=== PATIENT | female | born 1980 | race Two or more races ===

== ENCOUNTER 2024-03-05 17:13 | Inpatient (IN) | payer BC, OTHER ==
[~2024-03-05] VITALS: Ht 152.4 cm; Wt 66.5 kg
--- NOTE | 2024-03-05 17:25 | ED.PDOC ---
SOB-HPI HPI Comments HPI: Poor Historian. 43-year-old female presents to the emergency department for evaluation of shortness of breath since . She went to urgent care on they prescribed her prednisone azithromycin and inhaler which she has been using all three without significant improvement. Patient returns to the emergency depa rtment for further evaluation. Patient had a fever of 100.2 this morning. Patient stated that on they did a chest x-ray and told he have some right-sided pneumonia. Upon further evaluation patient was noted to have some distention her abdomen. She says she has been noticing this for awhile now. Denies any history of cancer or bleeding from anywhere. Denies any abdominal pain. Patient states having some mild productive cough clear phlegm. Vitals: BP: 179/117 HR: 137 Temp: 97 F RR: 24 SPO2: 97% RA Past Medcial History: Thyroid disease Past Surgical History: No tobacco no alcohol no drugs REVIEW OF SYSTEMS: CONSTITUTIONAL: Denies acute: fever, diaphoresis, chills, HEAD: Denies acute: headache, photophobia Eyes: Denies acute: Double vision, vision loss, eye pain, eye discharge. EARS: Denies acute: tinnitus, hearing loss, ear discharge, ear pain, THROAT: Denies acute: sore throat, swelling, difficulty swallowing , pain with swallowing, change in voice. NECK: Denies acute: neck pain, neck swelling, stiff neck. HEART: Denies acute : chest pain, palpitations, LUNGS: Denies acute: wheezing, hemoptysis ABDOMEN: Denies acute: abdominal pain, Nausea, Vomiting, diarrhea, melena , hematemesis, hematochezia SKIN: Denies acute: rash, redness, lesions, itchiness. EXTREMITIES: Denies acute: calf pain, numbness, tingling, weakness, denies pain in extremity. Denies acute: Low back pain. Neuro: Denies acute: focal neurological deficit, motor or sensory focal neurological deficit, tremors, seizure like activity, confusion, dizziness, change in mental status, loss of bowel or bladder function, cauda equina like symptoms. : Denies acute: dysuria, hematuria, flank pain, increase in urinary frequency. PSYCH: Denies acute: hallucination, suicidal ideation, homicidal ideation. FEMALE: Denies acute: abnormal vaginal bleeding, foul odor, unusual discharge. PHYSICAL EXAM: General: no acute distress, awake and alert. Head: normocephalic, atraumatic. Neck: supple, trachea is midline, no swelling. Throat: Normal phonation. Eyes:, no erythema, no purulent discharge, no proptosis, no icterus. Heart: regular rate, regular rhythm, no significant murmur appreciated. Lungs: Moderate apparent respiratory distress, Able to speak in full sentences. No wheezing, no rhonchi, no crackles. No stridors Clear to auscultation bilaterally. Abdomen: non tender to palpation, noted distention, soft, no guarding, no rebound, + bowel sounds. Neuro: Awake, Alert, oriented to name, self, situation, follows commands GCS=15. Speech is normal. Skin: no petechia, no purpura, no cyanosis, non-pale, not jaundice. Lower extremities: --2/4 - Pitting edema no deformity, no focal swelling, no calf TTP. Makes eye contact. moves all four extremities. Face: no apparent facial droop. Ambulating in the ED independently. 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 Was a procedure done?: No Differential Dx Differential Diagnosis: Bronchitis, COPD, Pneumonia, Pneumothorax, Pulmonary Embolism, Respiratory Distress, URI X-Ray, Labs, Meds, VS Vital Signs Date Time Temp Pulse Resp B/P (MAP) Pulse Ox O2 Delivery O2 Flow Rate FiO2 03/05/24 19:32 115 16 161/95 (117) 97 03/05/24 18:55 130 16 97 Nasal Cannula* 2 28 03/05/24 18:48 156/115 03/05/24 17:36 164/113 (130) 03/05/24 17:35 97.0 137 24 179/117 (137) 97 97.0 03/05/24 17:34 153 03/05/24 17:28 97.0 137 24 179/117 (137) 97 Lab Test 03/05/24 18:36 Range/Units White Blood Count 5.3 4.4-10.8 10^3/uL Red Blood Count 6.21 H 4.0-5.20 10^6/uL Hemoglobin 16.3 H 12.2-16.2 g/dL Hematocrit 50.4 H 36.0-46.0 % Mean Corpuscular Volume 81.2 80.0-100.0 fL Mean Corpuscular Hemoglobin 26.3 L 28.0-32.0 pg Mean Corpuscular Hemoglobin Concent 32.4 32.0-36.0 g/dL Red Cell Distribution Width 18.5 H 11.8-14.3 % Platelet Count 150 140-450 10^3/uL Mean Platelet Volume 9.2 6.9-10.8 fL Neutrophils (%) (Auto) 82.8 H 37.0-80.0 % Lymphocytes (%) (Auto) 12.9 10.0-50.0 % Monocytes (%) (Auto) 4.0 0.0-12.0 % Eosinophils (%) (Auto) 0.0 0.0-7.0 % Basophils (%) (Auto) 0.3 0.0-2.0 % Neutrophils # (Auto) 4.4 1.6-8.6 10 ^3/uL Lymphocytes # (Auto) 0.7 0.4-5.4 10 ^3/uL Monocytes # (Auto) 0.2 0-1.3 10 ^3/uL Eosinophils # (Auto) 0 0-0.8 10 ^3/uL Basophils # (Auto) 0 0-0.2 10 ^3/uL Nucleated Red Blood Cells 0.2 % Sodium Level 139 136-145 mmol/L Potassium Level 3.1 L 3.5-5.1 mmol/L Chloride Level 107 98-107 mmol/L Carbon Dioxide Level 19 L 20-31 mmol/L Anion Gap 13 5-15 Blood Urea Nitrogen 11 9-23 mg/dL Creatinine 0.70 0.550-1.02 mg/dL Glomerular Filtration Rate Calc 110 >90 mL/min BUN/Creatinine Ratio 15.7 10.0-20.0 Serum Glucose 204 H 74-106 mg/dL Lactic Acid Level 2.9 *H 0.4-2.0 mmol/L Calcium Level 9.3 8.7-10.4 mg/dL Magnesium Level Pending Total Bilirubin 2.3 H 0.2-1.0 mg/dL Aspartate Amino Transferase (AST) 35 13-40 U/L Alanine Aminotransferase (ALT) 20 7-40 U/L Alkaline Phosphatase 110 46-116 U/L Troponin I High Sensitivity 219 *H </=34 ng/L B-Type Natriuretic Peptide 610.28 0-100 pg/mL Total Protein 8.2 5.7-8.2 g/dL Albumin 3.7 3.2-4.8 g/dL Beta HCG, Quantitative 2.7 1.5-4.2 mIU/mL Current Medications Medications (Trade) Dose Ordered Sig/Kalli Route Start Time Stop Time Status Last Admin Ceftriaxone Sodium 50 ml @ 100 mls/hr ONCE ONCE IV 03/05/24 17:30 03/05/24 17:59 DC 03/05/24 18:48 Furosemide (Lasix Injection) 40 mg ONCE ONCE IV 03/05/24 17:30 03/05/24 17:55 DC 03/05/24 18:48 [place] [id number] Ph: [phone] DIAGNOSTIC IMAGING Diagnostic Imaging Report : [id number] Signed PATIENT: LAURE GRAYSON ACCT: [id number] UNIT: [id number] : 1980 LOC: ER ROOM / BED: / AGE / SEX: 43 / F ADM STATUS: REG ER SERVICE 1721 ORDERING PHYSICIAN: MADIHA MAYO DO PROCEDURE(s): CXRP - CHEST PORTABLE REASON: sob ORDER NUMBER(s): [id number], ACCESSION NUMBER(s): [id number] CHEST RADIOGRAPH Indication: sob Technique: Single frontal view of the chest was obtained COMPARISON: None FINDINGS: Lines and Tubes: None Lungs: Right lower lobe airspace disease. Increased interstitial prominence. Pleura: No effusion. No pneumothorax. Cardiomediastinal contours: Cardiomegaly Bones: Unremarkable IMPRESSION: Pulmonary vascular congestion and right lower lobe airspace disease. ATED BY: QUAN WATSON MD DICTATED DATE/TIME: 03/05/241831 SIGNED BY: QUAN WATSON MD SIGNED DATE/TIME: 03/05/241831 CC: [place] [id number] Ph: [phone] DIAGNOSTIC IMAGING Diagnostic Imaging Report : [id number] Signed PATIENT: LAURE GRAYSON ACCT: [id number] UNIT: [id number] : 1980 LOC: ER ROOM / BED: / AGE / SEX: 43 / F ADM STATUS: REG ER SERVICE 20 ORDERING PHYSICIAN: MADIHA MAYO DO PROCEDURE(s): ABPL - CT AB PEL WO CON-NO ORAL OR IV REASON: sob ORDER NUMBER(s): [id number], ACCESSION NUMBER(s): [id number] Exam: CT CT AB PEL WO CON-NO ORAL OR IV History: sob Comparison Study: None available at time of dictation. Technique: Multidetector spiral CT of the abdomen was performed from lung bases to pubic symphysis. Imaging was performed without IV contrast. Axial, coronal and sagittal multiplanar reformats were obtained from the axial data set by the technologist. Radiation Dose : 1. Abdomen/Pelvis: CTDIvol 19 mGy, DLP 1047 mGy*cm. Findings: Evaluation of solid organs is limited due to lack of intravenous contrast use. Lung Bases: Moderate right-sided pleural effusion with adjacent compressive atelectasis. Liver: The liver is normal in size. No focal lesions. Gallbladder and Biliary Tree: Unremarkable Spleen: Unremarkable Pancreas: The pancreas is grossly normal in appearance. Adrenal Glands: Unremarkable Kidneys: Kidneys are grossly normal without calculi or hydronephrosis. Bladder: Grossly unremarkable for degree of distention. Bowel: The stomach is grossly normal in appearance. Small bowel and colon are normal in caliber and distribution. Normal appendix is visualized in the right lower quadrant without findings of appendicitis. Ascites: Txyl-[id number] diffuse ascites. Lymphadenopathy: No mesenteric, retroperitoneal or periportal lymphadenopathy. Abdominal Wall and Mesentery: Mild diffuse anasarca.. Vasculature: The visualized abdominal aorta is normal in size and caliber. E valuation of abdominal and pelvic vessels is limited due to lack of intravenous contrast. Pelvic Organs: Intact IUD. Moderate free fluid in the pelvis. Musculoskeletal: No aggressive focal bony lesions, acute fractures or dislocation. Moderate degenerative changes of the bilateral hip joints. Mild fusion of the bilateral SI joints. IMPRESSION: Limited noncontrast evaluation. Moderate right-sided pleural effusion with adjacent compressive atelectasis. Mild to moderate diffuse ascites , free fluid in the pelvis, and anasarca. Other ancillary findings as described above. END IMPRESSION: ATED BY: JAY JAY GAMEZ DO DICTATED DATE/TIME: 03/05/241901 SIGNED BY: JAY JAY GAMEZ DO SIGNED DATE/TIME: 03/05/241901 CC: Time of 1ST Reevaluation: 19:15 Reevaluation 1ST: Unchanged Patient Education/Counseling: Diagnosis, Treatment Family Education/Counseling: No Family Present Departure 1 Departure Time of Disposition: 18:38 Impression: Primary Impression: Dyspnea Additional Impressions: Pleural effusion Atrial fibrillation with RVR Pneumonia Ascites Pulmonary vascular congestion Elevated troponin Disposition: ADMITTED INPATIENT Admit to: Tele Condition: Guarded Discharged With: Self Critical Care Note Critical Care Time?: No I personally scribed for MADIHA MAYO DO ([email or web address]) on 03/05/24 at 19:18. Electronically submitted by Luly Grimm ([facility]). MADIHA MAYO DO Mar 05, 2024 17:25
--- NOTE | 2024-03-05 17:36 | ECG ---
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
--- NOTE | 2024-03-05 18:36 | DVH ---
CHEST RADIOGRAPH Indication: sob Technique: Single frontal view of the chest was obtained COMPARISON: None FINDINGS: Lines and Tubes: None Lungs: Right lower lobe airspace disease. Increased interstitial prominence. Pleura: No effusion. No pneumothorax. Cardiomediastinal contours: Cardiomegaly Bones: Unremarkable IMPRESSION: Pulmonary vascular congestion and right lower lobe airspace disease.
[2024-03-05] MEDS: cefTRIAXone 1GM/50ML D5W 50 ML IV ONE (18:48)
[2024-03-05] MEDS: FUROSEMIDE 40 MG/4 ML VIAL IV ONE (18:48)
[2024-03-05 18:55] VITALS: PULSE 130; RESP 16; O2SAT 97
[2024-03-05 18:57] LABS: Basophils # (auto) 0 10 ^3/uL (0-0.2); Basophils % (auto) 0.3 % (0.0-2.0); Eosinophils # (auto) 0 10 ^3/uL (0-0.8); Hematocrit 50.4 % (36.0-46.0); Hemoglobin 16.3 g/dL (12.2-16.2); Lymphocytes # (auto) 0.7 10 ^3/uL (0.4-5.4); Lymphocytes % (auto) 12.9 % (10.0-50.0); Mean Corpuscular Hemoglobin 26.3 pg (28.0-32.0); Mean Corpuscular Hgb Conc. 32.4 g/dL (32.0-36.0); Mean Corpuscular Volume 81.2 fL (80.0-100.0); Monocytes # (auto) 0.2 10 ^3/uL (0-1.3); Neutrophils # (auto) 4.4 10 ^3/uL (1.6-8.6); Neutrophils % (auto) 82.8 % (37.0-80.0); Nucleated Red Blood Cells % 0.2 %; Platelet Count (auto) 150 10^3/uL (140-450); Red Blood Cells 6.21 10^6/uL (4.0-5.20); Red Cell Distribution Width 18.5 % (11.8-14.3); White Blood Cell 5.3 10^3/uL (4.4-10.8)
--- NOTE | 2024-03-05 19:04 | DVH ---
Exam: CT CT AB PEL WO CON-NO ORAL OR IV History: sob Comparison Study: None available at time of dictation. Technique: Multidetector spiral CT of the abdomen was performed from lung bases to pubic symphysis. Imaging was performed without IV contrast. Axial, coronal and sagittal multiplanar reformats were ob tained from the axial data set by the technologist. Radiation Dose : 1. Abdomen/Pelvis: CTDIvol 19 mGy, DLP 1047 mGy*cm. Findings: Evaluation of solid organs is limited due to lack of intravenous contrast use. Lung Bases: Moderate right-sided pleural effusion with adjacent compressive atelectasis. Liver: The liver is normal in size. No focal lesions. Gallbladder and Biliary Tree: Unremarkable Spleen: Unremarkable Pancreas: The pancreas is grossly normal in appearance. Adrenal Glands: Unremarkable Kidneys: Kidneys are grossly normal without calculi or hydronephrosis. Bladder: Grossly unremarkable for degree of distention. Bowel: The stomach is grossly normal in appearance. Small bowel and colon are normal in caliber and d istribution. Normal appendix is visualized in the right lower quadrant without findings of appendici tis. Ascites: Iiok-fj-pzatoazz diffuse ascites. Lymphadenopathy: No mesenteric, retroperitoneal or periportal lymphadenopathy. Abdominal Wall and Mesentery: Mild diffuse anasarca.. Vasculature: The visualized abdominal aorta is normal in size and caliber. Evaluation of abdominal a nd pelvic vessels is limited due to lack of intravenous contrast. Pelvic Organs: Intact IUD. Moderate free fluid in the pelvis. Musculoskeletal: No aggressive focal bony lesions, acute fractures or dislocation. Moderate degenerat darinel changes of the bilateral hip joints. Mild fusion of the bilateral SI joints. IMPRESSION: Limited noncontrast evaluation. Moderate right-sided pleural effusion with adjacent compressive atele ctasis. Mild to moderate diffuse ascites , free fluid in the pelvis, and anasarca. Other ancillary findings as described above. END IMPRESSION:
[2024-03-05 19:22] LABS: Alanine Aminotransferase 20 U/L (7-40); Alkaline Phosphatase 110 U/L (46-116); Anion Gap 13 (5-15); Aspartate Aminotransferase 35 U/L (13-40); BUN/Creatinine Ratio 15.7 (10.0-20.0); Blood Urea Nitrogen 11 mg/dL (9-23); Calcium 9.3 mg/dL (8.7-10.4); Chloride 107 mmol/L (98-107); Magnesium 1.6 mg/dL (1.6-2.6); Sodium 139 mmol/L (136-145)
[2024-03-05 19:23] LABS: Albumin 3.7 g/dL (3.2-4.8); Total Protein 8.2 g/dL (5.7-8.2)
[2024-03-05 19:25] LABS: Bilirubin, Total 2.3 mg/dL (0.2-1.0); Carbon Dioxide 19 mmol/L (20-31); Glucose 204 mg/dL (74-106); Lactic Acid w/Reflex 2.9 mmol/L (0.4-2.0); Potassium 3.1 mmol/L (3.5-5.1)
[2024-03-05 19:47] LABS: Urine Bacteria None Seen /hpf (None Seen)
[2024-03-05 19:54] LABS: Urine Blood TRACE /uL (Negative); Urine Clarity Clear (Clear); Urine Color Yellow (Yellow); Urine Hyaline Cast FEW /lpf (0 - 2); Urine Mucus FEW (None Seen); Urine Protein, UAD 3+ (Negative); Urine Specific Gravity 1.012 (1.001-1.035); Urine Squamous Epithelial Cell FEW /hpf (<5); Urine Urobilinogen 12 mg/dL (Negative); Urine WBC 6 /hpf (0 - 5); Urine pH 6.5 (5.0-9.0)
[2024-03-05 20:00] VITALS: PULSE 60; RESP 16; O2SAT 95
[2024-03-05] MEDS: PIPERACILLIN-TAZOB 3.375GM 100 ML IV ONE (20:27)
[2024-03-05] MEDS: ASPirin-EC 325mg tab PO ONE (20:27)
[2024-03-05] MEDS: LABETALOL HCL 20 MG/4 ML VL IV ONE (20:28)
[2024-03-05] MEDS ORDERED: NITROGLYCERIN 0.4 MG SL TAB SL PRN (21:45)
[2024-03-05] MEDS ORDERED: MORPHINE SULFATE INJ 2 MG/ml SYRG IV PRN (21:45)
[2024-03-05] MEDS ORDERED: ALBUTEROL SULF 2.5 MG/0.5ML(0.5%) NEB SOLN NEB PRN (21:45)
[2024-03-05] MEDS: AZITHROMYCIN 500MG/ 250ML 250 ML IV SCH (22:17)
[2024-03-05 22:19] LABS: Amphetamine Screen, Urine Neg (NEGATIVE); Barbiturate Scree,Urine Neg (NEGATIVE); Benzodiazephine Screen, Urine Neg (NEGATIVE); Cannabinoid Screen, Urine Neg (NEGATIVE); Cocaine Screen, Urine Neg (NEGATIVE); Opiate Scree,Urine Neg (NEGATIVE); Phencyclidine Screen, Urine Neg (NEGATIVE)
[2024-03-05] MEDS ORDERED: diphenhdrAMINE HCL 50 MG/1 ML VL IV PRN (23:00)
[2024-03-05 23:05] VITALS: BP 161/95; PULSE 115; RESP 16; O2SAT 95
[2024-03-05 23:53] LABS: COVID19 ANTIGEN SOFIA FIA NEGATIVE (NEGATIVE); Rapid Influenza A Negative (Negative); Rapid Influenza B Negative (Negative)
[2024-03-06] VITALS (10 sets, daily range): BP systolic 104–143; BP diastolic 58–91; PULSE 74–101; RESP 16–19; TEMP 97.6–98; O2SAT 95–99
[2024-03-06 07:26] LABS: Basophils # (auto) 0 10 ^3/uL (0-0.2); Basophils % (auto) 0.5 % (0.0-2.0); Eosinophils # (auto) 0 10 ^3/uL (0-0.8); Hematocrit 46.5 % (36.0-46.0); Hemoglobin 15.4 g/dL (12.2-16.2); Lymphocytes # (auto) 2.2 10 ^3/uL (0.4-5.4); Lymphocytes % (auto) 33.5 % (10.0-50.0); Mean Corpuscular Hemoglobin 26.5 pg (28.0-32.0); Mean Corpuscular Volume 80.3 fL (80.0-100.0); Monocytes # (auto) 0.8 10 ^3/uL (0-1.3); Monocytes % (auto) 13.1 % (0.0-12.0); Neutrophils # (auto) 3.4 10 ^3/uL (1.6-8.6); Neutrophils % (auto) 52.9 % (37.0-80.0); Nucleated Red Blood Cells % 1.5 %; Platelet Count (auto) 114 10^3/uL (140-450); Red Blood Cells 5.79 10^6/uL (4.0-5.20); Red Cell Distribution Width 17.8 % (11.8-14.3); White Blood Cell 6.5 10^3/uL (4.4-10.8)
[2024-03-06 07:27] LABS: Alkaline Phosphatase 72 U/L (46-116); Anion Gap 13 (5-15); Calcium 9.2 mg/dL (8.7-10.4); Carbon Dioxide 23 mmol/L (20-31); Chloride 105 mmol/L (98-107); Glucose 76 mg/dL (74-106); Sodium 141 mmol/L (136-145)
[2024-03-06 07:28] LABS: Total Protein 7.6 g/dL (5.7-8.2)
[2024-03-06 07:29] LABS: BUN/Creatinine Ratio 13.4 (10.0-20.0)
[2024-03-06 07:42] LABS: Alanine Aminotransferase 23 U/L (7-40); Albumin 3.6 g/dL (3.2-4.8); Aspartate Aminotransferase 71 U/L (13-40); Bilirubin, Total 2.5 mg/dL (0.2-1.0); Blood Urea Nitrogen 9 mg/dL (9-23); Potassium 4.6 mmol/L (3.5-5.1)
--- NOTE | 2024-03-06 09:40 | DVHINCON2 ---
Date of service: Mar 06, 2024 History of Present Illness HPI Patient is a 43-year-old female who presented to the hospital for few days of shortness of breath. She actually went to urgent care and was given prednisone/Z-Cody/inhaler. She did not respond and decided come to the hospital. She was diagnosed with pneumonia few days before presentation to hospital. While emergency room, she was found to have atrial fibrillation and Cardiology was called for evaluation and management. Her troponin was mildly/flat elevated which was another reason for cardiology evaluation. It is of note that the patient does have history of thyroid problem (hyperthyroidism) and was previously on methimazole. She mentions that she last saw a doctor for thyroid problem over 3 years ago and stopped methimazole herself at that time just because she did not have time to follow-up with physicians. Denies any previous cardiac history. But also mentions history of palpitation going back for years. She mentions worsening shortness of breath for the past 2 weeks. She had been having leg swellings/orthopnea/PND going back for around 6 weeks. She mentioned fever 1 day before presentation to the hospital. She had not been taking any medications as outpatient (up to few days before presentation) and has been noncompliant. Past Medical History Others Past medical history includes thyroid problem (hyperthyroidism), history of C- section and noncompliance. She stopped smoking 6 months ago. She denies history of drug abuse. She used social alcohol up to 6 months ago. Denies relevant family history. Father had diabetes mellitus. Mother has hypertension. Patient Family History: Diabetes mellitus G8 FATHER Hypertension G8 MOTHER Smoker: Quit Drugs: None Lives with: With family Review of Systems Constitutional: Fever, Malaise Ears, Nose, & Throat: No symptom reported Eyes: No symptom reported Pulmonary/Respiratory: Dyspnea, Cough Cardiovascular: Chest Pain, Palpitations All Other Systems Fourteen point review of system was performed. Relevant findings as per above and as per HPI. Otherwise negative. H&P Exam Vital Signs Vital Signs Date Time Temp Pulse Resp B/P (MAP) Pulse Ox O2 Delivery O2 Flow Rate FiO2 03/06/24 08:58 97.9 94 16 126/81 (96) 99 97.9 03/06/24 02:20 Room Air* 0 21 General Appeara: Well developed Head Exam: Normal inspection Eye Exam: bilateral eye PERRL Mouth: Normal Inspection Pulmonary/Respiratory: Rhonci Cardiovascular/Chest: Edema, Tachycardia, Irregularly irregular Peripheral Pulses: 2+ carotid (R), 2+ carotid (L), 2+ femoral (R), 2+ femoral (L), 2+ dorsalis pedis (R), 2+ dorsalis pedis (L), 2+ Radial (R), 2+ Radial (L) Abdominal Exam: Normal bowel sounds, Soft Neuro/Mental St: Alert, Oriented Appearance: Appropriate appearance Eye contact/ Speech: Cooperative Labs/Xrays Labs Test 03/06/24 05:21 03/05/24 22:56 03/05/24 22:13 03/05/24 18:36 Range/Units White Blood Count 6.5 4.4-10.8 10^3/uL Red Blood Count 5.79 H 4.0-5.20 10^6/uL Hemoglobin 15.4 12.2-16.2 g/dL Hematocrit 46.5 H 36.0-46.0 % Mean Corpuscular Volume 80.3 80.0-100.0 fL Mean Corpuscular Hemoglobin 26.5 L 28.0-32.0 pg Mean Corpuscular Hemoglobin Concent 33.0 32.0-36.0 g/dL Red Cell Distribution Width 17.8 H 11.8-14.3 % Platelet Count 114 L 140-450 10^3/uL Mean Platelet Volume 11.0 H 6.9-10.8 fL Neutrophils (%) (Auto) 52.9 37.0-80.0 % Lymphocytes (%) (Auto) 33.5 10.0-50.0 % Monocytes (%) (Auto) 13.1 H 0.0-12.0 % Eosinophils (%) (Auto) 0.0 0.0-7.0 % Basophils (%) (Auto) 0.5 0.0-2.0 % Neutrophils # (Auto) 3.4 1.6-8.6 10 ^3/uL Lymphocytes # (Auto) 2.2 0.4-5.4 10 ^3/uL Monocytes # (Auto) 0.8 0-1.3 10 ^3/uL Eosinophils # (Auto) 0 0-0.8 10 ^3/uL Basophils # (Auto) 0 0-0.2 10 ^3/uL Nucleated Red Blood Cells 1.5 % Sodium Level 141 136-145 mmol/L Potassium Level 4.6 3.5-5.1 mmol/L Chloride Level 105 98-107 mmol/L Carbon Dioxide Level 23 20-31 mmol/L Anion Gap 13 5-15 Blood Urea Nitrogen 9 9-23 mg/dL Creatinine 0.67 0.550-1.02 mg/dL Glomerular Filtration Rate Calc 111 >90 mL/min BUN/Creatinine Ratio 13.4 10.0-20.0 Serum Glucose 76 74-106 mg/dL Lactic Acid Level 1.8 0.4-2.0 mmol/L Calcium Level 9.2 8.7-10.4 mg/dL Total Bilirubin 2.5 H 0.2-1.0 mg/dL Aspartate Amino Transferase (AST) 71 H 13-40 U/L Alanine Aminotransferase (ALT) 23 7-40 U/L Alkaline Phosphatase 72 46-116 U/L Total Protein 7.6 5.7-8.2 g/dL Albumin 3.6 3.2-4.8 g/dL Influenza Type A Antigen Negative Negative Influenza Type B Antigen Negative Negative SARS-CoV-2 Antigen (Rapid) Negative NEGATIVE Troponin I High Sensitivity 214 *H </=34 ng/L Magnesium Level 1.6 1.6-2.6 mg/dL B-Type Natriuretic Peptide 610.28 0-100 pg/mL Beta HCG, Quantitative 2.7 1.5-4.2 mIU/mL Test 03/05/24 17:30 Range/Units Urine Color Yellow Yellow Urine Clarity Clear Clear Urine pH 6.5 5.0-9.0 Urine Specific [place] 1.012 1.001-1.035 Urine Protein 3+ H Negative Urine Ketones Negative Negative Urine Blood Trace H Negative /uL Urine Nitrite Negative Negative Urine Bilirubin 1+ H Negative Urine Urobilinogen 12 H Negative mg/dL Urine Leukocyte Esterase Negative Negative /uL Urine RBC 10 0 - 4 /hpf Urine WBC 6 0 - 5 /hpf Urine Squamous Epithelial Cells Few <5 /hpf Urine Bacteria None seen None Seen /hpf Urine Hyaline Casts Few 0 - 2 /lpf Urine Mucus Few None Seen Urine Glucose 1+ H Normal mg/dL Urine Opiates Screen Neg NEGATIVE Urine Fentanyl Screen Neg NEGATIVE Urine Barbiturates Screen Neg NEGATIVE Urine Phencyclidine Screen Neg NEGATIVE Urine Amphetamines Screen Neg NEGATIVE Urine Benzodiazepines Screen Neg NEGATIVE Urine Cocaine Screen Neg NEGATIVE Urine Cannabinoids Screen Neg NEGATIVE Assessment/Plan Plan Patient is a 43-year-old female who presented to the hospital for few days of shortness of breath. She actually went to urgent care and was given prednisone/Z-Cody/inhaler. She did not respond and decided come to the hospital. She was diagnosed with pneumonia few days before presentation to hospital. While emergency room, she was found to have atrial fibrillation and Cardiology was called for evaluation and management. Her troponin was mildly/flat elevated which was another reason for cardiology evaluation. It is of note that the patient does have history of thyroid problem (hyperthyroidism) and was previously on methimazole. She mentions that she last saw a doctor for thyroid problem over 3 years ago and stopped methimazole herself at that time just because she did not have time to follow-up with physicians. Denies any previous cardiac history. But also mentions history of palpitation going back for years. She mentions worsening shortness of breath for the past 2 weeks. She had been having leg swellings/orthopnea/PND going back for around 6 weeks. She mentioned fever 1 day before presentation to the hospital. She had not been taking any medications as outpatient (up to few days before presentation) and has been noncompliant. Not in acute distress. Sitting in bed. No JVD. Mucosa is pink and wet. There is no goiter. There is no carotid bruit. Not using accessory muscles of breathing. Scattered rhonchi in the lungs is heard. Cardiac: Irregular, tachycardic, systolic murmur 3/6 in the apex is heard. Abdomen is soft. Bowel sound is positive. There is no gross mass/hepatomegaly. Extremities reveal 3+ edema in bilateral lower extremities. Dorsalis pedis is 2+ bilateral Past medical history includes thyroid problem (hyperthyroidism), history of C- section and noncompliance. She stopped smoking 6 months ago. She denies history of drug abuse. She used social alcohol up to 6 months ago. Denies relevant family history. Father had diabetes mellitus. Mother has hypertension. WBC: 5.3 - 6.5 Creatinine: 0.70 - 0.67 Potassium: 3.1 - 4.6 Lactic acid: 2.9 - 2.2 - 1.8 Magnesium: 1.6 - 1.6 AST/ALT: 35/20 - 71/23 Bilirubin (total): 2.3 - 2.5 BNP: 610.28 Troponin (high sensitive): 219 - 227 - 214 Urinalysis revealed 3+ proteinuria Chest x-ray reported: IMPRESSION: Pulmonary vascular congestion and right lower lobe airspace disease. Abdominal and pelvis CT scan (without contrast) reported: Findings: Evaluation of solid organs is limited due to lack of intravenous contrast use. Lung Bases: Moderate right-sided pleural effusion with adjacent compressive atelectasis. Liver: The liver is normal in size. No focal lesions. Gallbladder and Biliary Tree: Unremarkable Spleen: Unremarkable Pancreas: The pancreas is grossly normal in appearance. Adrenal Glands: Unremarkable Kidneys: Kidneys are grossly normal without calculi or hydronephrosis. Bladder: Grossly unremarkable for degree of distention. Bowel: The stomach is grossly normal in appearance. Small bowel and colon are normal in caliber and distribution. Normal appendix is visualized in the right lower quadrant without findings of appendicitis. Ascites: [id number] diffuse ascites. Lymphadenopathy: No mesenteric, retroperitoneal or periportal lymphadenopathy. Abdominal Wall and Mesentery: Mild diffuse anasarca.. Vasculature: The visualized abdominal aorta is normal in size and caliber. Evaluation of abdominal and pelvic vessels is limited due to lack of intravenous contrast. Pelvic Organs: Intact IUD. Moderate free fluid in the pelvis. Musculoskeletal: No aggressive focal bony lesions, acute fractures or dislocation. Moderate degenerative changes of the bilateral hip joints. Mild fusion of the bilateral SI joints. IMPRESSION: Limited noncontrast evaluation. Moderate right-sided pleural effusion with adjacent compressive atelectasis. Mild to moderate diffuse ascites , free fluid in the pelvis, and anasarca. Other ancillary findings as described above. Telemetry reveals atrial fibrillation with RVR She patient is a 43-year-old female who presented with 1 day of fever. Was recently diagnosed with pneumonia and had been on antibiotics. Presentation questions sepsis/pneumonia. Her presentation also includes palpitation for years which increased in few weeks. Is found to have atrial fibrillation with RVR. Her history also includes few weeks of orthopnea/PND/leg swellings (for weeks) which questions acute heart failure. Does have increased BNP in favor of acute heart failure. Troponin has been mildly elevated but running flat which is in favor of possible demand ischemia. Never had ischemic workup before. Pre sentation is not in favor of acute coronary syndrome at this point. She is found to have multiorgan involvement (ascites, proteinuria, pneumonia). Does have previous history of hyperthyroidism which could have contributed to the clinical picture also (if present at this point). Fever Sepsis Pneumonia Atrial fibrillation with RVR Abnormal troponin Increased BNP Acute heart failure Ascites Proteinuria Noncompliance to medication and followups Cardiac suggestion for management: Manage in telemetry IV diuresis is suggested Follow-up electrolytes and kidney function tests and correct abnormalities. Keep potassium above 4 and magnesium above 2 Magnesium supplementation Echocardiogram Full anticoagulation for now Cardizem: 45 mg p.o. 6 hours at this point for further control of tachyarrhythmia suggested Sepsis workup and antibiotic therapy as per primary team Request for CT of the chest without contrast. Request for thyroid function tests (TSH/T3/T4/free T3/free T4) Consider ESR/CRP Pulmonary evaluation for pneumonia Nephrology evaluation for proteinuria If proven active hyperthyroidism, endocrinology evaluation is suggested Wound evaluation and management of ascites as per primary team (you may consider GI evaluation) Further evaluation and management depends on the above and clinical course Thank you for consultation A total of 75 minutes was spent reviewing the patient record, examining the patient, making a diagnostic and therapeutic plan, discussing this plan with medical personnel, following up on diagnostic studies and following the patient for clinical stability excluding any and all procedures. At least 50% of this time was spent in direct, [id number] contact. Thank you for allowing me to participate in this patient's care. Further recommendations will depend on patient's clinical course. Please do not hesitate to contact me if you have any questions or concerns. This medical document was created using electronic medical record system with [employer] computerized dictation system. Although this document has been carefully reviewed, there may still be some phonetic and typographical errors. These areas are purely typographical due to the imperfection of the software programs, and do not reflect any compromise in the patient's medical care. Plan discussed with: Patient, Other (nurse) ANAMARIA GROVES MD Mar 06, 2024 09:40
--- NOTE | 2024-03-06 09:43 | DVHHP2 ---
Admitting Diagnosis: Admission date 03/05/2024 Shortness of breathe and fever History of Present Illness Patient is a poor historian. Patient is a 43-year-old female who presents to the emergency room for evaluation shortness of breath. Patient states that she went to the urgent care on and was prescribed prednisone and azithr omycin and inhaler. Patient states that there has been no significant improvement with this treatment plan. Patient return to the emergency room this morning and had a fever of 100.2. Patient states that they did a chest x-ray on and mentioned that she may have some right-sided pneumonia. Patient upon further evaluation was found to have some distention in her abdomen. Patient denies any history of cancer or bleeding, denies any abdominal pain, states she is having some mild productive cough with clear phlegm. While in the emergency department the patient was evaluated by the provider, As per provider: Labs, vital signs, and imagining monitored. Patient will be admitted for further evaluation and treatment. I discussed admission with the patient/family and is in agreement to treatment plan Patient Family History: Diabetes mellitus G8 FATHER Hypertension G8 MOTHER Allergies: Coded Allergies: Ibuprofen (Verified Allergy, Severe, 03/05/24) Azithromycin (Verified Allergy, Unknown, 03/05/24) Current Medications Current Medications Medications (Trade) Dose Ordered Sig/Kalli Route PRN Reason Start Time Stop Time Status Last Admin Acetaminophen/ Hydrocodone Bitart ([place] 5/325MG Tab) 1 tab Q4HP PRN PO MODERATE PAIN (4-6 PAIN SCALE) 03/05/24 21:45 Ondansetron HCl (Zofran) 4 mg Q4HP PRN IV NAUSEA / VOMITING 03/05/24 21:45 Docusate Sodium (Colace Capsule) 100 mg BIDPRN PRN PO FOR CONSTIPATION 03/05/24 21:45 Acetaminophen (Tylenol Tablet) 650 mg Q6HP PRN PO PAIN SCALE 1-3 OR TEMP>100.4 03/05/24 21:45 Morphine Sulfate 2 mg Q4HPRN PRN IV SEVERE PAIN (7-10 PAIN SCALE) 03/05/24 21:45 Pantoprazole Sodium (Protonix) 40 mg DAILY IV 03/06/24 10:00 03/06/24 11:28 Nitroglycerin (Ntrostat Sublingual) 0.4 mg Q5MINP PRN SL FOR CHEST PAIN 03/05/24 21:45 Morphine Sulfate 2 mg Q30M PRN IV FOR CHEST PAIN 03/05/24 21:45 Azithromycin 250 ml @ 125 mls/hr DAILY@2200 IV 03/05/24 22:00 03/05/24 23:06 DC 03/05/24 22:17 Albuterol (Ventolin Medneb) 2.5 mg Q4HP PRN NEB SHORTNESS OF BREATH 03/05/24 21:45 Diphenhydramine HCl (Benadryl Injection) 25 mg Q6HR PRN IV FOR ITCHING 03/05/24 23:00 Diltiazem HCl (Cardizem Immediate Release Tab) 45 mg Q6HR PO 03/06/24 12:00 03/06/24 17:14 Magnesium Sulfate/ Dextrose 100 ml @ 100 mls/hr Q1HR IV 03/06/24 10:00 03/06/24 13:59 DC 03/06/24 17:10 Furosemide (Lasix Injection) 40 mg BIDD IV 03/06/24 18:00 03/06/24 17:12 Enoxaparin Sodium (Lovenox) 80 mg Q12HR SC 03/06/24 10:00 03/06/24 11:27 Doxycycline Monohydrate (Vibramycin Tablet) 100 mg Q12HR PO 03/06/24 10:00 03/06/24 11:50 Review of Systems Constitutional: denies chills, denies fever, denies malaise Eyes: denies eye pain, denies vision change ENT: denies ear pain, denies headache, denies nasal congestion, denies painful swallowing, denies voice change Cardiovascular: denies chest pain, denies edema, denies orthopnea, denies palpitations, denies paroxysmal nocturnal dyspnea Respiratory: denies cough, denies shortness of breath Gastrointestinal: denies constipation, denies diarrhea, denies nausea, denies vomiting Genitourinary: denies dysuria, denies frequent urination, denies urethral discharge Musculoskeletal: denies back pain, denies joint pain, denies muscle pain Skin: denies bruising, denies itching, denies rash Neurological: denies focal weakness, denies headache, denies sensory changes Psychiatric: denies anxiety, denies depression Endocrine: denies polydipsia, denies polyuria Hematologic/Lymphatic: denies easy bleeding, denies easy bruising, denies enlarged lymph nodes Allergic/Immunologic: denies allergy, denies hives Vital Signs Vital Signs Date Time Temp Pulse Resp B/P (MAP) Pulse Ox O2 Delivery O2 Flow Rate FiO2 03/06/24 18:08 98 Room Air* 0 21 03/06/24 17:14 88 133/75 03/06/24 17:00 97.6 16 97.6 Physical Exam General Appearance: alert, no distress HEENT: EOMI, PERRLA, normal external inspect of ears, no icterus, no nasal drainage Neck: no carotid bruit, no jugular venous distention (JVD), no lymphadenopathy Chest: normal thorax Respiratory: clear to auscultation, normal air movement Cardiovascular: regular rate and rhythm, no diastolic murmur, no jugular venous distention (JVD), no rub, no systolic murmur Abdominal: soft, no hepatomegaly, no mass, no splenomegaly, no tenderness Genitourinary: grossly normal external Musculoskeletal: no joint tenderness, no swelling Extremities: normal pulses, no calf tenderness, no clubbing, no cyanosis, no edema Skin: no bruising, no jaundice, no rash Neurological: alert, No focal deficit Results Labs Test 03/06/24 11:11 03/06/24 05:21 03/05/24 22:56 03/05/24 22:13 Range/Units HIV (1&2) Antibody Negative Negative White Blood Count 6.5 4.4-10.8 10^3/uL Red Blood Count 5.79 H 4.0-5.20 10^6/uL Hemoglobin 15.4 12.2-16.2 g/dL Hematocrit 46.5 H 36.0-46.0 % Mean Corpuscular Volume 80.3 80.0-100.0 fL Mean Corpuscular Hemoglobin 26.5 L 28.0-32.0 pg Mean Corpuscular Hemoglobin Concent 33.0 32.0-36.0 g/dL Red Cell Distribution Width 17.8 H 11.8-14.3 % Platelet Count 114 L 140-450 10^3/uL Mean Platelet Volume 11.0 H 6.9-10.8 fL Neutrophils (%) (Auto) 52.9 37.0-80.0 % Lymphocytes (%) (Auto) 33.5 10.0-50.0 % Monocytes (%) (Auto) 13.1 H 0.0-12.0 % Eosinophils (%) (Auto) 0.0 0.0-7.0 % Basophils (%) (Auto) 0.5 0.0-2.0 % Neutrophils # (Auto) 3.4 1.6-8.6 10 ^3/uL Lymphocytes # (Auto) 2.2 0.4-5.4 10 ^3/uL Monocytes # (Auto) 0.8 0-1.3 10 ^3/uL Eosinophils # (Auto) 0 0-0.8 10 ^3/uL Basophils # (Auto) 0 0-0.2 10 ^3/uL Nucleated Red Blood Cells 1.5 % Erythrocyte Sedimentation Rate 5 0-20 mm/hr Sodium Level 141 136-145 mmol/L Potassium Level 4.6 3.5-5.1 mmol/L Chloride Level 105 98-107 mmol/L Carbon Dioxide Level 23 20-31 mmol/L Anion Gap 13 5-15 Blood Urea Nitrogen 9 9-23 mg/dL Creatinine 0.67 0.550-1.02 mg/dL Glomerular Filtration Rate Calc 111 >90 mL/min BUN/Creatinine Ratio 13.4 10.0-20.0 Serum Glucose 76 74-106 mg/dL Lactic Acid Level 1.8 0.4-2.0 mmol/L Calcium Level 9.2 8.7-10.4 mg/dL Total Bilirubin 2.5 H 0.2-1.0 mg/dL Aspartate Amino Transferase (AST) 71 H 13-40 U/L Alanine Aminotransferase (ALT) 23 7-40 U/L Alkaline Phosphatase 72 46-116 U/L C-Reactive Protein High Sensitivity 0.15 <1.0 mg/dL Total Protein 7.6 5.7-8.2 g/dL Albumin 3.6 3.2-4.8 g/dL Thyroid Stimulating Hormone (TSH) 0.01 L 0.55-4.78 uIU/mL Free Thyroxine (T4) Calculated 2.58 H 0.89-1.76 ng/dL Free Triiodothyronine (T3) pg/mL 5.13 H 2.3-4.2 pg/mL Total Triiodothyronine (TT3) 1.36 0.60-1.81 ng/mL Influenza Type A Antigen Negative Negative Influenza Type B Antigen Negative Negative SARS-CoV-2 Antigen (Rapid) Negative NEGATIVE Troponin I High Sensitivity 214 *H </=34 ng/L Test 03/05/24 18:36 03/05/24 17:30 Range/Units Magnesium Level 1.6 1.6-2.6 mg/dL B-Type Natriuretic Peptide 610.28 0-100 pg/mL Beta HCG, Quantitative 2.7 1.5-4.2 mIU/mL Urine Color Yellow Yellow Urine Clarity Clear Clear Urine pH 6.5 5.0-9.0 Urine Specific [place] 1.012 1.001-1.035 Urine Protein 3+ H Negative Urine Ketones Negative Negative Urine Blood Trace H Negative /uL Urine Nitrite Negative Negative Urine Bilirubin 1+ H Negative Urine Urobilinogen 12 H Negative mg/dL Urine Leukocyte Esterase Negative Negative /uL Urine RBC 10 0 - 4 /hpf Urine WBC 6 0 - 5 /hpf Urine Squamous Epithelial Cells Few <5 /hpf Urine Bacteria None seen None Seen /hpf Urine Hyaline Casts Few 0 - 2 /lpf Urine Mucus Few None Seen Urine Glucose 1+ H Normal mg/dL Urine Opiates Screen Neg NEGATIVE Urine Fentanyl Screen Neg NEGATIVE Urine Barbiturates Screen Neg NEGATIVE Urine Phencyclidine Screen Neg NEGATIVE Urine Amphetamines Screen Neg NEGATIVE Urine Benzodiazepines Screen Neg NEGATIVE Urine Cocaine Screen Neg NEGATIVE Urine Cannabinoids Screen Neg NEGATIVE Microbiology Date/Time Source Procedure Growth Status 03/05/24 18:36 Blood Blood Culture - Preliminary NO GROWTH AFTER 24 HOURS OF INCUBATION. Resulted Plan 1. Sepsis Monitor, IV antibiotics 2. Right-sided pneumonia, most likely gram-negative and some gram-positive Monitor, IV antibiotics, IR consult, plan thoracentesis 3. Right pleural effusion Monitor 4. Ascites Monitor, GI consult, plan paracentesis 5. Elevated bilirubin Monitor 6. Atrial fibrillation with RVR Monitor, cardiology consults, antiarrythmics, echocardiogram 7. Elevated troponin, most likely demand ischemia Monitor, trend troponin 8. Hypothyroidism Monitor Plan discussed with: Patient, Other ISIDORO DELANEY NP Mar 06, 2024 09:43
--- NOTE | 2024-03-06 09:44 | DVHPN2 ---
Progress Note - Dictate Date Seen: Mar 06, 2024 Medical Necessity Reason Pt with a Central, PICC or Fol: No vital signs Vital Sign Date Time Temp Pulse Resp B/P (MAP) Pulse Ox O2 Delivery O2 Flow Rate FiO2 03/06/24 09:13 97 Room Air 0.0 03/06/24 09:13 21 03/06/24 08:58 97.9 94 16 126/81 (96) 97.9 Total Intake and Output 03/05/24 03/05/24 03/06/24 15:00 23:00 07:00 Intake Total 163 ml 200 ml Balance 163 ml 200 ml medications Current Medications Medications Dose Ordered Sig/Kalli Route Start Time Stop Time Status Last Admin Dose Admin Acetaminophen/ Hydrocodone Bitart 1 tab Q4HP PRN PO 03/05/24 21:45 Ondansetron HCl 4 mg Q4HP PRN IV 03/05/24 21:45 Docusate Sodium 100 mg BIDPRN PRN PO 03/05/24 21:45 Acetaminophen 650 mg Q6HP PRN PO 03/05/24 21:45 Morphine Sulfate 2 mg Q4HPRN PRN IV 03/05/24 21:45 Pantoprazole Sodium 40 mg DAILY IV 03/06/24 10:00 Nitroglycerin 0.4 mg Q5MINP PRN SL 03/05/24 21:45 Morphine Sulfate 2 mg Q30M PRN IV 03/05/24 21:45 Albuterol 2.5 mg Q4HP PRN NEB 03/05/24 21:45 Diphenhydramine HCl 25 mg Q6HR PRN IV 03/05/24 23:00 objective General Appearance: alert, no distress HEENT: EOMI, PERRLA, normal external inspect of ears, no icterus, no nasal drainage Neck: no carotid bruit, no jugular venous distention (JVD), no lymphadenopathy Chest: normal thorax Respiratory: clear to auscultation, normal air movement Cardiovascular: regular rate and rhythm, no diastolic murmur, no jugular venous distention (JVD), no rub, no systolic murmur Abdominal: soft, no hepatomegaly, no mass, no splenomegaly, no tenderness Genitourinary: grossly normal external Musculoskeletal: no joint tenderness, no swelling Extremities: normal pulses, no calf tenderness, no clubbing, no cyanosis, no edema Skin: no bruising, no jaundice, no rash Neurological: alert, No focal deficit laboratory and microbiology Laboratory Tests 03/06/24 05:21 Test 03/06/24 05:21 Range/Units Serum Glucose 76 74-106 mg/dL Problem List 1. Sepsis Monitor, IV antibiotics 2. Right-sided pneumonia, most likely gram-negative and some gram-positive Monitor, IV antibiotics, IR consult, plan thoracentesis 3. Right pleural effusion Monitor 4. Ascites Monitor, GI consult, plan paracentesis 5. Elevated bilirubin Monitor 6. Atrial fibrillation with RVR Monitor, cardiology consults, antiarrythmics, echocardiogram 7. Elevated troponin, most likely demand ischemia Monitor, trend troponin 8. Hypothyroidism Monitor Assessment/Plan Subjective: Patient is awake and alert. Objective: Spoke with patient and patient's at bedside. Patient states she has had pneumonia for several weeks. Patient was admitted for right side pneumonia most likely gram-negative and gram-positive. Patient has a right pleural effusion and ascites. Patient denies any drug use as she only states she has occasional social EtOH. Patient has increasing bilirubin levels. Plan: Obtain echocardiogram. GI consult. Patient has slightly elevated liver enzymes and ascites. Patient is scheduled for possible thoracentesis and paracentesis today. Continue antibiotics and Med-Neb treatments. Plan discussed with: Patient, Other ISIDORO DELANEY NP Mar 06, 2024 09:44
--- NOTE | 2024-03-06 11:05 | DVH ---
Procedure: CT CHEST WITHOUT CONTRAST Reason for study/Clinical History: Pneumonia. Comparison Study: None. Exam Date: 03/06/2024 10:27 AM TECHNIQUE: Multidetector CT of the chest was performed from the lung apices to the upper abdomen with out the use of intravenous contract. Axial, coronal and sagittal multiplanar reformats were performed . Radiation Dose Information: CT Dose: CTDI volume is 17.64 mGy. Dose-length product is 628.63 mGy*cm The dose indicators for CT are the volume Computed Tomography (CT) Dose Index (CTDIvol) and the Dose Length Product (DLP), and are measured in units of mGy and mGy-cm, respectively. These indicators are not patient dose, but values generated from the CT scanner acquisition factors. The report includes radiation exposure data for exposures received during this examination. Radiation optimization: All CT scans at this facility use at least one of these dose optimization speedy hniques: automated exposure control mA and/or kV adjustment per patient size (includes targeted exam s where dose is matched to clinical indication) or iterative reconstruction. FINDINGS Lungs/Pleura: There is large right pleural effusion with collapse of the right lower lobe. The visua lized aerated right upper and right middle lobe appear within normal limits. The left lung and pleura l space are clear. Heart/Vascular Structures: Normal heart size. No pericardial effusion. Lymph Nodes: There are multiple subcentimeter bilateral axillary lymph nodes. There is no pathologic mediastinal lymphadenopathy. Musculoskeletal: No acute osseous abnormality. Soft tissues: Unremarkable. Upper abdomen: There is small amount of perihepatic ascites. There is a 1.6 cm cyst in the medial ri ght hepatic lobe. Remaining visualized solid intra-abdominal structures grossly appear within normal limits. IMPRESSION: 1. Large right pleural effusion with collapse of the right lower lobe. The left lung and pleural spa ce are clear. 2. There are multiple subcentimeter bilateral axillary lymph nodes which may be reactive. 3. Small amount of perihepatic ascites. HS:Y
[2024-03-06] MEDS: ENOXAPARIN SOD 100 MG/1 ML SYRINGE SC SCH (11:27)
[2024-03-06] MEDS: PANTOPRAZOLE 40 MG/10 ML VIAL INJ IV SCH (11:28)
[2024-03-06] MEDS: MAGNESIUM SULFATE 1GM/100ML 100 ML IV SCH (11:28)
[2024-03-06 11:34] LABS: T3 Total 1.36 ng/mL (0.60-1.81)
[2024-03-06 11:36] LABS: Free T3 5.13 pg/mL (2.3-4.2)
[2024-03-06 11:37] LABS: Free T4 (Free Thyroxine) 2.58 ng/dL (0.89-1.76)
[2024-03-06 11:50] LABS: Erythrocyte Sedimentation Rate 5 mm/hr (0-20)
[2024-03-06] MEDS: DOXYCYCLINE 100 MG TAB/CAP PO SCH (11:50)
[2024-03-06] MEDS: dilTIAZem HCL 60 MG TAB PO SCH (11:53)
--- NOTE | 2024-03-06 15:51 | DVH ---
Bilateral Chest Sonogram Date: 03/06/2024 03:22 PM Clinical history: FLUID CHECK Technique: Limited sonographic evaluation of the bilateral chest was performed to evaluate for pleur al effusion. Finding/Impression: Bilateral pleural effusions, moderate on the right and trace on the left. HS:Y
--- NOTE | 2024-03-06 15:51 | DVH ---
ULTRASOUND ABDOMEN limited, 4 QUADRANTS INDICATION: CHECK FOR ASCITES Evaluate for ascites. TECHNIQUE: The four quadrants of the abdomen were scanned in benson-scale to assess for the presence of ascites. N o solid organ assessment was performed. FINDINGS/IMPRESSIONS: Trace ascites in Shay's pouch. HS:Y
[2024-03-06] MEDS: FUROSEMIDE 40 MG/4 ML VIAL IV SCH (17:12)
--- NOTE | 2024-03-06 21:12 | DVHINCON2 ---
Date of service: Mar 06, 2024 Referring Physician Mary Wade NP Reason for Consultation Pleural effusions, pneumonia, atelectasis. History of Present Illness A 43-year-old woman with PMHx of hyperthyroidism and noncompliance who presented to the hospital on 03/05/24 with c/o shortness of breath. She did go to urgent care, was dx'd with pneumonia and given prednisone/Z-Cody/inhaler but did not re spond and decided come to the hospital. Pt mentions worsening shortness of breath for the past 2 weeks. She had been having leg swelling/orthopnea/PND for approximately 6 weeks. Pt had fever 1 day before presentation to the hospital. She had not been taking any medications (up to few days before presentation) and has been noncompliant. Of note, pt was previously on methimazole for hyperthyroidism but stopped on her own, last saw a doctor for thyroid problem over 3 years ago. Patient mentions history of palpitations several years ago. Pt was noted to have atrial fibrillation during ER workup. Her troponin was mildly flat/elevated. Patient was admitted for further care and pulmonary consultation is requested for evaluation and management d/t pneumonia, pleural effusion and atelectasis. Review of Systems: 14-point review of systems negative unless otherwise noted above. Past Medical History: Hyperthyroidism and noncompliance. Past Surgical History: Medications: Reviewed. Allergies: Ibuprofen Azithromycin Family History: Father had diabetes mellitus. Mother has hypertension. Social History: Ex-smoker. Quit smoking 6 months ago. Patient used social alcohol up to 6 months ago. No illicit drug use. Family History: Diabetes mellitus G8 FATHER Hypertension G8 MOTHER Allergies: Coded Allergies: Ibuprofen (Verified Allergy, Severe, 03/05/24) Azithromycin (Verified Allergy, Unknown, 03/05/24) Current Medications Current Medications Medications (Trade) Dose Ordered Sig/Kalli Route PRN Reason Start Time Stop Time Status Last Admin Acetaminophen/ Hydrocodone Bitart ([place] 5/325MG Tab) 1 tab Q4HP PRN PO MODERATE PAIN (4-6 PAIN SCALE) 03/05/24 21:45 Ondansetron HCl (Zofran) 4 mg Q4HP PRN IV NAUSEA / VOMITING 03/05/24 21:45 Docusate Sodium (Colace Capsule) 100 mg BIDPRN PRN PO FOR CONSTIPATION 03/05/24 21:45 Acetaminophen (Tylenol Tablet) 650 mg Q6HP PRN PO PAIN SCALE 1-3 OR TEMP>100.4 03/05/24 21:45 Morphine Sulfate 2 mg Q4HPRN PRN IV SEVERE PAIN (7-10 PAIN SCALE) 03/05/24 21:45 Pantoprazole Sodium (Protonix) 40 mg DAILY IV 03/06/24 10:00 03/06/24 11:28 Nitroglycerin (Ntrostat Sublingual) 0.4 mg Q5MINP PRN SL FOR CHEST PAIN 03/05/24 21:45 Morphine Sulfate 2 mg Q30M PRN IV FOR CHEST PAIN 03/05/24 21:45 Azithromycin 250 ml @ 125 mls/hr DAILY@2200 IV 03/05/24 22:00 03/05/24 23:06 DC 03/05/24 22:17 Albuterol (Ventolin Medneb) 2.5 mg Q4HP PRN NEB SHORTNESS OF BREATH 03/05/24 21:45 Diphenhydramine HCl (Benadryl Injection) 25 mg Q6HR PRN IV FOR ITCHING 03/05/24 23:00 Diltiazem HCl (Cardizem Immediate Release Tab) 45 mg Q6HR PO 03/06/24 12:00 03/06/24 17:14 Magnesium Sulfate/ Dextrose 100 ml @ 100 mls/hr Q1HR IV 03/06/24 10:00 03/06/24 13:59 DC 03/06/24 17:10 Furosemide (Lasix Injection) 40 mg BIDD IV 03/06/24 18:00 03/06/24 17:12 Enoxaparin Sodium (Lovenox) 80 mg Q12HR SC 03/06/24 10:00 03/06/24 11:27 Doxycycline Monohydrate (Vibramycin Tablet) 100 mg Q12HR PO 03/06/24 10:00 03/06/24 11:50 Vital Signs Vital Signs Date Time Temp Pulse Resp B/P (MAP) Pulse Ox O2 Delivery O2 Flow Rate FiO2 03/06/24 18:08 98 Room Air* 0 21 03/06/24 17:14 88 133/75 03/06/24 17:00 97.6 16 97.6 Physical Exam Gen.: Patient lying in bed in no apparent distress. Breathing on room air. Head: Normocephalic, atraumatic. Eyes: EOMI/PERRLA. Ears: Normal hearing. Normal anatomy. Neck/trachea: Trachea midline, supple. Nose: Normal external anatomy. Mouth: Moist mucous membranes. Chest: Decreased air entry bilaterally. No wheezing or rhonchi. Cardiovascular: Positive S1, positive S2. Regular rate and rhythm. Abdomen: Positive bowel sounds in all 4 quadrants. Soft, non-tender, non- distended. : Deferred. Rectal: Deferred. Skin: Warm, dry. Intact. Extremities: 2+ radial pulses bilaterally. No lower extremity edema. Neuro: Awake, alert, oriented x3. No gross motor or sensory deficits. Cranial nerves II through XII intact. Gait not assessed. Labs/Diagnostic Data Labs Test 03/06/24 11:11 03/06/24 05:21 03/05/24 22:56 03/05/24 22:13 Range/Units HIV (1&2) Antibody Negative Negative White Blood Count 6.5 4.4-10.8 10^3/uL Red Blood Count 5.79 H 4.0-5.20 10^6/uL Hemoglobin 15.4 12.2-16.2 g/dL Hematocrit 46.5 H 36.0-46.0 % Mean Corpuscular Volume 80.3 80.0-100.0 fL Mean Corpuscular Hemoglobin 26.5 L 28.0-32.0 pg Mean Corpuscular Hemoglobin Concent 33.0 32.0-36.0 g/dL Red Cell Distribution Width 17.8 H 11.8-14.3 % Platelet Count 114 L 140-450 10^3/uL Mean Platelet Volume 11.0 H 6.9-10.8 fL Neutrophils (%) (Auto) 52.9 37.0-80.0 % Lymphocytes (%) (Auto) 33.5 10.0-50.0 % Monocytes (%) (Auto) 13.1 H 0.0-12.0 % Eosinophils (%) (Auto) 0.0 0.0-7.0 % Basophils (%) (Auto) 0.5 0.0-2.0 % Neutrophils # (Auto) 3.4 1.6-8.6 10 ^3/uL Lymphocytes # (Auto) 2.2 0.4-5.4 10 ^3/uL Monocytes # (Auto) 0.8 0-1.3 10 ^3/uL Eosinophils # (Auto) 0 0-0.8 10 ^3/uL Basophils # (Auto) 0 0-0.2 10 ^3/uL Nucleated Red Blood Cells 1.5 % Erythrocyte Sedimentation Rate 5 0-20 mm/hr Sodium Level 141 136-145 mmol/L Potassium Level 4.6 3.5-5.1 mmol/L Chloride Level 105 98-107 mmol/L Carbon Dioxide Level 23 20-31 mmol/L Anion Gap 13 5-15 Blood Urea Nitrogen 9 9-23 mg/dL Creatinine 0.67 0.550-1.02 mg/dL Glomerular Filtration Rate Calc 111 >90 mL/min BUN/Creatinine Ratio 13.4 10.0-20.0 Serum Glucose 76 74-106 mg/dL Lactic Acid Level 1.8 0.4-2.0 mmol/L Calcium Level 9.2 8.7-10.4 mg/dL Total Bilirubin 2.5 H 0.2-1.0 mg/dL Aspartate Amino Transferase (AST) 71 H 13-40 U/L Alanine Aminotransferase (ALT) 23 7-40 U/L Alkaline Phosphatase 72 46-116 U/L C-Reactive Protein High Sensitivity 0.15 <1.0 mg/dL Total Protein 7.6 5.7-8.2 g/dL Albumin 3.6 3.2-4.8 g/dL Thyroid Stimulating Hormone (TSH) 0.01 L 0.55-4.78 uIU/mL Free Thyroxine (T4) Calculated 2.58 H 0.89-1.76 ng/dL Free Triiodothyronine (T3) pg/mL 5.13 H 2.3-4.2 pg/mL Total Triiodothyronine (TT3) 1.36 0.60-1.81 ng/mL Influenza Type A Antigen Negative Negative Influenza Type B Antigen Negative Negative SARS-CoV-2 Antigen (Rapid) Negative NEGATIVE Troponin I High Sensitivity 214 *H </=34 ng/L Test 03/05/24 18:36 03/05/24 17:30 Range/Units Magnesium Level 1.6 1.6-2.6 mg/dL B-Type Natriuretic Peptide 610.28 0-100 pg/mL Beta HCG, Quantitative 2.7 1.5-4.2 mIU/mL Urine Color Yellow Yellow Urine Clarity Clear Clear Urine pH 6.5 5.0-9.0 Urine Specific [place] 1.012 1.001-1.035 Urine Protein 3+ H Negative Urine Ketones Negative Negative Urine Blood Trace H Negative /uL Urine Nitrite Negative Negative Urine Bilirubin 1+ H Negative Urine Urobilinogen 12 H Negative mg/dL Urine Leukocyte Esterase Negative Negative /uL Urine RBC 10 0 - 4 /hpf Urine WBC 6 0 - 5 /hpf Urine Squamous Epithelial Cells Few <5 /hpf Urine Bacteria None seen None Seen /hpf Urine Hyaline Casts Few 0 - 2 /lpf Urine Mucus Few None Seen Urine Glucose 1+ H Normal mg/dL Urine Opiates Screen Neg NEGATIVE Urine Fentanyl Screen Neg NEGATIVE Urine Barbiturates Screen Neg NEGATIVE Urine Phencyclidine Screen Neg NEGATIVE Urine Amphetamines Screen Neg NEGATIVE Urine Benzodiazepines Screen Neg NEGATIVE Urine Cocaine Screen Neg NEGATIVE Urine Cannabinoids Screen Neg NEGATIVE Microbiology Date/Time Source Procedure Growth Status 03/05/24 18:36 Blood Blood Culture - Preliminary NO GROWTH AFTER 24 HOURS OF INCUBATION. Resulted Assessment Impression: Bilateral pleural effusions Atelectasis Pneumonia, likely gram negative Ascites Atrial fibrillation w/ RVR Hx of nicotine dependence Obesity BMI 32.8 Plan: Supplemental oxygen PRN Titrate to keep O2 sats above 92%. Obtain consent for right thoracentesis to evacuate pleural effusion. Followup CT chest; bilateral pleural effusions and atelectasis, right greater than left. Continue antibiotics Continue bronchodilators Incentive spirometry Diurese to euvolemia Monitor renal function. Monitor electrolytes. Supplement as necessary. Monitor ins and outs. Therapeutic Lovenox DVT prophylaxis. Prognosis: Poor given patient's multiple co-morbidities. Rest of plan per hospitalist and other consultants. Thank you, Mary Wade NP, for allowing me to participate in this patient's care. Further recommendations will depend on the patient's clinical course. Please do not hesitate to contact me if you have any questions or concerns. This medical document was created using an electronic medical record system with [email or web address] dictation system. Although these documentations are being carefully reviewed, there may still be some phonetic and typographical changes. The errors are purely typographical, due to imperfection on the software program, and do not reflect any compromise in the patient's medical care. Plan discussed with: Patient, Other (ADELE Matute/ZACH Wade) DELIA HYLTON MD Mar 06, 2024 21:12
[2024-03-07] VITALS (10 sets, daily range): BP systolic 100–133; BP diastolic 54–89; PULSE 52–82; RESP 17–19; TEMP 97.3–97.9; O2SAT 93–100
--- NOTE | 2024-03-07 06:08 | DVHSR ---
APPROVED REPORT EXAM: Two-dimensional and M-mode echocardiogram with Doppler and color Doppler. Blood Pressure: 140/78 mmHg INDICATION eval RISK FACTORS Height: 5'0, Weight: 169 DIMENSIONS LVDd4.7 (3.8-5.7cm)LA (2D)4.7 (1.9-4.0cm)Aortic Root2.6 (2.0-3.7cm) LVDs4.2 (2.5-4.0cm)LA (MM) (1.9-4.0cm)Aortic Cusp Exc1.3 (1.5-2.0cm) EF (%) 20.0 (55-70%)Rt. Atrium3.3 (1.9-4.0cm)Asc. Aorta3.0 cm IVSd1.1 (0.7-1.1cm)RV (D) (1.8-2.4cm) PWd0.9 (0.7-1.1cm) Mitral Valve MitralMitral Stenosis E wave1.07m/sMV Mean GR.1mmHg A wavem/sMV Peak GR.105mmHg E/A ratio0.02D MVAcm2 DECEL [id number] 1/2 Timems Aortic Valve Aortic ValveAortic Stenosis V10.72m/Fnag Mean GR.3mmHg V21.08m/Fang Peak GR.5mmHg LVOT Diameter1.6 (1.8-2.4cm)Doppler AVA1.34cm2 Pulmonic Valve V20.76m/s Tricuspid Valve TR Velocity2.69m/s [id number] Conclusion Dilated 4 chambers was observed. Left ventricle: Left ventricle was dilated. LVEF was 30-35%. Diffuse hypokinesis of left ventricle was seen. LVEDP was considered elevated. Right ventricle was dilated with reduced systolic function. Left atrium was moderately dilated. Rig ht atrium was mildly dilated. Aortic valve: Aortic valve was not well visualized. There was no aortic insufficiency/stenosis. The re was mild mitral regurgitation. There was moderate to severe tricuspid regurgitation. There was t rivial pulmonary valve insufficiency. IVC with dilated. Right ventricular systolic pressure was assessed at 43 mm Hg.
--- NOTE | 2024-03-07 06:31 | DVHPN2 ---
Progress Note - Dictate Date Seen: Mar 07, 2024 Medical Necessity Reason Pt with a Central, PICC or Fol: No vital signs Vital Sign Date Time Temp Pulse Resp B/P (MAP) Pulse Ox O2 Delivery O2 Flow Rate FiO2 03/07/24 05:53 82 133/76 03/07/24 05:00 97.8 18 96 97.8 03/06/24 20:30 Room Air* 0 21 Total Intake and Output 03/06/24 03/06/24 03/07/24 15:00 23:00 07:00 Intake Total 800 ml 2160 ml 700 ml Balance 800 ml 2160 ml 700 ml medications Current Medications Medications Dose Ordered Sig/Kalli Route Start Time Stop Time Status Last Admin Dose Admin Acetaminophen/ Hydrocodone Bitart 1 tab Q4HP PRN PO 03/05/24 21:45 Ondansetron HCl 4 mg Q4HP PRN IV 03/05/24 21:45 Docusate Sodium 100 mg BIDPRN PRN PO 03/05/24 21:45 Acetaminophen 650 mg Q6HP PRN PO 03/05/24 21:45 Morphine Sulfate 2 mg Q4HPRN PRN IV 03/05/24 21:45 Pantoprazole Sodium 40 mg DAILY IV 03/06/24 10:00 03/06/24 11:28 40 MG Nitroglycerin 0.4 mg Q5MINP PRN SL 03/05/24 21:45 Morphine Sulfate 2 mg Q30M PRN IV 03/05/24 21:45 Albuterol 2.5 mg Q4HP PRN NEB 03/05/24 21:45 Diphenhydramine HCl 25 mg Q6HR PRN IV 03/05/24 23:00 Diltiazem HCl 45 mg Q6HR PO 03/06/24 12:00 03/07/24 05:53 45 MG Furosemide 40 mg BIDD IV 03/06/24 18:00 03/06/24 17:12 40 MG Enoxaparin Sodium 80 mg Q12HR SC 03/06/24 10:00 03/06/24 11:27 80 MG Doxycycline Monohydrate 100 mg Q12HR PO 03/06/24 10:00 03/06/24 23:29 100 MG laboratory and microbiology Test 03/07/24 05:32 Range/Units Serum Glucose Pending Assessment/Plan Patient is a 43-year-old female who presented to the hospital for few days of shortness of breath. She actually went to urgent care and was given prednisone/Z-Cody/inhaler. She did not respond and decided come to the hospital. She was diagnosed with pneumonia few days before presentation to hospital. While emergency room, she was found to have atrial fibrillation and Cardiology was called for evaluation and management. Her troponin was mildly/flat elevated which was another reason for cardiology evaluation. It is of note that the patient does have history of thyroid problem (hyperthyroidism) and was previously on methimazole. She mentions that she last saw a doctor for thyroid problem over 3 years ago and stopped methimazole herself at that time just because she did not have time to follow-up with physicians. Denies any previous cardiac history. But also mentions history of palpitation going back for years. She mentions worsening shortness of breath for the past 2 weeks. She had been having leg swellings/orthopnea/PND going back for around 6 weeks. She mentioned fever 1 day before presentation to the hospital. She had not been taking any medications as outpatient (up to few days before presentation) and has been noncompliant. Not in acute distress. Sitting in bed. No JVD. Mucosa is pink and wet. There is no goiter. There is no carotid bruit. Not using accessory muscles of breathing. Scattered rhonchi in the lungs is heard. Cardiac: Irregular, tachycardic, systolic murmur 3/6 in the apex is heard. Abdomen is soft. Bowel sound is positive. There is no gross mass/hepatomegaly. Extremities reveal 3+ edema in bilateral lower extremities. Dorsalis pedis is 2+ bilateral Past medical history includes thyroid problem (hyperthyroidism), history of C- section and noncompliance. She stopped smoking 6 months ago. She denies history of drug abuse. She used social alcohol up to 6 months ago. Denies relevant family history. Father had diabetes mellitus. Mother has hypertension. WBC: 5.3 - 6.5 - 5.3 Creatinine: 0.70 - 0.67 - 0.57 Potassium: 3.1 - 4.6 - 2.8 Lactic acid: 2.9 - 2.2 - 1.8 Magnesium: 1.6 - 1.6 - 1.9 AST/ALT: 35/20 - 71/23 - 27/16 Bilirubin (total): 2.3 - 2.5 - 2.5 BNP: 610.28 Troponin (high sensitive): 219 - 227 - 214 TSH: 0.01 Free T4: 2.58 Free T3: 5.3 ESR: 5 Urinalysis revealed 3+ proteinuria Chest x-ray reported: IMPRESSION: Pulmonary vascular congestion and right lower lobe airspace disease. Abdominal and pelvis CT scan (without contrast) reported: Findings: Evaluation of solid organs is limited due to lack of intravenous contrast use. Lung Bases: Moderate right-sided pleural effusion with adjacent compressive atelectasis. Liver: The liver is normal in size. No focal lesions. Gallbladder and Biliary Tree: Unremarkable Spleen: Unremarkable Pancreas: The pancreas is grossly normal in appearance. Adrenal Glands: Unremarkable Kidneys: Kidneys are grossly normal without calculi or hydronephrosis. Bladder: Grossly unremarkable for degree of distention. Bowel: The stomach is grossly normal in appearance. Small bowel and colon are normal in caliber and distribution. Normal appendix is visualized in the right lower quadrant without findings of appendicitis. Ascites: [id number] diffuse ascites. Lymphadenopathy: No mesenteric, retroperitoneal or periportal lymphadenopathy. Abdominal Wall and Mesentery: Mild diffuse anasarca.. Vasculature: The visualized abdominal aorta is normal in size and caliber. Evaluation of abdominal and pelvic vessels is limited due to lack of intravenous contrast. Pelvic Organs: Intact IUD. Moderate free fluid in the pelvis. Musculoskeletal: No aggressive focal bony lesions, acute fractures or dislocation. Moderate degenerative changes of the bilateral hip joints. Mild fusion of the bilateral SI joints. IMPRESSION: Limited noncontrast evaluation. Moderate right-sided pleural effusion with adjacent compressive atelectasis. Mild to moderate diffuse ascites , free fluid in the pelvis, and anasarca. Other ancillary findings as described above. Chest CT revealed: IMPRESSION: 1. Large right pleural effusion with collapse of the right lower lobe. The left lung and pleural space are clear. 2. There ar e multiple subcentimeter bilateral axillary lymph nodes which may be reactive. 3. Small amount of perihepatic ascites. Chest ultrasound revealed: Finding/Impression: Bilateral pleural effusions, moderate on the right and trace on the left. Limited Abdominal ultrasound to check for Ascites: FINDINGS/IMPRESSIONS: Trace ascites in Shay's pouch. Telemetry reveals atrial fibrillation with RVR Echocardiogram reported: Dilated 4 chambers was observed. Left ventricle: Left ventricle was dilated. LVEF was 30-35%. Diffuse hypokinesis of left ventricle was seen. LVEDP was considered elevated. Right ventricle was dilated with reduced systolic function. Left atrium was moderately dilated. Right atrium was mildly dilated. Aortic valve: Aortic valve was not well visualized. There was no aortic insufficiency/stenosis. There was mild mitral regurgitation. There was moderate to severe tricuspid regurgitation. There was trivial pulmonary valve insufficiency. IVC with dilated. Right ventricular systolic pressure was assessed at 43 mm Hg. She patient is a 43-year-old female who presented with 1 day of fever. Was recently diagnosed with pneumonia and had been on antibiotics. Presentation questions sepsis/pneumonia. Her presentation also includes palpitation for years which increased in few weeks. Is found to have atrial fibrillation with RVR. Her history also includes few weeks of orthopnea/PND/leg swellings (for weeks) which questions acute heart failure. Does have increased BNP in favor of acute heart failure. Troponin has been mildly elevated but running flat which is in favor of possible demand ischemia. Never had ischemic workup before. Presentation is not in favor of acute coronary syndrome at this point. She is found to have multiorgan involvement (ascites, proteinuria, pneumonia). Does have previous history of hyperthyroidism which could have contributed to the clinical picture also (if present at this point). Fever Sepsis Pneumonia Atrial fibrillation with RVR Abnormal troponin Increased BNP Acute heart failure, systolic Ascites Proteinuria Noncompliance to medication and followups Hyperthyroidism Pleural effusion Cardiac suggestion for management: Manage in telemetry IV diuresis is suggested Follow-up electrolytes and kidney function tests and correct abnormalities. Keep potassium above 4 and magnesium above 2 Magnesium supplementation Full anticoagulation for now Cardizem: 45 mg p.o. 6 hours at this point for further control of tachyarrhythmia suggested Consider Methimazole Add Propranolol Sepsis workup and antibiotic therapy as per primary team Pulmonary follow up Nephrology evaluation for proteinuria Endocrinology evaluation for Hyperthyroidism If proven active hyperthyroidism, endocrinology evaluation is suggested Further evaluation and management depends on the above and clinical course A total of 55 minutes was spent reviewing the patient record, examining the patient, making a diagnostic and therapeutic plan, discussing this plan with medical personnel, following up on diagnostic studies and following the patient for clinical stability excluding any and all procedures. At least 50% of this time was spent in direct, [id number] contact. Thank you for allowing me to participate in this patient's care. Further recommendations will depend on patient's clinical course. Please do not hesitate to contact me if you have any questions or concerns. This medical document was created using electronic medical record system with [employer] computerized dictation system. Although this document has been carefully reviewed, there may still be some phonetic and typographical errors. These areas are purely typographical due to the imperfection of the software programs, and do not reflect any compromise in the patient's medical care. Plan discussed with: Patient, Other (nurse) ANAMARIA GROVES MD Mar 07, 2024 06:31
[2024-03-07 06:33] LABS: Basophils # (auto) 0 10 ^3/uL (0-0.2); Basophils % (auto) 0.4 % (0.0-2.0); Eosinophils # (auto) 0 10 ^3/uL (0-0.8); Eosinophils % (auto) 0.6 % (0.0-7.0); Hematocrit 44.9 % (36.0-46.0); Lymphocytes # (auto) 1.5 10 ^3/uL (0.4-5.4); Lymphocytes % (auto) 28.5 % (10.0-50.0); Mean Corpuscular Hemoglobin 26.7 pg (28.0-32.0); Mean Corpuscular Hgb Conc. 33.3 g/dL (32.0-36.0); Mean Corpuscular Volume 80.3 fL (80.0-100.0); Monocytes # (auto) 0.7 10 ^3/uL (0-1.3); Monocytes % (auto) 13.4 % (0.0-12.0); Neutrophils % (auto) 57.1 % (37.0-80.0); Nucleated Red Blood Cells % 0.8 %; Platelet Count (auto) 127 10^3/uL (140-450); Red Blood Cells 5.59 10^6/uL (4.0-5.20); Red Cell Distribution Width 17.8 % (11.8-14.3); White Blood Cell 5.3 10^3/uL (4.4-10.8)
[2024-03-07 06:53] LABS: Alanine Aminotransferase 16 U/L (7-40); Albumin 3.4 g/dL (3.2-4.8); Alkaline Phosphatase 90 U/L (46-116); Anion Gap 10 (5-15); Aspartate Aminotransferase 27 U/L (13-40); BUN/Creatinine Ratio 19.3 (10.0-20.0); Blood Urea Nitrogen 11 mg/dL (9-23); Calcium 9.2 mg/dL (8.7-10.4); Carbon Dioxide 26 mmol/L (20-31); Chloride 103 mmol/L (98-107); Glucose 89 mg/dL (74-106); Magnesium 1.9 mg/dL (1.6-2.6); Sodium 139 mmol/L (136-145); Total Protein 7.4 g/dL (5.7-8.2)
[2024-03-07 06:59] LABS: Bilirubin, Total 2.5 mg/dL (0.2-1.0); Potassium 2.8 mmol/L (3.5-5.1)
[2024-03-07 08:06] LABS: RPR Non Reactive (Non Reactive)
[2024-03-07 09:06] LABS: Thyroxine (T4) 15.3 ug/dL (4.5-12.0)
[2024-03-07 09:38] LABS: INR 1.35 (0.9-1.15)
--- NOTE | 2024-03-07 10:46 | DVHNC2 ---
Procedure - Right thoracentesis 900 mL yellow fluid Ultrasound-guided RIGHT thoracentesis procedure note: Physician: Dr Hortencia Uribe Time out time: 1031 am Patient medications and allergies reviewed. The risks and benefits of the procedure and the sedation options and risk were discussed with the patient's healthcare proxy. All questions were answered and informed consent was obtained. Patient identification and proposed procedure were verified prior to the procedure by the physician, and a nurse in the patient's room. The heart rate, respiratory rate, oxygen saturations, blood pressure, adequacy of pulmonary ventilation, and response to care were monitored throughout the procedure. The physical status of the patient was reassessed after the procedure. Date: Consent: Consent was obtained from patient's healthcare proxy prior to procedure. Indication, risks, and benefits were explained at length. Procedure summary: A time out was performed and a chest x-ray was reviewed prior to procedure. The appropriate site was confirmed and marked. My hands were washed immediately prior to the procedure, I wore a surgical cap, mask with protective eyewear, sterile gown and sterile gloves throughout the procedure. The patient was prepped and draped in a sterile manner using chlorhexidine scrub after the appropriate level was percussed and confirmed by ultrasound. 1% lidocaine was used to anesthetize the skin, subcutaneous tissue, superior aspect of the rib periosteum and parietal pleura. A finder needle was then introduced over the superior aspect of the rib to locate the pleural fluid; yellow fluid was aspirated. 5 [place] [employer]h One-Step Thoracentesis needle was then introduced through the skin incision into the pleural space using negative aspiration pressure. The thoracentesis catheter was then threaded without difficulty. 900 mL's of yellow colored fluid were removed without difficulty. The catheter was then removed. No immediate complications were noted during the procedure. A postprocedure chest x-ray demonstrated no pneumothorax. The pleural fluid will be sent for cultures and cytology. Estimated blood loss is less than 5 mL's. CPT: 03694 DELIA HYLTON MD Mar 07, 2024 10:46
[2024-03-07] MEDS: ONDANSETRON HCL 4 MG/2 ML VIAL IV PRN (10:49)
--- NOTE | 2024-03-07 11:04 | DVH ---
CHEST RADIOGRAPH Indication: s/p right thoracentesis, r/o pneumothorax Technique: Single frontal view of the chest was obtained Comparison: XY CHEST PORTABLE on DOS: 03/05/24 FINDINGS: Lines and Tubes: None Lungs: No focal consolidation. Pleura: Decreaesd right pleural effusion s/p thoracentecis. No pneumothorax. Cardiomediastinal contours: Unremarkable Bones: No acute osseous abnormality. IMPRESSION: Decreaesd right pleural effusion s/p thoracentecis.
--- NOTE | 2024-03-07 12:54 | DVHPN2 ---
Progress Note - Dictate Date Seen: Mar 07, 2024 Medical Necessity Reason Pt with a Central, PICC or Fol: No vital signs Vital Sign Date Time Temp Pulse Resp B/P (MAP) Pulse Ox O2 Delivery O2 Flow Rate FiO2 03/07/24 12:47 97.6 62 18 107/69 (82) 95 97.6 03/07/24 08:34 Room Air* 0 21 Total Intake and Output 03/06/24 03/06/24 03/07/24 15:00 23:00 07:00 Intake Total 800 ml 2160 ml 700 ml Balance 800 ml 2160 ml 700 ml medications Current Medications Medications Dose Ordered Sig/Kalli Route Start Time Stop Time Status Last Admin Dose Admin Acetaminophen/ Hydrocodone Bitart 1 tab Q4HP PRN PO 03/05/24 21:45 Ondansetron HCl 4 mg Q4HP PRN IV 03/05/24 21:45 03/07/24 10:49 4 MG Docusate Sodium 100 mg BIDPRN PRN PO 03/05/24 21:45 Acetaminophen 650 mg Q6HP PRN PO 03/05/24 21:45 Morphine Sulfate 2 mg Q4HPRN PRN IV 03/05/24 21:45 Pantoprazole Sodium 40 mg DAILY IV 03/06/24 10:00 03/07/24 11:41 40 MG Nitroglycerin 0.4 mg Q5MINP PRN SL 03/05/24 21:45 Morphine Sulfate 2 mg Q30M PRN IV 03/05/24 21:45 Albuterol 2.5 mg Q4HP PRN NEB 03/05/24 21:45 Diphenhydramine HCl 25 mg Q6HR PRN IV 03/05/24 23:00 Diltiazem HCl 45 mg Q6HR PO 03/06/24 12:00 03/07/24 05:53 45 MG Furosemide 40 mg BIDD IV 03/06/24 18:00 03/06/24 17:12 40 MG Enoxaparin Sodium 80 mg Q12HR SC 03/06/24 10:00 03/06/24 11:27 80 MG Doxycycline Monohydrate 100 mg Q12HR PO 03/06/24 10:00 03/07/24 11:41 100 MG Propranolol HCl 10 mg Q6HR PO 03/07/24 12:00 Methimazole 10 mg Q8HR PO 03/07/24 14:00 Guaifenesin 200 mg Q4HP PRN PO 03/07/24 12:30 objective General Appearance: alert, no distress HEENT: EOMI, PERRLA, normal external inspect of ears, no icterus, no nasal drainage Neck: no carotid bruit, no jugular venous distention (JVD), no lymphadenopathy Chest: normal thorax Respiratory: clear to auscultation, normal air movement Cardiovascular: regular rate and rhythm, no diastolic murmur, no jugular venous distention (JVD), no rub, no systolic murmur Abdominal: soft, no hepatomegaly, no mass, no splenomegaly, no tenderness Genitourinary: grossly normal external Musculoskeletal: no joint tenderness, no swelling Extremities: normal pulses, no calf tenderness, no clubbing, no cyanosis, no edema Skin: no bruising, no jaundice, no rash Neurological: alert, No focal deficit laboratory and microbiology Laboratory Tests 03/07/24 05:32 Test 03/07/24 05:32 Range/Units Serum Glucose 89 74-106 mg/dL Problem List 1. Sepsis Monitor, IV antibiotics 2. Right-sided pneumonia, most likely gram-negative and some gram-positive Monitor, IV antibiotics, IR consult, plan thoracentesis 3. Right pleural effusion Monitor 4. Ascites Monitor, GI consult, plan paracentesis 5. Elevated bilirubin Monitor 6. Atrial fibrillation with RVR Monitor, cardiology consults, antiarrythmics, echocardiogram 7. Elevated troponin, most likely demand ischemia Monitor, trend troponin 8. Hypothyroidism Monitor 9. Atrial fibrillation with RVR Cardiology consult, monitoring Assessment/Plan Subjective: Patient is awake and alert. Objective: Updated patient and her on plan of care. Patient underwent right thoracentesis today with 900 ml of fluid removed. There was insufficient fluid for paracentesis. Diagnosed with atrial fibrillation with RVR and hyperthyroidism, with poor prior follow-up and no medications for several years. Current TSH is 0.01 and T4 is 2.5. Estimated EF is 30-35%. Plan: Continue Metamizole as ordered by cardiology. Replace electrolytes. Order GI consult for elevated bilirubin and liver enzymes. Pending nephrology consult for proteinuria. Cardiology managing AFib, currently rate-controlled. Plan discussed with: Patient, Other ISIDORO DELANEY NP Mar 07, 2024 12:54
[2024-03-07] MEDS: PROPRANOLOL HCL 20 MG TAB PO SCH (12:58)
[2024-03-07] MEDS: guaiFENesin 200 MG/10 ML UD PO PRN (12:58)
[2024-03-07 13:06] LABS: Anti-Centromere B Antibody <0.2 AI (0.0-0.9); Anti-Jo-1 Antibody <0.2 AI (0.0-0.9); Anti-dsDNA Antibody 1 IU/mL (0-9); Antichromatin Antibody 4.2 AI (0.0-0.9); Antiscleroderma-70 Antibody <0.2 AI (0.0-0.9); RNP Antibody 6.2 AI (0.0-0.9); Sjogren's Anti-SS-A Antibody <0.2 AI (0.0-0.9); Sjogren's Anti-SS-B Antibody <0.2 AI (0.0-0.9); Smith Antibody <0.2 AI (0.0-0.9)
[2024-03-07 13:29] LABS: Body Fluid White Blood Cells 672 CUMM (0-200)
[2024-03-07 13:32] LABS: Body Fluid Red Blood Cells 825 CUMM (0-2000)
[2024-03-07] MEDS: methIMAzole 5 MG TAB PO SCH (13:36)
[2024-03-07] MEDS ORDERED: methIMAzole 5 MG TAB PO SCH (14:00)
[2024-03-07 14:09] LABS: Body Fluid Polymorphonuclear 5 % (0-25)
[2024-03-07] MEDS: HYDROcodone-ACET 5/325MG TAB PO PRN (14:38)
--- NOTE | 2024-03-07 15:31 | DVHINCON2 ---
Date of service: Mar 07, [address] Buck Reason for Consultation Proteinuria History of Present Illness Patient is 43 y/o female with PMH of thyrotoxicosis is admitted for SOB, diagnosed with CHF exacerbation, EF 30%. Nephrology is consulted for evaluation of 3+ protein found on urine dipstick. Past Medical History Thyrotoxicosis Past Surgical History Patient denies Allergies: Coded Allergies: Ibuprofen (Verified Allergy, Severe, 03/05/24) Azithromycin (Verified Allergy, Unknown, 03/05/24) Current Medications Current Medications Medications (Trade) Dose Ordered Sig/Kalli Route PRN Reason Start Time Stop Time Status Last Admin Potassium Chloride 100 ml @ 50 mls/hr Q2H IV 03/07/24 15:45 03/07/24 23:44 DC 03/07/24 17:45 Magnesium Sulfate/ Dextrose 100 ml @ 100 mls/hr Q1HR IV 03/07/24 16:00 03/07/24 17:59 DC 03/07/24 21:50 Propranolol HCl (Inderal Tablet) 20 mg Q6HR PO 03/08/24 12:00 03/08/24 13:26 Family History: Diabetes mellitus G8 FATHER Hypertension G8 MOTHER Review of Systems All 12 item review of systems reviewed with the patient nonsignificant except what is mentioned in the history of present illness H&P Exam Vital Signs/I&O Vital Sign Date Time Temp Pulse Resp B/P (MAP) Pulse Ox O2 Delivery O2 Flow Rate FiO2 03/08/24 13:26 86 139/74 03/08/24 12:30 97.9 17 96 97.9 03/08/24 08:00 Room Air* 0 21 Intake and Output 03/07/24 03/08/24 19:00 07:00 Intake Total 1040 ml 1400 ml Balance 1040 ml 1400 ml Intake Oral 1040 ml 1400 ml # Voids 6 2 # Bowel Movements 1 Physical Exam Patient is awake alert Lungs clear to auscultation bilaterally Cardiac exam is tachycardic GI soft nontender normal Extremity 1+ edema neuro nonfocal Labs/Diagnostic Data Labs/Diagnostic Data Laboratory Tests Test 03/08/24 05:35 03/08/24 05:25 03/07/24 16:11 03/07/24 11:30 Range/Units Hepatitis C Antibody Negative Negative White Blood Count 6.3 4.4-10.8 10^3/uL Red Blood Count 5.32 H 4.0-5.20 10^6/uL Hemoglobin 14.4 12.2-16.2 g/dL Hematocrit 42.6 36.0-46.0 % Mean Corpuscular Volume 80.2 80.0-100.0 fL Mean Corpuscular Hemoglobin 27.2 L 28.0-32.0 pg Mean Corpuscular Hemoglobin Concent 33.9 32.0-36.0 g/dL Red Cell Distribution Width 17.9 H 11.8-14.3 % Platelet Count 104 L 140-450 10^3/uL Mean Platelet Volume 10.0 6.9-10.8 fL Neutrophils (%) (Auto) 65.4 37.0-80.0 % Lymphocytes (%) (Auto) 19.1 10.0-50.0 % Monocytes (%) (Auto) 15.1 H 0.0-12.0 % Eosinophils (%) (Auto) 0.1 0.0-7.0 % Basophils (%) (Auto) 0.3 0.0-2.0 % Neutrophils # (Auto) 4.1 1.6-8.6 10 ^3/uL Lymphocytes # (Auto) 1.2 0.4-5.4 10 ^3/uL Monocytes # (Auto) 0.9 0-1.3 10 ^3/uL Eosinophils # (Auto) 0 0-0.8 10 ^3/uL Basophils # (Auto) 0 0-0.2 10 ^3/uL Nucleated Red Blood Cells 1.1 % Sodium Level 133 #L 136-145 mmol/L Potassium Level 3.5 3.5-5.1 mmol/L Chloride Level 100 98-107 mmol/L Carbon Dioxide Level 24 20-31 mmol/L Anion Gap 9 5-15 Blood Urea Nitrogen 13 9-23 mg/dL Creatinine 0.68 0.550-1.02 mg/dL Glomerular Filtration Rate Calc 111 >90 mL/min BUN/Creatinine Ratio 19.1 10.0-20.0 Serum Glucose 82 74-106 mg/dL Calcium Level 9.0 8.7-10.4 mg/dL Magnesium Level 2.2 1.6-2.6 mg/dL Ferritin 232.5 10-291 ng/mL Total Bilirubin 3.0 H 0.2-1.0 mg/dL Aspartate Amino Transferase (AST) 305 H 13-40 U/L Alanine Aminotransferase (ALT) 136 H 7-40 U/L Alkaline Phosphatase 79 46-116 U/L Total Protein 6.9 5.7-8.2 g/dL Albumin 3.2 3.2-4.8 g/dL Hepatitis B Surface Antigen Negative Negative Vitamin D 25-Hydroxy 11.3 L 30.0-100 ng/mL Complement C3 53 L 82-167 mg/dL Complement C4 9 L 12-38 mg/dL Rapid Plasma Reagin Non reactive Non Reactive HIV (1&2) Antibody Negative Negative Body Fluid Source Pleural fluid Body Fluid pH 8.0 Body Fluid WBC (Manual) 672 H 0-200 CUMM Body Fluid RBC (Manual) 825 0-2000 CUMM Body Fluid Mononuclear Cells 95 % Body Fluid Polymorphonuclear Cells 5 0-25 % Body Fluid Glucose 114 . mg/dL Body Fluid Total Protein 2.9 . g/dL Body Fluid Lactate Dehydrogenase 101 . IU/L Test 03/07/24 05:32 03/06/24 11:11 03/06/24 05:21 03/05/24 22:56 Range/Units White Blood Count 5.3 6.5 4.4-10.8 10^3/uL Red Blood Count 5.59 H 5.79 H 4.0-5.20 10^6/uL Hemoglobin 15.0 15.4 12.2-16.2 g/dL Hematocrit 44.9 46.5 H 36.0-46.0 % Mean Corpuscular Volume 80.3 80.3 80.0-100.0 fL Mean Corpuscular Hemoglobin 26.7 L 26.5 L 28.0-32.0 pg Mean Corpuscular Hemoglobin Concent 33.3 33.0 32.0-36.0 g/dL Red Cell Distribution Width 17.8 H 17.8 H 11.8-14.3 % Platelet Count 127 L 114 L 140-450 10^3/uL Mean Platelet Volume 9.2 11.0 H 6.9-10.8 fL Neutrophils (%) (Auto) 57.1 52.9 37.0-80.0 % Lymphocytes (%) (Auto) 28.5 33.5 10.0-50.0 % Monocytes (%) (Auto) 13.4 H 13.1 H 0.0-12.0 % Eosinophils (%) (Auto) 0.6 0.0 0.0-7.0 % Basophils (%) (Auto) 0.4 0.5 0.0-2.0 % Neutrophils # (Auto) 3.0 3.4 1.6-8.6 10 ^3/uL Lymphocytes # (Auto) 1.5 2.2 0.4-5.4 10 ^3/uL Monocytes # (Auto) 0.7 0.8 0-1.3 10 ^3/uL Eosinophils # (Auto) 0 0 0-0.8 10 ^3/uL Basophils # (Auto) 0 0 0-0.2 10 ^3/uL Nucleated Red Blood Cells 0.8 1.5 % Prothrombin Time 14.0 H 9.3-11.8 sec Prothrombin Time INR 1.35 H 0.9-1.15 Sodium Level 139 141 136-145 mmol/L Potassium Level 2.8 L 4.6 3.5-5.1 mmol/L Chloride Level 103 105 98-107 mmol/L Carbon Dioxide Level 26 23 20-31 mmol/L Anion Gap 10 13 5-15 Blood Urea Nitrogen 11 9 9-23 mg/dL Creatinine 0.57 0.67 0.550-1.02 mg/dL Glomerular Filtration Rate Calc 116 111 >90 mL/min BUN/Creatinine Ratio 19.3 13.4 10.0-20.0 Serum Glucose 89 76 74-106 mg/dL Hemoglobin A1c 5.8 H <5.7 % A1C Uric Acid 6.7 3.1-7.8 mg/dL Calcium Level 9.2 9.2 8.7-10.4 mg/dL Phosphorus Level 4.1 2.4-5.1 mg/dL Magnesium Level 1.9 1.6-2.6 mg/dL Total Bilirubin 2.5 H 2.5 H 0.2-1.0 mg/dL Aspartate Amino Transferase (AST) 27 71 H 13-40 U/L Alanine Aminotransferase (ALT) 16 23 7-40 U/L Alkaline Phosphatase 90 72 46-116 U/L Total Protein 7.4 7.6 5.7-8.2 g/dL Albumin 3.4 3.6 3.2-4.8 g/dL Parathyroid Hormone (Intact) 212.8 H 18.4-80.1 pg/mL Thyroxine (T4) 15.3 H 4.5-12.0 ug/dL Anti-Nuclear Antibody Comment Comment . JAYMIE-1 Antibody <0.2 0.0-0.9 AI SS-A/Ro Antibody <0.2 0.0-0.9 AI SS-B/La Antibody <0.2 0.0-0.9 AI Sm Antibody <0.2 0.0-0.9 AI APPAREL EMBROID[employer] DIGITIZER Antibody 6.2 H 0.0-0.9 AI Scl-70 (Scleroderma) Antibody <0.2 0.0-0.9 AI Anti-Double Strand DNA Antibody 1 0-9 IU/mL Chromatin Antibody 4.2 H 0.0-0.9 AI Centromere B Antibody <0.2 0.0-0.9 AI Rapid Plasma Reagin Non reactive Non Reactive Hepatitis B Surface Antigen Negative Negative Hepatitis B Surface Antibody Negative Negative Hepatitis C Antibody Negative Negative HIV (1&2) Antibody Negative Negative Erythrocyte Sedimentation Rate 5 0-20 mm/hr Lactic Acid Level 1.8 0.4-2.0 mmol/L C-Reactive Protein High Sensitivity 0.15 <1.0 mg/dL Thyroid Stimulating Hormone (TSH) 0.01 L 0.55-4.78 uIU/mL Free Thyroxine (T4) Calculated 2.58 H 0.89-1.76 ng/dL Free Triiodothyronine (T3) pg/mL 5.13 H 2.3-4.2 pg/mL Total Triiodothyronine (TT3) 1.36 0.60-1.81 ng/mL Influenza Type A Antigen Negative Negative Influenza Type B Antigen Negative Negative SARS-CoV-2 Antigen (Rapid) Negative NEGATIVE Test 03/05/24 22:13 03/05/24 19:48 03/05/24 18:36 03/05/24 17:30 Range/Units Lactic Acid Level 2.2 *H 2.9 *H 0.4-2.0 mmol/L Troponin I High Sensitivity 214 *H 227 *H 219 *H </=34 ng/L White Blood Count 5.3 4.4-10.8 10^3/uL Red Blood Count 6.21 H 4.0-5.20 10^6/uL Hemoglobin 16.3 H 12.2-16.2 g/dL Hematocrit 50.4 H 36.0-46.0 % Mean Corpuscular Volume 81.2 80.0-100.0 fL Mean Corpuscular Hemoglobin 26.3 L 28.0-32.0 pg Mean Corpuscular Hemoglobin Concent 32.4 32.0-36.0 g/dL Red Cell Distribution Width 18.5 H 11.8-14.3 % Platelet Count 150 140-450 10^3/uL Mean Platelet Volume 9.2 6.9-10.8 fL Neutrophils (%) (Auto) 82.8 H 37.0-80.0 % Lymphocytes (%) (Auto) 12.9 10.0-50.0 % Monocytes (%) (Auto) 4.0 0.0-12.0 % Eosinophils (%) (Auto) 0.0 0.0-7.0 % Basophils (%) (Auto) 0.3 0.0-2.0 % Neutrophils # (Auto) 4.4 1.6-8.6 10 ^3/uL Lymphocytes # (Auto) 0.7 0.4-5.4 10 ^3/uL Monocytes # (Auto) 0.2 0-1.3 10 ^3/uL Eosinophils # (Auto) 0 0-0.8 10 ^3/uL Basophils # (Auto) 0 0-0.2 10 ^3/uL Nucleated Red Blood Cells 0.2 % Sodium Level 139 136-145 mmol/L Potassium Level 3.1 L 3.5-5.1 mmol/L Chloride Level 107 98-107 mmol/L Carbon Dioxide Level 19 L 20-31 mmol/L Anion Gap 13 5-15 Blood Urea Nitrogen 11 9-23 mg/dL Creatinine 0.70 0.550-1.02 mg/dL Glomerular Filtration Rate Calc 110 >90 mL/min BUN/Creatinine Ratio 15.7 10.0-20.0 Serum Glucose 204 H 74-106 mg/dL Calcium Level 9.3 8.7-10.4 mg/dL Magnesium Level 1.6 1.6-2.6 mg/dL Total Bilirubin 2.3 H 0.2-1.0 mg/dL Aspartate Amino Transferase (AST) 35 13-40 U/L Alanine Aminotransferase (ALT) 20 7-40 U/L Alkaline Phosphatase 110 46-116 U/L B-Type Natriuretic Peptide 610.28 0-100 pg/mL Total Protein 8.2 5.7-8.2 g/dL Albumin 3.7 3.2-4.8 g/dL Beta HCG, Quantitative 2.7 1.5-4.2 mIU/mL Urine Color Yellow Yellow Urine Clarity Clear Clear Urine pH 6.5 5.0-9.0 Urine Specific [place] 1.012 1.001-1.035 Urine Protein 3+ H Negative Urine Ketones Negative Negative Urine Blood Trace H Negative /uL Urine Nitrite Negative Negative Urine Bilirubin 1+ H Negative Urine Urobilinogen 12 H Negative mg/dL Urine Leukocyte Esterase Negative Negative /uL Urine RBC 10 0 - 4 /hpf Urine WBC 6 0 - 5 /hpf Urine Squamous Epithelial Cells Few <5 /hpf Urine Bacteria None seen None Seen /hpf Urine Hyaline Casts Few 0 - 2 /lpf Urine Mucus Few None Seen Urine Glucose 1+ H Normal mg/dL Urine Opiates Screen Neg NEGATIVE Urine Fentanyl Screen Neg NEGATIVE Urine Barbiturates Screen Neg NEGATIVE Urine Phencyclidine Screen Neg NEGATIVE Urine Amphetamines Screen Neg NEGATIVE Urine Benzodiazepines Screen Neg NEGATIVE Urine Cocaine Screen Neg NEGATIVE Urine Cannabinoids Screen Neg NEGATIVE Assessment Proteinuria, unknown quantity and etiology CHF exacerbation NSTEMI Hypokalemia Hypomagnesemia thyrotoxicosis Hyperglycemia r/o DM REC: Normal kidney function Quantify urine protein Check kidney US A1c Serology for hep b s Ag, HCV, HIV, RPR, PERRY KCl replacement Magnesium sulfate IVPB Will continue to follow Patient seen and examined by myself. I discussed my plan of care with the patient and the primary nurse at the bedside Like to thank Dr. Buck for the consult, will follow Plan discussed with: Patient DEEPTHI VACA MD Mar 07, 2024 15:31
[2024-03-07] MEDS: POTASSIUM CHL 20MEQ/100ML 100 ML IV SCH (17:45)
[2024-03-07] MEDS: POTASSIUM EFFERVESENT TAB 25 MEQ PO ONE (18:05)
[2024-03-07] MEDS: MAGNESIUM SULFATE 1GM/100ML 100 ML IV SCH (18:06)
--- NOTE | 2024-03-07 19:53 | DVHINCON2 ---
Date of service: Mar 07, 2024 Referring Physician Mary Wade Reason for Consultation Elevated Bilirubin and ascites History of Present Illness Patient is 43 y/o female with PMH of thyrotoxicosis is admitted for SOB, diagnosed with CHF exacerbation, EF 30%. Patient is S/P thoracentesis I was asked to evaluate her for elevated bilirubin of 2.5. She also has trace ascites in the Morison's pouch. No GI bleeding is reported. Patient also has proteinuria and there is pulmonary and nephrology consult on board Past Medical History Hyperthyroidism Ex-smoker Past Surgical History C-sections x2 Family History: Diabetes mellitus G8 FATHER Hypertension G8 MOTHER Allergies: Coded Allergies: Ibuprofen (Verified Allergy, Severe, 03/05/24) Azithromycin (Verified Allergy, Unknown, 03/05/24) Current Medications Current Medications Medications (Trade) Dose Ordered Sig/Kalli Route PRN Reason Start Time Stop Time Status Last Admin Propranolol HCl (Inderal Tablet) 10 mg Q6HR PO 03/07/24 12:00 03/07/24 12:58 Methimazole (Tapazole) 5 mg Q8HR PO 03/07/24 14:00 03/07/24 07:09 DC Methimazole (Tapazole) 10 mg Q8HR PO 03/07/24 14:00 03/07/24 13:36 Guaifenesin (Robitussin Plain Liquid) 200 mg Q4HP PRN PO FOR COUGH 03/07/24 12:30 03/07/24 12:58 Potassium Chloride 100 ml @ 50 mls/hr Q2H IV 03/07/24 15:45 03/07/24 23:44 Magnesium Sulfate/ Dextrose 100 ml @ 100 mls/hr Q1HR IV 03/07/24 16:00 03/07/24 17:59 DC 03/07/24 18:06 Vital Signs Vital Signs Date Time Temp Pulse Resp B/P (MAP) Pulse Ox O2 Delivery O2 Flow Rate FiO2 03/07/24 18:00 56 98/64 03/07/24 16:55 97.3 17 100 97.3 03/07/24 08:34 Room Air* 0 21 Physical Exam General Appearance: alert, no distress HEENT: EOMI, PERRLA, normal external inspect of ears, no icterus, no nasal drainage Neck: no carotid bruit, no jugular venous distention (JVD), no lymphadenopathy Chest: normal thorax Respiratory: clear to auscultation, normal air movement Cardiovascular: regular rate and rhythm, no diastolic murmur, no jugular venous distention (JVD), no rub, no systolic murmur Abdominal: soft, no hepatomegaly, no mass, no splenomegaly, no tenderness Genitourinary: grossly normal external Musculoskeletal: no joint tenderness, no swelling Extremities: normal pulses, no calf tenderness, no clubbing, no cyanosis, no edema Skin: no bruising, no jaundice, no rash Neurological: alert, No focal deficit Labs/Diagnostic Data Labs Test 03/07/24 16:11 03/07/24 11:30 03/07/24 05:32 03/06/24 11:11 Range/Units Vitamin D 25-Hydroxy 11.3 L 30.0-100 ng/mL HIV (1&2) Antibody Negative Negative Body Fluid Source Pleural fluid Body Fluid pH 8.0 Body Fluid WBC (Manual) 672 H 0-200 CUMM Body Fluid RBC (Manual) 825 0-2000 CUMM Body Fluid Mononuclear Cells 95 % Body Fluid Polymorphonuclear Cells 5 0-25 % White Blood Count 5.3 4.4-10.8 10^3/uL Red Blood Count 5.59 H 4.0-5.20 10^6/uL Hemoglobin 15.0 12.2-16.2 g/dL Hematocrit 44.9 36.0-46.0 % Mean Corpuscular Volume 80.3 80.0-100.0 fL Mean Corpuscular Hemoglobin 26.7 L 28.0-32.0 pg Mean Corpuscular Hemoglobin Concent 33.3 32.0-36.0 g/dL Red Cell Distribution Width 17.8 H 11.8-14.3 % Platelet Count 127 L 140-450 10^3/uL Mean Platelet Volume 9.2 6.9-10.8 fL Neutrophils (%) (Auto) 57.1 37.0-80.0 % Lymphocytes (%) (Auto) 28.5 10.0-50.0 % Monocytes (%) (Auto) 13.4 H 0.0-12.0 % Eosinophils (%) (Auto) 0.6 0.0-7.0 % Basophils (%) (Auto) 0.4 0.0-2.0 % Neutrophils # (Auto) 3.0 1.6-8.6 10 ^3/uL Lymphocytes # (Auto) 1.5 0.4-5.4 10 ^3/uL Monocytes # (Auto) 0.7 0-1.3 10 ^3/uL Eosinophils # (Auto) 0 0-0.8 10 ^3/uL Basophils # (Auto) 0 0-0.2 10 ^3/uL Nucleated Red Blood Cells 0.8 % Prothrombin Time 14.0 H 9.3-11.8 sec Prothrombin Time INR 1.35 H 0.9-1.15 Sodium Level 139 136-145 mmol/L Potassium Level 2.8 L 3.5-5.1 mmol/L Chloride Level 103 98-107 mmol/L Carbon Dioxide Level 26 20-31 mmol/L Anion Gap 10 5-15 Blood Urea Nitrogen 11 9-23 mg/dL Creatinine 0.57 0.550-1.02 mg/dL Glomerular Filtration Rate Calc 116 >90 mL/min BUN/Creatinine Ratio 19.3 10.0-20.0 Serum Glucose 89 74-106 mg/dL Hemoglobin A1c 5.8 H <5.7 % A1C Uric Acid 6.7 3.1-7.8 mg/dL Calcium Level 9.2 8.7-10.4 mg/dL Phosphorus Level 4.1 2.4-5.1 mg/dL Magnesium Level 1.9 1.6-2.6 mg/dL Total Bilirubin 2.5 H 0.2-1.0 mg/dL Aspartate Amino Transferase (AST) 27 13-40 U/L Alanine Aminotransferase (ALT) 16 7-40 U/L Alkaline Phosphatase 90 46-116 U/L Total Protein 7.4 5.7-8.2 g/dL Albumin 3.4 3.2-4.8 g/dL Parathyroid Hormone (Intact) 212.8 H 18.4-80.1 pg/mL Thyroxine (T4) 15.3 H 4.5-12.0 ug/dL Anti-Nuclear Antibody Comment Comment . JAYMIE-1 Antibody <0.2 0.0-0.9 AI SS-A/Ro Antibody <0.2 0.0-0.9 AI SS-B/La Antibody <0.2 0.0-0.9 AI Sm Antibody <0.2 0.0-0.9 AI ADDICTION SOCIAL WORKER Antibody 6.2 H 0.0-0.9 AI Scl-70 (Scleroderma) Antibody <0.2 0.0-0.9 AI Anti-Double Strand DNA Antibody 1 0-9 IU/mL Chromatin Antibody 4.2 H 0.0-0.9 AI Centromere B Antibody <0.2 0.0-0.9 AI Test 03/06/24 05:21 03/05/24 22:56 03/05/24 22:13 03/05/24 18:36 Range/Units Erythrocyte Sedimentation Rate 5 0-20 mm/hr Lactic Acid Level 1.8 0.4-2.0 mmol/L C-Reactive Protein High Sensitivity 0.15 <1.0 mg/dL Thyroid Stimulating Hormone (TSH) 0.01 L 0.55-4.78 uIU/mL Free Thyroxine (T4) Calculated 2.58 H 0.89-1.76 ng/dL Free Triiodothyronine (T3) pg/mL 5.13 H 2.3-4.2 pg/mL Total Triiodothyronine (TT3) 1.36 0.60-1.81 ng/mL Influenza Type A Antigen Negative Negative Influenza Type B Antigen Negative Negative SARS-CoV-2 Antigen (Rapid) Negative NEGATIVE Troponin I High Sensitivity 214 *H </=34 ng/L B-Type Natriuretic Peptide 610.28 0-100 pg/mL Beta HCG, Quantitative 2.7 1.5-4.2 mIU/mL Test 03/05/24 17:30 Range/Units Urine Color Yellow Yellow Urine Clarity Clear Clear Urine pH 6.5 5.0-9.0 Urine Specific [place] 1.012 1.001-1.035 Urine Protein 3+ H Negative Urine Ketones Negative Negative Urine Blood Trace H Negative /uL Urine Nitrite Negative Negative Urine Bilirubin 1+ H Negative Urine Urobilinogen 12 H Negative mg/dL Urine Leukocyte Esterase Negative Negative /uL Urine RBC 10 0 - 4 /hpf Urine WBC 6 0 - 5 /hpf Urine Squamous Epithelial Cells Few <5 /hpf Urine Bacteria None seen None Seen /hpf Urine Hyaline Casts Few 0 - 2 /lpf Urine Mucus Few None Seen Urine Glucose 1+ H Normal mg/dL Urine Opiates Screen Neg NEGATIVE Urine Fentanyl Screen Neg NEGATIVE Urine Barbiturates Screen Neg NEGATIVE Urine Phencyclidine Screen Neg NEGATIVE Urine Amphetamines Screen Neg NEGATIVE Urine Benzodiazepines Screen Neg NEGATIVE Urine Cocaine Screen Neg NEGATIVE Urine Cannabinoids Screen Neg NEGATIVE Microbiology Date/Time Source Procedure Growth Status 03/07/24 11:30 Pleural Fluid Gram Stain - Final Resulted 03/07/24 11:30 Pleural Fluid Body Fluid Culture Pending Resulted 03/06/24 11:11 Blood Blood Culture - Preliminary NO GROWTH AFTER 24 HOURS OF INCUBATION. Resulted USG Trace ascites in Morison's pouch CT scan abdomen pelvis IMPRESSION: Limited noncontrast evaluation. Moderate right-sided pleural effusion with adjacent compressive atelectasis. Mild to moderate diffuse ascites , free fluid in the pelvis, and anasarca. Problems(with codes): (1) Elevated bilirubin (2) Pulmonary vascular congestion (3) Atrial fibrillation with RVR (4) Pneumonia (5) Pleural effusion (6) Dyspnea (7) Ascites (8) Elevated troponin Plan/Recommendation Assessment and plan There was no clear-cut evidence of cirrhosis of the liver and the liver appears normal on the CT scan I believe her ascites and mild elevation in bilirubin is likely related to congestive heart failure and passive congestion of the liver We will check a hepatitis panel, PERRY and serum ferritin Continue IV diuresis as the ascites has improving Continue to monitor labs I will follow up patient with you Plan discussed with: Other (None) MARINA GARCIA MD Mar 07, 2024 19:53
--- NOTE | 2024-03-07 22:37 | DVHPN2 ---
Progress Note - Dictate Date Seen: Mar 07, 2024 Medical Necessity Reason Pt with a Central, PICC or Fol: No Subjective Patient seen and examined at bedside. Remains on supplemental oxygen Overnight events reviewed. vital signs Vital Sign Date Time Temp Pulse Resp B/P (MAP) Pulse Ox O2 Delivery O2 Flow Rate FiO2 03/07/24 21:17 98 Room Air* 0 21 03/07/24 21:00 97.7 73 19 100/67 (78) 97.7 Total Intake and Output 03/06/24 03/06/24 03/07/24 15:00 23:00 07:00 Intake Total 800 ml 2160 ml 700 ml Balance 800 ml 2160 ml 700 ml medications Current Medications Medications Dose Ordered Sig/Kalli Route Start Time Stop Time Status Last Admin Dose Admin Acetaminophen/ Hydrocodone Bitart 1 tab Q4HP PRN PO 03/05/24 21:45 03/07/24 14:38 1 TAB Ondansetron HCl 4 mg Q4HP PRN IV 03/05/24 21:45 03/07/24 21:52 4 MG Docusate Sodium 100 mg BIDPRN PRN PO 03/05/24 21:45 Acetaminophen 650 mg Q6HP PRN PO 03/05/24 21:45 Morphine Sulfate 2 mg Q4HPRN PRN IV 03/05/24 21:45 Pantoprazole Sodium 40 mg DAILY IV 03/06/24 10:00 03/07/24 11:41 40 MG Nitroglycerin 0.4 mg Q5MINP PRN SL 03/05/24 21:45 Morphine Sulfate 2 mg Q30M PRN IV 03/05/24 21:45 Albuterol 2.5 mg Q4HP PRN NEB 03/05/24 21:45 Diphenhydramine HCl 25 mg Q6HR PRN IV 03/05/24 23:00 Diltiazem HCl 45 mg Q6HR PO 03/06/24 12:00 03/07/24 12:59 45 MG Furosemide 40 mg BIDD IV 03/06/24 18:00 03/06/24 17:12 40 MG Enoxaparin Sodium 80 mg Q12HR SC 03/06/24 10:00 03/07/24 21:53 80 MG Doxycycline Monohydrate 100 mg Q12HR PO 03/06/24 10:00 12/18/24 21:51 100 MG Propranolol HCl 10 mg Q6HR PO 03/07/24 12:00 03/07/24 12:58 10 MG Methimazole 10 mg Q8HR PO 03/07/24 14:00 03/07/24 21:51 10 MG Guaifenesin 200 mg Q4HP PRN PO 03/07/24 12:30 03/07/24 12:58 200 MG Potassium Chloride 100 ml @ 50 mls/hr Q2H IV 03/07/24 15:45 03/07/24 23:44 objective Gen.: Patient lying in bed in no apparent distress. On supplemental oxygen. Head: Normocephalic, atraumatic. Eyes: EOMI/PERRLA. Ears: Normal hearing. Normal anatomy. Neck/trachea: Trachea midline, supple. Nose: Normal external anatomy. Mouth: Moist mucous membranes. Chest: Decreased air entry bilaterally. No wheezing or rhonchi. Cardiovascular: Positive S1, positive S2. Regular rate and rhythm. Abdomen: Positive bowel sounds in all 4 quadrants. Soft, non-tender, non- distended. : Deferred. Rectal: Deferred. Skin: Warm, dry. Intact. Extremities: 2+ radial pulses bilaterally. No lower extremity edema. Neuro: Awake, alert, oriented x3. No gross motor or sensory deficits. Cranial nerves II through XII intact. Gait not assessed. laboratory and microbiology Laboratory Tests 03/07/24 05:32 Test 03/07/24 05:32 Range/Units Serum Glucose 89 74-106 mg/dL Assessment/Plan Impression: Bilateral pleural effusions Atelectasis Pneumonia, likely gram negative Ascites Atrial fibrillation w/ RVR Hx of nicotine dependence Obesity Events: On supplemental oxygen, 2 LPM NC Taper O2 as tolerated Continue antibiotics Incentive spirometry Diurese w/ Lasix as tolerated Monitor renal function. Monitor electrolytes. Supplement as necessary. OK to resume therapeutic Lovenox this PM. Patient is s/p right thoracentesis - drained 900 ml yellow fluid from right pleural space. See separate procedure note for details. CXR post procedure showed no pneumothorax; interval reduction in right pleural effusion. Labs and imaging reviewed. Rest of plan as noted below. Plan: Supplemental oxygen Titrate to keep O2 sats above 92%. Continue antibiotics Incentive spirometry Diurese to euvolemia Monitor renal function. Monitor electrolytes. Supplement as necessary. Monitor ins and outs. Therapeutic Lovenox DVT prophylaxis. Prognosis: Poor given patient's multiple co-morbidities. Rest of plan per hospitalist and other consultants. Thank you, Mary Wade NP, for allowing me to participate in this patient's care. Further recommendations will depend on the patient's clinical course. Please do not hesitate to contact me if you have any questions or concerns. This medical document was created using an electronic medical record system with [employer] dictation system. Although these documentations are being carefully reviewed, there may still be some phonetic and typographical changes. The errors are purely typographical, due to imperfection on the software program, and do not reflect any compromise in the patient's medical care. Plan discussed with: Patient, Other (RN) DELIA HYLTON MD Mar 07, 2024 22:37
[2024-03-08] VITALS (8 sets, daily range): BP systolic 101–115; BP diastolic 59–70; PULSE 78–86; RESP 17–22; TEMP 97.7–98.2; O2SAT 94–100
[2024-03-08 06:55] LABS: Alkaline Phosphatase 79 U/L (46-116); Anion Gap 9 (5-15); BUN/Creatinine Ratio 19.1 (10.0-20.0); Blood Urea Nitrogen 13 mg/dL (9-23); Carbon Dioxide 24 mmol/L (20-31); Chloride 100 mmol/L (98-107); Magnesium 2.2 mg/dL (1.6-2.6); Potassium 3.5 mmol/L (3.5-5.1)
[2024-03-08 06:56] LABS: Alanine Aminotransferase 136 U/L (7-40); Albumin 3.2 g/dL (3.2-4.8); Aspartate Aminotransferase 305 U/L (13-40); Sodium 133 mmol/L (136-145); Total Protein 6.9 g/dL (5.7-8.2)
[2024-03-08 06:57] LABS: Glucose 82 mg/dL (74-106)
[2024-03-08 07:06] LABS: RPR Non Reactive (Non Reactive)
[2024-03-08 07:12] LABS: Basophils # (auto) 0 10 ^3/uL (0-0.2); Basophils % (auto) 0.3 % (0.0-2.0); Eosinophils # (auto) 0 10 ^3/uL (0-0.8); Eosinophils % (auto) 0.1 % (0.0-7.0); Hematocrit 42.6 % (36.0-46.0); Hemoglobin 14.4 g/dL (12.2-16.2); Lymphocytes # (auto) 1.2 10 ^3/uL (0.4-5.4); Lymphocytes % (auto) 19.1 % (10.0-50.0); Mean Corpuscular Hemoglobin 27.2 pg (28.0-32.0); Mean Corpuscular Hgb Conc. 33.9 g/dL (32.0-36.0); Mean Corpuscular Volume 80.2 fL (80.0-100.0); Monocytes # (auto) 0.9 10 ^3/uL (0-1.3); Monocytes % (auto) 15.1 % (0.0-12.0); Neutrophils # (auto) 4.1 10 ^3/uL (1.6-8.6); Neutrophils % (auto) 65.4 % (37.0-80.0); Nucleated Red Blood Cells % 1.1 %; Platelet Count (auto) 104 10^3/uL (140-450); Red Blood Cells 5.32 10^6/uL (4.0-5.20); Red Cell Distribution Width 17.9 % (11.8-14.3); White Blood Cell 6.3 10^3/uL (4.4-10.8)
--- NOTE | 2024-03-08 07:52 | DVHPN2 ---
Progress Note - Dictate Date Seen: Mar 08, 2024 Medical Necessity Reason Pt with a Central, PICC or Fol: No vital signs Vital Sign Date Time Temp Pulse Resp B/P (MAP) Pulse Ox O2 Delivery O2 Flow Rate FiO2 03/08/24 05:48 78 108/66 03/08/24 05:00 97.7 18 95 97.7 03/07/24 21:17 Room Air* 0 21 Total Intake and Output 03/07/24 03/07/24 03/08/24 15:00 23:00 07:00 Intake Total 1540 ml 900 ml Balance 1540 ml 900 ml medications Current Medications Medications Dose Ordered Sig/Kalli Route Start Time Stop Time Status Last Admin Dose Admin Acetaminophen/ Hydrocodone Bitart 1 tab Q4HP PRN PO 03/05/24 21:45 03/07/24 14:38 1 TAB Ondansetron HCl 4 mg Q4HP PRN IV 03/05/24 21:45 03/07/24 21:52 4 MG Docusate Sodium 100 mg BIDPRN PRN PO 03/05/24 21:45 Acetaminophen 650 mg Q6HP PRN PO 03/05/24 21:45 Morphine Sulfate 2 mg Q4HPRN PRN IV 03/05/24 21:45 Pantoprazole Sodium 40 mg DAILY IV 03/06/24 10:00 03/07/24 11:41 40 MG Nitroglycerin 0.4 mg Q5MINP PRN SL 03/05/24 21:45 Morphine Sulfate 2 mg Q30M PRN IV 03/05/24 21:45 Albuterol 2.5 mg Q4HP PRN NEB 03/05/24 21:45 Cancel Diphenhydramine HCl 25 mg Q6HR PRN IV 03/05/24 23:00 Diltiazem HCl 45 mg Q6HR PO 03/06/24 12:00 03/07/24 12:59 45 MG Furosemide 40 mg BIDD IV 03/06/24 18:00 03/08/24 05:46 40 MG Enoxaparin Sodium 80 mg Q12HR SC 03/06/24 10:00 03/07/24 21:53 80 MG Doxycycline Monohydrate 100 mg Q12HR PO 03/06/24 10:00 03/07/24 21:51 100 MG Propranolol HCl 10 mg Q6HR PO 03/07/24 12:00 12/18/24 12:58 10 MG Methimazole 10 mg Q8HR PO 03/07/24 14:00 03/08/24 05:56 10 MG Guaifenesin 200 mg Q4HP PRN PO 03/07/24 12:30 03/07/24 12:58 200 MG laboratory and microbiology Laboratory Tests 03/08/24 05:25 Test 03/08/24 05:25 Range/Units Serum Glucose 82 74-106 mg/dL Assessment/Plan Patient is a 43-year-old female who presented to the hospital for few days of shortness of breath. She actually went to urgent care and was given prednisone/Z-Cody/inhaler. She did not respond and decided come to the hospital. She was diagnosed with pneumonia few days before presentation to hospital. While emergency room, she was found to have atrial fibrillation and Cardiology was called for evaluation and management. Her troponin was mildly/flat elevated which was another reason for cardiology evaluation. It is of note that the patient does have history of thyroid problem (hyperthyroidism) and was previously on methimazole. She mentions that she last saw a doctor for thyroid problem over 3 years ago and stopped methimazole herself at that time just because she did not have time to follow-up with physicians. Denies any previous cardiac history. But also mentions history of palpitation going back for years. She mentions worsening shortness of breath for the past 2 weeks. She had been having leg swellings/orthopnea/PND going back for around 6 weeks. She mentioned fever 1 day before presentation to the hospital. She had not been taking any medications as outpatient (up to few days before presentation) and has been noncompliant. Not in acute distress. Sitting in bed. No JVD. Mucosa is pink and wet. There is no goiter. There is no carotid bruit. Not using accessory muscles of breathing. Scattered rhonchi in the lungs is heard. Cardiac: Irregular, tachycardic, systolic murmur 3/6 in the apex is heard. Abdomen is soft. Bowel sound is positive. There is no gross mass/hepatomegaly. Extremities reveal 3+ edema in bilateral lower extremities. Dorsalis pedis is 2+ bilateral Past medical history includes thyroid problem (hyperthyroidism), history of C- section and noncompliance. She stopped smoking 6 months ago. She denies history of drug abuse. She used social alcohol up to 6 months ago. Denies relevant family history. Father had diabetes mellitus. Mother has hypertension. WBC: 5.3 - 6.5 - 5.3 - 6.3 Creatinine: 0.70 - 0.67 - 0.57 - 0.68 Potassium: 3.1 - 4.6 - 2.8 - 3.5 Lactic acid: 2.9 - 2.2 - 1.8 Magnesium: 1.6 - 1.6 - 1.9 - 2.2 AST/ALT: 35/20 - 71/23 - 27/16 - 305/136 Bilirubin (total): 2.3 - 2.5 - 2.5 - 3.0 BNP: 610.28 Troponin (high sensitive): 219 - 227 - 214 TSH: 0.01 Free T4: 2.58 Free T3: 5.3 ESR: 5 CRP; 0.15 Urinalysis revealed 3+ proteinuria Chest x-ray reported: IMPRESSION: Pulmonary vascular congestion and right lower lobe airspace disease. Repeat chest xry reported: IMPRESSION: Decreaesd right pleural effusion s/p thoracentecis Abdominal and pelvis CT scan (without contrast) reported: Findings: Evaluation of solid organs is limited due to lack of intravenous contrast use. Lung Bases: Moderate right-sided pleural effusion with adjacent compressive atelectasis. Liver: The liver is normal in size. No focal lesions. Gallbladder and Biliary Tree: Unremarkable Spleen: Unremarkable Pancreas: The pancreas is grossly normal in appearance. Adrenal Glands: Unremarkable Kidneys: Kidneys are grossly normal without calculi or hydronephrosis. Bladder: Grossly unremarkable for degree of distention. Bowel: The stomach is grossly normal in appearance. Small bowel and colon are normal in caliber and distribution. Normal appendix is visualized in the right lower quadrant without findings of appendicitis. Ascites: [id number] diffuse ascites. Lymphadenopathy: No mesenteric, retroperitoneal or periportal lymphadenopathy. Abdominal Wall and Mesentery: Mild diffuse anasarca.. Vasculature: The visualized abdominal aorta is normal in size and caliber. Evaluation of abdominal and pelvic vessels is limited due to lack of intravenous contrast. Pelvic Organs: Intact IUD. Moderate free fluid in the pelvis. Musculoskeletal: No aggressive focal bony lesions, acute fractures or dislocation. Moderate degenerative changes of the bilateral hip joints. Mild fusion of the bilateral SI joints. IMPRESSION: Limited noncontrast evaluation. Moderate right-sided pleural effusion with adjacent compressive atelectasis. Mild to moderate diffuse ascites , free fluid in the pelvis, and anasarca. Other ancillary findings as described above. Chest CT revealed: IMPRESSION: 1. Large right pleural effusion with collapse of the right lower lobe. The left lung and pleural space are clear. 2. There are multiple subcentimeter bilateral axillary lymph nodes which may be reactive. 3. Small amount of perihepatic ascites. Chest ultrasound revealed: Finding/Impression: Bilateral pleural effusions, moderate on the right and trace on the left. Limited Abdominal ultrasound to check for Ascites: FINDINGS/IMPRESSIONS: Trace ascites in Shay's pouch. Telemetry reveals atrial fibrillation with RVR Echocardiogram reported: Dilated 4 chambers was observed. Left ventricle: Left ventricle was dilated. LVEF was 30-35%. Diffuse hypokinesis of left ventricle was seen. LVEDP was considered elevated. Right ventricle was dilated with reduced systolic function. Left atrium was moderately dilated. Right atrium was mildly dilated. Aortic valve: Aortic valve was not well visualized. There was no aortic insufficiency/stenosis. There was mild mitral regurgitation. There was moderate to severe tricuspid regurgitation. There was trivial pulmonary valve insufficiency. IVC with dilated. Right ventricular systolic pressure was assessed at 43 mm Hg. She patient is a 43-year-old female who presented with 1 day of fever. Was recently diagnosed with pneumonia and had been on antibiotics. Presentation questions sepsis/pneumonia. Her presentation also includes palpitation for years which increased in few weeks. Is found to have atrial fibrillation with RVR. Her history also includes few weeks of orthopnea/PND/leg swellings (for weeks) which questions acute heart failure. Does have increased BNP in favor of acute heart failure. Troponin has been mildly elevated but running flat which is in favor of possible demand ischemia. Never had ischemic workup before. Presentation is not in favor of acute coronary syndrome at this point. She is found to have multiorgan involvement (ascites, proteinuria, pneumonia). Does have previous history of hyperthyroidism which could have contributed to the clinical picture also (if present at this point). Echo revealed systolic heart failure. Is found to have active significant hyperthyroidism which could be the primary etiology for a-fib and also acute heart failure also. Being followed by Pulmonary (s/p thoracentesis). Is seen and evaluated by Nephrology for proteinuria. Was found to have abnormal LFT/ascites and is evaluated by GI. Fever Sepsis Pneumonia Atrial fibrillation with RVR Abnormal troponin Increased BNP Acute heart failure, systolic Ascites Proteinuria Noncompliance to medication and followups Hyperthyroidism Pleural effusion s/p right thoracentesis by Pulmonary Abnormal LFT Cardiac suggestion for management: Manage in telemetry IV diuresis is suggested Follow-up electrolytes and kidney function tests and correct abnormalities. Keep potassium above 4 and magnesium above 2 Magnesium supplementation Full anticoagulation for now Stop Cardizem On Methimazole On Propranolol, increase Propranolol to 20 mg [id number] Sepsis workup and antibiotic therapy as per primary team Pulmonary follow up Nephrology follow up Endocrinology evaluation for Hyperthyroidism Further evaluation and management depends on the above and clinical course A total of 55 minutes was spent reviewing the patient record, examining the patient, making a diagnostic and therapeutic plan, discussing this plan with medical personnel, following up on diagnostic studies and following the patient for clinical stability excluding any and all procedures. At least 50% of this time was spent in direct, [id number] contact. Thank you for allowing me to participate in this patient's care. Further recommendations will depend on patient's clinical course. Please do not hesitate to contact me if you have any questions or concerns. This medical document was created using electronic medical record system with [employer] computerized dictation system. Although this document has been carefully reviewed, there may still be some phonetic and typographical errors. These areas are purely typographical due to the imperfection of the software programs, and do not reflect any compromise in the patient's medical care. Plan discussed with: Patient, Other (nurse) ANAMARIA GROVES MD Mar 08, 2024 07:52
[2024-03-08 08:06] LABS: Complement C3 53 mg/dL (82-167)
[2024-03-08 08:41] LABS: Hepatitis B Surface Antibody Negative (Negative)
[2024-03-08 09:09] LABS: Hepatitis B Surface Antigen Negative (Negative)
--- NOTE | 2024-03-08 09:23 | DVHPN2 ---
Progress Note - Dictate Date Seen: Mar 08, 2024 Medical Necessity Reason Pt with a Central, PICC or Fol: No Subjective Patient seen at bedside feels better today Last night she was uncomfortable after her thoracentesis She is sitting up and eating her breakfast Patient denies any history of alcohol abuse or previous liver disease or hepatitis vital signs Vital Sign Date Time Temp Pulse Resp B/P (MAP) Pulse Ox O2 Delivery O2 Flow Rate FiO2 03/08/24 09:04 97.8 85 21 115/70 (85) 95 97.8 03/07/24 21:17 Room Air* 0 21 Total Intake and Output 03/07/24 03/07/24 03/08/24 15:00 23:00 07:00 Intake Total 1540 ml 900 ml Balance 1540 ml 900 ml medications Current Medications Medications Dose Ordered Sig/Kalli Route Start Time Stop Time Status Last Admin Dose Admin Acetaminophen/ Hydrocodone Bitart 1 tab Q4HP PRN PO 03/05/24 21:45 03/07/24 14:38 1 TAB Ondansetron HCl 4 mg Q4HP PRN IV 03/05/24 21:45 03/07/24 21:52 4 MG Docusate Sodium 100 mg BIDPRN PRN PO 03/05/24 21:45 Acetaminophen 650 mg Q6HP PRN PO 03/05/24 21:45 Morphine Sulfate 2 mg Q4HPRN PRN IV 03/05/24 21:45 Pantoprazole Sodium 40 mg DAILY IV 03/06/24 10:00 03/07/24 11:41 40 MG Nitroglycerin 0.4 mg Q5MINP PRN SL 03/05/24 21:45 Morphine Sulfate 2 mg Q30M PRN IV 03/05/24 21:45 Albuterol 2.5 mg Q4HP PRN NEB 03/05/24 21:45 Cancel Diphenhydramine HCl 25 mg Q6HR PRN IV 03/05/24 23:00 Furosemide 40 mg BIDD IV 03/06/24 18:00 03/08/24 05:46 40 MG Enoxaparin Sodium 80 mg Q12HR SC 03/06/24 10:00 03/07/24 21:53 80 MG Doxycycline Monohydrate 100 mg Q12HR PO 03/06/24 10:00 03/07/24 21:51 100 MG Methimazole 10 mg Q8HR PO 03/07/24 14:00 03/08/24 05:56 10 MG Guaifenesin 200 mg Q4HP PRN PO 03/07/24 12:30 03/07/24 12:58 200 MG Propranolol HCl 20 mg Q6HR PO 03/08/24 12:00 objective General Appearance: alert, no distress HEENT: EOMI, PERRLA, normal external inspect of ears, no icterus, no nasal drainage Neck: no carotid bruit, no jugular venous distention (JVD), no lymphadenopathy Chest: normal thorax Respiratory: clear to auscultation, normal air movement Cardiovascular: regular rate and rhythm, no diastolic murmur, no jugular venous distention (JVD), no rub, no systolic murmur Abdominal: soft, no hepatomegaly, no mass, no splenomegaly, no tenderness Genitourinary: grossly normal external Musculoskeletal: no joint tenderness, no swelling Extremities: normal pulses, no calf tenderness, no clubbing, no cyanosis, no edema Skin: no bruising, no jaundice, no rash Neurological: alert, No focal deficit laboratory and microbiology Laboratory Tests 03/08/24 05:25 Test 03/08/24 05:25 Range/Units Serum Glucose 82 74-106 mg/dL Problems(with codes): (1) Elevated bilirubin (2) Pulmonary vascular congestion (3) Atrial fibrillation with RVR (4) Pneumonia (5) Pleural effusion (6) Dyspnea (7) Ascites (8) Elevated troponin Prognosis Assessment and plan There was no clear-cut evidence of cirrhosis of the liver and the liver appears normal on the CT scan I believe her ascites and mild elevation in bilirubin is likely related to congestive heart failure and passive congestion of the liver Hepatitis profile is negative, serum ferritin is normal, PERRY is pending Continue IV diuresis as the ascites is improving Continue to monitor labs I will follow up patient with you Plan discussed with: Patient MARINA GARCIA MD Mar 08, 2024 09:23
--- NOTE | 2024-03-08 12:51 | DVHPN2 ---
Progress Note - Dictate Date Seen: Mar 08, 2024 Medical Necessity Reason Pt with a Central, PICC or Fol: No vital signs Vital Sign Date Time Temp Pulse Resp B/P (MAP) Pulse Ox O2 Delivery O2 Flow Rate FiO2 03/08/24 09:04 97.8 85 21 115/70 (85) 95 97.8 03/07/24 21:17 Room Air* 0 21 Total Intake and Output 03/07/24 03/07/24 03/08/24 15:00 23:00 07:00 Intake Total 1540 ml 900 ml Balance 1540 ml 900 ml medications Current Medications Medications Dose Ordered Sig/Kalli Route Start Time Stop Time Status Last Admin Dose Admin Acetaminophen/ Hydrocodone Bitart 1 tab Q4HP PRN PO 03/05/24 21:45 03/07/24 14:38 1 TAB Ondansetron HCl 4 mg Q4HP PRN IV 03/05/24 21:45 03/07/24 21:52 4 MG Docusate Sodium 100 mg BIDPRN PRN PO 03/05/24 21:45 Acetaminophen 650 mg Q6HP PRN PO 03/05/24 21:45 Morphine Sulfate 2 mg Q4HPRN PRN IV 03/05/24 21:45 Pantoprazole Sodium 40 mg DAILY IV 03/06/24 10:00 03/08/24 09:54 40 MG Nitroglycerin 0.4 mg Q5MINP PRN SL 03/05/24 21:45 Morphine Sulfate 2 mg Q30M PRN IV 03/05/24 21:45 Albuterol 2.5 mg Q4HP PRN NEB 03/05/24 21:45 Cancel Diphenhydramine HCl 25 mg Q6HR PRN IV 03/05/24 23:00 Furosemide 40 mg BIDD IV 03/06/24 18:00 03/08/24 05:46 40 MG Enoxaparin Sodium 80 mg Q12HR SC 03/06/24 10:00 03/08/24 09:54 80 MG Doxycycline Monohydrate 100 mg Q12HR PO 03/06/24 10:00 03/08/24 09:54 100 MG Methimazole 10 mg Q8HR PO 03/07/24 14:00 03/08/24 05:56 10 MG Guaifenesin 200 mg Q4HP PRN PO 03/07/24 12:30 03/07/24 12:58 200 MG Propranolol HCl 20 mg Q6HR PO 03/08/24 12:00 objective General Appearance: alert, no distress HEENT: EOMI, PERRLA, normal external inspect of ears, no icterus, no nasal drainage Neck: no carotid bruit, no jugular venous distention (JVD), no lymphadenopathy Chest: normal thorax Respiratory: clear to auscultation, normal air movement Cardiovascular: regular rate and rhythm, no diastolic murmur, no jugular venous distention (JVD), no rub, no systolic murmur Abdominal: soft, no hepatomegaly, no mass, no splenomegaly, no tenderness Genitourinary: grossly normal external Musculoskeletal: no joint tenderness, no swelling Extremities: normal pulses, no calf tenderness, no clubbing, no cyanosis, no edema Skin: no bruising, no jaundice, no rash Neurological: alert, No focal deficit laboratory and microbiology Laboratory Tests 03/08/24 05:25 Test 03/08/24 05:25 Range/Units Serum Glucose 82 74-106 mg/dL Problem List 1. Sepsis Monitor, IV antibiotics 2. Right-sided pneumonia, most likely gram-negative and some gram-positive Monitor, IV antibiotics, IR consult, plan thoracentesis 3. Right pleural effusion Monitor 4. Ascites Monitor, GI consult, plan paracentesis 5. Elevated bilirubin Monitor 6. Atrial fibrillation with RVR Monitor, cardiology consults, antiarrythmics, echocardiogram 7. Elevated troponin, most likely demand ischemia Monitor, trend troponin 8. Hypothyroidism Monitor 9. Atrial fibrillation with RVR Cardiology consult, monitoring Assessment/Plan Subjective Patient is awake and alert Objective I spoke with patient and patient's family at bedside. Patient was admitted on 03/05/2024 for shortness of breath. Patient was found have a pleural effusion as well as ascites. 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 900 mL of fluid was removed. Ultrasound imaging was done to evaluate further for paracentesis. Not enough fluid was noted for procedure. Patient was seen by cardiology. Echocardiogram estimated 30 to 35% of likely fluid overload is due to CHF exacerbation. Patient also has elevated bilirubin level. GI has been consulted. Patient was found to have a hyperthyroid. She states she has not been taking medications for several years. Patient was started on methimazole. Patient states she feels somewhat better today. Plan Continue current treatment. Continue diuretics. Continue treatment for hyperthyroidism. Monitor EKG. Plan discussed with: Patient, Other ISIDORO DELANEY NP Mar 08, 2024 12:51
[2024-03-08 13:06] LABS: Protein, Body Fluid 2.9 g/dL (.)
[2024-03-08] MEDS: PROPRANOLOL HCL 20 MG TAB PO SCH (13:26)
--- NOTE | 2024-03-08 14:49 | DVHPN2 ---
Progress Note Date Seen: Mar 08, 2024 Medical Necessity Reason Pt with a Central, PICC or Fol: No Subjective Patient reports: No new complaints Other Systems: Patient seen and examined by myself in follow-up today Objective vital signs Vital Sign Date Time Temp Pulse Resp B/P (MAP) Pulse Ox O2 Delivery O2 Flow Rate FiO2 03/08/24 13:26 86 139/74 03/08/24 12:30 97.9 17 96 97.9 03/08/24 08:00 Room Air* 0 21 Total Intake and Output 03/07/24 03/07/24 03/08/24 15:00 23:00 07:00 Intake Total 1540 ml 900 ml Balance 1540 ml 900 ml medications Current Medications Medications Dose Ordered Sig/Kalli Route Start Time Stop Time Status Last Admin Dose Admin Acetaminophen/ Hydrocodone Bitart 1 tab Q4HP PRN PO 03/05/24 21:45 03/07/24 14:38 Ondansetron HCl 4 mg Q4HP PRN IV 03/05/24 21:45 03/07/24 21:52 Docusate Sodium 100 mg BIDPRN PRN PO 03/05/24 21:45 Acetaminophen 650 mg Q6HP PRN PO 03/05/24 21:45 Morphine Sulfate 2 mg Q4HPRN PRN IV 03/05/24 21:45 Pantoprazole Sodium 40 mg DAILY IV 03/06/24 10:00 03/08/24 09:54 Nitroglycerin 0.4 mg Q5MINP PRN SL 03/05/24 21:45 Morphine Sulfate 2 mg Q30M PRN IV 03/05/24 21:45 Albuterol 2.5 mg Q4HP PRN NEB 03/05/24 21:45 Cancel Diphenhydramine HCl 25 mg Q6HR PRN IV 03/05/24 23:00 Furosemide 40 mg BIDD IV 03/06/24 18:00 03/08/24 05:46 Enoxaparin Sodium 80 mg Q12HR SC 03/06/24 10:00 03/08/24 09:54 Doxycycline Monohydrate 100 mg Q12HR PO 03/06/24 10:00 03/08/24 09:54 Methimazole 10 mg Q8HR PO 03/07/24 14:00 03/08/24 13:38 Guaifenesin 200 mg Q4HP PRN PO 03/07/24 12:30 03/07/24 12:58 Propranolol HCl 20 mg Q6HR PO 03/08/24 12:00 03/08/24 13:26 Examination: LUNGS:Normal, CVS:Normal, MSK:Abnormal laboratory and microbiology Laboratory Tests 03/08/24 05:25 Test 03/08/24 05:25 Range/Units Serum Glucose 82 74-106 mg/dL Microbiology Date/Time Source Procedure Growth Status 03/07/24 11:30 Pleural Fluid Gram Stain - Final Resulted 03/07/24 11:30 Pleural Fluid Body Fluid Culture - Preliminary Resulted 03/06/24 11:11 Blood Blood Culture - Preliminary NO GROWTH AFTER 48 HOURS OF INCUBATION. Resulted Problem List/Assessment/Plan Problem List/Assessment/Plan Proteinuria, unknown quantity and etiology Low C3 and C4, rule out lupus nephritis CHF exacerbation NSTEMI Hypokalemia Hypomagnesemia thyrotoxicosis Hyperglycemia r/o DM Vitamin-D deficiency REC: Normal kidney function Quantify urine protein Kidney reported within normal limit on the CT scan of the abdomen Radiology consult for kidney biopsy Ergocalciferol 81297 p.o. q.week A1c, 5.8 Serology for hep b s Ag, HCV, HIV, RPR, PERRY KCl replacement Magnesium sulfate IVPB Will continue to follow I discussed my plan of care with the patient, her at the bedside Plan discussed with: Patient, Spouse My Orders My Orders Orders - DEEPTHI VACA MD Procedure Category Date Status Time Urine Sodium LAB 03/07/24 Logged 15:19 Urinalysis LAB 03/07/24 Logged 15:19 Urine LAB 03/07/24 Logged Protein/Creatinine 15:19 * Radiologist Consult CONS 03/08/24 Transmitted 14:34 DEEPTHI VACA MD Mar 08, 2024 14:49
[2024-03-08] MEDS: ERGOCALCIFEROL 50,000 UNIT(1.25MG) CAP PO SCH (16:19)
[2024-03-08 17:17] LABS: Urine Amorphous Crystal FEW /hpf (None Seen); Urine Bacteria FEW /hpf (None Seen); Urine Blood 1+ /uL (Negative); Urine Clarity Turbid (Clear); Urine Color Dark-Yellow (Yellow); Urine Hyaline Cast FEW /lpf (0 - 2); Urine Mucus FEW (None Seen); Urine Protein, UAD 1+ (Negative); Urine Specific Gravity 1.023 (1.001-1.035); Urine Squamous Epithelial Cell MOD /hpf (<5); Urine Urobilinogen Normal (Negative); Urine WBC 4 /hpf (0 - 5); Urine pH 5.5 (5.0-9.0)
[2024-03-08 17:24] LABS: Protein, Urine 87.9 mg/dL (1-14)
[2024-03-08 17:27] LABS: Creatinine, Urine 219.01 mg/dL (30.0-125.0)
[2024-03-08 17:30] LABS: Sodium Urine < 10 mmol/L (40-220)
--- NOTE | 2024-03-08 23:05 | DVHPN2 ---
Progress Note - Dictate Date Seen: Mar 08, 2024 Medical Necessity Reason Pt with a Central, PICC or Fol: No Subjective Patient seen and examined at bedside. Breathing comfortably on room air. Overnight events reviewed. vital signs Vital Sign Date Time Temp Pulse Resp B/P (MAP) Pulse Ox O2 Delivery O2 Flow Rate FiO2 03/08/24 21:00 97.8 82 22 105/61 (76) 100 97.8 03/08/24 08:00 Room Air* 0 21 Total Intake and Output 03/07/24 03/07/24 03/08/24 15:00 23:00 07:00 Intake Total 1540 ml 900 ml Balance 1540 ml 900 ml medications Current Medications Medications Dose Ordered Sig/Kalli Route Start Time Stop Time Status Last Admin Dose Admin Acetaminophen/ Hydrocodone Bitart 1 tab Q4HP PRN PO 03/05/24 21:45 03/08/24 16:19 1 TAB Ondansetron HCl 4 mg Q4HP PRN IV 03/05/24 21:45 03/07/24 21:52 4 MG Docusate Sodium 100 mg BIDPRN PRN PO 03/05/24 21:45 Acetaminophen 650 mg Q6HP PRN PO 03/05/24 21:45 Morphine Sulfate 2 mg Q4HPRN PRN IV 03/05/24 21:45 Pantoprazole Sodium 40 mg DAILY IV 03/06/24 10:00 03/08/24 09:54 40 MG Nitroglycerin 0.4 mg Q5MINP PRN SL 03/05/24 21:45 Morphine Sulfate 2 mg Q30M PRN IV 03/05/24 21:45 Albuterol 2.5 mg Q4HP PRN NEB 03/05/24 21:45 Cancel Diphenhydramine HCl 25 mg Q6HR PRN IV 03/05/24 23:00 Furosemide 40 mg BIDD IV 03/06/24 18:00 03/08/24 17:32 40 MG Enoxaparin Sodium 80 mg Q12HR SC 03/06/24 10:00 03/08/24 22:09 80 MG Doxycycline Monohydrate 100 mg Q12HR PO 03/06/24 10:00 03/08/24 22:08 100 MG Methimazole 10 mg Q8HR PO 03/07/24 14:00 03/08/24 22:08 10 MG Guaifenesin 200 mg Q4HP PRN PO 03/07/24 12:30 03/07/24 12:58 200 MG Propranolol HCl 20 mg Q6HR PO 03/08/24 12:00 03/08/24 17:31 20 MG Ergocalciferol 50,000 unit Q7D PO 03/08/24 15:00 03/08/24 16:19 50,000 UNIT objective Gen.: Patient lying in bed in no apparent distress. On room air. Head: Normocephalic, atraumatic. Eyes: EOMI/PERRLA. Ears: Normal hearing. Normal anatomy. Neck/trachea: Trachea midline, supple. Nose: Normal external anatomy. Mouth: Moist mucous membranes. Chest: Decreased air entry bilaterally. No wheezing or rhonchi. Cardiovascular: Positive S1, positive S2. Regular rate and rhythm. Abdomen: Positive bowel sounds in all 4 quadrants. Soft, non-tender, non- distended. : Deferred. Rectal: Deferred. Skin: Warm, dry. Intact. Extremities: 2+ radial pulses bilaterally. No lower extremity edema. Neuro: Awake, alert, oriented x3. No gross motor or sensory deficits. Cranial nerves II through XII intact. Gait not assessed. laboratory and microbiology Laboratory Tests 03/08/24 05:25 Test 03/08/24 05:25 Range/Units Serum Glucose 82 74-106 mg/dL Assessment/Plan Impression: Bilateral pleural effusions Atelectasis Pneumonia, likely gram negative Ascites Atrial fibrillation w/ RVR Hx of nicotine dependence Obesity Events: Breathing on room air No respiratory distress. Incentive spirometry Continue antibiotics Nausea is resolved. Pain control Avoid oversedation Diurese w/ Lasix as tolerated Monitor renal function. Monitor electrolytes. Supplement as necessary. K, mag supplementation Elevated LFTs - follow up GI recommendations IR plans for kidney biopsy Nephrology recs appreciated. 03/07/24 - S/p right thoracentesis - drained 900 ml yellow fluid from right pleural space. See separate procedure note for details. CXR post procedure showed no pneumothorax; interval reduction in right pleural effusion. Labs and imaging reviewed. Rest of plan as noted below. Plan: Supplemental oxygen PRN Titrate to keep O2 sats above 92%. Continue antibiotics Incentive spirometry Diurese to euvolemia Monitor renal function. Monitor electrolytes. Supplement as necessary. Monitor ins and outs. Therapeutic Lovenox DVT prophylaxis. Prognosis: Poor given patient's multiple co-morbidities. Rest of plan per hospitalist and other consultants. Thank you, Mary Wade NP, for allowing me to participate in this patient's care. Further recommendations will depend on the patient's clinical course. Please do not hesitate to contact me if you have any questions or concerns. This medical document was created using an electronic medical record system with [employer] dictation system. Although these documentations are being carefully reviewed, there may still be some phonetic and typographical changes. The errors are purely typographical, due to imperfection on the software program, and do not reflect any compromise in the patient's medical care. Plan discussed with: Patient, Other (ADELE Penalzoa) DELIA HYLTON MD Mar 08, 2024 23:05
[2024-03-09] VITALS (13 sets, daily range): BP systolic 102–126; BP diastolic 63–83; PULSE 59–87; RESP 16–20; TEMP 97.4–98.7; O2SAT 93–99
--- NOTE | 2024-03-09 06:27 | DVHPN2 ---
Progress Note - Dictate Date Seen: Mar 09, 2024 Medical Necessity Reason Pt with a Central, PICC or Fol: No vital signs Vital Sign Date Time Temp Pulse Resp B/P (MAP) Pulse Ox O2 Delivery O2 Flow Rate FiO2 03/09/24 06:06 105/66 03/09/24 06:05 74 03/09/24 05:00 97.4 20 94 97.4 03/08/24 20:00 Room Air* 0 21 Total Intake and Output 03/08/24 03/08/24 03/09/24 15:00 23:00 07:00 Intake Total 740 ml 1280 ml 1075 ml Balance 740 ml 1280 ml 1075 ml medications Current Medications Medications Dose Ordered Sig/Kalli Route Start Time Stop Time Status Last Admin Dose Admin Acetaminophen/ Hydrocodone Bitart 1 tab Q4HP PRN PO 03/05/24 21:45 03/08/24 16:19 1 TAB Ondansetron HCl 4 mg Q4HP PRN IV 03/05/24 21:45 03/07/24 21:52 4 MG Docusate Sodium 100 mg BIDPRN PRN PO 03/05/24 21:45 Acetaminophen 650 mg Q6HP PRN PO 03/05/24 21:45 Morphine Sulfate 2 mg Q4HPRN PRN IV 03/05/24 21:45 Pantoprazole Sodium 40 mg DAILY IV 03/06/24 10:00 03/08/24 09:54 40 MG Nitroglycerin 0.4 mg Q5MINP PRN SL 03/05/24 21:45 Morphine Sulfate 2 mg Q30M PRN IV 03/05/24 21:45 Albuterol 2.5 mg Q4HP PRN NEB 03/05/24 21:45 Cancel Diphenhydramine HCl 25 mg Q6HR PRN IV 03/05/24 23:00 Furosemide 40 mg BIDD IV 03/06/24 18:00 03/09/24 06:06 40 MG Enoxaparin Sodium 80 mg Q12HR SC 03/06/24 10:00 03/08/24 22:09 80 MG Doxycycline Monohydrate 100 mg Q12HR PO 03/06/24 10:00 03/08/24 22:08 100 MG Methimazole 10 mg Q8HR PO 03/07/24 14:00 03/09/24 06:05 10 MG Guaifenesin 200 mg Q4HP PRN PO 03/07/24 12:30 03/07/24 12:58 200 MG Propranolol HCl 20 mg Q6HR PO 03/08/24 12:00 03/09/24 06:05 20 MG Ergocalciferol 50,000 unit Q7D PO 03/08/24 15:00 03/08/24 16:19 50,000 UNIT laboratory and microbiology Laboratory Tests 03/08/24 05:25 Test 03/08/24 05:25 Range/Units Serum Glucose 82 74-106 mg/dL Assessment/Plan Patient is a 43-year-old female who presented to the hospital for few days of shortness of breath. She actually went to urgent care and was given prednisone/Z-Cody/inhaler. She did not respond and decided come to the hospital. She was diagnosed with pneumonia few days before presentation to hospital. While emergency room, she was found to have atrial fibrillation and Cardiology was called for evaluation and management. Her troponin was mildly/flat elevated which was another reason for cardiology evaluation. It is of note that the patient does have history of thyroid problem (hyperthyroidism) and was previously on methimazole. She mentions that she last saw a doctor for thyroid problem over 3 years ago and stopped methimazole herself at that time just because she did not have time to follow-up with physicians. Denies any previous cardiac history. But also mentions history of palpitation going back for years. She mentions worsening shortness of breath for the past 2 weeks. She had been having leg swellings/orthopnea/PND going back for around 6 weeks. She mentioned fever 1 day before presentation to the hospital. She had not been taking any medications as outpatient (up to few days before presentation) and has been noncompliant. Not in acute distress. Sitting in bed. No JVD. Mucosa is pink and wet. There is no goiter. There is no carotid bruit. Not using accessory muscles of breathing. Scattered rhonchi in the lungs is heard. Cardiac: Irregular, tachycardic, systolic murmur 3/6 in the apex is heard. Abdomen is soft. Bowel sound is positive. There is no gross mass/hepatomegaly. Extremities reveal 3+ edema in bilateral lower extremities. Dorsalis pedis is 2+ bilateral Past medical history includes thyroid problem (hyperthyroidism), history of C- section and noncompliance. She stopped smoking 6 months ago. She denies history of drug abuse. She used social alcohol up to 6 months ago. Denies relevant family history. Father had diabetes mellitus. Mother has hypertension. WBC: 5.3 - 6.5 - 5.3 - 6.3 Creatinine: 0.70 - 0.67 - 0.57 - 0.68 Potassium: 3.1 - 4.6 - 2.8 - 3.5 Lactic acid: 2.9 - 2.2 - 1.8 Magnesium: 1.6 - 1.6 - 1.9 - 2.2 AST/ALT: 35/20 - 71/23 - 27/16 - 305/136 Bilirubin (total): 2.3 - 2.5 - 2.5 - 3.0 BNP: 610.28 Troponin (high sensitive): 219 - 227 - 214 TSH: 0.01 Free T4: 2.58 Free T3: 5.3 ESR: 5 CRP; 0.15 Urinalysis revealed 3+ proteinuria Chest x-ray reported: IMPRESSION: Pulmonary vascular congestion and right lower lobe airspace disease. Repeat chest xry reported: IMPRESSION: Decreaesd right pleural effusion s/p thoracentecis Abdominal and pelvis CT scan (without contrast) reported: Findings: Evaluation of solid organs is limited due to lack of intravenous contrast use. Lung Bases: Moderate right-sided pleural effusion with adjacent compressive atelectasis. Liver: The liver is normal in size. No focal lesions. Gallbladder and Biliary Tree: Unremarkable Spleen: Unremarkable Pancreas: The pancreas is grossly normal in appearance. Adrenal Glands: Unremarkable Kidneys: Kidneys are grossly normal without calculi or hydronephrosis. Bladder: Grossly unremarkable for degree of distention. Bowel: The stomach is grossly normal in appearance. Small bowel and colon are normal in caliber and distribution. Normal appendix is visualized in the right lower quadrant without findings of appendicitis. Ascites: [id number]-[id number] diffuse ascites. Lymphadenopathy: No mesenteric, retroperitoneal or periportal lymphadenopathy. Abdominal Wall and Mesentery: Mild diffuse anasarca.. Vasculature: The visualized abdominal aorta is normal in size and caliber. Evaluation of abdominal and pelvic vessels is limited due to lack of intravenous contrast. Pelvic Organs: Intact IUD. Moderate free fluid in the pelvis. Musculoskeletal: No aggressive focal bony lesions, acute fractures or dislocation. Moderate degenerative changes of the bilateral hip joints. Mild fusion of the bilateral SI joints. IMPRESSION: Limited noncontrast evaluation. Moderate right-sided pleural effusion with adjacent compressive atelectasis. Mild to moderate diffuse ascites , free fluid in the pelvis, and anasarca. Other ancillary findings as described above. Chest CT revealed: IMPRESSION: 1. Large right pleural effusion with collapse of the right lower lobe. The left lung and pleural space are clear. 2. There are multiple subcentimeter bilateral axillary lymph nodes which may be reactive. 3. Small amount of perihepatic ascites. Chest ultrasound revealed: Finding/Impression: Bilateral pleural effusions, moderate on the right and trace on the left. Limited Abdominal ultrasound to check for Ascites: FINDINGS/IMPRESSIONS: Trace ascites in Shay's pouch. Telemetry reveals atrial fibrillation with RVR Echocardiogram reported: Dilated 4 chambers was observed. Left ventricle: Left ventricle was dilated. LVEF was 30-35%. Diffuse hypokinesis of left ventricle was seen. LVEDP was considered elevated. Right ventricle was dilated with reduced systolic function. Left atrium was moderately dilated. Right atrium was mildly dilated. Aortic valve: Aortic valve was not well visualized. There was no aortic insufficiency/stenosis. There was mild mitral regurgitation. There was moderate to severe tricuspid regurgitation. There was trivial pulmonary valve insufficiency. IVC with dilated. Right ventricular systolic pressure was assessed at 43 mm Hg. She patient is a 43-year-old female who presented with 1 day of fever. Was recently diagnosed with pneumonia and had been on antibiotics. Presentation questions sepsis/pneumonia. Her presentation also includes palpitation for years which increased in few weeks. Is found to have atrial fibrillation with RVR. Her history also includes few weeks of orthopnea/PND/leg swellings (for weeks) which questions acute heart failure. Does have increased BNP in favor of acute heart failure. Troponin has been mildly elevated but running flat which is in favor of possible demand ischemia. Never had ischemic workup before. Presentation is not in favor of acute coronary syndrome at this point. She is found to have multiorgan involvement (ascites, proteinuria, pneumonia). Does have previous history of hyperthyroidism which could have contributed to the clinical picture also (if present at this point). Echo revealed systolic heart failure. Is found to have active significant hyperthyroidism which could be the primary etiology for a-fib and also acute heart failure also. Being followed by Pulmonary (s/p thoracentesis). Is seen and evaluated by Nephrology for proteinuria. Was found to have abnormal LFT/ascites and is evaluated by GI. Fever Sepsis Pneumonia Atrial fibrillation with RVR Abnormal troponin Increased BNP Acute heart failure, systolic Ascites Proteinuria Noncompliance to medication and followups Hyperthyroidism Pleural effusion s/p right thoracentesis by Pulmonary Abnormal LFT Cardiac suggestion for management: Manage in telemetry IV diuresis is suggested Follow-up electrolytes and kidney function tests and correct abnormalities. Keep potassium above 4 and magnesium above 2 Magnesium supplementation Full anticoagulation for now On Methimazole On Propranolol, increase Propranolol to 20 mg [id number] [facility], later today Sepsis workup and antibiotic therapy as per primary team Pulmonary follow up Nephrology follow up Endocrinology evaluation for Hyperthyroidism Further evaluation and management depends on the above and clinical course A total of 55 minutes was spent reviewing the patient record, examining the patient, making a diagnostic and therapeutic plan, discussing this plan with medical personnel, following up on diagnostic studies and following the patient for clinical stability excluding any and all procedures. At least 50% of this time was spent in direct, [id number] contact. Thank you for allowing me to participate in this patient's care. Further recommendations will depend on patient's clinical course. Please do not hesitate to contact me if you have any questions or concerns. This medical document was created using electronic medical record system with [employer] computerized dictation system. Although this document has been carefully reviewed, there may still be some phonetic and typographical errors. These areas are purely typographical due to the imperfection of the software programs, and do not reflect any compromise in the patient's medical care. Plan discussed with: Patient, Other (nurse) ANAMARIA GROVES MD Mar 09, 2024 06:27
[2024-03-09 06:50] LABS: Basophils # (auto) 0 10 ^3/uL (0-0.2); Basophils % (auto) 0.5 % (0.0-2.0); Eosinophils # (auto) 0.1 10 ^3/uL (0-0.8); Eosinophils % (auto) 1.3 % (0.0-7.0); Hemoglobin 14.7 g/dL (12.2-16.2); Lymphocytes # (auto) 0.9 10 ^3/uL (0.4-5.4); Lymphocytes % (auto) 15.2 % (10.0-50.0); Mean Corpuscular Hemoglobin 26.6 pg (28.0-32.0); Mean Corpuscular Hgb Conc. 32.7 g/dL (32.0-36.0); Mean Corpuscular Volume 81.4 fL (80.0-100.0); Monocytes # (auto) 0.8 10 ^3/uL (0-1.3); Monocytes % (auto) 15.1 % (0.0-12.0); Neutrophils # (auto) 3.8 10 ^3/uL (1.6-8.6); Neutrophils % (auto) 67.9 % (37.0-80.0); Nucleated Red Blood Cells % 0.3 %; Platelet Count (auto) 106 10^3/uL (140-450); Red Blood Cells 5.54 10^6/uL (4.0-5.20); Red Cell Distribution Width 17.8 % (11.8-14.3); White Blood Cell 5.6 10^3/uL (4.4-10.8)
[2024-03-09 07:07] LABS: Albumin 3.3 g/dL (3.2-4.8); Alkaline Phosphatase 81 U/L (46-116); Anion Gap 7 (5-15); BUN/Creatinine Ratio 23.3 (10.0-20.0); Blood Urea Nitrogen 17 mg/dL (9-23); Calcium 9.3 mg/dL (8.7-10.4); Carbon Dioxide 28 mmol/L (20-31); Chloride 99 mmol/L (98-107); Magnesium 1.8 mg/dL (1.6-2.6); Total Protein 7.2 g/dL (5.7-8.2)
[2024-03-09 07:18] LABS: Alanine Aminotransferase 238 U/L (7-40); Aspartate Aminotransferase 420 U/L (13-40); Bilirubin, Total 2.6 mg/dL (0.2-1.0); Glucose 65 mg/dL (74-106); Potassium 3.3 mmol/L (3.5-5.1); Sodium 134 mmol/L (136-145)
[2024-03-09] MEDS: POTASSIUM EFFERVESENT TAB 25 MEQ PO ONE ×2 (13:11→14:30)
[2024-03-09] MEDS: IODIXANOL 320MG/ML 100ML BTL IV ONE ×2 (13:42→14:01)
[2024-03-09] MEDS: ONDANSETRON HCL 4 MG/2 ML VIAL ONE (13:57)
[2024-03-09] MEDS: fentaNYL CITRATE 100 MCG/2 ML VL ONE (14:04)
[2024-03-09] MEDS: LIDOCAINE 2%HCL (LOCAL ANESTH.) INJ 20ML MDV ONE (14:04)
[2024-03-09] MEDS: HEPARIN SODIUM (PORCINE) 5000 UNITS/ML 1ML VIAL ONE (14:04)
[2024-03-09] MEDS: ANGIOMAX 250 MG VIAL IV ONE (14:04)
[2024-03-09] MEDS: MIDAZOLAM HCL 2MG/2ML 2ml VIAL (1mg/ml) ONE (14:04)
[2024-03-09] MEDS: SODIUM CHL 0.9% 0 ML ONE (14:05)
[2024-03-09] MEDS: VERAPAMIL 2.5MG/ML INJ 2ML VIAL IV ONE (14:08)
--- NOTE | 2024-03-09 14:28 | DVHPN2 ---
Progress Note Date Seen: Mar 09, 2024 Medical Necessity Reason Pt with a Central, PICC or Fol: No Subjective Patient reports: No new complaints Other Systems: Patient seen and examined by myself today in follow-up Objective vital signs Vital Sign Date Time Temp Pulse Resp B/P (MAP) Pulse Ox O2 Delivery O2 Flow Rate FiO2 03/09/24 12:33 97.8 59 16 126/75 (92) 94 97.8 03/09/24 08:00 Room Air* 0 21 Total Intake and Output 03/08/24 03/08/24 03/09/24 15:00 23:00 07:00 Intake Total 740 ml 1280 ml 1075 ml Balance 740 ml 1280 ml 1075 ml medications Current Medications Medications Dose Ordered Sig/Kalli Route Start Time Stop Time Status Last Admin Dose Admin Acetaminophen/ Hydrocodone Bitart 1 tab Q4HP PRN PO 03/05/24 21:45 03/08/24 16:19 1 TAB Ondansetron HCl 4 mg Q4HP PRN IV 03/05/24 21:45 03/07/24 21:52 4 MG Docusate Sodium 100 mg BIDPRN PRN PO 03/05/24 21:45 Acetaminophen 650 mg Q6HP PRN PO 03/05/24 21:45 Morphine Sulfate 2 mg Q4HPRN PRN IV 03/05/24 21:45 Pantoprazole Sodium 40 mg DAILY IV 03/06/24 10:00 03/09/24 09:50 40 MG Nitroglycerin 0.4 mg Q5MINP PRN SL 03/05/24 21:45 Morphine Sulfate 2 mg Q30M PRN IV 03/05/24 21:45 Albuterol 2.5 mg Q4HP PRN NEB 03/05/24 21:45 Cancel Diphenhydramine HCl 25 mg Q6HR PRN IV 03/05/24 23:00 Furosemide 40 mg BIDD IV 03/06/24 18:00 03/09/24 06:06 40 MG Enoxaparin Sodium 80 mg Q12HR SC 03/06/24 10:00 03/08/24 22:09 80 MG Doxycycline Monohydrate 100 mg Q12HR PO 03/06/24 10:00 03/09/24 09:50 100 MG Methimazole 10 mg Q8HR PO 03/07/24 14:00 03/09/24 06:05 10 MG Guaifenesin 200 mg Q4HP PRN PO 03/07/24 12:30 03/07/24 12:58 200 MG Propranolol HCl 20 mg Q6HR PO 03/08/24 12:00 03/09/24 06:05 20 MG Ergocalciferol 50,000 unit Q7D PO 03/08/24 15:00 03/08/24 16:19 50,000 UNIT Examination: LUNGS:Normal, CVS:Normal, MSK:Normal laboratory and microbiology Laboratory Tests 03/09/24 05:06 Test 03/09/24 05:06 Range/Units Serum Glucose 65 L 74-106 mg/dL Microbiology Date/Time Source Procedure Growth Status 03/07/24 11:30 Pleural Fluid Gram Stain - Final Resulted 03/07/24 11:30 Pleural Fluid Body Fluid Culture - Preliminary Resulted 03/06/24 11:11 Blood Blood Culture - Preliminary NO GROWTH AFTER 72 HOURS OF INCUBATION. Resulted Problem List/Assessment/Plan Problem List/Assessment/Plan Lupus nephritis Low C3 and C4, positive PERRY CHF exacerbation NSTEMI Hypokalemia Hypomagnesemia thyrotoxicosis Hyperglycemia r/o DM Vitamin-D deficiency REC: Normal kidney functio Radiology consult for kidney biopsy Ergocalciferol 13007 p.o. q.week A1c, 5.8 KCl replacement Magnesium sulfate IVPB Will continue to follow I discussed my plan of care with the patient, her at the bedside Plan discussed with: Patient My Orders My Orders Orders - DEEPTHI VACA MD Procedure Category Date Status Time * Radiologist Consult CONS 03/08/24 Transmitted 14:34 Ergocalciferol PHA 03/08/24 In Process (Vitamin D 50,000 15:00 Potassium Effervesent PHA 03/09/24 Logged Tab (Klor-Con/Ef) 14:30 DEEPTHI VACA MD Mar 09, 2024 14:28
--- NOTE | 2024-03-09 14:35 | DVHOP2 ---
Operative Report Procedures performed: Left heart catheterization and bilateral coronary angiogram Moderate sedation Diagnosis: No angiographic evidence for epicardial coronary artery disease (normal coronaries) LVEF of 40% Nonischemic cardiomyopathy Suggestion for management: Optimized medical therapy Guideline directed medical therapy for systolic heart failure Lifestyle and risk factor modifications Findings: LVEF: 40% LVEDP: 11 mm Hg There was no transaortic valve pressure gradient Left main: Left main was coming off the left sinus of Valsalva. It was free of disease. LAD: LAD was coming off the left main. D1 and D2 were medium-sized vessels. D3 was a small-sized vessel. LAD throughout its course and branches did not reveal any angiographic evidence of disease. LCx: LCx was coming off the left main. OM1 was small-sized vessel. OM2 was medium-sized vessel. LCx throughout its course and branches did not reveal any angiographic evidence of disease. RCA: RCA was coming off the right sinus of Valsalva. It was the dominant vessel and provided RPDA/RPLS. RCA throughout its course and branches did not reveal any angiographic evidence of disease. Presentation: Patient is a 43-year-old female who presented to the hospital with shortness of breath and chest discomfort. Her diagnosis included hyperthyroidism (uncontrolled). Echocardiogram revealed newly diagnosed systolic heart failure. Troponin was somehow elevated. With diagnosis of new onset heart failure and abnormal troponin (questioning non-STEMI) the patient was sent for cardiac catheterization. Procedure: After obtaining informed consent, the patient was brought to the tailings dam laborer. She was prepped and draped in sterile fashion. Right radial artery was used for access. 1 mg of Versed and 25 mcg of fentanyl were used for moderate sedation. Using modified Seldinger technique, the right radial artery was accessed and a 6 Kisw[place]ili slender sheath was inserted into it. 2.5 mg of verapamil and 100 mcg of nitroglycerin were given as a cocktail into right radial sheath. 4500 units of heparin was given peripherally. A 6 Kiswahili tiger 4 diagnostic catheter was used to perform left heart catheterization (obtaining pressures and performing left ventriculography) and bilateral coronary angiography. There was no indication for any transcatheter revascularization. There was no dissection/hematoma/perforation. Patient tolerated the procedure with no complication. Right radial artery access site was managed by deploying a TR band. Fluoroscopy time: 1.8 minutes contrast: 15 mL of ANAMARIA Ba MD Mar 09, 2024 14:35
--- NOTE | 2024-03-09 16:26 | DVHPN2 ---
Progress Note - Dictate Date Seen: Mar 09, 2024 Medical Necessity Reason Pt with a Central, PICC or Fol: No Subjective Patient seen at bedside f She just returned from cardiac catheterization Her coronaries were normal Ejection fraction is 40% Bilirubin is trending down However she has has persistent transaminitis Liver imaging is normal, hepatitis panel, PERRY, ferritin are all normal, PT INR is normal vital signs Vital Sign Date Time Temp Pulse Resp B/P (MAP) Pulse Ox O2 Delivery O2 Flow Rate FiO2 03/09/24 15:00 79 20 117/83 (94) 99 03/09/24 14:27 98.7 98.7 03/09/24 08:00 Room Air* 0 21 Total Intake and Output 03/08/24 03/08/24 03/09/24 15:00 23:00 07:00 Intake Total 740 ml 1280 ml 1075 ml Balance 740 ml 1280 ml 1075 ml medications Current Medications Medications Dose Ordered Sig/Kalli Route Start Time Stop Time Status Last Admin Dose Admin Acetaminophen/ Hydrocodone Bitart 1 tab Q4HP PRN PO 03/05/24 21:45 03/08/24 16:19 1 TAB Ondansetron HCl 4 mg Q4HP PRN IV 03/05/24 21:45 03/07/24 21:52 4 MG Docusate Sodium 100 mg BIDPRN PRN PO 03/05/24 21:45 Acetaminophen 650 mg Q6HP PRN PO 03/05/24 21:45 Morphine Sulfate 2 mg Q4HPRN PRN IV 03/05/24 21:45 Pantoprazole Sodium 40 mg DAILY IV 03/06/24 10:00 03/09/24 09:50 40 MG Nitroglycerin 0.4 mg Q5MINP PRN SL 03/05/24 21:45 Morphine Sulfate 2 mg Q30M PRN IV 03/05/24 21:45 Albuterol 2.5 mg Q4HP PRN NEB 03/05/24 21:45 Cancel Diphenhydramine HCl 25 mg Q6HR PRN IV 03/05/24 23:00 Furosemide 40 mg BIDD IV 03/06/24 18:00 03/09/24 06:06 40 MG Enoxaparin Sodium 80 mg Q12HR SC 03/06/24 10:00 03/08/24 22:09 80 MG Doxycycline Monohydrate 100 mg Q12HR PO 03/06/24 10:00 03/09/24 09:50 100 MG Methimazole 10 mg Q8HR PO 03/07/24 14:00 03/09/24 06:05 10 MG Guaifenesin 200 mg Q4HP PRN PO 03/07/24 12:30 03/07/24 12:58 200 MG Propranolol HCl 20 mg Q6HR PO 03/08/24 12:00 03/09/24 06:05 20 MG Ergocalciferol 50,000 unit Q7D PO 03/08/24 15:00 03/08/24 16:19 50,000 UNIT Sacubitril/ Valsartan 1 tab BID PO 03/09/24 22:00 UNV Spironolactone 12.5 mg DAILY PO 03/10/24 10:00 UNV objective General Appearance: alert, no distress HEENT: EOMI, PERRLA, normal external inspect of ears, no icterus, no nasal drainage Neck: no carotid bruit, no jugular venous distention (JVD), no lymphadenopathy Chest: normal thorax Respiratory: clear to auscultation, normal air movement Cardiovascular: regular rate and rhythm, no diastolic murmur, no jugular venous distention (JVD), no rub, no systolic murmur Abdominal: soft, no hepatomegaly, no mass, no splenomegaly, no tenderness Genitourinary: grossly normal external Musculoskeletal: no joint tenderness, no swelling Extremities: normal pulses, no calf tenderness, no clubbing, no cyanosis, no edema Skin: no bruising, no jaundice, no rash Neurological: alert, No focal deficit laboratory and microbiology Laboratory Tests 03/09/24 05:06 Test 03/09/24 05:06 Range/Units Serum Glucose 65 L 74-106 mg/dL Problems(with codes): (1) Elevated bilirubin (2) Pulmonary vascular congestion (3) Atrial fibrillation with RVR (4) Pneumonia (5) Pleural effusion (6) Dyspnea (7) Ascites (8) Elevated troponin Prognosis Assessment and plan There was no clear-cut evidence of cirrhosis of the liver and the liver appears normal on the CT scan I believe her ascites and mild elevation in bilirubin is likely related to congestive heart failure and passive congestion of the liver Hepatitis profile is negative, serum ferritin is normal, PERRY is negative Continue IV diuresis as the ascites is improving Continue to monitor labs I will follow up patient with you Plan discussed with: Patient MARINA GARCIA MD Mar 09, 2024 16:26
--- NOTE | 2024-03-09 18:57 | DVHPN2 ---
Progress Note Date Seen: Mar 09, 2024 Medical Necessity Reason Pt with a Central, PICC or Fol: No Subjective Review of Systems: CVS:Normal, RESPIRATORY:Normal, GI:Normal, :Normal Objective vital signs Vital Sign Date Time Temp Pulse Resp B/P (MAP) Pulse Ox O2 Delivery O2 Flow Rate FiO2 03/09/24 17:00 97.8 85 16 113/63 (80) 94 97.8 03/09/24 08:00 Room Air* 0 21 Total Intake and Output 03/08/24 03/08/24 03/09/24 15:00 23:00 07:00 Intake Total 740 ml 1280 ml 1075 ml Balance 740 ml 1280 ml 1075 ml medications Current Medications Medications Dose Ordered Sig/Kalli Route Start Time Stop Time Status Last Admin Dose Admin Acetaminophen/ Hydrocodone Bitart 1 tab Q4HP PRN PO 03/05/24 21:45 03/08/24 16:19 1 TAB Ondansetron HCl 4 mg Q4HP PRN IV 03/05/24 21:45 03/07/24 21:52 4 MG Docusate Sodium 100 mg BIDPRN PRN PO 03/05/24 21:45 Acetaminophen 650 mg Q6HP PRN PO 03/05/24 21:45 Morphine Sulfate 2 mg Q4HPRN PRN IV 03/05/24 21:45 Pantoprazole Sodium 40 mg DAILY IV 03/06/24 10:00 03/09/24 09:50 40 MG Nitroglycerin 0.4 mg Q5MINP PRN SL 03/05/24 21:45 Morphine Sulfate 2 mg Q30M PRN IV 03/05/24 21:45 Albuterol 2.5 mg Q4HP PRN NEB 03/05/24 21:45 Cancel Diphenhydramine HCl 25 mg Q6HR PRN IV 03/05/24 23:00 Furosemide 40 mg BIDD IV 03/06/24 18:00 03/09/24 06:06 40 MG Enoxaparin Sodium 80 mg Q12HR SC 03/06/24 10:00 03/08/24 22:09 80 MG Doxycycline Monohydrate 100 mg Q12HR PO 03/06/24 10:00 03/09/24 09:50 100 MG Methimazole 10 mg Q8HR PO 03/07/24 14:00 03/09/24 06:05 10 MG Guaifenesin 200 mg Q4HP PRN PO 03/07/24 12:30 03/07/24 12:58 200 MG Propranolol HCl 20 mg Q6HR PO 03/08/24 12:00 03/09/24 06:05 20 MG Ergocalciferol 50,000 unit Q7D PO 03/08/24 15:00 03/08/24 16:19 50,000 UNIT Sacubitril/ Valsartan 1 tab BID PO 03/09/24 22:00 Spironolactone 12.5 mg DAILY PO 03/10/24 10:00 Examination: GENERAL:Normal, LUNGS:Normal, CVS:Normal, ABDOMEN:Normal, SKIN:Normal, NEURO:Normal laboratory and microbiology Laboratory Tests 03/09/24 05:06 Test 03/09/24 05:06 Range/Units Serum Glucose 65 L 74-106 mg/dL Microbiology Date/Time Source Procedure Growth Status 03/08/24 17:05 Voided Urine Urine Culture - Preliminary Resulted 03/07/24 11:30 Pleural Fluid Gram Stain - Final Resulted 03/07/24 11:30 Pleural Fluid Body Fluid Culture - Preliminary Resulted 03/06/24 11:11 Blood Blood Culture - Preliminary NO GROWTH AFTER 72 HOURS OF INCUBATION. Resulted Labs and/or images reviewed: Labs reviewed by me, Image(s) reviewed by me Problem List/Assessment/Plan Problem List/Assessment/Plan 1. Sepsis Monitor, IV antibiotics 2. Right-sided pneumonia, most likely gram-negative and some gram-positive Monitor, IV antibiotics, IR consult, plan thoracentesis 3. Right pleural effusion Monitor 4. Ascites Monitor, GI consult, plan paracentesis 5. Elevated bilirubin likely hepatic congestion from systolic CHF Monitor 6. Atrial fibrillation with RVR Monitor, cardiology consults, antiarrythmics, echocardiogram 7. Elevated troponin, most likely demand ischemia Monitor, trend troponin 8. Hypothyroidism Monitor 9. Atrial fibrillation with RVR Cardiology consult, monitoring Assessment/Plan 10. Acute on chronic systolic CHF Cardiology consult, IV diuretics Subjective Patient is awake and alert Objective I spoke with patient and patient's family at bedside. Patient was admitted on 03/05/2024 for shortness of breath. Patient was found have a pleural effusion as well as ascites. Patient is status post thoracentesis done by her administrative operations coordinator. 900 mL of fluid was removed. Ultrasound imaging was done to evaluate further for paracentesis. Not enough fluid was noted for procedure. Patient was seen by cardiology. Echocardiogram estimated 30 to 35% of likely fluid overload is due to CHF exacerbation. Patient also has elevated bilirubin level likely secondary to congestion as a result of systolic CHF. GI has been consulted. Patient was found to have a hyperthyroid. She states she has not been taking medications for several years. Patient was started on methimazole. Patient states she feels somewhat better today. Patient is S/P left heart catheterization which was negative. Plan Continue current treatment. Continue diuretics. Continue treatment for hyperthyroidism. Monitor EKG. Nephrology ordered renal biopsy through IR Plan discussed with: Patient My Orders My Orders Orders - MOHAMUD MONREAL Procedure Category Date Status Time Chest Portable XY 03/09/24 Logged 18:46 Date of Service: Mar 09, 2024 Billing Provider: KALIN MAGAÑA MD Common Visit Codes: [id number] INP/OBS CARE (MOD) MOHAMUD MONREAL Mar 09, 2024 18:57
--- NOTE | 2024-03-09 19:36 | DVH ---
EXAM: XY CHEST PORTABLE TECHNIQUE: Single frontal chest radiograph CLINICAL HISTORY: sob COMPARISON: XY CHEST XRAY 1 VIEW on DOS: 03/07/24, XY CHEST PORTABLE on DOS: 03/05/24 Findings/Impression: Frontal chest radiograph demonstrates no acute osseous or superficial soft tissue abnormalities. The trachea is midline. The cardiac silhouette and mediastinum are within normal limits. Approximately 25-30% right pneumothorax, increased in size from prior. Medial right lower lung field atelectasis. No pleural effusions. Critical Result: Pneumothorax Findings discussed with Nuzhat ANGULO at 03/09/2024 07:33 PM, and acknowledged receipt and understanding of the findings.
--- NOTE | 2024-03-09 20:47 | DVH ---
Procedure: CT CHEST WITHOUT CONTRAST Reason for study/Clinical History: r/o right pneumothorax Comparison Study: None available at time of dictation. Exam Date: 03/09/2024 08:17 PM TECHNIQUE: Multidetector CT of the chest was performed from the lung apices to the upper abdomen with out the use of intravenous contract. Axial, coronal and sagittal multiplanar reformats were performed . Radiation Dose Information: CT Dose: CTDI volume is 10.2 mGy. Dose-length product is 395 mGy*cm The dose indicators for CT are the volume Computed Tomography (CT) Dose Index (CTDIvol) and the Dose Length Product (DLP), and are measured in units of mGy and mGy-cm, respectively. These indicators are not patient dose, but values generated from the CT scanner acquisition factors. The report includes radiation exposure data for exposures received during this examination. FINDINGS: Lower neck: Normal thyroid. Lungs: Right lower lobe atelectasis. No pneumonia. Heart/Vascular Structures: Normal heart size. No pericardial effusion. Lymph Nodes: No adenopathy Pleura: Moderate right-sided pneumothorax. [id number] right pleural effusion. Musculoskeletal: No acute osseous abnormality. Soft tissues: Normal. Upper abdomen: Limited portions of the upper abdomen are unremarkable. IMPRESSION: 1. Moderate right pneumothorax. 2. Small to moderate right pleural effusion. 3. Right lower lobe atelectasis. Radiation optimization: All CT scans at this facility use at least one of these dose optimization speedy hniques: automated exposure control mA and/or kV adjustment per patient size (includes targeted exam s where dose is matched to clinical indication) or iterative reconstruction.
[2024-03-09] MEDS: SACUBITRIL-VALSARTAN 24mg/26mg TAB PO SCH (21:49)
[2024-03-09] MEDS: MORPHINE SULFATE INJ 2 MG/ml SYRG IV PRN (22:28)
--- NOTE | 2024-03-09 22:56 | DVHNC2 ---
Procedure - RIGHT Cook Walt Pigtail Chest tube placement procedure note: Physician: Dr Hortencia Blandon Date: 03/09/24 Time:1030 pm Diagnosis: Pneumothorax, Hypoxia Indication: Hypoxia, evacuation of air from pleural space Consent: Consent was obtained from patient's healthcare proxy prior to procedure. Indication, risks, and benefits were explained at length. Time out time: 1029 PM Patient medications and allergies reviewed. The risks and benefits of the procedure and the sedation options and risk were discussed with the patient. All questions were answered and informed consent was obtained. Patient identification and proposed procedure were verified prior to the procedure by the physician, and a nurse in the patient's room. The heart rate, respiratory rate, oxygen saturations, blood pressure, adequacy of pulmonary ventilation, and response to care were monitored throughout the procedure. The physical status of the patient was reassessed after the procedure. Procedure summary: A time-out was performed and a chest x-ray was reviewed prior to procedure. The appropriate site was confirmed and marked. My hands were washed immediately prior to the procedure, I wore a surgical cap, mask with protective eyewear, sterile gown and sterile gloves throughout the procedure. The patient was prepped and draped in a sterile manner using chlorhexidine scrub after the appropriate level was percussed and confirmed by ultrasound. 1% lidocaine was used to anesthetize the skin, subcutaneous tissue, superior aspect of the rib periosteum and parietal pleura. An 18-gauge needle with syringe attached was inserted into the pleural space with aspiration of air to verify placement. A guidewire was advanced into the pleural space and needle was withdrawn. 0.5 cm incision was made through the skin and subcutaneous tissues were dilated with a dilator. The 14 [place] Cook Walt pigtail chest drain was inserted into the pleural space. The drain was then immediately connected to a Pleur-evac. Adequate placement confirmed by air leak. The chest tube was sutured in place and dressing was applied. The patient tolerated the procedure well. CXR post procedure demonstrates RIGHT chest tube in place and re-expansion of the lung. Estimated blood loss: Less than 5 mL. Complications: None. [facility] [id number] DELIA BLANDON MD Mar 09, 2024 22:56
--- NOTE | 2024-03-09 23:15 | DVHPN2 ---
Progress Note - Dictate Date Seen: Mar 09, 2024 Medical Necessity Reason Pt with a Central, PICC or Fol: No Subjective Patient seen and examined at bedside. Breathing comfortably on room air. Overnight events reviewed. vital signs Vital Sign Date Time Temp Pulse Resp B/P (MAP) Pulse Ox O2 Delivery O2 Flow Rate FiO2 03/09/24 22:28 78 18 106/58 03/09/24 21:00 98.3 94 98.3 03/09/24 08:00 Room Air* 0 21 Total Intake and Output 03/08/24 03/08/24 03/09/24 15:00 23:00 07:00 Intake Total 740 ml 1280 ml 1075 ml Balance 740 ml 1280 ml 1075 ml medications Current Medications Medications Dose Ordered Sig/Kalli Route Start Time Stop Time Status Last Admin Dose Admin Acetaminophen/ Hydrocodone Bitart 1 tab Q4HP PRN PO 03/05/24 21:45 03/08/24 16:19 1 TAB Ondansetron HCl 4 mg Q4HP PRN IV 03/05/24 21:45 03/07/24 21:52 4 MG Docusate Sodium 100 mg BIDPRN PRN PO 03/05/24 21:45 Acetaminophen 650 mg Q6HP PRN PO 03/05/24 21:45 Morphine Sulfate 2 mg Q4HPRN PRN IV 03/05/24 21:45 03/09/24 22:28 2 MG Pantoprazole Sodium 40 mg DAILY IV 03/06/24 10:00 03/09/24 09:50 40 MG Nitroglycerin 0.4 mg Q5MINP PRN SL 03/05/24 21:45 Morphine Sulfate 2 mg Q30M PRN IV 03/05/24 21:45 Albuterol 2.5 mg Q4HP PRN NEB 03/05/24 21:45 Cancel Diphenhydramine HCl 25 mg Q6HR PRN IV 03/05/24 23:00 Furosemide 40 mg BIDD IV 03/06/24 18:00 03/09/24 06:06 40 MG Enoxaparin Sodium 80 mg Q12HR SC 03/06/24 10:00 03/08/24 22:09 80 MG Doxycycline Monohydrate 100 mg Q12HR PO 03/06/24 10:00 03/09/24 21:49 100 MG Methimazole 10 mg Q8HR PO 03/07/24 14:00 03/09/24 21:49 10 MG Guaifenesin 200 mg Q4HP PRN PO 03/07/24 12:30 03/07/24 12:58 200 MG Propranolol HCl 20 mg Q6HR PO 03/08/24 12:00 03/09/24 06:05 20 MG Ergocalciferol 50,000 unit Q7D PO 03/08/24 15:00 03/08/24 16:19 50,000 UNIT Sacubitril/ Valsartan 1 tab BID PO 03/09/24 22:00 03/09/24 21:49 1 TAB Spironolactone 12.5 mg DAILY PO 03/10/24 10:00 objective Gen.: Patient lying in bed in no apparent distress. On room air. Head: Normocephalic, atraumatic. Eyes: EOMI/PERRLA. Ears: Normal hearing. Normal anatomy. Neck/trachea: Trachea midline, supple. Nose: Normal external anatomy. Mouth: Moist mucous membranes. Chest: Decreased air entry bilaterally. No wheezing or rhonchi. Cardiovascular: Positive S1, positive S2. Regular rate and rhythm. Abdomen: Positive bowel sounds in all 4 quadrants. Soft, non-tender, non- distended. : Deferred. Rectal: Deferred. Skin: Warm, dry. Intact. Extremities: 2+ radial pulses bilaterally. No lower extremity edema. Neuro: Awake, alert, oriented x3. No gross motor or sensory deficits. Cranial nerves II through XII intact. Gait not assessed. laboratory and microbiology Laboratory Tests 03/09/24 05:06 Test 03/09/24 05:06 Range/Units Serum Glucose 65 L 74-106 mg/dL Assessment/Plan Impression: Bilateral pleural effusions Atelectasis Pneumonia, likely gram negative Ascites Atrial fibrillation w/ RVR Hx of nicotine dependence Obesity BMI 32.8 Events: Breathing on room air No respiratory distress. CXR was notable for right pneumothorax. I was called emergently STAT CT chest ordered Right pneumothorax - Patient was consented for right chest tube. See separate procedure note for full details CXR post procedure noted re-expansion of lung with chest tube in place Chest tube to minus 20 cmH20 Obtain CXR in the AM for interval changes Monitor output. Monitor for air leak. S/p LHC, EF of 40%, findings of nonobstructive CAD Cardiology recs appreciated. Incentive spirometry Pain control Avoid oversedation Plan: Supplemental oxygen PRN Titrate to keep O2 sats above 92%. Continue antibiotics Incentive spirometry Right chest tube in place to minus 20 cmH20 Monitor output. Monitor for air leak. Monitor renal function. Monitor electrolytes. Supplement as necessary. Monitor ins and outs. DVT prophylaxis. Prognosis: Poor given patient's multiple co-morbidities. Condition: Critical Rest of plan per hospitalist and other consultants. A total of 35 minutes of critical care time was spent reviewing the patient record, examining the patient, making a diagnostic and therapeutic plan, discussing this plan with the medical personnel, following up on diagnostic studies and following the patient for clinical stability excluding any and all procedures. At least 50% of this time was spent in direct, [id number] contact. Thank you, Mary Wade NP, for allowing me to participate in this patient's care. Further recommendations will depend on the patient's clinical course. Please do not hesitate to contact me if you have any questions or concerns. This medical document was created using an electronic medical record system with [employer] computerized dictation system. Although these documentations are being carefully reviewed, there may still be some phonetic and typographical changes. The errors are purely typographical, due to imperfection on the software program, and do not reflect any compromise in the patient's medical care. Plan discussed with: Patient, Other (ADELE Penaloza) DELIA HYLTON MD Mar 09, 2024 23:15
--- NOTE | 2024-03-09 23:29 | DVH ---
CHEST RADIOGRAPH Indication: s/p right chest tube placement due to ptx Technique: Single frontal view of the chest was obtained COMPARISON: XY CHEST PORTABLE on DOS: 03/09/24, XY CHEST XRAY 1 VIEW on DOS: 03/07/24, XY CHEST DILIP BLE on DOS: 03/05/24 FINDINGS: Lines and Tubes: Interval placement of right-sided chest tube Lungs: Right basilar atelectasis Pleura: Interval placement of right-sided chest tube. Improving pneumothorax. Probable trace right ef fusion. Cardiomediastinal contours: Unremarkable Bones: Unremarkable IMPRESSION: 1. Interval placement of right-sided chest tube with improving pneumothorax.
[2024-03-10] VITALS (8 sets, daily range): BP systolic 101–129; BP diastolic 66–83; PULSE 66–80; RESP 16–18; TEMP 97.7–98.3; O2SAT 93–98
[2024-03-10 07:01] LABS: Hematocrit 43.6 % (36.0-46.0); Hemoglobin 14.6 g/dL (12.2-16.2); Mean Corpuscular Hemoglobin 27.1 pg (28.0-32.0); Mean Corpuscular Hgb Conc. 33.4 g/dL (32.0-36.0); Mean Corpuscular Volume 81.2 fL (80.0-100.0); Platelet Count (auto) 95 10^3/uL (140-450); Red Blood Cells 5.36 10^6/uL (4.0-5.20); White Blood Cell 5.8 10^3/uL (4.4-10.8)
[2024-03-10 07:09] LABS: Chloride 104 mmol/L (98-107); Potassium 3.8 mmol/L (3.5-5.1); Sodium 138 mmol/L (136-145)
[2024-03-10 07:10] LABS: Anion Gap 9 (5-15); Calcium 8.9 mg/dL (8.7-10.4); Carbon Dioxide 25 mmol/L (20-31)
[2024-03-10 07:15] LABS: BUN/Creatinine Ratio 23.2 (10.0-20.0); Blood Urea Nitrogen 13 mg/dL (9-23)
[2024-03-10 07:22] LABS: Glucose 70 mg/dL (74-106)
[2024-03-10 07:27] LABS: Basophils % (manual) 0 (0.0-2.0); Blast Cells 0; Eosinophils % (manual) 0 (0-7); Metamyelocytes % 0; Myelocytes % 0; Promyelocytes % 0; Reactive Lymphocytes 0
[2024-03-10 08:43] LABS: Band Neutrophils % (manual) 5; Lymphocytes % (manual) 17 (10.0-50.0); Monocytes % (manual) 11 (0-12)
[2024-03-10 08:44] LABS: Platelet Estimate Decreased
[2024-03-10 09:46] LABS: Total Protein 6.9 g/dL (5.7-8.2)
[2024-03-10 09:47] LABS: Albumin 3.1 g/dL (3.2-4.8); Bilirubin, Direct 1.6 mg/dL (<0.3); Bilirubin, Total 2.2 mg/dL (0.2-1.0)
--- NOTE | 2024-03-10 09:53 | DVHPN2 ---
Progress Note Date Seen: Mar 10, 2024 Medical Necessity Reason Pt with a Central, PICC or Fol: No Subjective Patient reports: No new complaints Other Systems: Patient seen and examined by myself today in follow-up Objective vital signs Vital Sign Date Time Temp Pulse Resp B/P (MAP) Pulse Ox O2 Delivery O2 Flow Rate FiO2 03/10/24 08:57 97.7 77 16 120/83 (95) 94 97.7 03/10/24 07:45 Room Air* 0 21 Total Intake and Output 03/09/24 03/09/24 03/10/24 15:00 23:00 07:00 Intake Total 270 ml 400 ml Balance 270 ml 400 ml medications Current Medications Medications Dose Ordered Sig/Kalli Route Start Time Stop Time Status Last Admin Dose Admin Acetaminophen/ Hydrocodone Bitart 1 tab Q4HP PRN PO 03/05/24 21:45 03/10/24 00:53 1 TAB Ondansetron HCl 4 mg Q4HP PRN IV 03/05/24 21:45 03/07/24 21:52 4 MG Docusate Sodium 100 mg BIDPRN PRN PO 03/05/24 21:45 Acetaminophen 650 mg Q6HP PRN PO 03/05/24 21:45 Morphine Sulfate 2 mg Q4HPRN PRN IV 03/05/24 21:45 03/09/24 22:28 2 MG Pantoprazole Sodium 40 mg DAILY IV 03/06/24 10:00 03/09/24 09:50 40 MG Nitroglycerin 0.4 mg Q5MINP PRN SL 03/05/24 21:45 Morphine Sulfate 2 mg Q30M PRN IV 03/05/24 21:45 Albuterol 2.5 mg Q4HP PRN NEB 03/05/24 21:45 Cancel Diphenhydramine HCl 25 mg Q6HR PRN IV 03/05/24 23:00 Furosemide 40 mg BIDD IV 03/06/24 18:00 03/10/24 06:00 40 MG Enoxaparin Sodium 80 mg Q12HR SC 03/06/24 10:00 03/08/24 22:09 80 MG Doxycycline Monohydrate 100 mg Q12HR PO 03/06/24 10:00 03/09/24 21:49 100 MG Methimazole 10 mg Q8HR PO 03/07/24 14:00 03/10/24 06:39 10 MG Guaifenesin 200 mg Q4HP PRN PO 03/07/24 12:30 03/07/24 12:58 200 MG Propranolol HCl 20 mg Q6HR PO 03/08/24 12:00 03/10/24 06:39 20 MG Ergocalciferol 50,000 unit Q7D PO 03/08/24 15:00 03/08/24 16:19 50,000 UNIT Sacubitril/ Valsartan 1 tab BID PO 03/09/24 22:00 03/09/24 21:49 1 TAB Spironolactone 12.5 mg DAILY PO 03/10/24 10:00 Examination: LUNGS:Normal, CVS:Normal, MSK:Normal laboratory and microbiology Laboratory Tests 03/10/24 05:47 Test 03/10/24 05:47 Range/Units Serum Glucose 70 L 74-106 mg/dL Microbiology Date/Time Source Procedure Growth Status 03/08/24 17:05 Voided Urine Urine Culture - Preliminary Resulted 03/07/24 11:30 Pleural Fluid Gram Stain - Final Resulted 03/07/24 11:30 Pleural Fluid Body Fluid Culture - Preliminary Resulted 03/06/24 11:11 Blood Blood Culture - Preliminary NO GROWTH AFTER 72 HOURS OF INCUBATION. Resulted Problem List/Assessment/Plan Problem List/Assessment/Plan Lupus nephritis Low C3 and C4, positive PERRY CHF exacerbation NSTEMI Hypokalemia Hypomagnesemia thyrotoxicosis Hyperglycemia r/o DM Vitamin-D deficiency Right chest tube REC: Normal kidney functio Radiology consult for kidney biopsy Ergocalciferol 98191 p.o. q.week A1c, 5.8 KCl replacement Magnesium sulfate IVPB Will continue to follow I discussed my plan of care with the patient, her at the bedside Plan discussed with: Patient My Orders My Orders Orders - DEEPTHI VACA MD Procedure Category Date Status Time Communication Order ORDERS 03/09/24 Transmitted 14:35 DEEPTHI VACA MD Mar 10, 2024 09:53
[2024-03-10] MEDS: SPIRONOLACTONE 25 MG TAB PO SCH (10:24)
--- NOTE | 2024-03-10 11:34 | DVHPN2 ---
Progress Note - Dictate Date Seen: Mar 10, 2024 Medical Necessity Reason Pt with a Central, PICC or Fol: No vital signs Vital Sign Date Time Temp Pulse Resp B/P (MAP) Pulse Ox O2 Delivery O2 Flow Rate FiO2 03/10/24 08:57 97.7 77 16 120/83 (95) 94 97.7 03/10/24 07:45 Room Air* 0 21 Total Intake and Output 03/09/24 03/09/24 03/10/24 15:00 23:00 07:00 Intake Total 270 ml 400 ml Balance 270 ml 400 ml medications Current Medications Medications Dose Ordered Sig/Kalli Route Start Time Stop Time Status Last Admin Dose Admin Acetaminophen/ Hydrocodone Bitart 1 tab Q4HP PRN PO 03/05/24 21:45 03/10/24 00:53 1 TAB Ondansetron HCl 4 mg Q4HP PRN IV 03/05/24 21:45 03/07/24 21:52 4 MG Docusate Sodium 100 mg BIDPRN PRN PO 03/05/24 21:45 Acetaminophen 650 mg Q6HP PRN PO 03/05/24 21:45 Morphine Sulfate 2 mg Q4HPRN PRN IV 03/05/24 21:45 03/09/24 22:28 2 MG Pantoprazole Sodium 40 mg DAILY IV 03/06/24 10:00 03/10/24 10:24 40 MG Nitroglycerin 0.4 mg Q5MINP PRN SL 03/05/24 21:45 Morphine Sulfate 2 mg Q30M PRN IV 03/05/24 21:45 Albuterol 2.5 mg Q4HP PRN NEB 03/05/24 21:45 Cancel Diphenhydramine HCl 25 mg Q6HR PRN IV 03/05/24 23:00 Furosemide 40 mg BIDD IV 03/06/24 18:00 03/10/24 06:00 40 MG Enoxaparin Sodium 80 mg Q12HR SC 03/06/24 10:00 03/08/24 22:09 80 MG Doxycycline Monohydrate 100 mg Q12HR PO 03/06/24 10:00 03/10/24 10:23 100 MG Methimazole 10 mg Q8HR PO 03/07/24 14:00 03/10/24 06:39 10 MG Guaifenesin 200 mg Q4HP PRN PO 03/07/24 12:30 03/07/24 12:58 200 MG Propranolol HCl 20 mg Q6HR PO 03/08/24 12:00 03/10/24 06:39 20 MG Ergocalciferol 50,000 unit Q7D PO 03/08/24 15:00 03/08/24 16:19 50,000 UNIT Sacubitril/ Valsartan 1 tab BID PO 03/09/24 22:00 03/10/24 10:23 1 TAB Spironolactone 12.5 mg DAILY PO 03/10/24 10:00 03/10/24 10:24 12.5 MG laboratory and microbiology Laboratory Tests 03/10/24 05:47 Test 03/10/24 05:47 Range/Units Serum Glucose 70 L 74-106 mg/dL Assessment/Plan Patient is a 43-year-old female who presented to the hospital for few days of shortness of breath. She actually went to urgent care and was given prednisone/Z-Cody/inhaler. She did not respond and decided come to the hospital. She was diagnosed with pneumonia few days before presentation to hospital. While emergency room, she was found to have atrial fibrillation and Cardiology was called for evaluation and management. Her troponin was mildly/flat elevated which was another reason for cardiology evaluation. It is of note that the patient does have history of thyroid problem (hyperthyroidism) and was previously on methimazole. She mentions that she last saw a doctor for thyroid problem over 3 years ago and stopped methimazole herself at that time just because she did not have time to follow-up with physicians. Denies any previous cardiac history. But also mentions history of palpitation going back for years. She mentions worsening shortness of breath for the past 2 weeks. She had been having leg swellings/orthopnea/PND going back for around 6 weeks. She mentioned fever 1 day before presentation to the hospital. She had not been taking any medications as outpatient (up to few days before presentation) and has been noncompliant. Not in acute distress. Sitting in bed. No JVD. Mucosa is pink and wet. There is no goiter. There is no carotid bruit. Not using accessory muscles of breathing. Scattered rhonchi in the lungs is heard. Cardiac: Irregular, tachycardic, systolic murmur 3/6 in the apex is heard. Abdomen is soft. Bowel sound is positive. There is no gross mass/hepatomegaly. Extremities reveal 3+ edema in bilateral lower extremities. Dorsalis pedis is 2+ bilateral Past medical history includes thyroid problem (hyperthyroidism), history of C- section and noncompliance. She stopped smoking 6 months ago. She denies history of drug abuse. She used social alcohol up to 6 months ago. Denies relevant family history. Father had diabetes mellitus. Mother has hypertension. WBC: 5.3 - 6.5 - 5.3 - 6.3 - 5.6 - 5.8 Creatinine: 0.70 - 0.67 - 0.57 - 0.68 - 0.73 - 0.56 Potassium: 3.1 - 4.6 - 2.8 - 3.5 - 3.3 - 3.8 Lactic acid: 2.9 - 2.2 - 1.8 Magnesium: 1.6 - 1.6 - 1.9 - 2.2 AST/ALT: 35/20 - 71/23 - 27/16 - 305/136 - 420/238 - 371/254 Bilirubin (total): 2.3 - 2.5 - 2.5 - 3.0 - 2.6 - 2.2 BNP: 610.28 Troponin (high sensitive): 219 - 227 - 214 TSH: 0.01 Free T4: 2.58 Free T3: 5.3 ESR: 5 CRP; 0.15 Urinalysis revealed 3+ proteinuria Chest x-ray reported: IMPRESSION: Pulmonary vascular congestion and right lower lobe airspace disease. Repeat chest xry reported: IMPRESSION: Decreaesd right pleural effusion s/p thoracentecis Repeat chest xry reported: Findings/Impression: Frontal chest radiograph demonstrates no acute osseous or superficial soft tissue abnormalities. The trachea is midline. The cardiac silhouette and mediastinum are within normal limits. Approximately 25-30% right pneumothorax, increased in size from prior. Medial right lower lung field atelectasis. No pleural effusions. Critical Result: Pneumothorax Repeat chest xry reported: IMPRESSION: 1. Interval placement of right-sided chest tube with improving pneumothorax. Abdominal and pelvis CT scan (without contrast) reported: Findings: Evaluation of solid organs is limited due to lack of intravenous contrast use. Lung Bases: Moderate right-sided pleural effusion with adjacent compressive atelectasis. Liver: The liver is normal in size. No focal lesions. Gallbladder and Biliary Tree: Unremarkable Spleen: Unremarkable Pancreas: The pancreas is grossly normal in appearance. Adrenal Glands: Unremarkable Kidneys: Kidneys are grossly normal without calculi or hydronephrosis. Bladder: Grossly unremarkable for degree of distention. Bowel: The stomach is grossly normal in appearance. Small bowel and colon are normal in caliber and distribution. Normal appendix is visualized in the right lower quadrant without findings of appendicitis. Ascites: [id number] diffuse ascites. Lymphadenopathy: No mesenteric, retroperitoneal or periportal lymphadenopathy. Abdominal Wall and Mesentery: Mild diffuse anasarca.. Vasculature: The visualized abdominal aorta is normal in size and caliber. Evaluation of abdominal and pelvic vessels is limited due to lack of intravenous contrast. Pelvic Organs: Intact IUD. Moderate free fluid in the pelvis. Musculoskeletal: No aggressive focal bony lesions, acute fractures or dislocation. Moderate degenerative changes of the bilateral hip joints. Mild fusion of the bilateral SI joints. IMPRESSION: Limited noncontrast evaluation. Moderate right-sided pleural effusion with adjacent compressive atelectasis. Mild to moderate diffuse ascites , free fluid in the pelvis, and anasarca. Other ancillary findings as described above. Chest CT revealed: IMPRESSION: 1. Large right pleural effusion with collapse of the right lower lobe. The left lung and pleural space are clear. 2. There are multiple subcentimeter bilateral axillary lymph nodes which may be reactive. 3. Small amount of perihepatic ascites. Repeat CT of chest revealed: IMPRESSION: 1. Moderate right pneumothorax. 2. Small to moderate right pleural effusion. 3. Right lower lobe atelectasis. Chest ultrasound revealed: Finding/Impression: Bilateral pleural effusions, moderate on the right and trace on the left. Limited Abdominal ultrasound to check for Ascites: FINDINGS/IMPRESSIONS: Trace ascites in Shay's pouch. Telemetry reveals atrial fibrillation with RVR Echocardiogram reported: Dilated 4 chambers was observed. Left ventricle: Left ventricle was dilated. LVEF was 30-35%. Diffuse hypokinesis of left ventricle was seen. LVEDP was considered elevated. Right ventricle was dilated with reduced systolic function. Left atrium was moderately dilated. Right atrium was mildly dilated. Aortic valve: Aortic valve was not well visualized. There was no aortic insufficiency/stenosis. There was mild mitral regurgitation. There was moderate to severe tricuspid regurgitation. There was trivial pulmonary valve insufficiency. IVC with dilated. Right ventricular systolic pressure was assessed at 43 mm Hg. Cardiac Cath revealed: No angiographic evidence for epicardial coronary artery disease (normal coronaries). LVEF of 40%. Nonischemic cardiomyopathy She patient is a 43-year-old female who presented with 1 day of fever. Was recently diagnosed with pneumonia and had been on antibiotics. Presentation questions sepsis/pneumonia. Her presentation also includes palpitation for years which increased in few weeks. Is found to have atrial fibrillation with RVR. Her history also includes few weeks of orthopnea/PND/leg swellings (for weeks) which questions acute heart failure. Does have increased BNP in favor of acute heart failure. Troponin has been mildly elevated but running flat which is in favor of possible demand ischemia. Never had ischemic workup before. Presentation is not in favor of acute coronary syndrome at this point. She is found to have multiorgan involvement (ascites, proteinuria, pneumonia). Does have previous history of hyperthyroidism which could have contributed to the clinical picture also (if present at this point). Echo revealed systolic heart failure. Is found to have active significant hyperthyroidism which could be the primary etiology for a-fib and also acute heart failure also. Being followed by Pulmonary (s/p thoracentesis). Is seen and evaluated by Nephrology for proteinuria. Was found to have abnormal LFT/ascites and is evaluated by GI. Cardiac cath performed and ruled out coronary disease. Dx is non-ischemic cardiomyopathy, possibly related to hyperthyroidism. Was found to have pneumothorax (possibly secondary to previous thoracentesis). s/p chest tube insertion by Pulmonary . Fever Sepsis Pneumonia Atrial fibrillation with RVR Abnormal troponin Increased BNP Acute heart failure, systolic Ascites Proteinuria Noncompliance to medication and followups Hyperthyroidism Pleural effusion s/p right thoracentesis by Pulmonary Abnormal LFT Pneumothorax s/p chest tube by pulmonary Non-ischemic Cardiomyopathy Cardiac suggestion for management: Manage in telemetry IV diuresis is suggested Follow-up electrolytes and kidney function tests and correct abnormalities. Keep potassium above 4 and magnesium above 2 Magnesium supplementation Full anticoagulation for now On Methimazole On Propranolol GDMT for systolic heart failure, non-ischemic CMP Sepsis workup and antibiotic therapy as per primary team Pulmonary follow up Nephrology follow up Endocrinology evaluation for Hyperthyroidism Further evaluation and management depends on the above and clinical course A total of 55 minutes was spent reviewing the patient record, examining the patient, making a diagnostic and therapeutic plan, discussing this plan with medical personnel, following up on diagnostic studies and following the patient for clinical stability excluding any and all procedures. At least 50% of this time was spent in direct, [id number] contact. Thank you for allowing me to participate in this patient's care. Further recommendations will depend on patient's clinical course. Please do not hesitate to contact me if you have any questions or concerns. This medical document was created using electronic medical record system with [employer] computerized dictation system. Although this document has been carefully reviewed, there may still be some phonetic and typographical errors. These areas are purely typographical due to the imperfection of the software programs, and do not reflect any compromise in the patient's medical care. Plan discussed with: Patient, Other (nurse) ANAMARIA GROVES MD Mar 10, 2024 11:34
--- NOTE | 2024-03-10 16:32 | DVHPN2 ---
Progress Note - Dictate Date Seen: Mar 10, 2024 Medical Necessity Reason Pt with a Central, PICC or Fol: No Subjective Patient seen and examined at bedside. Breathing comfortably on room air. Overnight events reviewed. vital signs Vital Sign Date Time Temp Pulse Resp B/P (MAP) Pulse Ox O2 Delivery O2 Flow Rate FiO2 03/10/24 13:37 71 118/79 03/10/24 12:46 98.1 17 93 98.1 03/10/24 07:45 Room Air* 0 21 Total Intake and Output 03/09/24 03/09/24 03/10/24 15:00 23:00 07:00 Intake Total 270 ml 400 ml Balance 270 ml 400 ml medications Current Medications Medications Dose Ordered Sig/Kalli Route Start Time Stop Time Status Last Admin Dose Admin Acetaminophen/ Hydrocodone Bitart 1 tab Q4HP PRN PO 03/05/24 21:45 03/10/24 11:52 1 TAB Ondansetron HCl 4 mg Q4HP PRN IV 03/05/24 21:45 03/07/24 21:52 4 MG Docusate Sodium 100 mg BIDPRN PRN PO 03/05/24 21:45 Acetaminophen 650 mg Q6HP PRN PO 03/05/24 21:45 Morphine Sulfate 2 mg Q4HPRN PRN IV 03/05/24 21:45 03/09/24 22:28 2 MG Pantoprazole Sodium 40 mg DAILY IV 03/06/24 10:00 03/10/24 10:24 40 MG Nitroglycerin 0.4 mg Q5MINP PRN SL 03/05/24 21:45 Morphine Sulfate 2 mg Q30M PRN IV 03/05/24 21:45 Albuterol 2.5 mg Q4HP PRN NEB 03/05/24 21:45 Cancel Diphenhydramine HCl 25 mg Q6HR PRN IV 03/05/24 23:00 Enoxaparin Sodium 80 mg Q12HR SC 03/06/24 10:00 03/08/24 22:09 80 MG Doxycycline Monohydrate 100 mg Q12HR PO 03/06/24 10:00 03/10/24 10:23 100 MG Methimazole 10 mg Q8HR PO 03/07/24 14:00 03/10/24 13:36 10 MG Guaifenesin 200 mg Q4HP PRN PO 03/07/24 12:30 03/07/24 12:58 200 MG Propranolol HCl 20 mg Q6HR PO 03/08/24 12:00 03/10/24 13:37 20 MG Ergocalciferol 50,000 unit Q7D PO 03/08/24 15:00 03/08/24 16:19 50,000 UNIT Sacubitril/ Valsartan 1 tab BID PO 03/09/24 22:00 03/10/24 10:23 1 TAB Spironolactone 12.5 mg DAILY PO 03/10/24 10:00 03/10/24 10:24 12.5 MG Furosemide 40 mg DAILY IV 03/11/24 10:00 objective Gen.: Patient lying in bed in no apparent distress. On room air. Head: Normocephalic, atraumatic. Eyes: EOMI/PERRLA. Ears: Normal hearing. Normal anatomy. Neck/trachea: Trachea midline, supple. Nose: Normal external anatomy. Mouth: Moist mucous membranes. Chest: Decreased air entry bilaterally. No wheezing or rhonchi. Cardiovascular: Positive S1, positive S2. Regular rate and rhythm. Abdomen: Positive bowel sounds in all 4 quadrants. Soft, non-tender, non- distended. : Deferred. Rectal: Deferred. Skin: Warm, dry. Intact. Extremities: 2+ radial pulses bilaterally. No lower extremity edema. Neuro: Awake, alert, oriented x3. No gross motor or sensory deficits. Cranial nerves II through XII intact. Gait not assessed. laboratory and microbiology Laboratory Tests 03/10/24 05:47 Test 03/10/24 05:47 Range/Units Serum Glucose 70 L 74-106 mg/dL Assessment/Plan Impression: Bilateral pleural effusions Atelectasis Pneumonia, likely gram negative Ascites Atrial fibrillation w/ RVR Hx of nicotine dependence Obesity BMI 32.8 Events: Breathing on room air No respiratory distress. Supplemental O2 PRN Chest tube to minus 20 cmH20 Minimal air leak Obtain CXR in the AM for interval changes Monitor output - total of 400 ml output. Continue antibiotics Incentive spirometry Pain control Avoid oversedation S/p right chest tube placement on 03/09 for pneumothorax. CXR post procedure noted re-expansion of lung with chest tube in place S/p LHC, EF of 40%, findings of nonobstructive CAD Cardiology recs appreciated. Labs and imaging reviewed. Rest of plan as noted below. Plan: Supplemental oxygen PRN Titrate to keep O2 sats above 92%. Continue antibiotics Incentive spirometry Right chest tube in place to minus 20 cmH20 Monitor output. Monitor renal function. Monitor electrolytes. Supplement as necessary. Monitor ins and outs. DVT prophylaxis. Prognosis: Poor given patient's multiple co-morbidities. Rest of plan per hospitalist and other consultants. Thank you, Mary Wade NP, for allowing me to participate in this patient's care. Further recommendations will depend on the patient's clinical course. Please do not hesitate to contact me if you have any questions or concerns. This medical document was created using an electronic medical record system with [employer] dictation system. Although these documentations are being carefully reviewed, there may still be some phonetic and typographical changes. The errors are purely typographical, due to imperfection on the software program, and do not reflect any compromise in the patient's medical care. Plan discussed with: Patient, Other (ADELE Wylie) DELIA HYLTON MD Mar 10, 2024 16:32
--- NOTE | 2024-03-10 16:55 | DVHPN2 ---
Progress Note Date Seen: Mar 10, 2024 Medical Necessity Reason Pt with a Central, PICC or Fol: No Subjective Review of Systems: CVS:Normal, RESPIRATORY:Normal, :Normal, NEURO:Normal Objective vital signs Vital Sign Date Time Temp Pulse Resp B/P (MAP) Pulse Ox O2 Delivery O2 Flow Rate FiO2 03/10/24 13:37 71 118/79 03/10/24 12:46 98.1 17 93 98.1 03/10/24 07:45 Room Air* 0 21 Total Intake and Output 03/09/24 03/09/24 03/10/24 15:00 23:00 07:00 Intake Total 270 ml 400 ml Balance 270 ml 400 ml medications Current Medications Medications Dose Ordered Sig/Kalli Route Start Time Stop Time Status Last Admin Dose Admin Acetaminophen/ Hydrocodone Bitart 1 tab Q4HP PRN PO 03/05/24 21:45 03/10/24 11:52 1 TAB Ondansetron HCl 4 mg Q4HP PRN IV 03/05/24 21:45 03/07/24 21:52 4 MG Docusate Sodium 100 mg BIDPRN PRN PO 03/05/24 21:45 Acetaminophen 650 mg Q6HP PRN PO 03/05/24 21:45 Morphine Sulfate 2 mg Q4HPRN PRN IV 03/05/24 21:45 03/09/24 22:28 2 MG Pantoprazole Sodium 40 mg DAILY IV 03/06/24 10:00 03/10/24 10:24 40 MG Nitroglycerin 0.4 mg Q5MINP PRN SL 03/05/24 21:45 Morphine Sulfate 2 mg Q30M PRN IV 03/05/24 21:45 Albuterol 2.5 mg Q4HP PRN NEB 03/05/24 21:45 Cancel Diphenhydramine HCl 25 mg Q6HR PRN IV 03/05/24 23:00 Enoxaparin Sodium 80 mg Q12HR SC 03/06/24 10:00 03/08/24 22:09 80 MG Doxycycline Monohydrate 100 mg Q12HR PO 03/06/24 10:00 03/10/24 10:23 100 MG Methimazole 10 mg Q8HR PO 03/07/24 14:00 03/10/24 13:36 10 MG Guaifenesin 200 mg Q4HP PRN PO 03/07/24 12:30 03/07/24 12:58 200 MG Propranolol HCl 20 mg Q6HR PO 03/08/24 12:00 03/10/24 13:37 20 MG Ergocalciferol 50,000 unit Q7D PO 03/08/24 15:00 03/08/24 16:19 50,000 UNIT Sacubitril/ Valsartan 1 tab BID PO 03/09/24 22:00 03/10/24 10:23 1 TAB Spironolactone 12.5 mg DAILY PO 03/10/24 10:00 03/10/24 10:24 12.5 MG Furosemide 40 mg DAILY IV 03/11/24 10:00 Examination: GENERAL:Normal, LUNGS:Normal ( the r), LUNGS:Abnormal (Diminished on the right side), CVS:Normal, SKIN:Normal, NEURO:Normal laboratory and microbiology Laboratory Tests 03/10/24 05:47 Test 03/10/24 05:47 Range/Units Serum Glucose 70 L 74-106 mg/dL Microbiology Date/Time Source Procedure Growth Status 03/08/24 17:05 Voided Urine Urine Culture - Preliminary Resulted 03/07/24 11:30 Pleural Fluid Gram Stain - Final Resulted 03/07/24 11:30 Pleural Fluid Body Fluid Culture - Preliminary Resulted 03/06/24 11:11 Blood Blood Culture - Preliminary NO GROWTH AFTER 72 HOURS OF INCUBATION. Resulted Labs and/or images reviewed: Labs reviewed by me, Image(s) reviewed by me Problem List/Assessment/Plan Problem List/Assessment/Plan 1. Sepsis Monitor, IV antibiotics 2. Right-sided pneumonia, most likely gram-negative and some gram-positive Monitor, IV antibiotics, IR consult, plan thoracentesis 3. Right pleural effusion Monitor 4. Ascites Monitor, GI consult, plan paracentesis 5. Elevated bilirubin likely hepatic congestion from systolic CHF Monitor 6. Atrial fibrillation with RVR Monitor, cardiology consults, antiarrythmics, echocardiogram 7. Elevated troponin, most likely demand ischemia Monitor, trend troponin 8. Hypothyroidism Monitor 9. Atrial fibrillation with RVR Cardiology consult, monitoring 10. Pneumothorax right Chest tube per marketing trainee Assessment/Plan 10. Acute on chronic systolic CHF Cardiology consult, IV diuretics Subjective Patient is awake and alert Objective I spoke with patient and patient's family at bedside. Patient was admitted on 03/05/2024 for shortness of breath. Patient was found have a pleural effusion as well as ascites. Patient is status post thoracentesis done by her marketing trainee. 900 mL of fluid was removed. Ultrasound imaging was done to evaluate further for paracentesis. Not enough fluid was noted for procedure. Patient was seen by cardiology. Echocardiogram estimated 30 to 35% of likely fluid overload is due to CHF exacerbation. Patient also has elevated bilirubin level likely secondary to congestion as a result of systolic CHF. GI has been consulted. Patient was found to have a hyperthyroid. She states she has not been taking medications for several years. Patient was started on methimazole. Patient states she feels somewhat better today. Patient is S/P left heart catheterization which was negative. Patient developed right pneumothorax, patient had chest tube placed by Dr. Blandon. Patient is still pending biopsy of kidney Plan Continue current treatment. Continue diuretics. Continue treatment for hyperthyroidism. Monitor EKG. Nephrology ordered renal biopsy through IR, continue with chest tube, monitor I&Os Plan discussed with: Patient My Orders My Orders Orders - MOHAMUD MONREAL Procedure Category Date Status Time Chest Portable XY 03/09/24 Resulted 18:46 Insert Sam Catheter YVON 03/10/24 In Process 11:04 Date of Service: Mar 10, 2024 Billing Provider: KALIN MAGAÑA MD Common Visit Codes: [id number] INP/OBS CARE (MOD) MOHAMUD MONREAL Mar 10, 2024 16:55
--- NOTE | 2024-03-10 19:41 | DVHPN2 ---
Progress Note - Dictate Date Seen: Mar 10, 2024 Medical Necessity Reason Pt with a Central, PICC or Fol: No Subjective Patient is resting comfortably No new complaints Feels better cardiac catheterization showed normal coronaries Ejection fraction is 40% Bilirubin is trending down and liver enzymes are also trending down Liver imaging is normal, hepatitis panel, PERRY, ferritin are all normal, PT INR is normal vital signs Vital Sign Date Time Temp Pulse Resp B/P (MAP) Pulse Ox O2 Delivery O2 Flow Rate FiO2 03/10/24 18:54 79 106/61 03/10/24 17:25 98.3 16 96 98.3 03/10/24 07:45 Room Air* 0 21 Total Intake and Output 03/09/24 03/09/24 03/10/24 15:00 23:00 07:00 Intake Total 270 ml 400 ml Balance 270 ml 400 ml medications Current Medications Medications Dose Ordered Sig/Kalli Route Start Time Stop Time Status Last Admin Dose Admin Acetaminophen/ Hydrocodone Bitart 1 tab Q4HP PRN PO 03/05/24 21:45 03/10/24 18:48 1 TAB Ondansetron HCl 4 mg Q4HP PRN IV 03/05/24 21:45 03/07/24 21:52 4 MG Docusate Sodium 100 mg BIDPRN PRN PO 03/05/24 21:45 Acetaminophen 650 mg Q6HP PRN PO 03/05/24 21:45 Morphine Sulfate 2 mg Q4HPRN PRN IV 03/05/24 21:45 03/09/24 22:28 2 MG Pantoprazole Sodium 40 mg DAILY IV 03/06/24 10:00 03/10/24 10:24 40 MG Nitroglycerin 0.4 mg Q5MINP PRN SL 03/05/24 21:45 Morphine Sulfate 2 mg Q30M PRN IV 03/05/24 21:45 Albuterol 2.5 mg Q4HP PRN NEB 03/05/24 21:45 Cancel Diphenhydramine HCl 25 mg Q6HR PRN IV 03/05/24 23:00 Enoxaparin Sodium 80 mg Q12HR SC 03/06/24 10:00 03/08/24 22:09 80 MG Doxycycline Monohydrate 100 mg Q12HR PO 03/06/24 10:00 03/10/24 10:23 100 MG Methimazole 10 mg Q8HR PO 03/07/24 14:00 03/10/24 13:36 10 MG Guaifenesin 200 mg Q4HP PRN PO 03/07/24 12:30 03/07/24 12:58 200 MG Propranolol HCl 20 mg Q6HR PO 03/08/24 12:00 03/10/24 18:54 20 MG Ergocalciferol 50,000 unit Q7D PO 03/08/24 15:00 03/08/24 16:19 50,000 UNIT Sacubitril/ Valsartan 1 tab BID PO 03/09/24 22:00 03/10/24 10:23 1 TAB Spironolactone 12.5 mg DAILY PO 03/10/24 10:00 03/10/24 10:24 12.5 MG Furosemide 40 mg DAILY IV 03/11/24 10:00 objective General Appearance: alert, no distress HEENT: EOMI, PERRLA, normal external inspect of ears, no icterus, no nasal drainage Neck: no carotid bruit, no jugular venous distention (JVD), no lymphadenopathy Chest: normal thorax Respiratory: clear to auscultation, normal air movement Cardiovascular: regular rate and rhythm, no diastolic murmur, no jugular venous distention (JVD), no rub, no systolic murmur Abdominal: soft, no hepatomegaly, no mass, no splenomegaly, no tenderness Genitourinary: grossly normal external Musculoskeletal: no joint tenderness, no swelling Extremities: normal pulses, no calf tenderness, no clubbing, no cyanosis, no edema Skin: no bruising, no jaundice, no rash Neurological: alert, No focal deficit laboratory and microbiology Laboratory Tests 03/10/24 05:47 Test 03/10/24 05:47 Range/Units Serum Glucose 70 L 74-106 mg/dL Problems(with codes): (1) Elevated bilirubin (2) Pulmonary vascular congestion (3) Atrial fibrillation with RVR (4) Pneumonia (5) Pleural effusion (6) Dyspnea (7) Ascites (8) Elevated troponin Prognosis Assessment and plan There was no clear-cut evidence of cirrhosis of the liver and the liver appears normal on the CT scan I believe her ascites and mild elevation in bilirubin is likely related to congestive heart failure and passive congestion of the liver Hepatitis profile is negative, serum ferritin is normal, PERRY is negative Continue IV diuresis as the ascites is improving Continue to monitor labs I will follow up patient with you Plan discussed with: Patient MARINA GARCIA MD Mar 10, 2024 19:41
[2024-03-11] VITALS (8 sets, daily range): BP systolic 11–131; BP diastolic 70–80; PULSE 59–81; RESP 16–18; TEMP 97.6–98.2; O2SAT 94–99
[2024-03-11] MEDS: PROPRANOLOL HCL 20 MG TAB PO SCH (02:15)
--- NOTE | 2024-03-11 05:32 | DVH ---
CHEST RADIOGRAPH Indication: S/P CHEST TUBE Technique: Single frontal view of the chest was obtained Comparison: XY CHEST XRAY 1 VIEW on DOS: 03/09/24, XY CHEST PORTABLE on DOS: 03/09/24, XY CHEST XRAY 1 VIEW on DOS: 03/07/24 IMPRESSION: The heart is enlarged. There is moderate pulmonary vascular congestion. Possible small left effusion . No sizable pneumothorax. Right pleural catheter redemonstrated.
--- NOTE | 2024-03-11 07:58 | DVHPN2 ---
Progress Note - Dictate Date Seen: Mar 11, 2024 Medical Necessity Reason Pt with a Central, PICC or Fol: No vital signs Vital Sign Date Time Temp Pulse Resp B/P (MAP) Pulse Ox O2 Delivery O2 Flow Rate FiO2 03/11/24 05:00 98.2 63 16 (53) 99 98.2 03/10/24 20:00 Room Air* 0 21 Total Intake and Output 03/10/24 03/10/24 03/11/24 15:00 23:00 07:00 Intake Total 700 ml 300 ml Output Total 350 ml Balance 700 ml -50 ml medications Current Medications Medications Dose Ordered Sig/Kalli Route Start Time Stop Time Status Last Admin Dose Admin Acetaminophen/ Hydrocodone Bitart 1 tab Q4HP PRN PO 03/05/24 21:45 03/10/24 18:48 1 TAB Ondansetron HCl 4 mg Q4HP PRN IV 03/05/24 21:45 03/07/24 21:52 4 MG Docusate Sodium 100 mg BIDPRN PRN PO 03/05/24 21:45 Acetaminophen 650 mg Q6HP PRN PO 03/05/24 21:45 Morphine Sulfate 2 mg Q4HPRN PRN IV 03/05/24 21:45 03/09/24 22:28 2 MG Pantoprazole Sodium 40 mg DAILY IV 03/06/24 10:00 03/10/24 10:24 40 MG Nitroglycerin 0.4 mg Q5MINP PRN SL 03/05/24 21:45 Morphine Sulfate 2 mg Q30M PRN IV 03/05/24 21:45 Albuterol 2.5 mg Q4HP PRN NEB 03/05/24 21:45 Cancel Diphenhydramine HCl 25 mg Q6HR PRN IV 03/05/24 23:00 Enoxaparin Sodium 80 mg Q12HR SC 03/06/24 10:00 03/08/24 22:09 80 MG Doxycycline Monohydrate 100 mg Q12HR PO 03/06/24 10:00 03/10/24 22:49 100 MG Methimazole 10 mg Q8HR PO 03/07/24 14:00 03/11/24 05:18 10 MG Guaifenesin 200 mg Q4HP PRN PO 03/07/24 12:30 12/18/24 12:58 200 MG Ergocalciferol 50,000 unit Q7D PO 03/08/24 15:00 03/08/24 16:19 50,000 UNIT Sacubitril/ Valsartan 1 tab BID PO 03/09/24 22:00 03/10/24 22:48 1 TAB Spironolactone 12.5 mg DAILY PO 03/10/24 10:00 03/10/24 10:24 12.5 MG Furosemide 40 mg DAILY IV 03/11/24 10:00 Propranolol HCl 20 mg Q6H PO 03/11/24 08:00 03/11/24 02:15 20 MG laboratory and microbiology Laboratory Tests 03/10/24 05:47 Test 03/10/24 05:47 Range/Units Serum Glucose 70 L 74-106 mg/dL Assessment/Plan Patient is a 43-year-old female who presented to the hospital for few days of shortness of breath. She actually went to urgent care and was given prednisone/Z-Cody/inhaler. She did not respond and decided come to the hospital. She was diagnosed with pneumonia few days before presentation to hospital. While emergency room, she was found to have atrial fibrillation and Cardiology was called for evaluation and management. Her troponin was mildly/flat elevated which was another reason for cardiology evaluation. It is of note that the patient does have history of thyroid problem (hyperthyroidism) and was previously on methimazole. She mentions that she last saw a doctor for thyroid problem over 3 years ago and stopped methimazole herself at that time just because she did not have time to follow-up with physicians. Denies any previous cardiac history. But also mentions history of palpitation going back for years. She mentions worsening shortness of breath for the past 2 weeks. She had been having leg swellings/orthopnea/PND going back for around 6 weeks. She mentioned fever 1 day before presentation to the hospital. She had not been taking any medications as outpatient (up to few days before presentation) and has been noncompliant. Not in acute distress. Sitting in bed. No JVD. Mucosa is pink and wet. There is no goiter. There is no carotid bruit. Not using accessory muscles of breathing. Scattered rhonchi in the lungs is heard. Cardiac: Irregular, tachycardic, systolic murmur 3/6 in the apex is heard. Abdomen is soft. Bowel sound is positive. There is no gross mass/hepatomegaly. Extremities reveal 3+ edema in bilateral lower extremities. Dorsalis pedis is 2+ bilateral Past medical history includes thyroid problem (hyperthyroidism), history of C- section and noncompliance. She stopped smoking 6 months ago. She denies history of drug abuse. She used social alcohol up to 6 months ago. Denies relevant family history. Father had diabetes mellitus. Mother has hypertension. WBC: 5.3 - 6.5 - 5.3 - 6.3 - 5.6 - 5.8 Creatinine: 0.70 - 0.67 - 0.57 - 0.68 - 0.73 - 0.56 Potassium: 3.1 - 4.6 - 2.8 - 3.5 - 3.3 - 3.8 Lactic acid: 2.9 - 2.2 - 1.8 Magnesium: 1.6 - 1.6 - 1.9 - 2.2 AST/ALT: 35/20 - 71/23 - 27/16 - 305/136 - 420/238 - 371/254 Bilirubin (total): 2.3 - 2.5 - 2.5 - 3.0 - 2.6 - 2.2 BNP: 610.28 Troponin (high sensitive): 219 - 227 - 214 TSH: 0.01 Free T4: 2.58 Free T3: 5.3 ESR: 5 CRP; 0.15 Urinalysis revealed 3+ proteinuria Chest x-ray reported: IMPRESSION: Pulmonary vascular congestion and right lower lobe airspace disease. Repeat chest xry reported: IMPRESSION: Decreaesd right pleural effusion s/p thoracentecis Repeat chest xry reported: Findings/Impression: Frontal chest radiograph demonstrates no acute osseous or superficial soft tissue abnormalities. The trachea is midline. The cardiac silhouette and mediastinum are within normal limits. Approximately 25-30% right pneumothorax, increased in size from prior. Medial right lower lung field atelectasis. No pleural effusions. Critical Result: Pneumothorax Repeat chest xry reported: IMPRESSION: 1. Interval placement of right-sided chest tube with improving pneumothorax. Repeat chest xry revealed: IMPRESSION: The heart is enlarged. There is moderate pulmonary vascular congestion. Possible small left effusion. No sizable pneumothorax. Right pleural catheter redemonstrated. Abdominal and pelvis CT scan (without contrast) reported: Findings: Evaluation of solid organs is limited due to lack of intravenous contrast use. Lung Bases: Moderate right-sided pleural effusion with adjacent compressive atelectasis. Liver: The liver is normal in size. No focal lesions. Gallbladder and Biliary Tree: Unremarkable Spleen: Unremarkable Pancreas: The pancreas is grossly normal in appearance. Adrenal Glands: Unremarkable Kidneys: Kidneys are grossly normal without calculi or hydronephrosis. Bladder: Grossly unremarkable for degree of distention. Bowel: The stomach is grossly normal in appearance. Small bowel and colon are normal in caliber and distribution. Normal appendix is visualized in the right lower quadrant without findings of appendicitis. Ascites: [id number] diffuse ascites. Lymphadenopathy: No mesenteric, retroperitoneal or periportal lymphadenopathy. Abdominal Wall and Mesentery: Mild diffuse anasarca.. Vasculature: The visualized abdominal aorta is normal in size and caliber. Evaluation of abdominal and pelvic vessels is limited due to lack of intravenous contrast. Pelvic Organs: Intact IUD. Moderate free fluid in the pelvis. Musculoskeletal: No aggressive focal bony lesions, acute fractures or dislocation. Moderate degenerative changes of the bilateral hip joints. Mild fusion of the bilateral SI joints. IMPRESSION: Limited noncontrast evaluation. Moderate right-sided pleural effusion with adjacent compressive atelectasis. Mild to moderate diffuse ascites , free fluid in the pelvis, and anasarca. Other ancillary findings as described above. Chest CT revealed: IMPRESSION: 1. Large right pleural effusion with collapse of the right lower lobe. The left lung and pleural space are clear. 2. There are multiple subcentimeter bilateral axillary lymph nodes which may be reactive. 3. Small amount of perihepatic ascites. Repeat CT of chest revealed: IMPRESSION: 1. Moderate right pneumothorax. 2. Small to moderate right pleural effusion. 3. Right lower lobe atelectasis. Chest ultrasound revealed: Finding/Impression: Bilateral pleural effusions, moderate on the right and trace on the left. Limited Abdominal ultrasound to check for Ascites: FINDINGS/IMPRESSIONS: Trace ascites in Shay's pouch. Telemetry reveals atrial fibrillation with RVR Echocardiogram reported: Dilated 4 chambers was observed. Left ventricle: Left ventricle was dilated. LVEF was 30-35%. Diffuse hypokinesis of left ventricle was seen. LVEDP was considered elevated. Right ventricle was dilated with reduced systolic function. Left atrium was moderately dilated. Right atrium was mildly dilated. Aortic valve: Aortic valve was not well visualized. There was no aortic insufficiency/stenosis. There was mild mitral regurgitation. There was moderate to severe tricuspid regurgitation. There was trivial pulmonary valve insufficiency. IVC with dilated. Right ventricular systolic pressure was assessed at 43 mm Hg. Cardiac Cath revealed: No angiographic evidence for epicardial coronary artery disease (normal coronaries). LVEF of 40%. Nonischemic cardiomyopathy She patient is a 43-year-old female who presented with 1 day of fever. Was recently diagnosed with pneumonia and had been on antibiotics. Presentation questions sepsis/pneumonia. Her presentation also includes palpitation for years which increased in few weeks. Is found to have atrial fibrillation with RVR. Her history also includes few weeks of orthopnea/PND/leg swellings (for weeks) which questions acute heart failure. Does have increased BNP in favor of acute heart failure. Troponin has been mildly elevated but running flat which is in favor of possible demand ischemia. Never had ischemic workup before. Presentation is not in favor of acute coronary syndrome at this point. She is found to have multiorgan involvement (ascites, proteinuria, pneumonia). Does have previous history of hyperthyroidism which could have contributed to the clinical picture also (if present at this point). Echo revealed systolic heart failure. Is found to have active significant hyperthyroidism which could be the primary etiology for a-fib and also acute heart failure also. Being followed by Pulmonary (s/p thoracentesis). Is seen and evaluated by Nephrology for proteinuria. Was found to have abnormal LFT/ascites and is evaluated by GI. Cardiac cath performed and ruled out coronary disease. Dx is non-ischemic cardiomyopathy, possibly related to hyperthyroidism. Was found to have pneumothorax (possibly secondary to previous thoracentesis). s/p chest tube insertion by Pulmonary . Fever Sepsis Pneumonia Atrial fibrillation with RVR Abnormal troponin Increased BNP Acute heart failure, systolic Ascites Proteinuria Noncompliance to medication and followups Hyperthyroidism Pleural effusion s/p right thoracentesis by Pulmonary Abnormal LFT Pneumothorax s/p chest tube by pulmonary Non-ischemic Cardiomyopathy Cardiac suggestion for management: Manage in telemetry IV diuresis is suggested Follow-up electrolytes and kidney function tests and correct abnormalities. Keep potassium above 4 and magnesium above 2 Magnesium supplementation Full anticoagulation for now on Lovenox On Methimazole On Propranolol GDMT for systolic heart failure, non-ischemic CMP Sepsis workup and antibiotic therapy as per primary team Pulmonary follow up Nephrology follow up Endocrinology evaluation for Hyperthyroidism Further evaluation and management depends on the above and clinical course A total of 55 minutes was spent reviewing the patient record, examining the patient, making a diagnostic and therapeutic plan, discussing this plan with medical personnel, following up on diagnostic studies and following the patient for clinical stability excluding any and all procedures. At least 50% of this time was spent in direct, [id number] contact. Thank you for allowing me to participate in this patient's care. Further recommendations will depend on patient's clinical course. Please do not hesitate to contact me if you have any questions or concerns. This medical document was created using electronic medical record system with [employer] computerized dictation system. Although this document has been carefully reviewed, there may still be some phonetic and typographical errors. These areas are purely typographical due to the imperfection of the software programs, and do not reflect any compromise in the patient's medical care. Plan discussed with: Patient, Other (nurse) ANAMARIA GROVES MD Mar 11, 2024 07:58
[2024-03-11] MEDS: FUROSEMIDE 40 MG/4 ML VIAL IV SCH (09:50)
--- NOTE | 2024-03-11 12:09 | DVHPN2 ---
Progress Note Date Seen: Mar 11, 2024 Medical Necessity Reason Pt with a Central, PICC or Fol: No Subjective Patient reports: No new complaints Other Systems: Patient seen and examined by myself today in follow-up Objective vital signs Vital Sign Date Time Temp Pulse Resp B/P (MAP) Pulse Ox O2 Delivery O2 Flow Rate FiO2 03/11/24 08:41 98.2 81 18 124/80 (95) 94 98.2 03/11/24 08:00 Room Air* 0 21 Total Intake and Output 03/10/24 03/10/24 03/11/24 15:00 23:00 07:00 Intake Total 700 ml 300 ml Output Total 350 ml Balance 700 ml -50 ml medications Current Medications Medications Dose Ordered Sig/Kalli Route Start Time Stop Time Status Last Admin Dose Admin Acetaminophen/ Hydrocodone Bitart 1 tab Q4HP PRN PO 03/05/24 21:45 03/10/24 18:48 1 TAB Ondansetron HCl 4 mg Q4HP PRN IV 03/05/24 21:45 03/07/24 21:52 4 MG Docusate Sodium 100 mg BIDPRN PRN PO 03/05/24 21:45 Acetaminophen 650 mg Q6HP PRN PO 03/05/24 21:45 Morphine Sulfate 2 mg Q4HPRN PRN IV 03/05/24 21:45 03/09/24 22:28 2 MG Pantoprazole Sodium 40 mg DAILY IV 03/06/24 10:00 03/11/24 09:43 40 MG Nitroglycerin 0.4 mg Q5MINP PRN SL 03/05/24 21:45 Morphine Sulfate 2 mg Q30M PRN IV 03/05/24 21:45 Albuterol 2.5 mg Q4HP PRN NEB 03/05/24 21:45 Cancel Diphenhydramine HCl 25 mg Q6HR PRN IV 03/05/24 23:00 Enoxaparin Sodium 80 mg Q12HR SC 03/06/24 10:00 03/08/24 22:09 80 MG Doxycycline Monohydrate 100 mg Q12HR PO 03/06/24 10:00 03/11/24 10:12 100 MG Methimazole 10 mg Q8HR PO 03/07/24 14:00 03/11/24 05:18 10 MG Guaifenesin 200 mg Q4HP PRN PO 03/07/24 12:30 03/07/24 12:58 200 MG Ergocalciferol 50,000 unit Q7D PO 03/08/24 15:00 03/08/24 16:19 50,000 UNIT Sacubitril/ Valsartan 1 tab BID PO 03/09/24 22:00 03/11/24 09:51 1 TAB Spironolactone 12.5 mg DAILY PO 03/10/24 10:00 03/11/24 09:51 12.5 MG Furosemide 40 mg DAILY IV 03/11/24 10:00 Propranolol HCl 20 mg Q6H PO 03/11/24 08:00 03/11/24 02:15 20 MG Examination: LUNGS:Normal, CVS:Normal, MSK:Normal laboratory and microbiology Laboratory Tests 03/10/24 05:47 Test 03/10/24 05:47 Range/Units Serum Glucose 70 L 74-106 mg/dL Microbiology Date/Time Source Procedure Growth Status 03/08/24 17:05 Voided Urine Urine Culture - Preliminary Resulted 03/07/24 11:30 Pleural Fluid Gram Stain - Final Resulted 03/07/24 11:30 Pleural Fluid Body Fluid Culture - Preliminary Resulted 03/06/24 11:11 Blood Blood Culture - Final NO GROWTH AFTER 5 DAYS OF INCUBATION. Complete Problem List/Assessment/Plan Problem List/Assessment/Plan Lupus nephritis Low C3 and C4, positive PERRY CHF exacerbation NSTEMI Hypokalemia Hypomagnesemia thyrotoxicosis Hyperglycemia r/o DM Vitamin-D deficiency Right chest tube REC: Normal kidney function Radiology consult for kidney biopsy Ergocalciferol [id number] p.o. q.week A1c, 5.8 KCl replacement Magnesium sulfate IVPB Will continue to follow I discussed my plan of care with the patient, her at the bedside Plan discussed with: Patient, Spouse DEEPTHI VACA MD Mar 11, 2024 12:09
[2024-03-11] MEDS: DOCUSATE SOD 100 MG CAP PO PRN (14:12)
--- NOTE | 2024-03-11 15:12 | DVHPN2 ---
Progress Note Date Seen: Mar 11, 2024 Medical Necessity Reason Pt with a Central, PICC or Fol: No Subjective Patient reports: No new complaints Objective vital signs Vital Sign Date Time Temp Pulse Resp B/P (MAP) Pulse Ox O2 Delivery O2 Flow Rate FiO2 03/11/24 14:12 72 137/76 03/11/24 12:32 97.6 18 95 97.6 03/11/24 08:00 Room Air* 0 21 Total Intake and Output 03/10/24 03/10/24 03/11/24 15:00 23:00 07:00 Intake Total 700 ml 300 ml Output Total 350 ml Balance 700 ml -50 ml medications Current Medications Medications Dose Ordered Sig/Kalli Route Start Time Stop Time Status Last Admin Dose Admin Acetaminophen/ Hydrocodone Bitart 1 tab Q4HP PRN PO 03/05/24 21:45 03/11/24 14:14 1 TAB Ondansetron HCl 4 mg Q4HP PRN IV 03/05/24 21:45 03/07/24 21:52 4 MG Docusate Sodium 100 mg BIDPRN PRN PO 03/05/24 21:45 03/11/24 14:12 100 MG Acetaminophen 650 mg Q6HP PRN PO 03/05/24 21:45 Morphine Sulfate 2 mg Q4HPRN PRN IV 03/05/24 21:45 03/09/24 22:28 2 MG Pantoprazole Sodium 40 mg DAILY IV 03/06/24 10:00 03/11/24 09:43 40 MG Nitroglycerin 0.4 mg Q5MINP PRN SL 03/05/24 21:45 Morphine Sulfate 2 mg Q30M PRN IV 03/05/24 21:45 Albuterol 2.5 mg Q4HP PRN NEB 03/05/24 21:45 Cancel Diphenhydramine HCl 25 mg Q6HR PRN IV 03/05/24 23:00 Enoxaparin Sodium 80 mg Q12HR SC 03/06/24 10:00 03/08/24 22:09 80 MG Doxycycline Monohydrate 100 mg Q12HR PO 03/06/24 10:00 03/11/24 10:12 100 MG Methimazole 10 mg Q8HR PO 03/07/24 14:00 03/11/24 14:12 10 MG Guaifenesin 200 mg Q4HP PRN PO 03/07/24 12:30 03/07/24 12:58 200 MG Ergocalciferol 50,000 unit Q7D PO 03/08/24 15:00 03/08/24 16:19 50,000 UNIT Sacubitril/ Valsartan 1 tab BID PO 03/09/24 22:00 03/11/24 09:51 1 TAB Spironolactone 12.5 mg DAILY PO 03/10/24 10:00 03/11/24 09:51 12.5 MG Furosemide 40 mg DAILY IV 03/11/24 10:00 03/11/24 14:12 40 MG Propranolol HCl 20 mg Q6H PO 03/11/24 08:00 03/11/24 14:12 20 MG Examination: GENERAL:Normal, LUNGS:Normal, LUNGS:Abnormal (Diminished on the right), CVS:Normal, ABDOMEN:Normal, SKIN:Normal, NEURO:Normal laboratory and microbiology Laboratory Tests 03/10/24 05:47 Test 03/10/24 05:47 Range/Units Serum Glucose 70 L 74-106 mg/dL Microbiology Date/Time Source Procedure Growth Status 03/08/24 17:05 Voided Urine Urine Culture - Final Complete 03/07/24 11:30 Pleural Fluid Gram Stain - Final Resulted 03/07/24 11:30 Pleural Fluid Body Fluid Culture - Preliminary Resulted 03/06/24 11:11 Blood Blood Culture - Final NO GROWTH AFTER 5 DAYS OF INCUBATION. Complete Labs and/or images reviewed: Labs reviewed by me, Image(s) reviewed by me Problem List/Assessment/Plan Problem List/Assessment/Plan 1. Sepsis Monitor, IV antibiotics 2. Right-sided pneumonia, most likely gram-negative and some gram-positive Monitor, IV antibiotics, IR consult, plan thoracentesis 3. Right pleural effusion Monitor 4. Ascites Monitor, GI consult, plan paracentesis 5. Elevated bilirubin likely hepatic congestion from systolic CHF Monitor 6. Atrial fibrillation with RVR Monitor, cardiology consults, antiarrythmics, echocardiogram 7. Elevated troponin, most likely demand ischemia Monitor, trend troponin 8. Hypothyroidism Monitor 9. Atrial fibrillation with RVR Cardiology consult, monitoring 10. Pneumothorax right Chest tube per direct chill casting operator Assessment/Plan 10. Acute on chronic systolic CHF Cardiology consult, IV diuretics Subjective Patient is awake and alert Objective I spoke with patient and patient's family at bedside. Patient was admitted on 03/05/2024 for shortness of breath. Patient was found have a pleural effusion as well as ascites. Patient is status post thoracentesis done by her direct chill casting operator. 900 mL of fluid was removed. Ultrasound imaging was done to evaluate further for paracentesis. Not enough fluid was noted for procedure. Patient was seen by cardiology. Echocardiogram estimated 30 to 35% of likely fluid overload is due to CHF exacerbation. Patient also has elevated bilirubin level likely secondary to congestion as a result of systolic CHF. GI has been consulted. Patient was found to have a hyperthyroid. She states she has not been taking medications for several years. Patient was started on methimazole. Patient states she feels somewhat better today. Patient is S/P left heart catheterization on 03/09 which was negative. Patient developed right pneumothorax on 03/10, patient had chest tube placed by Dr. Blandon. Pulmonology we will clamp chest tube today. Patient is still pending biopsy of kidney Plan Continue current treatment. Continue diuretics. Continue treatment for hyperthyroidism. Monitor EKG. Nephrology ordered renal biopsy through IR, continue with chest tube, monitor I&Os Plan discussed with: Patient My Orders My Orders Orders - MOHAMUD MONREAL Procedure Category Date Status Time Basic Metabolic Panel LAB 03/11/24 Logged 15:07 Complete Blood Count LAB 03/11/24 Logged 15:07 Complete Blood Count LAB 03/12/24 Verified 05:00 Comprehensive LAB 03/12/24 Verified Metabolic Panel 05:00 Magnesium LAB 03/12/24 Verified 05:00 Date of Service: Mar 11, 2024 Billing Provider: KALIN MAGAÑA MD Common Visit Codes: [id number] INP/OBS CARE (MOD) MOHAMUD MONREAL Mar 11, 2024 15:12
[2024-03-11 15:35] LABS: Hematocrit 47.5 % (36.0-46.0); Hemoglobin 15.6 g/dL (12.2-16.2); Mean Corpuscular Hemoglobin 26.6 pg (28.0-32.0); Mean Corpuscular Hgb Conc. 32.8 g/dL (32.0-36.0); Platelet Count (auto) 112 10^3/uL (140-450); Red Blood Cells 5.86 10^6/uL (4.0-5.20); White Blood Cell 4.9 10^3/uL (4.4-10.8)
[2024-03-11 15:39] LABS: Basophils % (manual) 0 (0.0-2.0); Blast Cells 0; Eosinophils % (manual) 0 (0-7); Metamyelocytes % 0; Myelocytes % 0; Promyelocytes % 0; Reactive Lymphocytes 0
[2024-03-11 15:50] LABS: Chloride 100 mmol/L (98-107); Sodium 139 mmol/L (136-145)
[2024-03-11 15:51] LABS: Anion Gap 8 (5-15); Calcium 9.1 mg/dL (8.7-10.4); Potassium 3.3 mmol/L (3.5-5.1)
[2024-03-11 15:55] LABS: Carbon Dioxide 31 mmol/L (20-31)
[2024-03-11 15:56] LABS: BUN/Creatinine Ratio 14.1 (10.0-20.0); Blood Urea Nitrogen 9 mg/dL (9-23)
[2024-03-11 15:58] LABS: Glucose 149 mg/dL (74-106)
[2024-03-11 16:18] LABS: Band Neutrophils % (manual) 5; Lymphocytes % (manual) 35 (10.0-50.0); Monocytes % (manual) 9 (0-12); Platelet Estimate Decreased
--- NOTE | 2024-03-11 22:33 | DVHPN2 ---
Progress Note - Dictate Date Seen: Mar 11, 2024 Medical Necessity Reason Pt with a Central, PICC or Fol: No Subjective Patient is resting comfortably No new complaints Feels better cardiac catheterization showed normal coronaries Ejection fraction is 40% Bilirubin is trending down and liver enzymes are also trending down Liver imaging is normal, hepatitis panel, PERRY, ferritin are all normal, PT INR is normal vital signs Vital Sign Date Time Temp Pulse Resp B/P (MAP) Pulse Ox O2 Delivery O2 Flow Rate FiO2 03/11/24 21:00 98.1 60 17 107/77 (87) 95 98.1 03/11/24 08:00 Room Air* 0 21 Total Intake and Output 03/10/24 03/10/24 03/11/24 15:00 23:00 07:00 Intake Total 700 ml 300 ml Output Total 350 ml Balance 700 ml -50 ml medications Current Medications Medications Dose Ordered Sig/Kalli Route Start Time Stop Time Status Last Admin Dose Admin Acetaminophen/ Hydrocodone Bitart 1 tab Q4HP PRN PO 03/05/24 21:45 03/11/24 14:14 1 TAB Ondansetron HCl 4 mg Q4HP PRN IV 03/05/24 21:45 03/07/24 21:52 4 MG Docusate Sodium 100 mg BIDPRN PRN PO 03/05/24 21:45 03/11/24 14:12 100 MG Acetaminophen 650 mg Q6HP PRN PO 03/05/24 21:45 Morphine Sulfate 2 mg Q4HPRN PRN IV 03/05/24 21:45 03/09/24 22:28 2 MG Pantoprazole Sodium 40 mg DAILY IV 03/06/24 10:00 03/11/24 09:43 40 MG Nitroglycerin 0.4 mg Q5MINP PRN SL 03/05/24 21:45 Morphine Sulfate 2 mg Q30M PRN IV 03/05/24 21:45 Albuterol 2.5 mg Q4HP PRN NEB 03/05/24 21:45 Cancel Diphenhydramine HCl 25 mg Q6HR PRN IV 03/05/24 23:00 Enoxaparin Sodium 80 mg Q12HR SC 03/06/24 10:00 03/11/24 22:12 80 MG Doxycycline Monohydrate 100 mg Q12HR PO 03/06/24 10:00 03/11/24 22:12 100 MG Methimazole 10 mg Q8HR PO 03/07/24 14:00 03/11/24 22:11 10 MG Guaifenesin 200 mg Q4HP PRN PO 03/07/24 12:30 03/07/24 12:58 200 MG Ergocalciferol 50,000 unit Q7D PO 03/08/24 15:00 03/08/24 16:19 50,000 UNIT Sacubitril/ Valsartan 1 tab BID PO 03/09/24 22:00 03/11/24 22:11 1 TAB Spironolactone 12.5 mg DAILY PO 03/10/24 10:00 03/11/24 09:51 12.5 MG Furosemide 40 mg DAILY IV 03/11/24 10:00 03/11/24 14:12 40 MG Propranolol HCl 20 mg Q6H PO 03/11/24 08:00 03/11/24 14:12 20 MG objective General Appearance: alert, no distress HEENT: EOMI, PERRLA, normal external inspect of ears, no icterus, no nasal drainage Neck: no carotid bruit, no jugular venous distention (JVD), no lymphadenopathy Chest: normal thorax Respiratory: clear to auscultation, normal air movement Cardiovascular: regular rate and rhythm, no diastolic murmur, no jugular venous distention (JVD), no rub, no systolic murmur Abdominal: soft, no hepatomegaly, no mass, no splenomegaly, no tenderness Genitourinary: grossly normal external Musculoskeletal: no joint tenderness, no swelling Extremities: normal pulses, no calf tenderness, no clubbing, no cyanosis, no edema Skin: no bruising, no jaundice, no rash Neurological: alert, No focal deficit laboratory and microbiology Laboratory Tests 03/11/24 15:23 Test 03/11/24 15:23 Range/Units Serum Glucose 149 H 74-106 mg/dL Prognosis Plan No further GI workup at this time Ultrasound showed trace ascites not amenable to paracentesis Continue current treatment. Continue diuretics. Continue treatment for hyperthyroidism. Monitor EKG. Nephrology ordered renal biopsy through IR, continue with chest tube, monitor I&Os I will follow up patient with you as needed Plan discussed with: Patient MARINA GARCIA MD Mar 11, 2024 22:33
--- NOTE | 2024-03-11 23:38 | DVHPN2 ---
Progress Note - Dictate Date Seen: Mar 11, 2024 Medical Necessity Reason Pt with a Central, PICC or Fol: No Subjective Patient seen and examined at bedside. On supplemental oxygen Overnight events reviewed. vital signs Vital Sign Date Time Temp Pulse Resp B/P (MAP) Pulse Ox O2 Delivery O2 Flow Rate FiO2 03/11/24 21:00 98.1 60 17 107/77 (87) 95 98.1 03/11/24 08:00 Room Air* 0 21 Total Intake and Output 03/10/24 03/10/24 03/11/24 15:00 23:00 07:00 Intake Total 700 ml 300 ml Output Total 350 ml Balance 700 ml -50 ml medications Current Medications Medications Dose Ordered Sig/Kalli Route Start Time Stop Time Status Last Admin Dose Admin Acetaminophen/ Hydrocodone Bitart 1 tab Q4HP PRN PO 03/05/24 21:45 03/11/24 14:14 1 TAB Ondansetron HCl 4 mg Q4HP PRN IV 03/05/24 21:45 03/07/24 21:52 4 MG Docusate Sodium 100 mg BIDPRN PRN PO 03/05/24 21:45 03/11/24 14:12 100 MG Acetaminophen 650 mg Q6HP PRN PO 03/05/24 21:45 Morphine Sulfate 2 mg Q4HPRN PRN IV 03/05/24 21:45 03/09/24 22:28 2 MG Pantoprazole Sodium 40 mg DAILY IV 03/06/24 10:00 03/11/24 09:43 40 MG Nitroglycerin 0.4 mg Q5MINP PRN SL 03/05/24 21:45 Morphine Sulfate 2 mg Q30M PRN IV 03/05/24 21:45 Albuterol 2.5 mg Q4HP PRN NEB 03/05/24 21:45 Cancel Diphenhydramine HCl 25 mg Q6HR PRN IV 03/05/24 23:00 Enoxaparin Sodium 80 mg Q12HR SC 03/06/24 10:00 03/11/24 22:12 80 MG Doxycycline Monohydrate 100 mg Q12HR PO 03/06/24 10:00 03/11/24 22:12 100 MG Methimazole 10 mg Q8HR PO 03/07/24 14:00 03/11/24 22:11 10 MG Guaifenesin 200 mg Q4HP PRN PO 03/07/24 12:30 03/07/24 12:58 200 MG Ergocalciferol 50,000 unit Q7D PO 03/08/24 15:00 03/08/24 16:19 50,000 UNIT Sacubitril/ Valsartan 1 tab BID PO 03/09/24 22:00 03/11/24 22:11 1 TAB Spironolactone 12.5 mg DAILY PO 03/10/24 10:00 03/11/24 09:51 12.5 MG Furosemide 40 mg DAILY IV 03/11/24 10:00 03/11/24 14:12 40 MG Propranolol HCl 20 mg Q6H PO 03/11/24 08:00 03/11/24 14:12 20 MG objective Gen.: Patient lying in bed in no apparent distress. On supplemental oxygen Head: Normocephalic, atraumatic. Eyes: EOMI/PERRLA. Ears: Normal hearing. Normal anatomy. Neck/trachea: Trachea midline, supple. Nose: Normal external anatomy. Mouth: Moist mucous membranes. Chest: Decreased air entry bilaterally. No wheezing or rhonchi. Cardiovascular: Positive S1, positive S2. Regular rate and rhythm. Abdomen: Positive bowel sounds in all 4 quadrants. Soft, non-tender, non- distended. : Deferred. Rectal: Deferred. Skin: Warm, dry. Intact. Extremities: 2+ radial pulses bilaterally. No lower extremity edema. Neuro: Awake, alert, oriented x3. No gross motor or sensory deficits. Cranial nerves II through XII intact. Gait not assessed. laboratory and microbiology Laboratory Tests 03/11/24 15:23 Test 03/11/24 15:23 Range/Units Serum Glucose 149 H 74-106 mg/dL Assessment/Plan Impression: Bilateral pleural effusions Atelectasis Pneumonia, likely gram negative Ascites Atrial fibrillation w/ RVR Hx of nicotine dependence Obesity BMI 32.8 Events: Currently on supplemental O2 at 2 LPM NC Taper O2 as tolerated CXR demonstrates moderate pulmonary vascular congestion. Possible small left effusion. No pneumothorax. Right pleural catheter in place. Chest tube to minus 20 cmH20 No air leak Obtain CXR in the AM for interval changes Continue to monitor output Continue antibiotics Incentive spirometry Pain control Avoid oversedation S/p right chest tube placement on 03/09 for pneumothorax. CXR post procedure noted re-expansion of lung with chest tube in place S/p LHC, EF of 40%, findings of nonobstructive CAD Labs and imaging reviewed. Rest of plan as noted below. Plan: Supplemental oxygen Titrate to keep O2 sats above 92%. Continue antibiotics Incentive spirometry Right chest tube in place to minus 20 cmH20 Monitor output. Monitor renal function. Monitor electrolytes. Supplement as necessary. Monitor ins and outs. DVT prophylaxis. Prognosis: Poor given patient's multiple co-morbidities. Rest of plan per hospitalist and other consultants. Thank you, Mary Wade NP, for allowing me to participate in this patient's care. Further recommendations will depend on the patient's clinical course. Please do not hesitate to contact me if you have any questions or concerns. This medical document was created using an electronic medical record system with [employer] dictation system. Although these documentations are being carefully reviewed, there may still be some phonetic and typographical changes. The errors are purely typographical, due to imperfection on the software program, and do not reflect any compromise in the patient's medical care. Plan discussed with: Patient, Other (ADELE Lockett) DELIA HYLTON MD Mar 11, 2024 23:38
[2024-03-12] VITALS (7 sets, daily range): BP systolic 99–119; BP diastolic 56–73; PULSE 62–84; RESP 16–18; TEMP 97.3–98.1; O2SAT 93–100
[2024-03-12 06:54] LABS: Basophils # (auto) 0 10 ^3/uL (0-0.2); Basophils % (auto) 0.7 % (0.0-2.0); Eosinophils # (auto) 0.1 10 ^3/uL (0-0.8); Eosinophils % (auto) 1.7 % (0.0-7.0); Hematocrit 45.6 % (36.0-46.0); Hemoglobin 15.3 g/dL (12.2-16.2); Lymphocytes # (auto) 1.1 10 ^3/uL (0.4-5.4); Lymphocytes % (auto) 24.4 % (10.0-50.0); Mean Corpuscular Hemoglobin 27.3 pg (28.0-32.0); Mean Corpuscular Hgb Conc. 33.5 g/dL (32.0-36.0); Mean Corpuscular Volume 81.4 fL (80.0-100.0); Monocytes # (auto) 0.8 10 ^3/uL (0-1.3); Monocytes % (auto) 16.7 % (0.0-12.0); Neutrophils # (auto) 2.6 10 ^3/uL (1.6-8.6); Neutrophils % (auto) 56.5 % (37.0-80.0); Nucleated Red Blood Cells % 0.5 %; Red Cell Distribution Width 18.1 % (11.8-14.3); White Blood Cell 4.7 10^3/uL (4.4-10.8)
[2024-03-12 06:56] LABS: Alkaline Phosphatase 70 U/L (46-116); Anion Gap 9 (5-15); BUN/Creatinine Ratio 20.5 (10.0-20.0); Blood Urea Nitrogen 9 mg/dL (9-23); Carbon Dioxide 30 mmol/L (20-31); Chloride 102 mmol/L (98-107); Sodium 141 mmol/L (136-145)
[2024-03-12 06:58] LABS: Total Protein 6.6 g/dL (5.7-8.2)
[2024-03-12 06:59] LABS: Alanine Aminotransferase 143 U/L (7-40); Aspartate Aminotransferase 116 U/L (13-40); Bilirubin, Total 2.1 mg/dL (0.2-1.0); Calcium 8.5 mg/dL (8.7-10.4); Glucose 72 mg/dL (74-106); Magnesium 1.6 mg/dL (1.6-2.6); Potassium 3.1 mmol/L (3.5-5.1)
[2024-03-12 07:27] LABS: Platelet Count (auto) 96 10^3/uL (140-450)
[2024-03-12] MEDS: LIDOCAINE 2%HCL (LOCAL ANESTH.) INJ 10ml MDV ONE (08:13)
--- NOTE | 2024-03-12 08:15 | DVHPN2 ---
Progress Note - Dictate Date Seen: Mar 12, 2024 Medical Necessity Reason Pt with a Central, PICC or Fol: No vital signs Vital Sign Date Time Temp Pulse Resp B/P (MAP) Pulse Ox O2 Delivery O2 Flow Rate FiO2 03/12/24 08:06 81 109/76 03/12/24 05:00 97.5 17 100 97.5 03/11/24 20:00 Room Air* 0 21 Total Intake and Output 03/11/24 03/11/24 03/12/24 15:00 23:00 07:00 Intake Total 1000 ml 800 ml Output Total 1100 ml 1100 ml Balance -100 ml -300 ml medications Current Medications Medications Dose Ordered Sig/Kalli Route Start Time Stop Time Status Last Admin Dose Admin Acetaminophen/ Hydrocodone Bitart 1 tab Q4HP PRN PO 03/05/24 21:45 03/11/24 14:14 1 TAB Ondansetron HCl 4 mg Q4HP PRN IV 03/05/24 21:45 03/07/24 21:52 4 MG Docusate Sodium 100 mg BIDPRN PRN PO 03/05/24 21:45 03/11/24 14:12 100 MG Acetaminophen 650 mg Q6HP PRN PO 03/05/24 21:45 Morphine Sulfate 2 mg Q4HPRN PRN IV 03/05/24 21:45 03/09/24 22:28 2 MG Pantoprazole Sodium 40 mg DAILY IV 03/06/24 10:00 03/11/24 09:43 40 MG Nitroglycerin 0.4 mg Q5MINP PRN SL 03/05/24 21:45 Morphine Sulfate 2 mg Q30M PRN IV 03/05/24 21:45 Albuterol 2.5 mg Q4HP PRN NEB 03/05/24 21:45 Cancel Diphenhydramine HCl 25 mg Q6HR PRN IV 03/05/24 23:00 Enoxaparin Sodium 80 mg Q12HR SC 03/06/24 10:00 03/11/24 22:12 80 MG Doxycycline Monohydrate 100 mg Q12HR PO 03/06/24 10:00 03/11/24 22:12 100 MG Methimazole 10 mg Q8HR PO 03/07/24 14:00 03/12/24 05:38 10 MG Guaifenesin 200 mg Q4HP PRN PO 03/07/24 12:30 03/07/24 12:58 200 MG Ergocalciferol 50,000 unit Q7D PO 03/08/24 15:00 03/08/24 16:19 50,000 UNIT Sacubitril/ Valsartan 1 tab BID PO 03/09/24 22:00 03/11/24 22:11 1 TAB Spironolactone 12.5 mg DAILY PO 03/10/24 10:00 03/11/24 09:51 12.5 MG Furosemide 40 mg DAILY IV 03/11/24 10:00 03/11/24 14:12 40 MG Propranolol HCl 20 mg Q6H PO 03/11/24 08:00 03/12/24 08:06 20 MG laboratory and microbiology Laboratory Tests 03/12/24 05:50 Test 03/12/24 05:50 Range/Units Serum Glucose 72 L 74-106 mg/dL Assessment/Plan Patient is a 43-year-old female who presented to the hospital for few days of shortness of breath. She actually went to urgent care and was given prednisone/Z-Cody/inhaler. She did not respond and decided come to the hospital. She was diagnosed with pneumonia few days before presentation to hospital. While emergency room, she was found to have atrial fibrillation and Cardiology was called for evaluation and management. Her troponin was mildly/flat elevated which was another reason for cardiology evaluation. It is of note that the patient does have history of thyroid problem (hyperthyroidism) and was previously on methimazole. She mentions that she last saw a doctor for thyroid problem over 3 years ago and stopped methimazole herself at that time just because she did not have time to follow-up with physicians. Denies any previous cardiac history. But also mentions history of palpitation going back for years. She mentions worsening shortness of breath for the past 2 weeks. She had been having leg swellings/orthopnea/PND going back for around 6 weeks. She mentioned fever 1 day before presentation to the hospital. She had not been taking any medications as outpatient (up to few days before presentation) and has been noncompliant. Not in acute distress. Sitting in bed. No JVD. Mucosa is pink and wet. There is no goiter. There is no carotid bruit. Not using accessory muscles of breathing. Scattered rhonchi in the lungs is heard. Cardiac: Irregular, tachycardic, systolic murmur 3/6 in the apex is heard. Abdomen is soft. Bowel sound is positive. There is no gross mass/hepatomegaly. Extremities reveal 3+ edema in bilateral lower extremities. Dorsalis pedis is 2+ bilateral Past medical history includes thyroid problem (hyperthyroidism), history of C- section and noncompliance. She stopped smoking 6 months ago. She denies history of drug abuse. She used social alcohol up to 6 months ago. Denies relevant family history. Father had diabetes mellitus. Mother has hypertension. Creatinine: 0.70 - 0.67 - 0.57 - 0.68 - 0.73 - 0.56 - 0.64 - 0.44 Potassium: 3.1 - 4.6 - 2.8 - 3.5 - 3.3 - 3.8 - 3.3 - 3.1 Lactic acid: 2.9 - 2.2 - 1.8 Magnesium: 1.6 - 1.6 - 1.9 - 2.2 AST/ALT: 35/20 - 71/23 - 27/16 - 305/136 - 420/238 - 371/254 - 116/143 Bilirubin (total): 2.3 - 2.5 - 2.5 - 3.0 - 2.6 - 2.2 BNP: 610.28 Troponin (high sensitive): 219 - 227 - 214 TSH: 0.01 Free T4: 2.58 Free T3: 5.3 ESR: 5 CRP; 0.15 Urinalysis revealed 3+ proteinuria Chest x-ray reported: IMPRESSION: Pulmonary vascular congestion and right lower lobe airspace disease. Repeat chest xry reported: IMPRESSION: Decreaesd right pleural effusion s/p thoracentecis Repeat chest xry reported: Findings/Impression: Frontal chest radiograph demonstrates no acute osseous or superficial soft tissue abnormalities. The trachea is midline. The cardiac silhouette and mediastinum are within normal limits. Approximately 25-30% right pneumothorax, increased in size from prior. Medial right lower lung field atelectasis. No pleural effusions. Critical Result: Pneumothorax Repeat chest xry reported: IMPRESSION: 1. Interval placement of right-sided chest tube with improving pneumothorax. Repeat chest xry revealed: IMPRESSION: The heart is enlarged. There is moderate pulmonary vascular congestion. Possible small left effusion. No sizable pneumothorax. Right pleural catheter redemonstrated. Abdominal and pelvis CT scan (without contrast) reported: Findings: Evaluation of solid organs is limited due to lack of intravenous contrast use. Lung Bases: Moderate right-sided pleural effusion with adjacent compressive atelectasis. Liver: The liver is normal in size. No focal lesions. Gallbladder and Biliary Tree: Unremarkable Spleen: Unremarkable Pancreas: The pancreas is grossly normal in appearance. Adrenal Glands: Unremarkable Kidneys: Kidneys are grossly normal without calculi or hydronephrosis. Bladder: Grossly unremarkable for degree of distention. Bowel: The stomach is grossly normal in appearance. Small bowel and colon are normal in caliber and distribution. Normal appendix is visualized in the right lower quadrant without findings of appendicitis. Ascites: [id number] diffuse ascites. Lymphadenopathy: No mesenteric, retroperitoneal or periportal lymphadenopathy. Abdominal Wall and Mesentery: Mild diffuse anasarca.. Vasculature: The visualized abdominal aorta is normal in size and caliber. Evaluation of abdominal and pelvic vessels is limited due to lack of intravenous contrast. Pelvic Organs: Intact IUD. Moderate free fluid in the pelvis. Musculoskeletal: No aggressive focal bony lesions, acute fractures or dislocation. Moderate degenerative changes of the bilateral hip joints. Mild fusion of the bilateral SI joints. IMPRESSION: Limited noncontrast evaluation. Moderate right-sided pleural effusion with adjacent compressive atelectasis. Mild to moderate diffuse ascites , free fluid in the pelvis, and anasarca. Other ancillary findings as described above. Chest CT revealed: IMPRESSION: 1. Large right pleural effusion with collapse of the right lower lobe. The left lung and pleural space are clear. 2. There are multiple subcentimeter bilateral axillary lymph nodes which may be reactive. 3. Small amount of perihepatic ascites. Repeat CT of chest revealed: IMPRESSION: 1. Moderate right pneumothorax. 2. Small to moderate right pleural effusion. 3. Right lower lobe atelectasis. Chest ultrasound revealed: Finding/Impression: Bilateral pleural effusions, moderate on the right and trace on the left. Limited Abdominal ultrasound to check for Ascites: FINDINGS/IMPRESSIONS: Trace ascites in Shay's pouch. Telemetry reveals atrial fibrillation with RVR Echocardiogram reported: Dilated 4 chambers was observed. Left ventricle: Left ventricle was dilated. LVEF was 30-35%. Diffuse hypokinesis of left ventricle was seen. LVEDP was considered elevated. Right ventricle was dilated with reduced systolic function. Left atrium was moderately dilated. Right atrium was mildly dilated. Aortic valve: Aortic valve was not well visualized. There was no aortic insufficiency/stenosis. There was mild mitral regurgitation. There was moderate to severe tricuspid regurgitation. There was trivial pulmonary valve insufficiency. IVC with dilated. Right ventricular systolic pressure was assessed at 43 mm Hg. Cardiac Cath revealed: No angiographic evidence for epicardial coronary artery disease (normal coronaries). LVEF of 40%. Nonischemic cardiomyopathy She patient is a 43-year-old female who presented with 1 day of fever. Was recently diagnosed with pneumonia and had been on antibiotics. Presentation questions sepsis/pneumonia. Her presentation also includes palpitation for years which increased in few weeks. Is found to have atrial fibrillation with RVR. Her history also includes few weeks of orthopnea/PND/leg swellings (for weeks) which questions acute heart failure. Does have increased BNP in favor of acute heart failure. Troponin has been mildly elevated but running flat which is in favor of possible demand ischemia. Never had ischemic workup before. Presentation is not in favor of acute coronary syndrome at this point. She is found to have multiorgan involvement (ascites, proteinuria, pneumonia). Does have previous history of hyperthyroidism which could have contributed to the clinical picture also (if present at this point). Echo revealed systolic heart failure. Is found to have active significant hyperthyroidism which could be the primary etiology for a-fib and also acute heart failure also. Being followed by Pulmonary (s/p thoracentesis). Is seen and evaluated by Nephrology for proteinuria. Was found to have abnormal LFT/ascites and is evaluated by GI. Cardiac cath performed and ruled out coronary disease. Dx is non-ischemic cardiomyopathy, possibly related to hyperthyroidism. Was found to have pneumothorax (possibly secondary to previous thoracentesis). s/p chest tube insertion by Pulmonary . Fever Sepsis Pneumonia Atrial fibrillation with RVR Abnormal troponin Increased BNP Acute heart failure, systolic Ascites Proteinuria Noncompliance to medication and followups Hyperthyroidism Pleural effusion s/p right thoracentesis by Pulmonary Abnormal LFT Pneumothorax s/p chest tube by pulmonary Non-ischemic Cardiomyopathy Cardiac suggestion for management: Manage in telemetry IV diuresis is suggested Follow-up electrolytes and kidney function tests and correct abnormalities. Keep potassium above 4 and magnesium above 2 Magnesium supplementation Full anticoagulation for now on Lovenox On Methimazole On Propranolol (change the dose to 40 mg BID) GDMT for systolic heart failure, non-ischemic CMP Sepsis workup and antibiotic therapy as per primary team Pulmonary follow up Nephrology follow up Endocrinology evaluation for Hyperthyroidism Further evaluation and management depends on the above and clinical course A total of 55 minutes was spent reviewing the patient record, examining the patient, making a diagnostic and therapeutic plan, discussing this plan with medical personnel, following up on diagnostic studies and following the patient for clinical stability excluding any and all procedures. At least 50% of this time was spent in direct, [id number] contact. Thank you for allowing me to participate in this patient's care. Further recommendations will depend on patient's clinical course. Please do not hesitate to contact me if you have any questions or concerns. This medical document was created using electronic medical record system with [employer] computerized dictation system. Although this document has been carefully reviewed, there may still be some phonetic and typographical errors. These areas are purely typographical due to the imperfection of the software programs, and do not reflect any compromise in the patient's medical care. Plan discussed with: Patient, Other (nurse) ANAMARIA GROVES MD Mar 12, 2024 08:15
[2024-03-12] MEDS: MIDAZOLAM HCL 2MG/2ML 2ml VIAL (1mg/ml) IV ONE (08:30)
[2024-03-12] MEDS: fentaNYL CITRATE 100 MCG/2 ML VL IV ONE (08:30)
[2024-03-12] MEDS: POTASSIUM EFFERVESENT TAB 25 MEQ PO ONE (09:56)
[2024-03-12] MEDS: PROPRANOLOL HCL 20 MG TAB PO SCH (09:58)
--- NOTE | 2024-03-12 11:06 | DVHPN2 ---
Progress Note Date Seen: Mar 12, 2024 Medical Necessity Reason Pt with a Central, PICC or Fol: No Subjective Review of Systems: CVS:Abnormal Objective vital signs Vital Sign Date Time Temp Pulse Resp B/P (MAP) Pulse Ox O2 Delivery O2 Flow Rate FiO2 03/12/24 09:59 118/73 03/12/24 09:58 70 03/12/24 09:22 97.4 18 97 97.4 03/11/24 20:00 Room Air* 0 21 Total Intake and Output 03/11/24 03/11/24 03/12/24 15:00 23:00 07:00 Intake Total 1000 ml 800 ml Output Total 1100 ml 1100 ml Balance -100 ml -300 ml medications Current Medications Medications Dose Ordered Sig/Kalli Route Start Time Stop Time Status Last Admin Dose Admin Acetaminophen/ Hydrocodone Bitart 1 tab Q4HP PRN PO 03/05/24 21:45 03/11/24 14:14 1 TAB Ondansetron HCl 4 mg Q4HP PRN IV 03/05/24 21:45 03/07/24 21:52 4 MG Docusate Sodium 100 mg BIDPRN PRN PO 03/05/24 21:45 03/11/24 14:12 100 MG Acetaminophen 650 mg Q6HP PRN PO 03/05/24 21:45 Morphine Sulfate 2 mg Q4HPRN PRN IV 03/05/24 21:45 03/09/24 22:28 2 MG Pantoprazole Sodium 40 mg DAILY IV 03/06/24 10:00 03/12/24 10:19 40 MG Nitroglycerin 0.4 mg Q5MINP PRN SL 03/05/24 21:45 Morphine Sulfate 2 mg Q30M PRN IV 03/05/24 21:45 Albuterol 2.5 mg Q4HP PRN NEB 03/05/24 21:45 Cancel Diphenhydramine HCl 25 mg Q6HR PRN IV 03/05/24 23:00 Enoxaparin Sodium 80 mg Q12HR SC 03/06/24 10:00 03/11/24 22:12 80 MG Doxycycline Monohydrate 100 mg Q12HR PO 03/06/24 10:00 03/12/24 10:19 100 MG Methimazole 10 mg Q8HR PO 03/07/24 14:00 03/12/24 05:38 10 MG Guaifenesin 200 mg Q4HP PRN PO 03/07/24 12:30 03/07/24 12:58 200 MG Ergocalciferol 50,000 unit Q7D PO 03/08/24 15:00 03/08/24 16:19 50,000 UNIT Sacubitril/ Valsartan 1 tab BID PO 03/09/24 22:00 03/12/24 09:59 1 TAB Spironolactone 12.5 mg DAILY PO 03/10/24 10:00 03/12/24 09:59 12.5 MG Furosemide 40 mg DAILY IV 03/11/24 10:00 03/12/24 09:59 40 MG Propranolol HCl 40 mg BID PO 03/12/24 09:45 03/12/24 09:58 40 MG Examination: LUNGS:Abnormal, CVS:Abnormal, ABDOMEN:Abnormal laboratory and microbiology Laboratory Tests 03/12/24 05:50 Test 03/12/24 05:50 Range/Units Serum Glucose 72 L 74-106 mg/dL Microbiology Date/Time Source Procedure Growth Status 03/08/24 17:05 Voided Urine Urine Culture - Final Complete 03/07/24 11:30 Pleural Fluid Gram Stain - Final Complete 03/07/24 11:30 Pleural Fluid Body Fluid Culture - Final Complete 03/06/24 11:11 Blood Blood Culture - Final NO GROWTH AFTER 5 DAYS OF INCUBATION. Complete Problem List/Assessment/Plan Problem List/Assessment/Plan Lupus Positive rule out nephritis. likelihood high due to proteinuria Low C3 and C4, positive PERRY CHF exacerbation NSTEMI Hypokalemia Hypomagnesemia thyrotoxicosis Vitamin-D deficiency Right chest tube Normal kidney function Radiology consult for kidney biopsy today Ergocalciferol 90945 p.o. q.week A1c, 5.8 diuretics cardiology and pulm daily Mg replacement lasix daily currently on Entresto for heart disease. ARB component may provide renal benefits Plan discussed with: Patient MADISON TIRADO MD Mar 12, 2024 11:06
--- NOTE | 2024-03-12 12:43 | DVHPN2 ---
Progress Note - Dictate Date Seen: Mar 12, 2024 Medical Necessity Reason Pt with a Central, PICC or Fol: No vital signs Vital Sign Date Time Temp Pulse Resp B/P (MAP) Pulse Ox O2 Delivery O2 Flow Rate FiO2 03/12/24 09:59 118/73 03/12/24 09:58 70 03/12/24 09:22 97.4 18 97 97.4 03/12/24 08:00 Room Air* 0 21 Total Intake and Output 03/11/24 03/11/24 03/12/24 15:00 23:00 07:00 Intake Total 1000 ml 800 ml Output Total 1100 ml 1100 ml Balance -100 ml -300 ml medications Current Medications Medications Dose Ordered Sig/Kalli Route Start Time Stop Time Status Last Admin Dose Admin Acetaminophen/ Hydrocodone Bitart 1 tab Q4HP PRN PO 03/05/24 21:45 03/11/24 14:14 1 TAB Ondansetron HCl 4 mg Q4HP PRN IV 03/05/24 21:45 03/07/24 21:52 4 MG Docusate Sodium 100 mg BIDPRN PRN PO 03/05/24 21:45 03/11/24 14:12 100 MG Acetaminophen 650 mg Q6HP PRN PO 03/05/24 21:45 Morphine Sulfate 2 mg Q4HPRN PRN IV 03/05/24 21:45 03/09/24 22:28 2 MG Pantoprazole Sodium 40 mg DAILY IV 03/06/24 10:00 03/12/24 10:19 40 MG Nitroglycerin 0.4 mg Q5MINP PRN SL 03/05/24 21:45 Morphine Sulfate 2 mg Q30M PRN IV 03/05/24 21:45 Albuterol 2.5 mg Q4HP PRN NEB 03/05/24 21:45 Cancel Diphenhydramine HCl 25 mg Q6HR PRN IV 03/05/24 23:00 Enoxaparin Sodium 80 mg Q12HR SC 03/06/24 10:00 03/11/24 22:12 80 MG Doxycycline Monohydrate 100 mg Q12HR PO 03/06/24 10:00 03/12/24 10:19 100 MG Methimazole 10 mg Q8HR PO 03/07/24 14:00 03/12/24 05:38 10 MG Guaifenesin 200 mg Q4HP PRN PO 03/07/24 12:30 03/07/24 12:58 200 MG Ergocalciferol 50,000 unit Q7D PO 03/08/24 15:00 03/08/24 16:19 50,000 UNIT Sacubitril/ Valsartan 1 tab BID PO 03/09/24 22:00 03/12/24 09:59 1 TAB Spironolactone 12.5 mg DAILY PO 03/10/24 10:00 03/12/24 09:59 12.5 MG Furosemide 40 mg DAILY IV 03/11/24 10:00 03/12/24 09:59 40 MG Propranolol HCl 40 mg BID PO 03/12/24 09:45 03/12/24 09:58 40 MG objective General Appearance: alert, no distress HEENT: EOMI, PERRLA, normal external inspect of ears, no icterus, no nasal drainage Neck: no carotid bruit, no jugular venous distention (JVD), no lymphadenopathy Chest: normal thorax Respiratory: clear to auscultation, normal air movement Cardiovascular: regular rate and rhythm, no diastolic murmur, no jugular venous distention (JVD), no rub, no systolic murmur Abdominal: soft, no hepatomegaly, no mass, no splenomegaly, no tenderness Genitourinary: grossly normal external Musculoskeletal: no joint tenderness, no swelling Extremities: normal pulses, no calf tenderness, no clubbing, no cyanosis, no edema Skin: no bruising, no jaundice, no rash Neurological: alert, No focal deficit laboratory and microbiology Laboratory Tests 03/12/24 05:50 Test 03/12/24 05:50 Range/Units Serum Glucose 72 L 74-106 mg/dL Problem List 1. Sepsis Monitor, IV antibiotics 2. Right-sided pneumonia, most likely gram-negative and some gram-positive Monitor, IV antibiotics, IR consult, plan thoracentesis 3. Right pleural effusion Monitor 4. Ascites Monitor, GI consult, plan paracentesis 5. Elevated bilirubin Monitor 6. Atrial fibrillation with RVR Monitor, cardiology consults, antiarrythmics, echocardiogram 7. Elevated troponin, most likely demand ischemia Monitor, trend troponin 8. Hypothyroidism Monitor 9. Atrial fibrillation with RVR Cardiology consult, monitoring Assessment/Plan Subjective: Patient is awake and alert Objective: Patient was admitted for shortness of breath. Patient was found to have CHF and ascites. Patient is status post thoracentesis. Patient had 900 mL of fluid from her right pleural space removed. Radiologist did evaluate for paracentesis, however there was not enough fluid for paracentesis. Patient is status post left heart cath on 03/09/2024 which was negative for CAD. Patient has proteinuria, nephrology was consulted. Patient was unable to do a kidney biopsy today due to chest tube. Chest tube was placed due to pneumothorax found on 03/10/2024. Chest tube will not be removed today. Plan: Continue current treatment. Remove Sam catheter. Plan to remove chest tube once cleared by pulmonary. Plan for kidney biopsy after chest tube has been removed. Plan discussed with: Patient, Other ISIDORO DELANEY NP Mar 12, 2024 12:43
[2024-03-12] MEDS: MAGNESIUM SULFATE 1GM/100ML 100 ML IV ONE (13:21)
--- NOTE | 2024-03-12 14:39 | DVH ---
XY CHEST TWO VIEWS ROUTINE CLINICAL HISTORY: chest tube drain COMPARISON: Multiple prior radiographs, latest on 03/11/2024 TECHNIQUE: Frontal and lateral view of the chest was obtained FINDINGS: Lines and Tubes: Redemonstration of right-sided chest tube terminating over the right lower lung zone . Bronchovascular crowding due to low lung volumes. Obscuration of the left hemidiaphragm which may be from overlying cardiac silhouette. Pleura: Small right-sided residual pneumothorax which was not definitely seen on the prior comparison imaging of 03/11/2024 and may be due to technique / positioning. Cardiomediastinal contours: Mild cardiomegaly Bones: No acute osseous abnormality. Minimal subcutaneous emphysema over the right lateral mid chest wall area with the chest tube IMPRESSION: Redemonstration of right sided chest tube terminating over the right lower lung zone with small resid ual pneumothorax . Obscuration of the left hemidiaphragm which may be from overlying cardiac silhouette with underlying trace effusion/ atelectasis not excluded.
--- NOTE | 2024-03-12 15:20 | CONS ---
Pharmacy Clinical Information: CQM HF. Patient is experiencing A-Fib with RVR, for which propranolol was st arted. As the patient is showing signs of improvement with propranolol at this time, might not consider starting an EBBB while taking propranolol. Patient's serum glucose levels are also intermittently low, this should be taken into consideration if starting an SGLT2 as the patient is 79 and might be at high risk for hypoglycemia. NORMA CURTIS PHARMACIST Mar 12, 2024 15:20
--- NOTE | 2024-03-12 16:52 | MEDREC ---
[facility] Intervention Section I [facility] Intervention: Review courses of therapy (PLEASE CONSIDER D/C ANTIBIOTIC IN ABSENCE OF BACTERIAL INFECTION) YESENIA RUVALCABA PHARMACIST Mar 12, 2024 16:52
--- NOTE | 2024-03-12 23:02 | DVHPN2 ---
Progress Note - Dictate Date Seen: Mar 12, 2024 Medical Necessity Reason Pt with a Central, PICC or Fol: No Subjective Patient seen and examined at bedside. On supplemental oxygen Overnight events reviewed. vital signs Vital Sign Date Time Temp Pulse Resp B/P (MAP) Pulse Ox O2 Delivery O2 Flow Rate FiO2 03/12/24 22:40 84 106/61 03/12/24 16:38 97.3 16 98 97.3 03/12/24 08:00 Room Air* 0 21 Total Intake and Output 03/11/24 03/11/24 03/12/24 15:00 23:00 07:00 Intake Total 1000 ml 800 ml Output Total 1100 ml 1100 ml Balance -100 ml -300 ml medications Current Medications Medications Dose Ordered Sig/Kalli Route Start Time Stop Time Status Last Admin Dose Admin Acetaminophen/ Hydrocodone Bitart 1 tab Q4HP PRN PO 03/05/24 21:45 03/12/24 13:18 1 TAB Ondansetron HCl 4 mg Q4HP PRN IV 03/05/24 21:45 03/07/24 21:52 4 MG Docusate Sodium 100 mg BIDPRN PRN PO 03/05/24 21:45 03/11/24 14:12 100 MG Acetaminophen 650 mg Q6HP PRN PO 03/05/24 21:45 Morphine Sulfate 2 mg Q4HPRN PRN IV 03/05/24 21:45 03/09/24 22:28 2 MG Pantoprazole Sodium 40 mg DAILY IV 03/06/24 10:00 03/12/24 10:19 40 MG Nitroglycerin 0.4 mg Q5MINP PRN SL 03/05/24 21:45 Morphine Sulfate 2 mg Q30M PRN IV 03/05/24 21:45 Albuterol 2.5 mg Q4HP PRN NEB 03/05/24 21:45 Cancel Diphenhydramine HCl 25 mg Q6HR PRN IV 03/05/24 23:00 Enoxaparin Sodium 80 mg Q12HR SC 03/06/24 10:00 03/11/24 22:12 80 MG Doxycycline Monohydrate 100 mg Q12HR PO 03/06/24 10:00 03/12/24 22:40 100 MG Methimazole 10 mg Q8HR PO 03/07/24 14:00 03/12/24 22:40 10 MG Guaifenesin 200 mg Q4HP PRN PO 03/07/24 12:30 03/07/24 12:58 200 MG Ergocalciferol 50,000 unit Q7D PO 03/08/24 15:00 03/08/24 16:19 50,000 UNIT Sacubitril/ Valsartan 1 tab BID PO 03/09/24 22:00 03/12/24 09:59 1 TAB Spironolactone 12.5 mg DAILY PO 03/10/24 10:00 03/12/24 09:59 12.5 MG Furosemide 40 mg DAILY IV 03/11/24 10:00 03/12/24 09:59 40 MG Propranolol HCl 40 mg BID PO 03/12/24 09:45 03/12/24 22:40 40 MG objective Gen.: Patient lying in bed in no apparent distress. On supplemental oxygen Head: Normocephalic, atraumatic. Eyes: EOMI/PERRLA. Ears: Normal hearing. Normal anatomy. Neck/trachea: Trachea midline, supple. Nose: Normal external anatomy. Mouth: Moist mucous membranes. Chest: Decreased air entry bilaterally. No wheezing or rhonchi. Cardiovascular: Positive S1, positive S2. Regular rate and rhythm. Abdomen: Positive bowel sounds in all 4 quadrants. Soft, non-tender, non- distended. : Deferred. Rectal: Deferred. Skin: Warm, dry. Intact. Extremities: 2+ radial pulses bilaterally. No lower extremity edema. Neuro: Awake, alert, oriented x3. No gross motor or sensory deficits. Cranial nerves II through XII intact. Gait not assessed. laboratory and microbiology Laboratory Tests 03/12/24 05:50 Test 03/12/24 05:50 Range/Units Serum Glucose 72 L 74-106 mg/dL Assessment/Plan Impression: Bilateral pleural effusions Atelectasis Pneumonia, likely gram negative Ascites Atrial fibrillation w/ RVR Hx of nicotine dependence Obesity BMI 32.8 Events: Remains on supplemental O2 at 2 LPM NC Taper O2 as tolerated CXR demonstrates no pneumothorax after placement on water seal. Right pleural catheter in place. Chest tube w/ serous output, yellow fluid. Continue to monitor output No air leak Obtain CXR in the AM for interval changes Continue antibiotics Incentive spirometry Pain control Avoid oversedation Monitor renal function Monitor ins and outs S/p right chest tube placement on 03/09 for pneumothorax. CXR post procedure noted re-expansion of lung with chest tube in place S/p LHC, EF of 40%, findings of nonobstructive CAD Labs and imaging reviewed. Rest of plan as noted below. Plan: Supplemental oxygen Titrate to keep O2 sats above 92%. Continue antibiotics Incentive spirometry Right chest tube in place to minus 20 cmH20 Monitor output. Monitor renal function. Monitor electrolytes. Supplement as necessary. Monitor ins and outs. DVT prophylaxis. Prognosis: Poor given patient's multiple co-morbidities. Rest of plan per hospitalist and other consultants. Thank you, Mary Wade NP, for allowing me to participate in this patient's care. Further recommendations will depend on the patient's clinical course. Please do not hesitate to contact me if you have any questions or concerns. This medical document was created using an electronic medical record system with [employer] dictation system. Although these documentations are being carefully reviewed, there may still be some phonetic and typographical changes. The errors are purely typographical, due to imperfection on the software program, and do not reflect any compromise in the patient's medical care. Plan discussed with: Patient, Other (ADELE Todd) DELIA HYLTON MD Mar 12, 2024 23:02
[2024-03-13] VITALS (8 sets, daily range): BP systolic 93–120; BP diastolic 63–77; PULSE 65–94; RESP 16–20; TEMP 97.4–98; O2SAT 95–97
[2024-03-13 07:26] LABS: Chloride 101 mmol/L (98-107); Potassium 3.7 mmol/L (3.5-5.1); Sodium 139 mmol/L (136-145)
[2024-03-13 07:27] LABS: Anion Gap 7 (5-15); Calcium 9.1 mg/dL (8.7-10.4); Carbon Dioxide 31 mmol/L (20-31)
[2024-03-13 07:32] LABS: BUN/Creatinine Ratio 18.2 (10.0-20.0); Blood Urea Nitrogen 10 mg/dL (9-23)
[2024-03-13 07:35] LABS: Glucose 70 mg/dL (74-106)
--- NOTE | 2024-03-13 07:47 | DVHPN2 ---
Progress Note - Dictate Date Seen: Mar 13, 2024 Medical Necessity Reason Pt with a Central, PICC or Fol: No vital signs Vital Sign Date Time Temp Pulse Resp B/P (MAP) Pulse Ox O2 Delivery O2 Flow Rate FiO2 03/13/24 05:00 97.9 65 20 112/67 (82) 96 97.9 03/12/24 20:00 Room Air* 0 21 Total Intake and Output 03/12/24 03/12/24 03/13/24 15:00 23:00 07:00 Intake Total 1200 ml 900 ml Output Total 4070 ml Balance -2870 ml 900 ml medications Current Medications Medications Dose Ordered Sig/Kalli Route Start Time Stop Time Status Last Admin Dose Admin Acetaminophen/ Hydrocodone Bitart 1 tab Q4HP PRN PO 03/05/24 21:45 03/12/24 13:18 1 TAB Ondansetron HCl 4 mg Q4HP PRN IV 03/05/24 21:45 03/07/24 21:52 4 MG Docusate Sodium 100 mg BIDPRN PRN PO 03/05/24 21:45 03/11/24 14:12 100 MG Acetaminophen 650 mg Q6HP PRN PO 03/05/24 21:45 Morphine Sulfate 2 mg Q4HPRN PRN IV 03/05/24 21:45 03/09/24 22:28 2 MG Pantoprazole Sodium 40 mg DAILY IV 03/06/24 10:00 03/12/24 10:19 40 MG Nitroglycerin 0.4 mg Q5MINP PRN SL 03/05/24 21:45 Morphine Sulfate 2 mg Q30M PRN IV 03/05/24 21:45 Albuterol 2.5 mg Q4HP PRN NEB 03/05/24 21:45 Cancel Diphenhydramine HCl 25 mg Q6HR PRN IV 03/05/24 23:00 Enoxaparin Sodium 80 mg Q12HR SC 03/06/24 10:00 03/11/24 22:12 80 MG Doxycycline Monohydrate 100 mg Q12HR PO 03/06/24 10:00 03/12/24 22:40 100 MG Methimazole 10 mg Q8HR PO 03/07/24 14:00 03/13/24 05:08 10 MG Guaifenesin 200 mg Q4HP PRN PO 03/07/24 12:30 03/07/24 12:58 200 MG Ergocalciferol 50,000 unit Q7D PO 03/08/24 15:00 03/08/24 16:19 50,000 UNIT Sacubitril/ Valsartan 1 tab BID PO 03/09/24 22:00 03/12/24 09:59 1 TAB Spironolactone 12.5 mg DAILY PO 03/10/24 10:00 03/12/24 09:59 12.5 MG Furosemide 40 mg DAILY IV 03/11/24 10:00 03/12/24 09:59 40 MG Propranolol HCl 40 mg BID PO 03/12/24 09:45 03/12/24 22:40 40 MG laboratory and microbiology Laboratory Tests 03/13/24 05:47 03/12/24 05:50 Test 03/13/24 05:47 Range/Units Serum Glucose 70 L 74-106 mg/dL Assessment/Plan Patient is a 43-year-old female who presented to the hospital for few days of shortness of breath. She actually went to urgent care and was given prednisone/Z-Cody/inhaler. She did not respond and decided come to the hospital. She was diagnosed with pneumonia few days before presentation to hospital. While emergency room, she was found to have atrial fibrillation and Cardiology was called for evaluation and management. Her troponin was mildly/flat elevated which was another reason for cardiology evaluation. It is of note that the patient does have history of thyroid problem (hyperthyroidism) and was previously on methimazole. She mentions that she last saw a doctor for thyroid problem over 3 years ago and stopped methimazole herself at that time just because she did not have time to follow-up with physicians. Denies any previous cardiac history. But also mentions history of palpitation going back for years. She mentions worsening shortness of breath for the past 2 weeks. She had been having leg swellings/orthopnea/PND going back for around 6 weeks. She mentioned fever 1 day before presentation to the hospital. She had not been taking any medications as outpatient (up to few days before presentation) and has been noncompliant. Not in acute distress. Sitting in bed. No JVD. Mucosa is pink and wet. There is no goiter. There is no carotid bruit. Not using accessory muscles of breathing. Scattered rhonchi in the lungs is heard. Cardiac: Irregular, tachycardic, systolic murmur 3/6 in the apex is heard. Abdomen is soft. Bowel sound is positive. There is no gross mass/hepatomegaly. Extremities reveal 3+ edema in bilateral lower extremities. Dorsalis pedis is 2+ bilateral Past medical history includes thyroid problem (hyperthyroidism), history of C- section and noncompliance. She stopped smoking 6 months ago. She denies history of drug abuse. She used social alcohol up to 6 months ago. Denies relevant family history. Father had diabetes mellitus. Mother has hypertension. Creatinine: 0.70 - 0.67 - 0.57 - 0.68 - 0.73 - 0.56 - 0.64 - 0.44 - 0.55 Potassium: 3.1 - 4.6 - 2.8 - 3.5 - 3.3 - 3.8 - 3.3 - 3.1 - 3.7 Lactic acid: 2.9 - 2.2 - 1.8 Magnesium: 1.6 - 1.6 - 1.9 - 2.2 AST/ALT: 35/20 - 71/23 - 27/16 - 305/136 - 420/238 - 371/254 - 116/143 Bilirubin (total): 2.3 - 2.5 - 2.5 - 3.0 - 2.6 - 2.2 BNP: 610.28 Troponin (high sensitive): 219 - 227 - 214 TSH: 0.01 Free T4: 2.58 Free T3: 5.3 ESR: 5 CRP; 0.15 Urinalysis revealed 3+ proteinuria Chest x-ray reported: IMPRESSION: Pulmonary vascular congestion and right lower lobe airspace disease. Repeat chest xry reported: IMPRESSION: Decreaesd right pleural effusion s/p thoracentecis Repeat chest xry reported: Findings/Impression: Frontal chest radiograph demonstrates no acute osseous or superficial soft tissue abnormalities. The trachea is midline. The cardiac silhouette and mediastinum are within normal limits. Approximately 25-30% right pneumothorax, increased in size from prior. Medial right lower lung field atelectasis. No pleural effusions. Critical Result: Pneumothorax Repeat chest xry reported: IMPRESSION: 1. Interval placement of right-sided chest tube with improving pneumothorax. Repeat chest xry revealed: IMPRESSION: The heart is enlarged. There is moderate pulmonary vascular congestion. Possible small left effusion. No sizable pneumothorax. Right pleural catheter redemonstrated. Repeat chest xry revealed: IMPRESSION: Redemonstration of right sided chest tube terminating over the right lower lung zone with small residual pneumothorax . Obscuration of the left hemidiaphragm which may be from overlying cardiac silhouette with underlying trace effusion/ atelectasis not excluded. Abdominal and pelvis CT scan (without contrast) reported: Findings: Evaluation of solid organs is limited due to lack of intravenous contrast use. Lung Bases: Moderate right-sided pleural effusion with adjacent compressive atelectasis. Liver: The liver is normal in size. No focal lesions. Gallbladder and Biliary Tree: Unremarkable Spleen: Unremarkable Pancreas: The pancreas is grossly normal in appearance. Adrenal Glands: Unremarkable Kidneys: Kidneys are grossly normal without calculi or hydronephrosis. Bladder: Grossly unremarkable for degree of distention. Bowel: The stomach is grossly normal in appearance. Small bowel and colon are normal in caliber and distribution. Normal appendix is visualized in the right lower quadrant without findings of appendicitis. Ascites: [id number] diffuse ascites. Lymphadenopathy: No mesenteric, retroperitoneal or periportal lymphadenopathy. Abdominal Wall and Mesentery: Mild diffuse anasarca.. Vasculature: The visualized abdominal aorta is normal in size and caliber. Evaluation of abdominal and pelvic vessels is limited due to lack of intravenous contrast. Pelvic Organs: Intact IUD. Moderate free fluid in the pelvis. Musculoskeletal: No aggressive focal bony lesions, acute fractures or dislocation. Moderate degenerative changes of the bilateral hip joints. Mild fusion of the bilateral SI joints. IMPRESSION: Limited noncontrast evaluation. Moderate right-sided pleural effusion with adjacent compressive atelectasis. Mild to moderate diffuse ascites , free fluid in the pelvis, and anasarca. Other ancillary findings as described above. Chest CT revealed: IMPRESSION: 1. Large right pleural effusion with collapse of the right lower lobe. The left lung and pleural space are clear. 2. There are multiple subcentimeter bilateral axillary lymph nodes which may be reactive. 3. Small amount of perihepatic ascites. Repeat CT of chest revealed: IMPRESSION: 1. Moderate right pneumothorax. 2. Small to moderate right pleural effusion. 3. Right lower lobe atelectasis. Chest ultrasound revealed: Finding/Impression: Bilateral pleural effusions, moderate on the right and trace on the left. Limited Abdominal ultrasound to check for Ascites: FINDINGS/IMPRESSIONS: Trace ascites in Shay's pouch. Telemetry reveals atrial fibrillation with RVR Echocardiogram reported: Dilated 4 chambers was observed. Left ventricle: Left ventricle was dilated. LVEF was 30-35%. Diffuse hypokinesis of left ventricle was seen. LVEDP was considered elevated. Right ventricle was dilated with reduced systolic function. Left atrium was moderately dilated. Right atrium was mildly dilated. Aortic valve: Aortic valve was not well visualized. There was no aortic insufficiency/stenosis. There was mild mitral regurgitation. There was moderate to severe tricuspid regurgitation. There was trivial pulmonary valve insufficiency. IVC with dilated. Right ventricular systolic pressure was assessed at 43 mm Hg. Cardiac Cath revealed: No angiographic evidence for epicardial coronary artery disease (normal coronaries). LVEF of 40%. Nonischemic cardiomyopathy She patient is a 43-year-old female who presented with 1 day of fever. Was recently diagnosed with pneumonia and had been on antibiotics. Presentation questions sepsis/pneumonia. Her presentation also includes palpitation for years which increased in few weeks prior to presentation. Is found to have atrial fibrillation with RVR. Her history also includes few weeks of orthopnea/PND/leg swellings (for weeks) which questions acute heart failure. Does have increased BNP in favor of acute heart failure. Troponin has been mildly elevated but running flat which is in favor of possible demand ischemia. Never had ischemic workup before this presentation. Presentation was not in favor of acute coronary syndrome. She is found to have multiorgan involvement (ascites, proteinuria, pneumonia). Does have previous history of hyperthyroidism which could have contributed to the clinical picture also. Echo revealed systolic heart failure. Is found to have active significant hyperthyroidism which could be the primary etiology for a-fib and also acute heart failure also. Being followed by Pulmonary (s/p thoracentesis). Is seen and evaluated by Nephrology for proteinuria. Was found to have abnormal LFT/ascites and is evaluated by GI. Cardiac cath performed and ruled out coronary disease. Dx is non-ischemic cardiomyopathy, possibly related to hyperthyroidism/tachyarrhythmia. Was found to have pneumothorax (possibly secondary to previous thoracentesis). s/p chest tube insertion by Pulmonary. Fever Sepsis Pneumonia Atrial fibrillation with RVR Abnormal troponin Increased BNP Acute heart failure, systolic Ascites Proteinuria Noncompliance to medication and followups Hyperthyroidism Pleural effusion s/p right thoracentesis by Pulmonary Abnormal LFT Pneumothorax s/p chest tube by pulmonary Non-ischemic Cardiomyopathy Cardiac suggestion for management: Manage in telemetry IV diuresis is suggested Follow-up electrolytes and kidney function tests and correct abnormalities. Keep potassium above 4 and magnesium above 2 Magnesium supplementation Full anticoagulation for now on Lovenox On Methimazole. On Propranolol. GDMT for systolic heart failure, non-ischemic CMP Sepsis workup and antibiotic therapy as per primary team Pulmonary follow up Nephrology follow up Endocrinology evaluation for Hyperthyroidism Further evaluation and management depends on the above and clinical course A total of 55 minutes was spent reviewing the patient record, examining the patient, making a diagnostic and therapeutic plan, discussing this plan with medical personnel, following up on diagnostic studies and following the patient for clinical stability excluding any and all procedures. At least 50% of this time was spent in direct, [id number] contact. Thank you for allowing me to participate in this patient's care. Further recommendations will depend on patient's clinical course. Please do not hesitate to contact me if you have any questions or concerns. This medical document was created using electronic medical record system with [employer] computerized dictation system. Although this document has been carefully reviewed, there may still be some phonetic and typographical errors. These areas are purely typographical due to the imperfection of the software programs, and do not reflect any compromise in the patient's medical care. Plan discussed with: Patient, Other (nurse) ANAMARIA GROVES MD Mar 13, 2024 07:47
--- NOTE | 2024-03-13 08:13 | DVH ---
CHEST RADIOGRAPH Indication: per MD [employer] Technique: Single frontal view of the chest was obtained Comparison: XY CHEST XRAY 1 VIEW on DOS: 03/11/24 FINDINGS: Lines and Tubes: Right basilar pigtail catheter is unchanged. Lungs: No focal consolidation in the right lung. Can not exclude left basilar opacity. Pleura: Obscuration of the left hemidiaphragm again demonstrated . Pleural effusion not excluded. R ight pneumothorax is decreased. Cardiomediastinal contours: Stable cardiovascular silhouette. Bones: No acute osseous abnormality. Small focus of right chest wall subcutaneous emphysema. IMPRESSION: 1. Decreased right pneumothorax. 2. Obscuration of the left hemidiaphragm. Left pleural effusion and/or airspace disease not excluded.
--- NOTE | 2024-03-13 11:09 | DVHPN2 ---
Progress Note Date Seen: Mar 13, 2024 Medical Necessity Reason Pt with a Central, PICC or Fol: No Subjective Patient reports: Feels better Objective vital signs Vital Sign Date Time Temp Pulse Resp B/P (MAP) Pulse Ox O2 Delivery O2 Flow Rate FiO2 03/13/24 10:22 73 120/77 03/13/24 09:20 97.5 16 96 97.5 03/12/24 20:00 Room Air* 0 21 Total Intake and Output 03/12/24 03/12/24 03/13/24 15:00 23:00 07:00 Intake Total 1200 ml 900 ml Output Total 4070 ml Balance -2870 ml 900 ml medications Current Medications Medications Dose Ordered Sig/Kalli Route Start Time Stop Time Status Last Admin Dose Admin Acetaminophen/ Hydrocodone Bitart 1 tab Q4HP PRN PO 03/05/24 21:45 03/12/24 13:18 1 TAB Ondansetron HCl 4 mg Q4HP PRN IV 03/05/24 21:45 03/07/24 21:52 4 MG Docusate Sodium 100 mg BIDPRN PRN PO 03/05/24 21:45 03/11/24 14:12 100 MG Acetaminophen 650 mg Q6HP PRN PO 03/05/24 21:45 Morphine Sulfate 2 mg Q4HPRN PRN IV 03/05/24 21:45 03/09/24 22:28 2 MG Pantoprazole Sodium 40 mg DAILY IV 03/06/24 10:00 03/13/24 09:43 40 MG Nitroglycerin 0.4 mg Q5MINP PRN SL 03/05/24 21:45 Morphine Sulfate 2 mg Q30M PRN IV 03/05/24 21:45 Albuterol 2.5 mg Q4HP PRN NEB 03/05/24 21:45 Cancel Diphenhydramine HCl 25 mg Q6HR PRN IV 03/05/24 23:00 Enoxaparin Sodium 80 mg Q12HR SC 03/06/24 10:00 03/11/24 22:12 80 MG Doxycycline Monohydrate 100 mg Q12HR PO 03/06/24 10:00 03/13/24 09:41 100 MG Methimazole 10 mg Q8HR PO 03/07/24 14:00 03/13/24 05:08 10 MG Guaifenesin 200 mg Q4HP PRN PO 03/07/24 12:30 03/07/24 12:58 200 MG Ergocalciferol 50,000 unit Q7D PO 03/08/24 15:00 03/08/24 16:19 50,000 UNIT Sacubitril/ Valsartan 1 tab BID PO 03/09/24 22:00 03/13/24 09:41 1 TAB Spironolactone 12.5 mg DAILY PO 03/10/24 10:00 03/13/24 09:42 12.5 MG Furosemide 40 mg DAILY IV 03/11/24 10:00 03/13/24 10:05 40 MG Propranolol HCl 40 mg BID PO 03/12/24 09:45 03/13/24 10:22 40 MG Examination: GENERAL:Normal, HEENT:Normal, NECK:Normal, CVS:Normal laboratory and microbiology Laboratory Tests 03/13/24 05:47 03/12/24 05:50 Test 03/13/24 05:47 Range/Units Serum Glucose 70 L 74-106 mg/dL Microbiology Date/Time Source Procedure Growth Status 03/08/24 17:05 Voided Urine Urine Culture - Final Complete 03/07/24 11:30 Pleural Fluid Gram Stain - Final Complete 03/07/24 11:30 Pleural Fluid Body Fluid Culture - Final Complete 03/06/24 11:11 Blood Blood Culture - Final NO GROWTH AFTER 5 DAYS OF INCUBATION. Complete Problem List/Assessment/Plan Problem List/Assessment/Plan Lupus Positive rule out nephritis Low C3 and C4, positive PERRY CHF exacerbation NSTEMI Hypokalemia Hypomagnesemia thyrotoxicosis Vitamin-D deficiency Right chest tube Normal kidney function Radiology consult for kidney biopsy 03/12/24 biopsy results can be followed up outpatient , disposition when respiratory status is deemed acceptable by primary team Ergocalciferol 48506 p.o. q.week A1c, 5.8 diuretics cardiology and pulm daily Mg replacement lasix daily currently on Entresto for heart disease. ARB component may provide renal benefits Plan discussed with: Patient MADISON TIRADO MD Mar 13, 2024 11:09
--- NOTE | 2024-03-13 12:11 | DVHPN2 ---
Progress Note - Dictate Date Seen: Mar 13, 2024 Medical Necessity Reason Pt with a Central, PICC or Fol: No vital signs Vital Sign Date Time Temp Pulse Resp B/P (MAP) Pulse Ox O2 Delivery O2 Flow Rate FiO2 03/13/24 10:22 73 120/77 03/13/24 09:20 97.5 16 96 97.5 03/12/24 20:00 Room Air* 0 21 Total Intake and Output 03/12/24 03/12/24 03/13/24 15:00 23:00 07:00 Intake Total 1200 ml 900 ml Output Total 4070 ml Balance -2870 ml 900 ml medications Current Medications Medications Dose Ordered Sig/Kalli Route Start Time Stop Time Status Last Admin Dose Admin Acetaminophen/ Hydrocodone Bitart 1 tab Q4HP PRN PO 03/05/24 21:45 03/12/24 13:18 1 TAB Ondansetron HCl 4 mg Q4HP PRN IV 03/05/24 21:45 03/07/24 21:52 4 MG Docusate Sodium 100 mg BIDPRN PRN PO 03/05/24 21:45 03/11/24 14:12 100 MG Acetaminophen 650 mg Q6HP PRN PO 03/05/24 21:45 Morphine Sulfate 2 mg Q4HPRN PRN IV 03/05/24 21:45 03/09/24 22:28 2 MG Pantoprazole Sodium 40 mg DAILY IV 03/06/24 10:00 03/13/24 09:43 40 MG Nitroglycerin 0.4 mg Q5MINP PRN SL 03/05/24 21:45 Morphine Sulfate 2 mg Q30M PRN IV 03/05/24 21:45 Albuterol 2.5 mg Q4HP PRN NEB 03/05/24 21:45 Cancel Diphenhydramine HCl 25 mg Q6HR PRN IV 03/05/24 23:00 Enoxaparin Sodium 80 mg Q12HR SC 03/06/24 10:00 03/11/24 22:12 80 MG Doxycycline Monohydrate 100 mg Q12HR PO 03/06/24 10:00 03/13/24 09:41 100 MG Methimazole 10 mg Q8HR PO 03/07/24 14:00 03/13/24 05:08 10 MG Guaifenesin 200 mg Q4HP PRN PO 03/07/24 12:30 03/07/24 12:58 200 MG Ergocalciferol 50,000 unit Q7D PO 03/08/24 15:00 03/08/24 16:19 50,000 UNIT Sacubitril/ Valsartan 1 tab BID PO 03/09/24 22:00 03/13/24 09:41 1 TAB Spironolactone 12.5 mg DAILY PO 03/10/24 10:00 03/13/24 09:42 12.5 MG Furosemide 40 mg DAILY IV 03/11/24 10:00 03/13/24 10:05 40 MG Propranolol HCl 40 mg BID PO 03/12/24 09:45 03/13/24 10:22 40 MG objective General Appearance: alert, no distress HEENT: EOMI, PERRLA, normal external inspect of ears, no icterus, no nasal drainage Neck: no carotid bruit, no jugular venous distention (JVD), no lymphadenopathy Chest: normal thorax Respiratory: clear to auscultation, normal air movement Cardiovascular: regular rate and rhythm, no diastolic murmur, no jugular venous distention (JVD), no rub, no systolic murmur Abdominal: soft, no hepatomegaly, no mass, no splenomegaly, no tenderness Genitourinary: grossly normal external Musculoskeletal: no joint tenderness, no swelling Extremities: normal pulses, no calf tenderness, no clubbing, no cyanosis, no edema Skin: no bruising, no jaundice, no rash Neurological: alert, No focal deficit laboratory and microbiology Laboratory Tests 03/13/24 05:47 03/12/24 05:50 Test 03/13/24 05:47 Range/Units Serum Glucose 70 L 74-106 mg/dL Problem List 1. Sepsis Monitor, IV antibiotics 2. Right-sided pneumonia, most likely gram-negative and some gram-positive Monitor, IV antibiotics, IR consult, plan thoracentesis 3. Right pleural effusion Monitor 4. Ascites Monitor, GI consult, plan paracentesis 5. Elevated bilirubin Monitor 6. Atrial fibrillation with RVR Monitor, cardiology consults, antiarrythmics, echocardiogram 7. Elevated troponin, most likely demand ischemia Monitor, trend troponin 8. Hypothyroidism Monitor 9. Atrial fibrillation with RVR Cardiology consult, monitoring Assessment/Plan Subjective Patient is awake and alert. Objective Patient was admitted on March 05, 2024 for shortness of breath. Patient also had abdominal distention with ascites. Patient was seen by cardiology. Patient was found to have acute systolic CHF with an estimated EF of 30 to 35%. Patient had a heart cath on 03/09/2024 which showed nonobstructive CAD. Patient is status post thoracentesis. Patient was found to have a pneumothorax on 03/10/2024. Chest tube was placed. Plan Possible kidney biopsy to be done Tuesday or outpatient. Chest tube management per pulmonary. Continue supplemental O2 as needed. Plan discussed with: Patient, Other ISIDORO DELANEY NP Mar 13, 2024 12:11
--- NOTE | 2024-03-13 13:37 | DVH ---
Procedure: CT CHEST WITHOUT CONTRAST Reason for study/Clinical History: Pneumothorax. Comparison Study: 2023. Exam Date: 03/13/2024 01:10 PM TECHNIQUE: Multidetector CT of the chest was performed from the lung apices to the upper abdomen with out the use of intravenous contract. Axial, coronal and sagittal multiplanar reformats were performed . Radiation Dose Information: CT Dose: CTDI volume is 8.78 mGy. Dose-length product is 327.25 mGy*cm The dose indicators for CT are the volume Computed Tomography (CT) Dose Index (CTDIvol) and the Dose Length Product (DLP), and are measured in units of mGy and mGy-cm, respectively. These indicators are not patient dose, but values generated from the CT scanner acquisition factors. The report includes radiation exposure data for exposures received during this examination. Radiation optimization: All CT scans at this facility use at least one of these dose optimization speedy hniques: automated exposure control mA and/or kV adjustment per patient size (includes targeted exam s where dose is matched to clinical indication) or iterative reconstruction. FINDINGS Lungs/Pleura: There has been interval decrease in right-sided pleural effusion with small amount fus ion remaining. There has also been interval decrease in right pneumothorax. There is mild atelectasi s in the right lung base. The left lung and pleural space are clear. There is no left-sided pneumotho rax. Heart/Vascular Structures: Normal heart size. Small amount of pericardial fluid. Lymph Nodes: No significant thoracic lymphadenopathy. Musculoskeletal: No acute osseous abnormality. Upper abdomen: Visualized solid abdominal viscera grossly appears unremarkable. IMPRESSION: 1. Interval decrease in size of right hydropneumothorax. There is small right pleural effusion remain ing. There is mild atelectasis in the right lung base. HS:Y
--- NOTE | 2024-03-13 14:46 | DVHPN2 ---
Progress Note - Dictate Date Seen: Mar 13, 2024 Medical Necessity Reason Pt with a Central, PICC or Fol: No Subjective Patient is resting comfortably No new complaints Feels better cardiac catheterization showed normal coronaries Ejection fraction is 40% Bilirubin is trending down and liver enzymes are also trending down Liver imaging is normal, hepatitis panel, PERRY, ferritin are all normal, PT INR is normal vital signs Vital Sign Date Time Temp Pulse Resp B/P (MAP) Pulse Ox O2 Delivery O2 Flow Rate FiO2 03/13/24 13:10 97.4 94 16 116/73 (87) 97 97.4 03/13/24 08:00 Room Air* 0 21 Total Intake and Output 03/12/24 03/12/24 03/13/24 15:00 23:00 07:00 Intake Total 1200 ml 900 ml Output Total 4070 ml Balance -2870 ml 900 ml medications Current Medications Medications Dose Ordered Sig/Kalli Route Start Time Stop Time Status Last Admin Dose Admin Acetaminophen/ Hydrocodone Bitart 1 tab Q4HP PRN PO 03/05/24 21:45 03/12/24 13:18 1 TAB Ondansetron HCl 4 mg Q4HP PRN IV 03/05/24 21:45 03/07/24 21:52 4 MG Docusate Sodium 100 mg BIDPRN PRN PO 03/05/24 21:45 03/11/24 14:12 100 MG Acetaminophen 650 mg Q6HP PRN PO 03/05/24 21:45 Morphine Sulfate 2 mg Q4HPRN PRN IV 03/05/24 21:45 03/09/24 22:28 2 MG Pantoprazole Sodium 40 mg DAILY IV 03/06/24 10:00 03/13/24 09:43 40 MG Nitroglycerin 0.4 mg Q5MINP PRN SL 03/05/24 21:45 Morphine Sulfate 2 mg Q30M PRN IV 03/05/24 21:45 Albuterol 2.5 mg Q4HP PRN NEB 03/05/24 21:45 Cancel Diphenhydramine HCl 25 mg Q6HR PRN IV 03/05/24 23:00 Enoxaparin Sodium 80 mg Q12HR SC 03/06/24 10:00 03/11/24 22:12 80 MG Doxycycline Monohydrate 100 mg Q12HR PO 03/06/24 10:00 03/13/24 09:41 100 MG Methimazole 10 mg Q8HR PO 03/07/24 14:00 03/13/24 14:30 10 MG Guaifenesin 200 mg Q4HP PRN PO 03/07/24 12:30 03/07/24 12:58 200 MG Ergocalciferol 50,000 unit Q7D PO 03/08/24 15:00 03/08/24 16:19 50,000 UNIT Sacubitril/ Valsartan 1 tab BID PO 03/09/24 22:00 03/13/24 09:41 1 TAB Spironolactone 12.5 mg DAILY PO 03/10/24 10:00 03/13/24 09:42 12.5 MG Furosemide 40 mg DAILY IV 03/11/24 10:00 03/13/24 10:05 40 MG Propranolol HCl 40 mg BID PO 03/12/24 09:45 03/13/24 10:22 40 MG objective General Appearance: alert, no distress HEENT: EOMI, PERRLA, normal external inspect of ears, no icterus, no nasal drainage Neck: no carotid bruit, no jugular venous distention (JVD), no lymphadenopathy Chest: normal thorax Respiratory: clear to auscultation, normal air movement Cardiovascular: regular rate and rhythm, no diastolic murmur, no jugular venous distention (JVD), no rub, no systolic murmur Abdominal: soft, no hepatomegaly, no mass, no splenomegaly, no tenderness Genitourinary: grossly normal external Musculoskeletal: no joint tenderness, no swelling Extremities: normal pulses, no calf tenderness, no clubbing, no cyanosis, no edema Skin: no bruising, no jaundice, no rash Neurological: alert, No focal deficit laboratory and microbiology Laboratory Tests 03/13/24 05:47 03/12/24 05:50 Test 03/13/24 05:47 Range/Units Serum Glucose 70 L 74-106 mg/dL Problems(with codes): (1) Elevated bilirubin (2) Pulmonary vascular congestion (3) Atrial fibrillation with RVR (4) Pneumonia (5) Pleural effusion (6) Dyspnea (7) Ascites (8) Hyperthyroidism Prognosis Plan Patient still has a chest tube in place There is plan for IR guided renal biopsy possibly later on in this admission on as an outpatient Continue supportive care Patient is tolerating diet Liver enzymes are trending down and we will continue to monitor Plan discussed with: Patient MARINA GARCIA MD Mar 13, 2024 14:46
[2024-03-13] MEDS: ACETAMINOPHEN 325 MG TAB PO PRN (19:19)
--- NOTE | 2024-03-13 21:26 | DVHPN2 ---
Progress Note - Dictate Date Seen: Mar 13, 2024 Medical Necessity Reason Pt with a Central, PICC or Fol: No Subjective Patient seen and examined at bedside. Breathing comfortably on room air. Overnight events reviewed. vital signs Vital Sign Date Time Temp Pulse Resp B/P (MAP) Pulse Ox O2 Delivery O2 Flow Rate FiO2 03/13/24 21:00 97.9 65 18 104/68 (80) 95 97.9 03/13/24 20:00 Room Air* 0 21 Total Intake and Output 03/12/24 03/12/24 03/13/24 15:00 23:00 07:00 Intake Total 1200 ml 900 ml Output Total 4070 ml 30 ml Balance -2870 ml 870 ml medications Current Medications Medications Dose Ordered Sig/Kalli Route Start Time Stop Time Status Last Admin Dose Admin Acetaminophen/ Hydrocodone Bitart 1 tab Q4HP PRN PO 03/05/24 21:45 03/13/24 20:05 1 TAB Ondansetron HCl 4 mg Q4HP PRN IV 03/05/24 21:45 03/07/24 21:52 4 MG Docusate Sodium 100 mg BIDPRN PRN PO 03/05/24 21:45 03/11/24 14:12 100 MG Acetaminophen 650 mg Q6HP PRN PO 03/05/24 21:45 03/13/24 19:19 650 MG Morphine Sulfate 2 mg Q4HPRN PRN IV 03/05/24 21:45 03/09/24 22:28 2 MG Pantoprazole Sodium 40 mg DAILY IV 03/06/24 10:00 03/13/24 09:43 40 MG Nitroglycerin 0.4 mg Q5MINP PRN SL 03/05/24 21:45 Morphine Sulfate 2 mg Q30M PRN IV 03/05/24 21:45 Albuterol 2.5 mg Q4HP PRN NEB 03/05/24 21:45 Cancel Diphenhydramine HCl 25 mg Q6HR PRN IV 03/05/24 23:00 Enoxaparin Sodium 80 mg Q12HR SC 03/06/24 10:00 03/11/24 22:12 80 MG Doxycycline Monohydrate 100 mg Q12HR PO 03/06/24 10:00 03/13/24 09:41 100 MG Methimazole 10 mg Q8HR PO 03/07/24 14:00 03/13/24 14:30 10 MG Guaifenesin 200 mg Q4HP PRN PO 03/07/24 12:30 03/07/24 12:58 200 MG Ergocalciferol 50,000 unit Q7D PO 03/08/24 15:00 03/08/24 16:19 50,000 UNIT Sacubitril/ Valsartan 1 tab BID PO 03/09/24 22:00 03/13/24 09:41 1 TAB Spironolactone 12.5 mg DAILY PO 03/10/24 10:00 03/13/24 09:42 12.5 MG Furosemide 40 mg DAILY IV 03/11/24 10:00 03/13/24 10:05 40 MG Propranolol HCl 40 mg BID PO 03/12/24 09:45 03/13/24 10:22 40 MG objective Gen.: Patient lying in bed in no apparent distress. On room air. Head: Normocephalic, atraumatic. Eyes: EOMI/PERRLA. Ears: Normal hearing. Normal anatomy. Neck/trachea: Trachea midline, supple. Nose: Normal external anatomy. Mouth: Moist mucous membranes. Chest: Decreased air entry bilaterally. No wheezing or rhonchi. Cardiovascular: Positive S1, positive S2. Regular rate and rhythm. Abdomen: Positive bowel sounds in all 4 quadrants. Soft, non-tender, non- distended. : Deferred. Rectal: Deferred. Skin: Warm, dry. Intact. Extremities: 2+ radial pulses bilaterally. No lower extremity edema. Neuro: Awake, alert, oriented x3. No gross motor or sensory deficits. Cranial nerves II through XII intact. Gait not assessed. laboratory and microbiology Laboratory Tests 03/13/24 05:47 03/12/24 05:50 Test 03/13/24 05:47 Range/Units Serum Glucose 70 L 74-106 mg/dL Assessment/Plan Impression: Bilateral pleural effusions Atelectasis Pneumonia, likely gram negative Ascites Atrial fibrillation w/ RVR Hx of nicotine dependence Obesity BMI 32.8 Events: Breathing on room air No respiratory distress. Chest x-ray demonstrates no pneumothorax. Obtain CT chest without contrast to evaluate for any right pneumothorax Will consider removal of chest tube if no e/o right pneumothorax. Continue antibiotics Incentive spirometry Pain control Avoid oversedation Monitor renal function Monitor ins and outs S/p right chest tube placement on 03/09 for pneumothorax. CXR post procedure noted re-expansion of lung with chest tube in place S/p LHC, EF of 40%, findings of nonobstructive CAD Labs and imaging reviewed. Rest of plan as noted below. Plan: Supplemental oxygen Titrate to keep O2 sats above 92%. Continue antibiotics Incentive spirometry Right chest tube in place to minus 20 cmH20 No air leak Monitor chest tube output. Monitor renal function. Monitor electrolytes. Supplement as necessary. Monitor ins and outs. DVT prophylaxis. Prognosis: Poor given patient's multiple co-morbidities. Rest of plan per hospitalist and other consultants. Thank you, Mary Wade NP, for allowing me to participate in this patient's care. Further recommendations will depend on the patient's clinical course. Please do not hesitate to contact me if you have any questions or concerns. This medical document was created using an electronic medical record system with [employer] computerized dictation system. Although these documentations are being carefully reviewed, there may still be some phonetic and typographical changes. The errors are purely typographical, due to imperfection on the software program, and do not reflect any compromise in the patient's medical care. Plan discussed with: Patient, Other (ADELE Genao) DELIA HYLTON MD Mar 13, 2024 21:26
[2024-03-14] VITALS (8 sets, daily range): BP systolic 98–115; BP diastolic 59–75; PULSE 64–98; RESP 14–19; TEMP 97.3–98.6; O2SAT 93–100
--- NOTE | 2024-03-14 11:11 | DVHPN2 ---
Progress Note - Dictate Date Seen: Mar 14, 2024 Medical Necessity Reason Pt with a Central, PICC or Fol: No vital signs Vital Sign Date Time Temp Pulse Resp B/P (MAP) Pulse Ox O2 Delivery O2 Flow Rate FiO2 03/14/24 10:21 115/68 03/14/24 10:16 72 03/14/24 09:31 97.8 18 96 97.8 03/14/24 08:00 Room Air* 0 21 Total Intake and Output 03/13/24 03/13/24 03/14/24 15:00 23:00 07:00 Intake Total 800 ml Output Total 1390 ml Balance -590 ml medications Current Medications Medications Dose Ordered Sig/Kalli Route Start Time Stop Time Status Last Admin Dose Admin Acetaminophen/ Hydrocodone Bitart 1 tab Q4HP PRN PO 03/05/24 21:45 03/13/24 20:05 1 TAB Ondansetron HCl 4 mg Q4HP PRN IV 03/05/24 21:45 03/07/24 21:52 4 MG Docusate Sodium 100 mg BIDPRN PRN PO 03/05/24 21:45 03/11/24 14:12 100 MG Acetaminophen 650 mg Q6HP PRN PO 03/05/24 21:45 03/13/24 19:19 650 MG Morphine Sulfate 2 mg Q4HPRN PRN IV 03/05/24 21:45 03/09/24 22:28 2 MG Pantoprazole Sodium 40 mg DAILY IV 03/06/24 10:00 03/14/24 10:17 40 MG Nitroglycerin 0.4 mg Q5MINP PRN SL 03/05/24 21:45 Morphine Sulfate 2 mg Q30M PRN IV 03/05/24 21:45 Albuterol 2.5 mg Q4HP PRN NEB 03/05/24 21:45 Cancel Diphenhydramine HCl 25 mg Q6HR PRN IV 03/05/24 23:00 Enoxaparin Sodium 80 mg Q12HR SC 03/06/24 10:00 03/11/24 22:12 80 MG Doxycycline Monohydrate 100 mg Q12HR PO 03/06/24 10:00 03/14/24 10:15 100 MG Methimazole 10 mg Q8HR PO 03/07/24 14:00 12/25/24 05:09 10 MG Guaifenesin 200 mg Q4HP PRN PO 03/07/24 12:30 03/07/24 12:58 200 MG Ergocalciferol 50,000 unit Q7D PO 03/08/24 15:00 03/08/24 16:19 50,000 UNIT Sacubitril/ Valsartan 1 tab BID PO 03/09/24 22:00 03/14/24 10:15 1 TAB Spironolactone 12.5 mg DAILY PO 03/10/24 10:00 03/14/24 10:15 12.5 MG Furosemide 40 mg DAILY IV 03/11/24 10:00 03/14/24 10:21 40 MG Propranolol HCl 40 mg BID PO 03/12/24 09:45 03/14/24 10:16 40 MG objective General Appearance: alert, no distress HEENT: EOMI, PERRLA, normal external inspect of ears, no icterus, no nasal drainage Neck: no carotid bruit, no jugular venous distention (JVD), no lymphadenopathy Chest: normal thorax Respiratory: clear to auscultation, normal air movement Cardiovascular: regular rate and rhythm, no diastolic murmur, no jugular venous distention (JVD), no rub, no systolic murmur Abdominal: soft, no hepatomegaly, no mass, no splenomegaly, no tenderness Genitourinary: grossly normal external Musculoskeletal: no joint tenderness, no swelling Extremities: normal pulses, no calf tenderness, no clubbing, no cyanosis, no edema Skin: no bruising, no jaundice, no rash Neurological: alert, No focal deficit laboratory and microbiology Laboratory Tests 03/13/24 05:47 03/12/24 05:50 Test 03/13/24 05:47 Range/Units Serum Glucose 70 L 74-106 mg/dL Problem List 1. Sepsis Monitor, IV antibiotics 2. Right-sided pneumonia, most likely gram-negative and some gram-positive Monitor, IV antibiotics, IR consult, plan thoracentesis 3. Right pleural effusion Monitor 4. Ascites Monitor, GI consult, plan paracentesis 5. Elevated bilirubin Monitor 6. Atrial fibrillation with RVR Monitor, cardiology consults, antiarrythmics, echocardiogram 7. Elevated troponin, most likely demand ischemia Monitor, trend troponin 8. Hyperthyroidism Monitor, continue Methimazole and Propranolol 9. Atrial fibrillation with RVR Cardiology consult, monitoring Assessment/Plan Subjective: Patient is awake and alert. Objective: Patient was admitted for shortness of breath related to pleural effusion and ascites. Patient was seen by cardiology as well as GI and radiology. Patient is status post thoracentesis. Patient had 900 mL of fluid removed from her right pleural space. No fluid was found for paracentesis. Patient was seen by GI. Patient had elevated bilirubin and liver enzymes, however they are currently downtrending. All workup for hepatitis is currently negative. Patient denies any EtOH abuse. Patient was found to have pneumothorax and chest tube was placed on 03/09/2024. Plan: Continue current treatment. Most likely kidney biopsy will be outpatient. Discharge planning once chest tube is removed. Plan discussed with: Patient, Other ISIDORO DELANEY NP Mar 14, 2024 11:11
--- NOTE | 2024-03-14 11:18 | DVHPN2 ---
Progress Note Date Seen: Mar 14, 2024 Medical Necessity Reason Pt with a Central, PICC or Fol: No Subjective Patient reports: No new complaints Other Systems: Patient examined by myself today in follow-up Objective vital signs Vital Sign Date Time Temp Pulse Resp B/P (MAP) Pulse Ox O2 Delivery O2 Flow Rate FiO2 03/14/24 10:21 115/68 03/14/24 10:16 72 03/14/24 09:31 97.8 18 96 97.8 03/14/24 08:00 Room Air* 0 21 Total Intake and Output 03/13/24 03/13/24 03/14/24 14:59 22:59 06:59 Intake Total 800 ml Output Total 1390 ml Balance -590 ml medications Current Medications Medications Dose Ordered Sig/Kalli Route Start Time Stop Time Status Last Admin Dose Admin Acetaminophen/ Hydrocodone Bitart 1 tab Q4HP PRN PO 03/05/24 21:45 03/13/24 20:05 1 TAB Ondansetron HCl 4 mg Q4HP PRN IV 03/05/24 21:45 03/07/24 21:52 4 MG Docusate Sodium 100 mg BIDPRN PRN PO 03/05/24 21:45 03/11/24 14:12 100 MG Acetaminophen 650 mg Q6HP PRN PO 03/05/24 21:45 03/13/24 19:19 650 MG Morphine Sulfate 2 mg Q4HPRN PRN IV 03/05/24 21:45 03/09/24 22:28 2 MG Pantoprazole Sodium 40 mg DAILY IV 03/06/24 10:00 03/14/24 10:17 40 MG Nitroglycerin 0.4 mg Q5MINP PRN SL 03/05/24 21:45 Morphine Sulfate 2 mg Q30M PRN IV 03/05/24 21:45 Albuterol 2.5 mg Q4HP PRN NEB 03/05/24 21:45 Cancel Diphenhydramine HCl 25 mg Q6HR PRN IV 03/05/24 23:00 Enoxaparin Sodium 80 mg Q12HR SC 03/06/24 10:00 03/11/24 22:12 80 MG Doxycycline Monohydrate 100 mg Q12HR PO 03/06/24 10:00 03/14/24 10:15 100 MG Methimazole 10 mg Q8HR PO 03/07/24 14:00 03/14/24 05:09 10 MG Guaifenesin 200 mg Q4HP PRN PO 03/07/24 12:30 03/07/24 12:58 200 MG Ergocalciferol 50,000 unit Q7D PO 03/08/24 15:00 03/08/24 16:19 50,000 UNIT Sacubitril/ Valsartan 1 tab BID PO 03/09/24 22:00 03/14/24 10:15 1 TAB Spironolactone 12.5 mg DAILY PO 03/10/24 10:00 03/14/24 10:15 12.5 MG Furosemide 40 mg DAILY IV 03/11/24 10:00 03/14/24 10:21 40 MG Propranolol HCl 40 mg BID PO 03/12/24 09:45 03/14/24 10:16 40 MG Examination: LUNGS:Normal, CVS:Normal, MSK:Normal laboratory and microbiology Laboratory Tests 03/13/24 05:47 03/12/24 05:50 Test 03/13/24 05:47 Range/Units Serum Glucose 70 L 74-106 mg/dL Microbiology Date/Time Source Procedure Growth Status 03/08/24 17:05 Voided Urine Urine Culture - Final Complete 03/07/24 11:30 Pleural Fluid Gram Stain - Final Complete 03/07/24 11:30 Pleural Fluid Body Fluid Culture - Final Complete 03/06/24 11:11 Blood Blood Culture - Final NO GROWTH AFTER 5 DAYS OF INCUBATION. Complete Problem List/Assessment/Plan Problem List/Assessment/Plan Lupus nephritis Low C3 and C4, positive PERRY CHF exacerbation NSTEMI Hypokalemia Hypomagnesemia thyrotoxicosis Hyperglycemia r/o DM Vitamin-D deficiency Right chest tube REC: Normal kidney function Radiology consult for kidney biopsy Ergocalciferol [id number] p.o. q.week A1c, 5.8 KCl replacement Magnesium sulfate IVPB Will continue to follow I discussed my plan of care with the patient, her at the bedside Plan discussed with: Patient DEEPTHI VACA MD Mar 14, 2024 11:18
--- NOTE | 2024-03-14 18:27 | DVHPN2 ---
Progress Note - Dictate Date Seen: Mar 14, 2024 Medical Necessity Reason Pt with a Central, PICC or Fol: No vital signs Vital Sign Date Time Temp Pulse Resp B/P (MAP) Pulse Ox O2 Delivery O2 Flow Rate FiO2 03/14/24 17:33 98.6 98 17 98/62 (74) 93 98.6 03/14/24 08:00 Room Air* 0 21 Total Intake and Output 03/13/24 03/13/24 03/14/24 15:00 23:00 07:00 Intake Total 800 ml Output Total 1390 ml Balance -590 ml medications Current Medications Medications Dose Ordered Sig/Kalli Route Start Time Stop Time Status Last Admin Dose Admin Acetaminophen/ Hydrocodone Bitart 1 tab Q4HP PRN PO 03/05/24 21:45 03/14/24 14:15 1 TAB Ondansetron HCl 4 mg Q4HP PRN IV 03/05/24 21:45 03/14/24 14:16 4 MG Docusate Sodium 100 mg BIDPRN PRN PO 03/05/24 21:45 03/11/24 14:12 100 MG Acetaminophen 650 mg Q6HP PRN PO 03/05/24 21:45 03/13/24 19:19 650 MG Morphine Sulfate 2 mg Q4HPRN PRN IV 03/05/24 21:45 03/09/24 22:28 2 MG Pantoprazole Sodium 40 mg DAILY IV 03/06/24 10:00 03/14/24 10:17 40 MG Nitroglycerin 0.4 mg Q5MINP PRN SL 03/05/24 21:45 Morphine Sulfate 2 mg Q30M PRN IV 03/05/24 21:45 Albuterol 2.5 mg Q4HP PRN NEB 03/05/24 21:45 Cancel Diphenhydramine HCl 25 mg Q6HR PRN IV 03/05/24 23:00 Enoxaparin Sodium 80 mg Q12HR SC 03/06/24 10:00 03/11/24 22:12 80 MG Doxycycline Monohydrate 100 mg Q12HR PO 03/06/24 10:00 03/14/24 10:15 100 MG Methimazole 10 mg Q8HR PO 03/07/24 14:00 03/14/24 14:14 10 MG Guaifenesin 200 mg Q4HP PRN PO 03/07/24 12:30 03/07/24 12:58 200 MG Ergocalciferol 50,000 unit Q7D PO 03/08/24 15:00 03/08/24 16:19 50,000 UNIT Sacubitril/ Valsartan 1 tab BID PO 03/09/24 22:00 03/14/24 10:15 1 TAB Spironolactone 12.5 mg DAILY PO 03/10/24 10:00 03/14/24 10:15 12.5 MG Furosemide 40 mg DAILY IV 03/11/24 10:00 03/14/24 10:21 40 MG Propranolol HCl 40 mg BID PO 03/12/24 09:45 03/14/24 10:16 40 MG laboratory and microbiology Laboratory Tests 03/13/24 05:47 03/12/24 05:50 Test 03/13/24 05:47 Range/Units Serum Glucose 70 L 74-106 mg/dL Assessment/Plan Patient is a 43-year-old female who presented to the hospital for few days of shortness of breath. She actually went to urgent care and was given prednisone/Z-Cody/inhaler. She did not respond and decided come to the hospital. She was diagnosed with pneumonia few days before presentation to hospital. While emergency room, she was found to have atrial fibrillation and Cardiology was called for evaluation and management. Her troponin was mildly/flat elevated which was another reason for cardiology evaluation. It is of note that the patient does have history of thyroid problem (hyperthyroidism) and was previously on methimazole. She mentions that she last saw a doctor for thyroid problem over 3 years ago and stopped methimazole herself at that time just because she did not have time to follow-up with physicians. Denies any previous cardiac history. But also mentions history of palpitation going back for years. She mentions worsening shortness of breath for the past 2 weeks. She had been having leg swellings/orthopnea/PND going back for around 6 weeks. She mentioned fever 1 day before presentation to the hospital. She had not been taking any medications as outpatient (up to few days before presentation) and has been noncompliant. Not in acute distress. Sitting in bed. No JVD. Mucosa is pink and wet. There is no goiter. There is no carotid bruit. Not using accessory muscles of breathing. Scattered rhonchi in the lungs is heard. Cardiac: Irregular, tachycardic, systolic murmur 3/6 in the apex is heard. Abdomen is soft. Bowel sound is positive. There is no gross mass/hepatomegaly. Extremities reveal 3+ edema in bilateral lower extremities. Dorsalis pedis is 2+ bilateral Past medical history includes thyroid problem (hyperthyroidism), history of C- section and noncompliance. She stopped smoking 6 months ago. She denies history of drug abuse. She used social alcohol up to 6 months ago. Denies relevant family history. Father had diabetes mellitus. Mother has hypertension. Creatinine: 0.70 - 0.67 - 0.57 - 0.68 - 0.73 - 0.56 - 0.64 - 0.44 - 0.55 Potassium: 3.1 - 4.6 - 2.8 - 3.5 - 3.3 - 3.8 - 3.3 - 3.1 - 3.7 Lactic acid: 2.9 - 2.2 - 1.8 Magnesium: 1.6 - 1.6 - 1.9 - 2.2 AST/ALT: 35/20 - 71/23 - 27/16 - 305/136 - 420/238 - 371/254 - 116/143 Bilirubin (total): 2.3 - 2.5 - 2.5 - 3.0 - 2.6 - 2.2 BNP: 610.28 Troponin (high sensitive): 219 - 227 - 214 TSH: 0.01 Free T4: 2.58 Free T3: 5.3 ESR: 5 CRP; 0.15 Urinalysis revealed 3+ proteinuria Chest x-ray reported: IMPRESSION: Pulmonary vascular congestion and right lower lobe airspace disease. Repeat chest xry reported: IMPRESSION: Decreaesd right pleural effusion s/p thoracentecis Repeat chest xry reported: Findings/Impression: Frontal chest radiograph demonstrates no acute osseous or superficial soft tissue abnormalities. The trachea is midline. The cardiac silhouette and mediastinum are within normal limits. Approximately 25-30% right pneumothorax, increased in size from prior. Medial right lower lung field atelectasis. No pleural effusions. Critical Result: Pneumothorax Repeat chest xry reported: IMPRESSION: 1. Interval placement of right-sided chest tube with improving pneumothorax. Repeat chest xry revealed: IMPRESSION: The heart is enlarged. There is moderate pulmonary vascular congestion. Possible small left effusion. No sizable pneumothorax. Right pleural catheter redemonstrated. Repeat chest xry revealed: IMPRESSION: Redemonstration of right sided chest tube terminating over the right lower lung zone with small residual pneumothorax . Obscuration of the left hemidiaphragm which may be from overlying cardiac silhouette with underlying trace effusion/ atelectasis not excluded. Repeat chest xry revealed: IMPRESSION: 1. Decreased right pneumothorax. 2. Obscuration of the left hemidiaphragm. Left pleural effusion and/or airspace disease not excluded. Abdominal and pelvis CT scan (without contrast) reported: Findings: Evaluation of solid organs is limited due to lack of intravenous contrast use. Lung Bases: Moderate right-sided pleural effusion with adjacent compressive atelectasis. Liver: The liver is normal in size. No focal lesions. Gallbladder and Biliary Tree: Unremarkable Spleen: Unremarkable Pancreas: The pancreas is grossly normal in appearance. Adrenal Glands: Unremarkable Kidneys: Kidneys are grossly normal without calculi or hydronephrosis. Bladder: Grossly unremarkable for degree of distention. Bowel: The stomach is grossly normal in appearance. Small bowel and colon are normal in caliber and distribution. Normal appendix is visualized in the right lower quadrant without findings of appendicitis. Ascites: [id number] diffuse ascites. Lymphadenopathy: No mesenteric, retroperitoneal or periportal lymphadenopathy. Abdominal Wall and Mesentery: Mild diffuse anasarca.. Vasculature: The visualized abdominal aorta is normal in size and caliber. Evaluation of abdominal and pelvic vessels is limited due to lack of intravenous contrast. Pelvic Organs: Intact IUD. Moderate free fluid in the pelvis. Musculoskeletal: No aggressive focal bony lesions, acute fractures or dislocation. Moderate degenerative changes of the bilateral hip joints. Mild fusion of the bilateral SI joints. IMPRESSION: Limited noncontrast evaluation. Moderate right-sided pleural effusion with adjacent compressive atelectasis. Mild to moderate diffuse ascites , free fluid in the pelvis, and anasarca. Other ancillary findings as described above. Chest CT revealed: IMPRESSION: 1. Large right pleural effusion with collapse of the right lower lobe. The left lung and pleural space are clear. 2. There are multiple subcentimeter bilateral axillary lymph nodes which may be reactive. 3. Small amount of perihepatic ascites. Repeat CT of chest revealed: IMPRESSION: 1. Moderate right pneumothorax. 2. Small to moderate right pleural effusion. 3. Right lower lobe atelectasis. Repeat CT of chest revealed: IMPRESSION: 1. Interval decrease in size of right hydropneumothorax. There is small right pleural effusion remaining. There is mild atelectasis in the right lung base. Chest ultrasound revealed: Finding/Impression: Bilateral pleural effusions, moderate on the right and trace on the left. Limited Abdominal ultrasound to check for Ascites: FINDINGS/IMPRESSIONS: Trace ascites in Shay's pouch. Telemetry reveals atrial fibrillation with RVR, later: a-fib with MVR Echocardiogram reported: Dilated 4 chambers was observed. Left ventricle: Left ventricle was dilated. LVEF was 30-35%. Diffuse hypokinesis of left ventricle was seen. LVEDP was considered elevated. Right ventricle was dilated with reduced systolic function. Left atrium was moderately dilated. Right atrium was mildly dilated. Aortic valve: Aortic valve was not well visualized. There was no aortic insufficiency/stenosis. There was mild mitral regurgitation. There was moderate to severe tricuspid regurgitation. There was trivial pulmonary valve insufficiency. IVC with dilated. Right ventricular systolic pressure was assessed at 43 mm Hg. Cardiac Cath revealed: No angiographic evidence for epicardial coronary artery disease (normal coronaries). LVEF of 40%. Nonischemic cardiomyopathy She patient is a 43-year-old female who presented with 1 day of fever. Was recently diagnosed with pneumonia and had been on antibiotics. Presentation questions sepsis/pneumonia. Her presentation also includes palpitation for years which increased in few weeks prior to presentation. Is found to have atrial fibrillation with RVR. Her history also includes few weeks of orthopnea/PND/leg swellings (for weeks) which questions acute heart failure. Does have increased BNP in favor of acute heart failure. Troponin has been mildly elevated but running flat which is in favor of possible demand ischemia. Never had ischemic workup before this presentation. Presentation was not in favor of acute coronary syndrome. She is found to have multiorgan involvement (ascites, proteinuria, pneumonia). Does have previous history of hyperthyroidism which could have contributed to the clinical picture also. Echo revealed systolic heart failure. Is found to have active significant hyperthyroidism which could be the primary etiology for a-fib and also acute heart failure also. Being followed by Pulmonary (s/p thoracentesis). Is seen and evaluated by Nephrology for proteinuria. Was found to have abnormal LFT/ascites and is evaluated by GI. Cardiac cath performed and ruled out coronary disease. Dx is non-ischemic cardiomyopathy, possibly related to hyperthyroidism/tachyarrhythmia. Was found to have pneumothorax (possibly secondary to previous thoracentesis). s/p chest tube insertion by Pulmonary. Nephrology is contemplating kidney biopsy/Lupus Nephritis? Fever Sepsis Pneumonia Atrial fibrillation with RVR Abnormal troponin Increased BNP Acute heart failure, systolic Ascites Proteinuria Noncompliance to medication and followups Hyperthyroidism Pleural effusion s/p right thoracentesis by Pulmonary Abnormal LFT Pneumothorax s/p chest tube by pulmonary Non-ischemic Cardiomyopathy Cardiac suggestion for management: Manage in telemetry IV diuresis is suggested Follow-up electrolytes and kidney function tests and correct abnormalities. Keep potassium above 4 and magnesium above 2 Magnesium supplementation Full anticoagulation for now on Lovenox On Methimazole. On Propranolol. GDMT for systolic heart failure, non-ischemic CMP Sepsis workup and antibiotic therapy as per primary team Pulmonary follow up Nephrology follow up Endocrinology evaluation for Hyperthyroidism Further evaluation and management depends on the above and clinical course A total of 55 minutes was spent reviewing the patient record, examining the patient, making a diagnostic and therapeutic plan, discussing this plan with medical personnel, following up on diagnostic studies and following the patient for clinical stability excluding any and all procedures. At least 50% of this time was spent in direct, [id number] contact. Thank you for allowing me to participate in this patient's care. Further recommendations will depend on patient's clinical course. Please do not hesitate to contact me if you have any questions or concerns. This medical document was created using electronic medical record system with [employer] computerized dictation system. Although this document has been carefully reviewed, there may still be some phonetic and typographical errors. These areas are purely typographical due to the imperfection of the software programs, and do not reflect any compromise in the patient's medical care. Plan discussed with: Patient, Other (nurse) ANAMARIA GROVES MD Mar 14, 2024 18:27
--- NOTE | 2024-03-14 22:32 | DVHPN2 ---
Progress Note - Dictate Date Seen: Mar 14, 2024 Medical Necessity Reason Pt with a Central, PICC or Fol: No Subjective Patient seen and examined at bedside. Breathing comfortably on room air. Overnight events reviewed. vital signs Vital Sign Date Time Temp Pulse Resp B/P (MAP) Pulse Ox O2 Delivery O2 Flow Rate FiO2 03/14/24 22:00 98 98/62 03/14/24 17:33 98.6 17 93 98.6 03/14/24 08:00 Room Air* 0 21 Total Intake and Output 03/13/24 03/13/24 03/14/24 15:00 23:00 07:00 Intake Total 800 ml Output Total 1390 ml Balance -590 ml medications Current Medications Medications Dose Ordered Sig/Kalli Route Start Time Stop Time Status Last Admin Dose Admin Acetaminophen/ Hydrocodone Bitart 1 tab Q4HP PRN PO 03/05/24 21:45 03/14/24 14:15 1 TAB Ondansetron HCl 4 mg Q4HP PRN IV 03/05/24 21:45 03/14/24 14:16 4 MG Docusate Sodium 100 mg BIDPRN PRN PO 03/05/24 21:45 03/11/24 14:12 100 MG Acetaminophen 650 mg Q6HP PRN PO 03/05/24 21:45 03/13/24 19:19 650 MG Morphine Sulfate 2 mg Q4HPRN PRN IV 03/05/24 21:45 03/09/24 22:28 2 MG Pantoprazole Sodium 40 mg DAILY IV 03/06/24 10:00 03/14/24 10:17 40 MG Nitroglycerin 0.4 mg Q5MINP PRN SL 03/05/24 21:45 Morphine Sulfate 2 mg Q30M PRN IV 03/05/24 21:45 Albuterol 2.5 mg Q4HP PRN NEB 03/05/24 21:45 Cancel Diphenhydramine HCl 25 mg Q6HR PRN IV 03/05/24 23:00 Enoxaparin Sodium 80 mg Q12HR SC 03/06/24 10:00 03/11/24 22:12 80 MG Doxycycline Monohydrate 100 mg Q12HR PO 03/06/24 10:00 03/14/24 22:19 100 MG Methimazole 10 mg Q8HR PO 03/07/24 14:00 03/14/24 22:19 10 MG Guaifenesin 200 mg Q4HP PRN PO 03/07/24 12:30 03/07/24 12:58 200 MG Ergocalciferol 50,000 unit Q7D PO 03/08/24 15:00 03/08/24 16:19 50,000 UNIT Sacubitril/ Valsartan 1 tab BID PO 03/09/24 22:00 03/14/24 22:19 1 TAB Spironolactone 12.5 mg DAILY PO 03/10/24 10:00 03/14/24 10:15 12.5 MG Furosemide 40 mg DAILY IV 03/11/24 10:00 03/14/24 10:21 40 MG Propranolol HCl 40 mg BID PO 03/12/24 09:45 03/14/24 10:16 40 MG objective Gen.: Patient lying in bed in no apparent distress. On room air. Head: Normocephalic, atraumatic. Eyes: EOMI/PERRLA. Ears: Normal hearing. Normal anatomy. Neck/trachea: Trachea midline, supple. Nose: Normal external anatomy. Mouth: Moist mucous membranes. Chest: Decreased air entry bilaterally. No wheezing or rhonchi. Cardiovascular: Positive S1, positive S2. Regular rate and rhythm. Abdomen: Positive bowel sounds in all 4 quadrants. Soft, non-tender, non- distended. : Deferred. Rectal: Deferred. Skin: Warm, dry. Intact. Extremities: 2+ radial pulses bilaterally. No lower extremity edema. Neuro: Awake, alert, oriented x3. No gross motor or sensory deficits. Cranial nerves II through XII intact. Gait not assessed. laboratory and microbiology Laboratory Tests 03/13/24 05:47 03/12/24 05:50 Test 03/13/24 05:47 Range/Units Serum Glucose 70 L 74-106 mg/dL Assessment/Plan Impression: Bilateral pleural effusions Atelectasis Pneumonia, likely gram negative Ascites Atrial fibrillation w/ RVR Hx of nicotine dependence Obesity BMI 32.8 Events: Breathing on room air No respiratory distress. CT chest w/o contrast demonstrates interval reduction in right pneumothorax; s mall right pleural effusion and mild atelectasis. Will consider removal of chest tube if no e/o right pneumothorax. Continue antibiotics Incentive spirometry Pain control Avoid oversedation Monitor renal function Monitor ins and outs S/p right chest tube placement on 03/09 for pneumothorax. CXR post procedure noted re-expansion of lung with chest tube in place S/p LHC, EF of 40%, findings of nonobstructive CAD Labs and imaging reviewed. Rest of plan as noted below. Plan: Supplemental oxygen Titrate to keep O2 sats above 92%. Continue antibiotics Incentive spirometry Right chest tube in place to minus 20 cmH20 No air leak Monitor chest tube output. Monitor renal function. Monitor electrolytes. Supplement as necessary. Monitor ins and outs. DVT prophylaxis. Prognosis: Poor given patient's multiple co-morbidities. Rest of plan per hospitalist and other consultants. Thank you, Mary Wade, ZACH, for allowing me to participate in this patient's care. Further recommendations will depend on the patient's clinical course. Please do not hesitate to contact me if you have any questions or concerns. This medical document was created using an electronic medical record system with [employer] computerized dictation system. Although these documentations are being carefully reviewed, there may still be some phonetic and typographical changes. The errors are purely typographical, due to imperfection on the software program, and do not reflect any compromise in the patient's medical care. Plan discussed with: Patient, Other (ADELE Simons) DELIA HYLTON MD Mar 14, 2024 22:32
[2024-03-15] VITALS (8 sets, daily range): BP systolic 91–112; BP diastolic 55–69; PULSE 74–105; RESP 15–18; TEMP 97.5–98.2; O2SAT 95–98
--- NOTE | 2024-03-15 05:54 | DVH ---
CHEST RADIOGRAPH Indication: Interval changes in right pneumothorax Technique: Single frontal view of the chest was obtained COMPARISON: XY CHEST XRAY 1 VIEW on DOS: 03/13/24, XY CHEST XRAY 1 VIEW on DOS: 03/11/24, XY CHEST XR AY 1 VIEW on DOS: 03/09/24, XY CHEST PORTABLE on DOS: 03/09/24, XY CHEST XRAY 1 VIEW on DOS: 03/07/24 FINDINGS: Lines and Tubes: None Lungs: Clear Pleura: No effusion. Small right apical pneumothorax. Cardiomediastinal contours: Unremarkable Bones: Unremarkable IMPRESSION: Small right apical pneumothorax.
[2024-03-15 07:16] LABS: Basophils # (auto) 0 10 ^3/uL (0-0.2); Basophils % (auto) 0.5 % (0.0-2.0); Eosinophils # (auto) 0.1 10 ^3/uL (0-0.8); Eosinophils % (auto) 2.4 % (0.0-7.0); Hematocrit 53.1 % (36.0-46.0); Hemoglobin 17.4 g/dL (12.2-16.2); Lymphocytes # (auto) 0.7 10 ^3/uL (0.4-5.4); Mean Corpuscular Hemoglobin 27.2 pg (28.0-32.0); Mean Corpuscular Hgb Conc. 32.8 g/dL (32.0-36.0); Mean Corpuscular Volume 82.9 fL (80.0-100.0); Monocytes # (auto) 0.8 10 ^3/uL (0-1.3); Neutrophils # (auto) 2.8 10 ^3/uL (1.6-8.6); Neutrophils % (auto) 63.8 % (37.0-80.0); Nucleated Red Blood Cells % 1.1 %; Platelet Count (auto) 100 10^3/uL (140-450); Red Blood Cells 6.41 10^6/uL (4.0-5.20); Red Cell Distribution Width 18.2 % (11.8-14.3); White Blood Cell 4.4 10^3/uL (4.4-10.8)
[2024-03-15 07:22] LABS: Monocytes % (auto) 18.3 % (0.0-12.0)
[2024-03-15 07:49] LABS: Alkaline Phosphatase 82 U/L (46-116); Anion Gap 11 (5-15); BUN/Creatinine Ratio 15.8 (10.0-20.0); Blood Urea Nitrogen 9 mg/dL (9-23); Calcium 9.4 mg/dL (8.7-10.4); Carbon Dioxide 26 mmol/L (20-31); Chloride 101 mmol/L (98-107); Potassium 3.8 mmol/L (3.5-5.1); Sodium 138 mmol/L (136-145)
[2024-03-15 07:50] LABS: Albumin 3.3 g/dL (3.2-4.8); Magnesium 1.6 mg/dL (1.6-2.6)
[2024-03-15 07:51] LABS: Aspartate Aminotransferase 40 U/L (13-40); Total Protein 7.8 g/dL (5.7-8.2)
[2024-03-15 07:58] LABS: Alanine Aminotransferase 64 U/L (7-40); Bilirubin, Total 2.7 mg/dL (0.2-1.0); Glucose 74 mg/dL (74-106)
--- NOTE | 2024-03-15 08:14 | DVHPN2 ---
Progress Note - Dictate Date Seen: Mar 15, 2024 Medical Necessity Reason Pt with a Central, PICC or Fol: No vital signs Vital Sign Date Time Temp Pulse Resp B/P (MAP) Pulse Ox O2 Delivery O2 Flow Rate FiO2 03/15/24 05:00 98.1 79 17 111/64 (80) 98 98.1 03/14/24 19:30 Room Air* 0 21 Total Intake and Output 03/14/24 03/14/24 03/15/24 15:00 23:00 07:00 Intake Total 444 ml 444 ml Balance 444 ml 444 ml medications Current Medications Medications Dose Ordered Sig/Kalli Route Start Time Stop Time Status Last Admin Dose Admin Ondansetron HCl 4 mg Q4HP PRN IV 03/05/24 21:45 03/14/24 14:16 4 MG Docusate Sodium 100 mg BIDPRN PRN PO 03/05/24 21:45 03/11/24 14:12 100 MG Acetaminophen 650 mg Q6HP PRN PO 03/05/24 21:45 03/13/24 19:19 650 MG Pantoprazole Sodium 40 mg DAILY IV 03/06/24 10:00 03/14/24 10:17 40 MG Nitroglycerin 0.4 mg Q5MINP PRN SL 03/05/24 21:45 Albuterol 2.5 mg Q4HP PRN NEB 03/05/24 21:45 Cancel Diphenhydramine HCl 25 mg Q6HR PRN IV 03/05/24 23:00 Enoxaparin Sodium 80 mg Q12HR SC 03/06/24 10:00 03/11/24 22:12 80 MG Doxycycline Monohydrate 100 mg Q12HR PO 03/06/24 10:00 03/14/24 22:19 100 MG Methimazole 10 mg Q8HR PO 03/07/24 14:00 03/15/24 05:42 10 MG Guaifenesin 200 mg Q4HP PRN PO 03/07/24 12:30 03/07/24 12:58 200 MG Ergocalciferol 50,000 unit Q7D PO 03/08/24 15:00 03/08/24 16:19 50,000 UNIT Sacubitril/ Valsartan 1 tab BID PO 03/09/24 22:00 03/14/24 22:19 1 TAB Spironolactone 12.5 mg DAILY PO 03/10/24 10:00 03/14/24 10:15 12.5 MG Furosemide 40 mg DAILY IV 03/11/24 10:00 03/14/24 10:21 40 MG Propranolol HCl 40 mg BID PO 03/12/24 09:45 03/14/24 10:16 40 MG laboratory and microbiology Laboratory Tests 03/15/24 06:03 Test 03/15/24 06:03 Range/Units Serum Glucose 74 74-106 mg/dL Assessment/Plan Patient is a 43-year-old female who presented to the hospital for few days of shortness of breath. She actually went to urgent care and was given prednisone/Z-Cody/inhaler. She did not respond and decided come to the hospital. She was diagnosed with pneumonia few days before presentation to hospital. While emergency room, she was found to have atrial fibrillation and Cardiology was called for evaluation and management. Her troponin was mildly/flat elevated which was another reason for cardiology evaluation. It is of note that the patient does have history of thyroid problem (hyperthyroidism) and was previously on methimazole. She mentions that she last saw a doctor for thyroid problem over 3 years ago and stopped methimazole herself at that time just because she did not have time to follow-up with physicians. Denies any previous cardiac history. But also mentions history of palpitation going back for years. She mentions worsening shortness of breath for the past 2 weeks. She had been having leg swellings/orthopnea/PND going back for around 6 weeks. She mentioned fever 1 day before presentation to the hospital. She had not been taking any medications as outpatient (up to few days before presentation) and has been noncompliant. Not in acute distress. No JVD. Mucosa is pink and wet. There is no goiter. There is no carotid bruit. Not using accessory muscles of breathing. Scattered rhonchi in the lungs is heard. Cardiac: Irregular, systolic murmur 3/6 in the apex is heard. Abdomen is soft. Bowel sound is positive. There is no gross mass/hepatomegaly. Extremities reveal 1+ edema in bilateral lower extremities. Dorsalis pedis is 2+ bilateral. Chest tube in place. Past medical history includes thyroid problem (hyperthyroidism), history of C- section and noncompliance. She stopped smoking 6 months ago. She denies history of drug abuse. She used social alcohol up to 6 months ago. Denies relevant family history. Father had diabetes mellitus. Mother has hypertension. Creatinine: 0.70 - 0.67 - 0.57 - 0.68 - 0.73 - 0.56 - 0.64 - 0.44 - 0.55 - 0.57 Potassium: 3.1 - 4.6 - 2.8 - 3.5 - 3.3 - 3.8 - 3.3 - 3.1 - 3.7 - 3.8 Lactic acid: 2.9 - 2.2 - 1.8 Magnesium: 1.6 - 1.6 - 1.9 - 2.2 AST/ALT: 35/20 - 71/23 - 27/16 - 305/136 - 420/238 - 371/254 - 116/143 - 40/64 Bilirubin (total): 2.3 - 2.5 - 2.5 - 3.0 - 2.6 - 2.2 BNP: 610.28 Troponin (high sensitive): 219 - 227 - 214 TSH: 0.01 Free T4: 2.58 Free T3: 5.3 ESR: 5 CRP; 0.15 Urinalysis revealed 3+ proteinuria Chest x-ray reported: IMPRESSION: Pulmonary vascular congestion and right lower lobe airspace disease. Repeat chest xry reported: IMPRESSION: Decreaesd right pleural effusion s/p thoracentecis Repeat chest xry reported: Findings/Impression: Frontal chest radiograph demonstrates no acute osseous or superficial soft tissue abnormalities. The trachea is midline. The cardiac silhouette and mediastinum are within normal limits. Approximately 25-30% right pneumothorax, increased in size from prior. Medial right lower lung field atelectasis. No pleural effusions. Critical Result: Pneumothorax Repeat chest xry reported: IMPRESSION: 1. Interval placement of right-sided chest tube with improving pneumothorax. Repeat chest xry revealed: IMPRESSION: The heart is enlarged. There is moderate pulmonary vascular congestion. Possible small left effusion. No sizable pneumothorax. Right pleural catheter redemonstrated. Repeat chest xry revealed: IMPRESSION: Redemonstration of right sided chest tube terminating over the right lower lung zone with small residual pneumothorax . Obscuration of the left hemidiaphragm which may be from overlying cardiac silhouette with underlying trace effusion/ atelectasis not excluded. Repeat chest xry revealed: IMPRESSION: 1. Decreased right pneumothorax. 2. Obscuration of the left hemidiaphragm. Left pleural effusion and/or airspace disease not excluded. Repeat chest xry revealed: IMPRESSION: Small right apical pneumothorax. Abdominal and pelvis CT scan (without contrast) reported: Findings: Evaluation of solid organs is limited due to lack of intravenous contrast use. Lung Bases: Moderate right-sided pleural effusion with adjacent compressive atelectasis. Liver: The liver is normal in size. No focal lesions. Gallbladder and Biliary Tree: Unremarkable Spleen: Unremarkable Pancreas: The pancreas is grossly normal in appearance. Adrenal Glands: Unremarkable Kidneys: Kidneys are grossly normal without calculi or hydronephrosis. Bladder: Grossly unremarkable for degree of distention. Bowel: The stomach is grossly normal in appearance. Small bowel and colon are normal in caliber and distribution. Normal appendix is visualized in the right lower quadrant without findings of appendicitis. Ascites: [id number] diffuse ascites. Lymphadenopathy: No mesenteric, retroperitoneal or periportal lymphadenopathy. Abdominal Wall and Mesentery: Mild diffuse anasarca.. Vasculature: The visualized abdominal aorta is normal in size and caliber. Evaluation of abdominal and pelvic vessels is limited due to lack of intravenous contrast. Pelvic Organs: Intact IUD. Moderate free fluid in the pelvis. Musculoskeletal: No aggressive focal bony lesions, acute fractures or dislocation. Moderate degenerative changes of the bilateral hip joints. Mild fusion of the bilateral SI joints. IMPRESSION: Limited noncontrast evaluation. Moderate right-sided pleural effusion with adjacent compressive atelectasis. Mild to moderate diffuse ascites , free fluid in the pelvis, and anasarca. Other ancillary findings as described above. Chest CT revealed: IMPRESSION: 1. Large right pleural effusion with collapse of the right lower lobe. The left lung and pleural space are clear. 2. There are multiple subcentimeter bilateral axillary lymph nodes which may be reactive. 3. Small amount of perihepatic ascites. Repeat CT of chest revealed: IMPRESSION: 1. Moderate right pneumothorax. 2. Small to moderate right pleural effusion. 3. Right lower lobe atelectasis. Repeat CT of chest revealed: IMPRESSION: 1. Interval decrease in size of right hydropneumothorax. There is small right pleural effusion remaining. There is mild atelectasis in the right lung base. Chest ultrasound revealed: Finding/Impression: Bilateral pleural effusions, moderate on the right and trace on the left. Limited Abdominal ultrasound to check for Ascites: FINDINGS/IMPRESSIONS: Trace ascites in Shay's pouch. Telemetry reveals atrial fibrillation with RVR, later: a-fib with MVR Echocardiogram reported: Dilated 4 chambers was observed. Left ventricle: Left ventricle was dilated. LVEF was 30-35%. Diffuse hypokinesis of left ventricle was seen. LVEDP was considered elevated. Right ventricle was dilated with reduced systolic function. Left atrium was moderately dilated. Right atrium was mildly dilated. Aortic valve: Aortic valve was not well visualized. There was no aortic insufficiency/stenosis. There was mild mitral regurgitation. There was moderate to severe tricuspid regurgitation. There was trivial pulmonary valve insufficiency. IVC with dilated. Right ventricular systolic pressure was assessed at 43 mm Hg. Cardiac Cath revealed: No angiographic evidence for epicardial coronary artery disease (normal coronaries). LVEF of 40%. Nonischemic cardiomyopathy She patient is a 43-year-old female who presented with 1 day of fever. Was recently diagnosed with pneumonia and had been on antibiotics. Presentation questions sepsis/pneumonia. Her presentation also includes palpitation for years which increased in few weeks prior to presentation. Is found to have atrial fibrillation with RVR. Her history also includes few weeks of orthopnea/PND/leg swellings (for weeks) which questions acute heart failure. Does have increased BNP in favor of acute heart failure. Troponin has been mildly elevated but running flat which is in favor of possible demand ischemia. Never had ischemic workup before this presentation. Presentation was not in favor of acute coronary syndrome. She is found to have multiorgan involvement (ascites, proteinuria, pneumonia). Does have previous history of hyperthyroidism which could have contributed to the clinical picture also. Echo revealed systolic heart failure. Is found to have active significant hyperthyroidism which could be the primary etiology for a-fib and also acute heart failure also. Being followed by Pulmonary (s/p thoracentesis). Is seen and evaluated by Nephrology for proteinuria. Was found to have abnormal LFT/ascites and is evaluated by GI. Cardiac cath performed and ruled out coronary disease. Dx is non-ischemic cardiomyopathy, possibly related to hyperthyroidism/tachyarrhythmia. Was found to have pneumothorax (possibly secondary to previous thoracentesis). s/p chest tube insertion by Pulmonary. Nephrology is contemplating kidney biopsy/Lupus Nephritis? Fever Sepsis Pneumonia Atrial fibrillation with RVR Abnormal troponin Increased BNP Acute heart failure, systolic Ascites Proteinuria Noncompliance to medication and followups Hyperthyroidism Pleural effusion s/p right thoracentesis by Pulmonary Abnormal LFT Pneumothorax s/p chest tube by pulmonary Non-ischemic Cardiomyopathy Cardiac suggestion for management: Manage in telemetry IV diuresis is suggested Follow-up electrolytes and kidney function tests and correct abnormalities. Keep potassium above 4 and magnesium above 2 Magnesium supplementation Full anticoagulation for now on Lovenox On Methimazole. On Propranolol. GDMT for systolic heart failure, non-ischemic CMP Sepsis workup and antibiotic therapy as per primary team Pulmonary follow up Nephrology follow up Endocrinology evaluation for Hyperthyroidism Further evaluation and management depends on the above and clinical course A total of 55 minutes was spent reviewing the patient record, examining the patient, making a diagnostic and therapeutic plan, discussing this plan with medical personnel, following up on diagnostic studies and following the patient for clinical stability excluding any and all procedures. At least 50% of this time was spent in direct, [id number] contact. Thank you for allowing me to participate in this patient's care. Further recommendations will depend on patient's clinical course. Please do not hesitate to contact me if you have any questions or concerns. This medical document was created using electronic medical record system with [employer] computerized dictation system. Although this document has been carefully reviewed, there may still be some phonetic and typographical errors. These areas are purely typographical due to the imperfection of the software programs, and do not reflect any compromise in the patient's medical care. Plan discussed with: Patient, Other (nurse) ANAMARIA GROVES MD Mar 15, 2024 08:14
--- NOTE | 2024-03-15 11:28 | DVHPN2 ---
Progress Note - Dictate Date Seen: Mar 15, 2024 Medical Necessity Reason Pt with a Central, PICC or Fol: No Subjective Patient is resting comfortably No new complaints Feels better cardiac catheterization showed normal coronaries Ejection fraction is 40% Bilirubin is slightly elevated to 2.7 and liver enzymes are also trending down Liver imaging is normal, hepatitis panel, PERRY, ferritin are all normal, PT INR is normal vital signs Vital Sign Date Time Temp Pulse Resp B/P (MAP) Pulse Ox O2 Delivery O2 Flow Rate FiO2 03/15/24 10:59 110/65 03/15/24 10:58 74 03/15/24 09:00 98.2 17 96 98.2 03/14/24 19:30 Room Air* 0 21 Total Intake and Output 03/14/24 03/14/24 03/15/24 15:00 23:00 07:00 Intake Total 444 ml 444 ml Balance 444 ml 444 ml medications Current Medications Medications Dose Ordered Sig/Kalli Route Start Time Stop Time Status Last Admin Dose Admin Ondansetron HCl 4 mg Q4HP PRN IV 03/05/24 21:45 03/14/24 14:16 4 MG Docusate Sodium 100 mg BIDPRN PRN PO 03/05/24 21:45 03/11/24 14:12 100 MG Acetaminophen 650 mg Q6HP PRN PO 03/05/24 21:45 03/13/24 19:19 650 MG Pantoprazole Sodium 40 mg DAILY IV 03/06/24 10:00 03/15/24 10:54 40 MG Nitroglycerin 0.4 mg Q5MINP PRN SL 03/05/24 21:45 Albuterol 2.5 mg Q4HP PRN NEB 03/05/24 21:45 Cancel Diphenhydramine HCl 25 mg Q6HR PRN IV 03/05/24 23:00 Enoxaparin Sodium 80 mg Q12HR SC 03/06/24 10:00 03/15/24 11:02 80 MG Doxycycline Monohydrate 100 mg Q12HR PO 03/06/24 10:00 03/15/24 10:57 100 MG Methimazole 10 mg Q8HR PO 03/07/24 14:00 03/15/24 05:42 10 MG Guaifenesin 200 mg Q4HP PRN PO 03/07/24 12:30 03/07/24 12:58 200 MG Ergocalciferol 50,000 unit Q7D PO 03/08/24 15:00 03/08/24 16:19 50,000 UNIT Sacubitril/ Valsartan 1 tab BID PO 03/09/24 22:00 03/15/24 10:57 1 TAB Spironolactone 12.5 mg DAILY PO 03/10/24 10:00 03/15/24 10:57 12.5 MG Furosemide 40 mg DAILY IV 03/11/24 10:00 03/15/24 10:59 40 MG Propranolol HCl 40 mg BID PO 03/12/24 09:45 03/15/24 10:58 40 MG objective General Appearance: alert, no distress HEENT: EOMI, PERRLA, normal external inspect of ears, no icterus, no nasal drainage Neck: no carotid bruit, no jugular venous distention (JVD), no lymphadenopathy Chest: normal thorax Respiratory: clear to auscultation, normal air movement Cardiovascular: regular rate and rhythm, no diastolic murmur, no jugular venous distention (JVD), no rub, no systolic murmur Abdominal: soft, no hepatomegaly, no mass, no splenomegaly, no tenderness Genitourinary: grossly normal external Musculoskeletal: no joint tenderness, no swelling Extremities: normal pulses, no calf tenderness, no clubbing, no cyanosis, no edema Skin: no bruising, no jaundice, no rash Neurological: alert, No focal deficit laboratory and microbiology Laboratory Tests 03/15/24 06:03 Test 03/15/24 06:03 Range/Units Serum Glucose 74 74-106 mg/dL Problems(with codes): (1) Hyperthyroidism (2) Elevated bilirubin (3) Pulmonary vascular congestion (4) Atrial fibrillation with RVR (5) Pneumonia (6) Pleural effusion (7) Dyspnea (8) Ascites (9) Elevated troponin Prognosis Plan Patient still has a chest tube in place There is plan for IR guided renal biopsy possibly later on in this admission on as an outpatient Continue supportive care Patient is tolerating diet Liver enzymes are trending down and we will continue to monitor Plan discussed with: Patient MARINA GARCIA MD Mar 15, 2024 11:28
--- NOTE | 2024-03-15 13:14 | DVHPN2 ---
Progress Note - Dictate Date Seen: Mar 15, 2024 Medical Necessity Reason Pt with a Central, PICC or Fol: No vital signs Vital Sign Date Time Temp Pulse Resp B/P (MAP) Pulse Ox O2 Delivery O2 Flow Rate FiO2 03/15/24 12:38 98.0 86 17 104/55 (71) 95 98.0 03/14/24 19:30 Room Air* 0 21 Total Intake and Output 03/14/24 03/14/24 03/15/24 15:00 23:00 07:00 Intake Total 444 ml 444 ml Balance 444 ml 444 ml medications Current Medications Medications Dose Ordered Sig/Kalli Route Start Time Stop Time Status Last Admin Dose Admin Ondansetron HCl 4 mg Q4HP PRN IV 03/05/24 21:45 03/14/24 14:16 4 MG Docusate Sodium 100 mg BIDPRN PRN PO 03/05/24 21:45 03/11/24 14:12 100 MG Acetaminophen 650 mg Q6HP PRN PO 03/05/24 21:45 03/13/24 19:19 650 MG Pantoprazole Sodium 40 mg DAILY IV 03/06/24 10:00 03/15/24 10:54 40 MG Nitroglycerin 0.4 mg Q5MINP PRN SL 03/05/24 21:45 Albuterol 2.5 mg Q4HP PRN NEB 03/05/24 21:45 Cancel Diphenhydramine HCl 25 mg Q6HR PRN IV 03/05/24 23:00 Enoxaparin Sodium 80 mg Q12HR SC 03/06/24 10:00 03/15/24 11:02 80 MG Doxycycline Monohydrate 100 mg Q12HR PO 03/06/24 10:00 03/15/24 10:57 100 MG Methimazole 10 mg Q8HR PO 03/07/24 14:00 03/15/24 05:42 10 MG Guaifenesin 200 mg Q4HP PRN PO 03/07/24 12:30 03/07/24 12:58 200 MG Ergocalciferol 50,000 unit Q7D PO 03/08/24 15:00 03/08/24 16:19 50,000 UNIT Sacubitril/ Valsartan 1 tab BID PO 03/09/24 22:00 03/15/24 10:57 1 TAB Spironolactone 12.5 mg DAILY PO 03/10/24 10:00 03/15/24 10:57 12.5 MG Furosemide 40 mg DAILY IV 03/11/24 10:00 03/15/24 10:59 40 MG Propranolol HCl 40 mg BID PO 03/12/24 09:45 03/15/24 10:58 40 MG objective General Appearance: alert, no distress HEENT: EOMI, PERRLA, normal external inspect of ears, no icterus, no nasal drainage Neck: no carotid bruit, no jugular venous distention (JVD), no lymphadenopathy Chest: normal thorax Respiratory: clear to auscultation, normal air movement Cardiovascular: regular rate and rhythm, no diastolic murmur, no jugular venous distention (JVD), no rub, no systolic murmur Abdominal: soft, no hepatomegaly, no mass, no splenomegaly, no tenderness Genitourinary: grossly normal external Musculoskeletal: no joint tenderness, no swelling Extremities: normal pulses, no calf tenderness, no clubbing, no cyanosis, no edema Skin: no bruising, no jaundice, no rash Neurological: alert, No focal deficit laboratory and microbiology Laboratory Tests 03/15/24 06:03 Test 03/15/24 06:03 Range/Units Serum Glucose 74 74-106 mg/dL Problem List 1. Sepsis Monitor, IV antibiotics 2. Right-sided pneumonia, most likely gram-negative and some gram-positive Monitor, IV antibiotics, IR consult, plan thoracentesis 3. Right pleural effusion Monitor 4. Ascites Monitor, GI consult, plan paracentesis 5. Elevated bilirubin Monitor 6. Atrial fibrillation with RVR Monitor, cardiology consults, antiarrythmics, echocardiogram 7. Elevated troponin, most likely demand ischemia Monitor, trend troponin 8. Hyperthyroidism Monitor, continue Methimazole and Propranolol 9. Atrial fibrillation with RVR Cardiology consult, monitoring Assessment/Plan Subjective: Patient is awake and alert. Objective: Patient has a positive PERRY. I did speak with patient and patient's at bedside patient will need additional workup for possible audiences includes lupus nephritis. Patient did refuse her kidney biopsy she states she cannot lay flat with a chest tube in her. Patient is status post right thoracentesis with complication of pneumothorax. Chest tube remains in place. Patient does not complain of any shortness of breath. Patient had A-fib with RVR heart rate now controlled. Plan: Continue medications for A-fib as recommended by cardiology. Continue diuretics. Patient has systolic CHF. Chest tube management per pulmonary. Plan for discharge once chest tube is removed. Plan discussed with: Patient, Other ISIDORO DELANEY NP Mar 15, 2024 13:14
--- NOTE | 2024-03-15 13:23 | DVHPN2 ---
Progress Note Date Seen: Mar 15, 2024 Medical Necessity Reason Pt with a Central, PICC or Fol: No Subjective Patient reports: No new complaints Other Systems: Patient seen and examined by myself today in follow-up Objective vital signs Vital Sign Date Time Temp Pulse Resp B/P (MAP) Pulse Ox O2 Delivery O2 Flow Rate FiO2 03/15/24 12:38 98.0 86 17 104/55 (71) 95 98.0 03/14/24 19:30 Room Air* 0 21 Total Intake and Output 03/14/24 03/14/24 03/15/24 15:00 23:00 07:00 Intake Total 444 ml 444 ml Balance 444 ml 444 ml medications Current Medications Medications Dose Ordered Sig/Kalli Route Start Time Stop Time Status Last Admin Dose Admin Ondansetron HCl 4 mg Q4HP PRN IV 03/05/24 21:45 03/14/24 14:16 4 MG Docusate Sodium 100 mg BIDPRN PRN PO 03/05/24 21:45 03/11/24 14:12 100 MG Acetaminophen 650 mg Q6HP PRN PO 03/05/24 21:45 03/13/24 19:19 650 MG Pantoprazole Sodium 40 mg DAILY IV 03/06/24 10:00 03/15/24 10:54 40 MG Nitroglycerin 0.4 mg Q5MINP PRN SL 03/05/24 21:45 Albuterol 2.5 mg Q4HP PRN NEB 03/05/24 21:45 Cancel Diphenhydramine HCl 25 mg Q6HR PRN IV 03/05/24 23:00 Enoxaparin Sodium 80 mg Q12HR SC 03/06/24 10:00 03/15/24 11:02 80 MG Doxycycline Monohydrate 100 mg Q12HR PO 03/06/24 10:00 03/15/24 10:57 100 MG Methimazole 10 mg Q8HR PO 03/07/24 14:00 03/15/24 05:42 10 MG Guaifenesin 200 mg Q4HP PRN PO 03/07/24 12:30 03/07/24 12:58 200 MG Ergocalciferol 50,000 unit Q7D PO 03/08/24 15:00 03/08/24 16:19 50,000 UNIT Sacubitril/ Valsartan 1 tab BID PO 03/09/24 22:00 03/15/24 10:57 1 TAB Spironolactone 12.5 mg DAILY PO 03/10/24 10:00 03/15/24 10:57 12.5 MG Furosemide 40 mg DAILY IV 03/11/24 10:00 03/15/24 10:59 40 MG Propranolol HCl 40 mg BID PO 03/12/24 09:45 03/15/24 10:58 40 MG Examination: LUNGS:Normal, CVS:Normal, MSK:Normal laboratory and microbiology Laboratory Tests 03/15/24 06:03 Test 03/15/24 06:03 Range/Units Serum Glucose 74 74-106 mg/dL Microbiology Date/Time Source Procedure Growth Status 03/08/24 17:05 Voided Urine Urine Culture - Final Complete 03/07/24 11:30 Pleural Fluid Gram Stain - Final Complete 03/07/24 11:30 Pleural Fluid Body Fluid Culture - Final Complete 03/06/24 11:11 Blood Blood Culture - Final NO GROWTH AFTER 5 DAYS OF INCUBATION. Complete Problem List/Assessment/Plan Problem List/Assessment/Plan Lupus nephritis Low C3 and C4, positive PERRY CHF exacerbation NSTEMI Hypokalemia Hypomagnesemia thyrotoxicosis Hyperglycemia r/o DM Vitamin-D deficiency Right chest tube REC: Normal kidney function Radiology consult for kidney biopsy Ergocalciferol 86165 p.o. q.week A1c, 5.8 KCl replacement Magnesium sulfate IVPB I will sign off this case please refer to my office two weeks after discharge for lupus nephritis a follow-up and treatment and review of kidney biopsy results Thank you for the kind Plan discussed with: Patient DEEPTHI VACA MD Mar 15, 2024 13:23
--- NOTE | 2024-03-15 21:18 | DVHPN2 ---
Progress Note - Dictate Date Seen: Mar 15, 2024 Medical Necessity Reason Pt with a Central, PICC or Fol: No Subjective Patient seen and examined at bedside. Breathing comfortably on room air. Overnight events reviewed. vital signs Vital Sign Date Time Temp Pulse Resp B/P (MAP) Pulse Ox O2 Delivery O2 Flow Rate FiO2 03/15/24 21:04 97.5 91 15 107/68 (81) 95 97.5 03/15/24 08:00 Room Air* 0 21 Total Intake and Output 03/14/24 03/14/24 03/15/24 15:00 23:00 07:00 Intake Total 444 ml 444 ml Balance 444 ml 444 ml medications Current Medications Medications Dose Ordered Sig/Kalli Route Start Time Stop Time Status Last Admin Dose Admin Ondansetron HCl 4 mg Q4HP PRN IV 03/05/24 21:45 03/14/24 14:16 4 MG Docusate Sodium 100 mg BIDPRN PRN PO 03/05/24 21:45 03/11/24 14:12 100 MG Acetaminophen 650 mg Q6HP PRN PO 03/05/24 21:45 03/13/24 19:19 650 MG Pantoprazole Sodium 40 mg DAILY IV 03/06/24 10:00 03/15/24 10:54 40 MG Nitroglycerin 0.4 mg Q5MINP PRN SL 03/05/24 21:45 Albuterol 2.5 mg Q4HP PRN NEB 03/05/24 21:45 Cancel Diphenhydramine HCl 25 mg Q6HR PRN IV 03/05/24 23:00 Enoxaparin Sodium 80 mg Q12HR SC 03/06/24 10:00 03/15/24 20:53 80 MG Doxycycline Monohydrate 100 mg Q12HR PO 03/06/24 10:00 03/15/24 20:51 100 MG Methimazole 10 mg Q8HR PO 03/07/24 14:00 03/15/24 20:51 10 MG Guaifenesin 200 mg Q4HP PRN PO 03/07/24 12:30 03/15/24 20:57 200 MG Ergocalciferol 50,000 unit Q7D PO 03/08/24 15:00 03/15/24 14:34 50,000 UNIT Sacubitril/ Valsartan 1 tab BID PO 03/09/24 22:00 03/15/24 10:57 1 TAB Spironolactone 12.5 mg DAILY PO 03/10/24 10:00 03/15/24 10:57 12.5 MG Furosemide 40 mg DAILY IV 03/11/24 10:00 03/15/24 10:59 40 MG Propranolol HCl 40 mg BID PO 03/12/24 09:45 03/15/24 20:52 40 MG objective Gen.: Patient lying in bed in no apparent distress. On room air. Head: Normocephalic, atraumatic. Eyes: EOMI/PERRLA. Ears: Normal hearing. Normal anatomy. Neck/trachea: Trachea midline, supple. Nose: Normal external anatomy. Mouth: Moist mucous membranes. Chest: Decreased air entry bilaterally. No wheezing or rhonchi. Cardiovascular: Positive S1, positive S2. Regular rate and rhythm. Abdomen: Positive bowel sounds in all 4 quadrants. Soft, non-tender, non- distended. : Deferred. Rectal: Deferred. Skin: Warm, dry. Intact. Extremities: 2+ radial pulses bilaterally. No lower extremity edema. Neuro: Awake, alert, oriented x3. No gross motor or sensory deficits. Cranial nerves II through XII intact. Gait not assessed. laboratory and microbiology Laboratory Tests 03/15/24 06:03 Test 03/15/24 06:03 Range/Units Serum Glucose 74 74-106 mg/dL Assessment/Plan Impression: Bilateral pleural effusions Atelectasis Pneumonia, likely gram negative Ascites Atrial fibrillation w/ RVR Hx of nicotine dependence Obesity BMI 32.8 Events: Breathing on room air No respiratory distress. Supplemental O2 PRN. CXR demonstrated small right apical pneumothorax. No pleural effusion. Continue antibiotics Continue bronchodilators Antitussive for cough Incentive spirometry Pain control Avoid oversedation OK to place chest tube to water seal for ambulation. Monitor renal function Monitor ins and outs S/p right chest tube placement on 03/09 for pneumothorax. CXR post procedure noted re-expansion of lung with chest tube in place S/p LHC, EF of 40%, findings of nonobstructive CAD Labs and imaging reviewed. Rest of plan as noted below. Plan: Supplemental oxygen PRN Titrate to keep O2 sats above 92%. Continue antibiotics Incentive spirometry Right chest tube in place to minus 20 cmH20 No air leak Monitor chest tube output. Monitor renal function. Monitor electrolytes. Supplement as necessary. Monitor ins and outs. DVT prophylaxis. Prognosis: Poor given patient's multiple co-morbidities. Rest of plan per hospitalist and other consultants. Thank you, Mary Wade NP, for allowing me to participate in this patient's care. Further recommendations will depend on the patient's clinical course. Please do not hesitate to contact me if you have any questions or concerns. This medical document was created using an electronic medical record system with youwho dictation system. Although these documentations are being carefully reviewed, there may still be some phonetic and typographical changes. The errors are purely typographical, due to imperfection on the software program, and do not reflect any compromise in the patient's medical care. Dietary Evaluation Review Comments: Follow current diet, monitor intake to meet 75% needs Expected Outcomes/Goals: gradual weight loss. Plan discussed with: Patient, Other (ADELE Genao) DELIA HYLTON MD Mar 15, 2024 21:18
[2024-03-16] VITALS (8 sets, daily range): BP systolic 90–106; BP diastolic 58–64; PULSE 60–97; RESP 14–22; TEMP 97.8–98.3; O2SAT 93–99
--- NOTE | 2024-03-16 08:05 | DVHPN2 ---
Progress Note - Dictate Date Seen: Mar 16, 2024 Medical Necessity Reason Pt with a Central, PICC or Fol: No vital signs Vital Sign Date Time Temp Pulse Resp B/P (MAP) Pulse Ox O2 Delivery O2 Flow Rate FiO2 03/16/24 05:11 98.1 87 17 103/61 (75) 93 98.1 03/15/24 20:00 Nasal Cannula* 2 28 Total Intake and Output 03/15/24 03/15/24 03/16/24 15:00 23:00 07:00 Intake Total 320 ml 0 ml Balance 320 ml 0 ml medications Current Medications Medications Dose Ordered Sig/Kalli Route Start Time Stop Time Status Last Admin Dose Admin Ondansetron HCl 4 mg Q4HP PRN IV 03/05/24 21:45 03/14/24 14:16 4 MG Docusate Sodium 100 mg BIDPRN PRN PO 03/05/24 21:45 03/11/24 14:12 100 MG Acetaminophen 650 mg Q6HP PRN PO 03/05/24 21:45 03/13/24 19:19 650 MG Pantoprazole Sodium 40 mg DAILY IV 03/06/24 10:00 03/15/24 10:54 40 MG Nitroglycerin 0.4 mg Q5MINP PRN SL 03/05/24 21:45 Albuterol 2.5 mg Q4HP PRN NEB 03/05/24 21:45 Cancel Diphenhydramine HCl 25 mg Q6HR PRN IV 03/05/24 23:00 Enoxaparin Sodium 80 mg Q12HR SC 03/06/24 10:00 03/15/24 20:53 80 MG Doxycycline Monohydrate 100 mg Q12HR PO 03/06/24 10:00 03/15/24 20:51 100 MG Methimazole 10 mg Q8HR PO 03/07/24 14:00 03/16/24 05:52 10 MG Guaifenesin 200 mg Q4HP PRN PO 03/07/24 12:30 03/15/24 20:57 200 MG Ergocalciferol 50,000 unit Q7D PO 03/08/24 15:00 03/15/24 14:34 50,000 UNIT Sacubitril/ Valsartan 1 tab BID PO 03/09/24 22:00 03/15/24 10:57 1 TAB Spironolactone 12.5 mg DAILY PO 03/10/24 10:00 03/15/24 10:57 12.5 MG Furosemide 40 mg DAILY IV 03/11/24 10:00 03/15/24 10:59 40 MG Propranolol HCl 40 mg BID PO 03/12/24 09:45 03/15/24 20:52 40 MG laboratory and microbiology Laboratory Tests 03/15/24 06:03 Test 03/15/24 06:03 Range/Units Serum Glucose 74 74-106 mg/dL Assessment/Plan Patient is a 43-year-old female who presented to the hospital for few days of shortness of breath. She actually went to urgent care and was given prednisone/Z-Cody/inhaler. She did not respond and decided come to the hospital. She was diagnosed with pneumonia few days before presentation to hospital. While emergency room, she was found to have atrial fibrillation and Cardiology was called for evaluation and management. Her troponin was mildly/flat elevated which was another reason for cardiology evaluation. It is of note that the patient does have history of thyroid problem (hyperthyroidism) and was previously on methimazole. She mentions that she last saw a doctor for thyroid problem over 3 years ago and stopped methimazole herself at that time just because she did not have time to follow-up with physicians. Denies any previous cardiac history. But also mentions history of palpitation going back for years. She mentions worsening shortness of breath for the past 2 weeks. She had been having leg swellings/orthopnea/PND going back for around 6 weeks. She mentioned fever 1 day before presentation to the hospital. She had not been taking any medications as outpatient (up to few days before presentation) and has been noncompliant. Not in acute distress. No JVD. Mucosa is pink and wet. There is no goiter. There is no carotid bruit. Not using accessory muscles of breathing. Scattered rhonchi in the lungs is heard. Cardiac: Irregular, systolic murmur 3/6 in the apex is heard. Abdomen is soft. Bowel sound is positive. There is no gross mass/hepatomegaly. Extremities reveal 1+ edema in bilateral lower extremities. Dorsalis pedis is 2+ bilateral. Chest tube in place. Past medical history includes thyroid problem (hyperthyroidism), history of C- section and noncompliance. She stopped smoking 6 months ago. She denies history of drug abuse. She used social alcohol up to 6 months ago. Denies relevant family history. Father had diabetes mellitus. Mother has hypertension. Creatinine: 0.70 - 0.67 - 0.57 - 0.68 - 0.73 - 0.56 - 0.64 - 0.44 - 0.55 - 0.57 Potassium: 3.1 - 4.6 - 2.8 - 3.5 - 3.3 - 3.8 - 3.3 - 3.1 - 3.7 - 3.8 Lactic acid: 2.9 - 2.2 - 1.8 Magnesium: 1.6 - 1.6 - 1.9 - 2.2 AST/ALT: 35/20 - 71/23 - 27/16 - 305/136 - 420/238 - 371/254 - 116/143 - 40/64 Bilirubin (total): 2.3 - 2.5 - 2.5 - 3.0 - 2.6 - 2.2 BNP: 610.28 Troponin (high sensitive): 219 - 227 - 214 TSH: 0.01 Free T4: 2.58 Free T3: 5.3 ESR: 5 CRP; 0.15 Urinalysis revealed 3+ proteinuria Chest x-ray reported: IMPRESSION: Pulmonary vascular congestion and right lower lobe airspace disease. Repeat chest xry reported: IMPRESSION: Decreaesd right pleural effusion s/p thoracentecis Repeat chest xry reported: Findings/Impression: Frontal chest radiograph demonstrates no acute osseous or superficial soft tissue abnormalities. The trachea is midline. The cardiac silhouette and mediastinum are within normal limits. Approximately 25-30% right pneumothorax, increased in size from prior. Medial right lower lung field atelectasis. No pleural effusions. Critical Result: Pneumothorax Repeat chest xry reported: IMPRESSION: 1. Interval placement of right-sided chest tube with improving pneumothorax. Repeat chest xry revealed: IMPRESSION: The heart is enlarged. There is moderate pulmonary vascular congestion. Possible small left effusion. No sizable pneumothorax. Right pleural catheter redemonstrated. Repeat chest xry revealed: IMPRESSION: Redemonstration of right sided chest tube terminating over the right lower lung zone with small residual pneumothorax . Obscuration of the left hemidiaphragm which may be from overlying cardiac silhouette with underlying trace effusion/ atelectasis not excluded. Repeat chest xry revealed: IMPRESSION: 1. Decreased right pneumothorax. 2. Obscuration of the left hemidiaphragm. Left pleural effusion and/or airspace disease not excluded. Repeat chest xry revealed: IMPRESSION: Small right apical pneumothorax. Abdominal and pelvis CT scan (without contrast) reported: Findings: Evaluation of solid organs is limited due to lack of intravenous contrast use. Lung Bases: Moderate right-sided pleural effusion with adjacent compressive atelectasis. Liver: The liver is normal in size. No focal lesions. Gallbladder and Biliary Tree: Unremarkable Spleen: Unremarkable Pancreas: The pancreas is grossly normal in appearance. Adrenal Glands: Unremarkable Kidneys: Kidneys are grossly normal without calculi or hydronephrosis. Bladder: Grossly unremarkable for degree of distention. Bowel: The stomach is grossly normal in appearance. Small bowel and colon are normal in caliber and distribution. Normal appendix is visualized in the right lower quadrant without findings of appendicitis. Ascites: [id number] diffuse ascites. Lymphadenopathy: No mesenteric, retroperitoneal or periportal lymphadenopathy. Abdominal Wall and Mesentery: Mild diffuse anasarca.. Vasculature: The visualized abdominal aorta is normal in size and caliber. Evaluation of abdominal and pelvic vessels is limited due to lack of intravenous contrast. Pelvic Organs: Intact IUD. Moderate free fluid in the pelvis. Musculoskeletal: No aggressive focal bony lesions, acute fractures or dislocation. Moderate degenerative changes of the bilateral hip joints. Mild fusion of the bilateral SI joints. IMPRESSION: Limited noncontrast evaluation. Moderate right-sided pleural effusion with adjacent compressive atelectasis. Mild to moderate diffuse ascites , free fluid in the pelvis, and anasarca. Other ancillary findings as described above. Chest CT revealed: IMPRESSION: 1. Large right pleural effusion with collapse of the right lower lobe. The left lung and pleural space are clear. 2. There are multiple subcentimeter bilateral axillary lymph nodes which may be reactive. 3. Small amount of perihepatic ascites. Repeat CT of chest revealed: IMPRESSION: 1. Moderate right pneumothorax. 2. Small to moderate right pleural effusion. 3. Right lower lobe atelectasis. Repeat CT of chest revealed: IMPRESSION: 1. Interval decrease in size of right hydropneumothorax. There is small right pleural effusion remaining. There is mild atelectasis in the right lung base. Chest ultrasound revealed: Finding/Impression: Bilateral pleural effusions, moderate on the right and trace on the left. Limited Abdominal ultrasound to check for Ascites: FINDINGS/IMPRESSIONS: Trace ascites in Shay's pouch. Telemetry reveals atrial fibrillation with RVR, later: a-fib with MVR Echocardiogram reported: Dilated 4 chambers was observed. Left ventricle: Left ventricle was dilated. LVEF was 30-35%. Diffuse hypokinesis of left ventricle was seen. LVEDP was considered elevated. Right ventricle was dilated with reduced systolic function. Left atrium was moderately dilated. Right atrium was mildly dilated. Aortic valve: Aortic valve was not well visualized. There was no aortic insufficiency/stenosis. There was mild mitral regurgitation. There was moderate to severe tricuspid regurgitation. There was trivial pulmonary valve insufficiency. IVC with dilated. Right ventricular systolic pressure was assessed at 43 mm Hg. Cardiac Cath revealed: No angiographic evidence for epicardial coronary artery disease (normal coronaries). LVEF of 40%. Nonischemic cardiomyopathy She patient is a 43-year-old female who presented with 1 day of fever. Was recently diagnosed with pneumonia and had been on antibiotics. Presentation questions sepsis/pneumonia. Her presentation also includes palpitation for years which increased in few weeks prior to presentation. Is found to have atrial fibrillation with RVR. Her history also includes few weeks of orthopnea/PND/leg swellings (for weeks) which questions acute heart failure. Does have increased BNP in favor of acute heart failure. Troponin has been mildly elevated but running flat which is in favor of possible demand ischemia. Never had ischemic workup before this presentation. Presentation was not in favor of acute coronary syndrome. She is found to have multiorgan involvement (ascites, proteinuria, pneumonia). Does have previous history of hyperthyroidism which could have contributed to the clinical picture also. Echo revealed systolic heart failure. Is found to have active significant hyperthyroidism which could be the primary etiology for a-fib and also acute heart failure also. Being followed by Pulmonary (s/p thoracentesis). Is seen and evaluated by Nephrology for proteinuria. Was found to have abnormal LFT/ascites and is evaluated by GI. Cardiac cath performed and ruled out coronary disease. Dx is non-ischemic cardiomyopathy, possibly related to hyperthyroidism/tachyarrhythmia. Was found to have pneumothorax (possibly secondary to previous thoracentesis). s/p chest tube insertion by Pulmonary. Nephrology is contemplating kidney biopsy/Lupus Nephritis? Fever Sepsis Pneumonia Atrial fibrillation with RVR Abnormal troponin Increased BNP Acute heart failure, systolic Ascites Proteinuria Noncompliance to medication and followups Hyperthyroidism Pleural effusion s/p right thoracentesis by Pulmonary Abnormal LFT Pneumothorax s/p chest tube by pulmonary Non-ischemic Cardiomyopathy Lupus Nephritis (as per Nephrology) Cardiac suggestion for management: Manage in telemetry IV diuresis is suggested Follow-up electrolytes and kidney function tests and correct abnormalities. Keep potassium above 4 and magnesium above 2 Magnesium supplementation Full anticoagulation for now on Lovenox (after biopsy, 'as per Nephrology to go for Kidney biopsy', and after stabilization: to change to oral anticoagulation: for example Eliquis). On Methimazole. On Propranolol. GDMT for systolic heart failure, non-ischemic CMP Sepsis workup and antibiotic therapy as per primary team Pulmonary follow up Nephrology follow up Endocrinology evaluation for Hyperthyroidism Further evaluation and management depends on the above and clinical course A total of 55 minutes was spent reviewing the patient record, examining the patient, making a diagnostic and therapeutic plan, discussing this plan with medical personnel, following up on diagnostic studies and following the patient for clinical stability excluding any and all procedures. At least 50% of this time was spent in direct, [id number] contact. Thank you for allowing me to participate in this patient's care. Further recommendations will depend on patient's clinical course. Please do not hesitate to contact me if you have any questions or concerns. This medical document was created using electronic medical record system with [employer] computerized dictation system. Although this document has been carefully reviewed, there may still be some phonetic and typographical errors. These areas are purely typographical due to the imperfection of the software programs, and do not reflect any compromise in the patient's medical care. Dietary Evaluation Review Comments: Follow current diet, monitor intake to meet 75% needs Expected Outcomes/Goals: gradual weight loss. Plan discussed with: Patient, Other (nurse) ANAMARIA GROVES MD Mar 16, 2024 08:05
[2024-03-16] MEDS: ALBUMIN 25% 100 ML IV SCH (11:50)
--- NOTE | 2024-03-16 12:58 | DVHPN2 ---
Progress Note - Dictate Date Seen: Mar 16, 2024 Medical Necessity Reason Pt with a Central, PICC or Fol: No vital signs Vital Sign Date Time Temp Pulse Resp B/P (MAP) Pulse Ox O2 Delivery O2 Flow Rate FiO2 03/16/24 10:00 85/53 03/16/24 09:00 97.8 97 22 99 97.8 03/15/24 20:00 Nasal Cannula* 2 28 Total Intake and Output 03/15/24 03/15/24 03/16/24 15:00 23:00 07:00 Intake Total 320 ml 0 ml Balance 320 ml 0 ml medications Current Medications Medications Dose Ordered Sig/Kalli Route Start Time Stop Time Status Last Admin Dose Admin Ondansetron HCl 4 mg Q4HP PRN IV 03/05/24 21:45 03/14/24 14:16 4 MG Docusate Sodium 100 mg BIDPRN PRN PO 03/05/24 21:45 03/11/24 14:12 100 MG Acetaminophen 650 mg Q6HP PRN PO 03/05/24 21:45 03/13/24 19:19 650 MG Pantoprazole Sodium 40 mg DAILY IV 03/06/24 10:00 03/16/24 11:49 40 MG Nitroglycerin 0.4 mg Q5MINP PRN SL 03/05/24 21:45 Albuterol 2.5 mg Q4HP PRN NEB 03/05/24 21:45 Cancel Diphenhydramine HCl 25 mg Q6HR PRN IV 03/05/24 23:00 Enoxaparin Sodium 80 mg Q12HR SC 03/06/24 10:00 03/16/24 11:50 80 MG Doxycycline Monohydrate 100 mg Q12HR PO 03/06/24 10:00 03/16/24 11:49 100 MG Methimazole 10 mg Q8HR PO 03/07/24 14:00 03/16/24 05:52 10 MG Guaifenesin 200 mg Q4HP PRN PO 03/07/24 12:30 03/15/24 20:57 200 MG Ergocalciferol 50,000 unit Q7D PO 03/08/24 15:00 03/15/24 14:34 50,000 UNIT Sacubitril/ Valsartan 1 tab BID PO 03/09/24 22:00 03/15/24 10:57 1 TAB Spironolactone 12.5 mg DAILY PO 03/10/24 10:00 03/15/24 10:57 12.5 MG Furosemide 40 mg DAILY IV 03/11/24 10:00 03/15/24 10:59 40 MG Propranolol HCl 40 mg BID PO 03/12/24 09:45 03/15/24 20:52 40 MG Albumin Human 100 ml @ 100 mls/hr Q6HR IV 03/16/24 10:50 03/16/24 18:59 03/16/24 12:00 100 MLS/HR objective General Appearance: alert, no distress HEENT: EOMI, PERRLA, normal external inspect of ears, no icterus, no nasal drainage Neck: no carotid bruit, no jugular venous distention (JVD), no lymphadenopathy Chest: normal thorax Respiratory: clear to auscultation, normal air movement Cardiovascular: regular rate and rhythm, no diastolic murmur, no jugular venous distention (JVD), no rub, no systolic murmur Abdominal: soft, no hepatomegaly, no mass, no splenomegaly, no tenderness Genitourinary: grossly normal external Musculoskeletal: no joint tenderness, no swelling Extremities: normal pulses, no calf tenderness, no clubbing, no cyanosis, no edema Skin: no bruising, no jaundice, no rash Neurological: alert, No focal deficit laboratory and microbiology Laboratory Tests 03/15/24 06:03 Test 03/15/24 06:03 Range/Units Serum Glucose 74 74-106 mg/dL Problem List 1. Sepsis Monitor, IV antibiotics 2. Right-sided pneumonia, most likely gram-negative and some gram-positive Monitor, IV antibiotics, IR consult, plan thoracentesis 3. Right pleural effusion Monitor 4. Ascites Monitor, GI consult, plan paracentesis 5. Elevated bilirubin Monitor 6. Atrial fibrillation with RVR Monitor, cardiology consults, antiarrythmics, echocardiogram 7. Elevated troponin, most likely demand ischemia Monitor, trend troponin 8. Hyperthyroidism Monitor, continue Methimazole and Propranolol 9. Atrial fibrillation with RVR Cardiology consult, monitoring Assessment/Plan Subjective Patient is awake and alert. Objective Patient was admitted for shortness of breath. Patient was found to have a pleural effusion and ascites. Patient is status post right thoracentesis. 900 mL of fluid was removed. There was not enough fluid for paracentesis. Patient had a complication with pneumothorax. Chest tube has been placed. Patient was seen by pulmonary. Patient is status post heart cath. Patient has nonobstructive coronary artery disease. Patient was seen by GI for elevated liver enzymes which are downtrending. Patient still has mildly elevated bilirubin levels. Patient was also found to have proteinuria. Patient was seen by nephrology. Patient has possible lupus nephritis. Patient will need outpatient autoimmune workup. Plan Continue current treatment. Plan for discharge once chest tube is removed. Dietary Evaluation Review Comments: Follow current diet, monitor intake to meet 75% needs Expected Outcomes/Goals: gradual weight loss. Plan discussed with: Patient, Other ISIDORO DELANEY NP Mar 16, 2024 12:58
--- NOTE | 2024-03-16 14:46 | DVH ---
CHEST RADIOGRAPH Indication: REASSESS PNEUMOTHORAX Technique: Single frontal view of the chest was obtained Comparison: XY CHEST XRAY 1 VIEW on DOS: 03/15/24, XY CHEST XRAY 1 VIEW on DOS: 03/13/24 FINDINGS: Lines and Tubes: A right chest tube is seen in the right lower justina thorax. Lungs: No focal consolidation. Pleura: There is stable appearing right pneumothorax. There is no obvious pleural effusion. Cardiomediastinal contours: Stable cardiomegaly. Pulmonary vasculature: Within normal limits. Bones: No acute osseous abnormality. IMPRESSION: 1. Stable right pneumothorax. 2. Stable cardiomegaly. HS:Y
--- NOTE | 2024-03-16 20:35 | DVHPN2 ---
Progress Note - Dictate Date Seen: Mar 16, 2024 Medical Necessity Reason Pt with a Central, PICC or Fol: No Subjective Patient seen and examined at bedside. On supplemental oxygen Overnight events reviewed. vital signs Vital Sign Date Time Temp Pulse Resp B/P (MAP) Pulse Ox O2 Delivery O2 Flow Rate FiO2 03/16/24 17:00 98.0 60 16 95/60 (72) 97 98.0 03/16/24 07:30 Nasal Cannula* 1 24 Total Intake and Output 03/15/24 03/15/24 03/16/24 15:00 23:00 07:00 Intake Total 320 ml 0 ml Balance 320 ml 0 ml medications Current Medications Medications Dose Ordered Sig/Kalli Route Start Time Stop Time Status Last Admin Dose Admin Ondansetron HCl 4 mg Q4HP PRN IV 03/05/24 21:45 03/14/24 14:16 4 MG Docusate Sodium 100 mg BIDPRN PRN PO 03/05/24 21:45 03/11/24 14:12 100 MG Acetaminophen 650 mg Q6HP PRN PO 03/05/24 21:45 03/13/24 19:19 650 MG Pantoprazole Sodium 40 mg DAILY IV 03/06/24 10:00 03/16/24 11:49 40 MG Nitroglycerin 0.4 mg Q5MINP PRN SL 03/05/24 21:45 Albuterol 2.5 mg Q4HP PRN NEB 03/05/24 21:45 Cancel Diphenhydramine HCl 25 mg Q6HR PRN IV 03/05/24 23:00 Enoxaparin Sodium 80 mg Q12HR SC 03/06/24 10:00 03/16/24 11:50 80 MG Doxycycline Monohydrate 100 mg Q12HR PO 03/06/24 10:00 03/16/24 11:49 100 MG Methimazole 10 mg Q8HR PO 03/07/24 14:00 03/16/24 15:44 10 MG Guaifenesin 200 mg Q4HP PRN PO 03/07/24 12:30 03/16/24 17:39 200 MG Ergocalciferol 50,000 unit Q7D PO 03/08/24 15:00 03/15/24 14:34 50,000 UNIT Sacubitril/ Valsartan 1 tab BID PO 03/09/24 22:00 03/15/24 10:57 1 TAB Spironolactone 12.5 mg DAILY PO 03/10/24 10:00 03/15/24 10:57 12.5 MG Furosemide 40 mg DAILY IV 03/11/24 10:00 03/15/24 10:59 40 MG Propranolol HCl 40 mg BID PO 03/12/24 09:45 03/15/24 20:52 40 MG objective Gen.: Patient lying in bed in no apparent distress. On supplemental oxygen Head: Normocephalic, atraumatic. Eyes: EOMI/PERRLA. Ears: Normal hearing. Normal anatomy. Neck/trachea: Trachea midline, supple. Nose: Normal external anatomy. Mouth: Moist mucous membranes. Chest: Decreased air entry bilaterally. No wheezing or rhonchi. Cardiovascular: Positive S1, positive S2. Regular rate and rhythm. Abdomen: Positive bowel sounds in all 4 quadrants. Soft, non-tender, non- distended. : Deferred. Rectal: Deferred. Skin: Warm, dry. Intact. Extremities: 2+ radial pulses bilaterally. No lower extremity edema. Neuro: Awake, alert, oriented x3. No gross motor or sensory deficits. Cranial nerves II through XII intact. Gait not assessed. laboratory and microbiology Laboratory Tests 03/15/24 06:03 Test 03/15/24 06:03 Range/Units Serum Glucose 74 74-106 mg/dL Assessment/Plan Impression: Bilateral pleural effusions Atelectasis Pneumonia, likely gram negative Ascites Atrial fibrillation w/ RVR Hx of nicotine dependence Obesity BMI 32.8 Events: Currently on supplemental oxygen 2 LPM NC Taper O2 as tolerated Chest tube shows no air leak. Minimal output Obtain chest x-ray this AM. If no pneumothorax, plan to remove chest tube. Continue antibiotics Antitussive for cough Incentive spirometry Monitor renal function Monitor ins and outs S/p right chest tube placement on 03/09 for pneumothorax. CXR post procedure noted re-expansion of lung with chest tube in place S/p LHC, EF of 40%, findings of nonobstructive CAD Labs and imaging reviewed. Rest of plan as noted below. Plan: Supplemental oxygen Titrate to keep O2 sats above 92%. Continue antibiotics Incentive spirometry Right chest tube in place to minus 20 cmH20 No air leak Monitor chest tube output. Monitor renal function. Monitor electrolytes. Supplement as necessary. Monitor ins and outs. DVT prophylaxis. Prognosis: Poor given patient's multiple co-morbidities. Rest of plan per hospitalist and other consultants. Thank you, Mary Wade NP, for allowing me to participate in this patient's care. Further recommendations will depend on the patient's clinical course. Please do not hesitate to contact me if you have any questions or concerns. This medical document was created using an electronic medical record system with [employer] dictation system. Although these documentations are being carefully reviewed, there may still be some phonetic and typographical changes. The errors are purely typographical, due to imperfection on the software program, and do not reflect any compromise in the patient's medical care. Dietary Evaluation Review Comments: Follow current diet, monitor intake to meet 75% needs Expected Outcomes/Goals: gradual weight loss. Plan discussed with: Patient, Other (ADELE Saha) DELIA HYLTON MD Mar 16, 2024 20:35
[2024-03-17] VITALS (9 sets, daily range): BP systolic 96–133; BP diastolic 68–74; PULSE 66–90; RESP 17–20; TEMP 97.5–98.5; O2SAT 95–97
--- NOTE | 2024-03-17 08:06 | DVHPN2 ---
Progress Note - Dictate Date Seen: Mar 17, 2024 Medical Necessity Reason Pt with a Central, PICC or Fol: No Subjective Patient seen and examined at the bedside in telemetry. Chart reviewed. vital signs Vital Sign Date Time Temp Pulse Resp B/P (MAP) Pulse Ox O2 Delivery O2 Flow Rate FiO2 03/17/24 05:00 98.0 80 17 124/74 (91) 97 98.0 03/16/24 20:00 Nasal Cannula* 2 28 Total Intake and Output 03/16/24 03/16/24 03/17/24 15:00 23:00 07:00 Intake Total 200 ml 236 ml 600 ml Balance 200 ml 236 ml 600 ml medications Current Medications Medications Dose Ordered Sig/Kalli Route Start Time Stop Time Status Last Admin Dose Admin Ondansetron HCl 4 mg Q4HP PRN IV 03/05/24 21:45 03/14/24 14:16 4 MG Docusate Sodium 100 mg BIDPRN PRN PO 03/05/24 21:45 03/11/24 14:12 100 MG Acetaminophen 650 mg Q6HP PRN PO 03/05/24 21:45 03/13/24 19:19 650 MG Pantoprazole Sodium 40 mg DAILY IV 03/06/24 10:00 03/16/24 11:49 40 MG Nitroglycerin 0.4 mg Q5MINP PRN SL 03/05/24 21:45 Albuterol 2.5 mg Q4HP PRN NEB 03/05/24 21:45 Cancel Diphenhydramine HCl 25 mg Q6HR PRN IV 03/05/24 23:00 Enoxaparin Sodium 80 mg Q12HR SC 03/06/24 10:00 03/16/24 11:50 80 MG Doxycycline Monohydrate 100 mg Q12HR PO 03/06/24 10:00 03/16/24 21:03 100 MG Methimazole 10 mg Q8HR PO 03/07/24 14:00 03/17/24 05:26 10 MG Guaifenesin 200 mg Q4HP PRN PO 03/07/24 12:30 03/16/24 17:39 200 MG Ergocalciferol 50,000 unit Q7D PO 03/08/24 15:00 03/15/24 14:34 50,000 UNIT Sacubitril/ Valsartan 1 tab BID PO 03/09/24 22:00 03/15/24 10:57 1 TAB Spironolactone 12.5 mg DAILY PO 03/10/24 10:00 03/15/24 10:57 12.5 MG Furosemide 40 mg DAILY IV 03/11/24 10:00 03/15/24 10:59 40 MG Propranolol HCl 40 mg BID PO 03/12/24 09:45 03/15/24 20:52 40 MG laboratory and microbiology Laboratory Tests 03/15/24 06:03 Test 03/15/24 06:03 Range/Units Serum Glucose 74 74-106 mg/dL Assessment/Plan Assessment/Plan Patient is a 43-year-old female who presented to the hospital for few days of shortness of breath. She actually went to urgent care and was given prednisone/Z-Cody/inhaler. She did not respond and decided come to the hospital. She was diagnosed with pneumonia few days before presentation to hospital. While emergency room, she was found to have atrial fibrillation and Cardiology was called for evaluation and management. Her troponin was mildly/flat elevated which was another reason for cardiology evaluation. It is of note that the patient does have history of thyroid problem (hyperthyroidism) and was previously on methimazole. She mentions that she last saw a doctor for thyroid problem over 3 years ago and stopped methimazole herself at that time just because she did not have time to follow-up with physicians. Denies any previous cardiac history. But also mentions history of palpitation going back for years. She mentions worsening shortness of breath for the past 2 weeks. She had been having leg swellings/orthopnea/PND going back for around 6 weeks. She mentioned fever 1 day before presentation to the hospital. She had not been taking any medications as outpatient (up to few days before presentation) and has been noncompliant. Not in acute distress. No JVD. Mucosa is pink and wet. There is no goiter. There is no carotid bruit. Not using accessory muscles of breathing. Scattered rhonchi in the lungs is heard. Cardiac: Irregular, systolic murmur 3/6 in the apex is heard. Abdomen is soft. Bowel sound is positive. There is no gross mass/hepatomegaly. Extremities reveal 1+ edema in bilateral lower extremities. Dorsalis pedis is 2+ bilateral. Chest tube in place. Past medical history includes thyroid problem (hyperthyroidism), history of C- section and noncompliance. She stopped smoking 6 months ago. She denies history of drug abuse. She used social alcohol up to 6 months ago. Denies relevant family history. Father had diabetes mellitus. Mother has hypertension. Creatinine: 0.70 - 0.67 - 0.57 - 0.68 - 0.73 - 0.56 - 0.64 - 0.44 - 0.55 - 0.57 Potassium: 3.1 - 4.6 - 2.8 - 3.5 - 3.3 - 3.8 - 3.3 - 3.1 - 3.7 - 3.8 Lactic acid: 2.9 - 2.2 - 1.8 Magnesium: 1.6 - 1.6 - 1.9 - 2.2 AST/ALT: 35/20 - 71/23 - 27/16 - 305/136 - 420/238 - 371/254 - 116/143 - 40/64 Bilirubin (total): 2.3 - 2.5 - 2.5 - 3.0 - 2.6 - 2.2 BNP: 610.28 Troponin (high sensitive): 219 - 227 - 214 TSH: 0.01 Free T4: 2.58 Free T3: 5.3 ESR: 5 CRP; 0.15 Urinalysis revealed 3+ proteinuria Chest x-ray reported: IMPRESSION: Pulmonary vascular congestion and right lower lobe airspace disease. Repeat chest xry reported: IMPRESSION: Decreaesd right pleural effusion s/p thoracentecis Repeat chest xry reported: Findings/Impression: Frontal chest radiograph demonstrates no acute osseous or superficial soft tissue abnormalities. The trachea is midline. The cardiac silhouette and mediastinum are within normal limits. Approximately 25-30% right pneumothorax, increased in size from prior. Medial right lower lung field atelectasis. No pleural effusions. Critical Result: Pneumothorax Repeat chest xry reported: IMPRESSION: 1. Interval placement of right-sided chest tube with improving pneumothorax. Repeat chest xry revealed: IMPRESSION: The heart is enlarged. There is moderate pulmonary vascular congestion. Possible small left effusion. No sizable pneumothorax. Right pleural catheter redemonstrated. Repeat chest xry revealed: IMPRESSION: Redemonstration of right sided chest tube terminating over the right lower lung zone with small residual pneumothorax . Obscuration of the left hemidiaphragm which may be from overlying cardiac silhouette with underlying trace effusion/ atelectasis not excluded. Repeat chest xry revealed: IMPRESSION: 1. Decreased right pneumothorax. 2. Obscuration of the left hemidiaphragm. Left pleural effusion and/or airspace disease not excluded. Repeat chest xry revealed: IMPRESSION: Small right apical pneumothorax. Repeat chest xry revealed: IMPRESSION: 1. Unchanged small right pneumothorax. Abdominal and pelvis CT scan (without contrast) reported: Findings: Evaluation of solid organs is limited due to lack of intravenous contrast use. Lung Bases: Moderate right-sided pleural effusion with adjacent compressive atelectasis. Liver: The liver is normal in size. No focal lesions. Gallbladder and Biliary Tree: Unremarkable Spleen: Unremarkable Pancreas: The pancreas is grossly normal in appearance. Adrenal Glands: Unremarkable Kidneys: Kidneys are grossly normal without calculi or hydronephrosis. Bladder: Grossly unremarkable for degree of distention. Bowel: The stomach is grossly normal in appearance. Small bowel and colon are normal in caliber and distribution. Normal appendix is visualized in the right lower quadrant without findings of appendicitis. Ascites: [id number] diffuse ascites. Lymphadenopathy: No mesenteric, retroperitoneal or periportal lymphadenopathy. Abdominal Wall and Mesentery: Mild diffuse anasarca.. Vasculature: The visualized abdominal aorta is normal in size and caliber. Evaluation of abdominal and pelvic vessels is limited due to lack of intravenous contrast. Pelvic Organs: Intact IUD. Moderate free fluid in the pelvis. Musculoskeletal: No aggressive focal bony lesions, acute fractures or dislocation. Moderate degenerative changes of the bilateral hip joints. Mild fusion of the bilateral SI joints. IMPRESSION: Limited noncontrast evaluation. Moderate right-sided pleural effusion with adjacent compressive atelectasis. Mild to moderate diffuse ascites , free fluid in the pelvis, and anasarca. Other ancillary findings as described above. Chest CT revealed: IMPRESSION: 1. Large right pleural effusion with collapse of the right lower lobe. The left lung and pleural space are clear. 2. There are multiple subcentimeter bilateral axillary lymph nodes which may be reactive. 3. Small amount of perihepatic ascites. Repeat CT of chest revealed: IMPRESSION: 1. Moderate right pneumothorax. 2. Small to moderate right pleural effusion. 3. Right lower lobe atelectasis. Repeat CT of chest revealed: IMPRESSION: 1. Interval decrease in size of right hydropneumothorax. There is small right pleural effusion remaining. There is mild atelectasis in the right lung base. Chest ultrasound revealed: Finding/Impression: Bilateral pleural effusions, moderate on the right and trace on the left. Limited Abdominal ultrasound to check for Ascites: FINDINGS/IMPRESSIONS: Trace ascites in Shay's pouch. Telemetry reveals atrial fibrillation with RVR, later: a-fib with MVR Echocardiogram reported: Dilated 4 chambers was observed. Left ventricle: Left ventricle was dilated. LVEF was 30-35%. Diffuse hypokinesis of left ventricle was seen. LVEDP was considered elevated. Right ventricle was dilated with reduced systolic function. Left atrium was moderately dilated. Right atrium was mildly dilated. Aortic valve: Aortic valve was not well visualized. There was no aortic insufficiency/stenosis. There was mild mitral regurgitation. There was moderate to severe tricuspid regurgitation. There was trivial pulmonary valve insufficiency. IVC with dilated. Right ventricular systolic pressure was assessed at 43 mm Hg. Cardiac Cath revealed: No angiographic evidence for epicardial coronary artery disease (normal coronaries). LVEF of 40%. Nonischemic cardiomyopathy She patient is a 43-year-old female who presented with 1 day of fever. Was recently diagnosed with pneumonia and had been on antibiotics. Presentation questions sepsis/pneumonia. Her presentation also includes palpitation for years which increased in few weeks prior to presentation. Is found to have atrial fibrillation with RVR. Her history also includes few weeks of orthopnea/PND/leg swellings (for weeks) which questions acute heart failure. Does have increased BNP in favor of acute heart failure. Troponin has been mildly elevated but running flat which is in favor of possible demand ischemia. Never had ischemic workup before this presentation. Presentation was not in favor of acute coronary syndrome. She is found to have multiorgan involvement (ascites, proteinuria, pneumonia). Does have previous history of hyperthyroidism which could have contributed to the clinical picture also. Echo revealed systolic heart failure. Is found to have active significant hyperthyroidism which could be the primary etiology for a-fib and also acute heart failure also. Being followed by Pulmonary (s/p thoracentesis). Is seen and evaluated by Nephrology for proteinuria. Was found to have abnormal LFT/ascites and is evaluated by GI. Cardiac cath performed and ruled out coronary disease. Dx is non-ischemic cardiomyopathy, possibly related to hyperthyroidism/tachyarrhythmia. Was found to have pneumothorax (possibly secondary to previous thoracentesis). s/p chest tube insertion by Pulmonary. Nephrology is contemplating kidney biopsy/Lupus Nephritis? Fever Sepsis Pneumonia Atrial fibrillation with RVR Abnormal troponin Increased BNP Acute heart failure, systolic Ascites Proteinuria Noncompliance to medication and followups Hyperthyroidism Pleural effusion s/p right thoracentesis by Pulmonary Abnormal LFT Pneumothorax s/p chest tube by pulmonary Non-ischemic Cardiomyopathy Lupus Nephritis (as per Nephrology) Cardiac suggestion for management: Manage in telemetry IV diuresis is suggested Follow-up electrolytes and kidney function tests and correct abnormalities. Keep potassium above 4 and magnesium above 2 Magnesium supplementation Full anticoagulation for now on Lovenox (after biopsy, 'as per Nephrology to go for Kidney biopsy', and after stabilization: to change to oral anticoagulation: for example Eliquis). On Methimazole. On Propranolol. GDMT for systolic heart failure, non-ischemic CMP Sepsis workup and antibiotic therapy as per primary team Pulmonary follow up Nephrology follow up Endocrinology evaluation for Hyperthyroidism Further evaluation and management depends on the above and clinical course A total of 55 minutes was spent reviewing the patient record, examining the patient, making a diagnostic and therapeutic plan, discussing this plan with medical personnel, following up on diagnostic studies and following the patient for clinical stability excluding any and all procedures. At least 50% of this time was spent in direct, [id number] contact. Thank you for allowing me to participate in this patient's care. Further recommendations will depend on patient's clinical course. Please do not hesitate to contact me if you have any questions or concerns. This medical document was created using electronic medical record system with [employer] computerized dictation system. Although this document has been carefully reviewed, there may still be some phonetic and typographical errors. These areas are purely typographical due to the imperfection of the software programs, and do not reflect any compromise in the patient's medical care. Dietary Evaluation Review Comments: Follow current diet, monitor intake to meet 75% needs Expected Outcomes/Goals: gradual weight loss. Plan discussed with: Patient (Patient and Primary RN ) MO LOMAS Mar 17, 2024 08:06
--- NOTE | 2024-03-17 09:51 | DVHPN2 ---
Progress Note - Dictate Date Seen: Mar 17, 2024 Medical Necessity Reason Pt with a Central, PICC or Fol: No vital signs Vital Sign Date Time Temp Pulse Resp B/P (MAP) Pulse Ox O2 Delivery O2 Flow Rate FiO2 03/17/24 05:00 98.0 80 17 124/74 (91) 97 98.0 03/16/24 20:00 Nasal Cannula* 2 28 Total Intake and Output 03/16/24 03/16/24 03/17/24 15:00 23:00 07:00 Intake Total 200 ml 236 ml 600 ml Balance 200 ml 236 ml 600 ml medications Current Medications Medications Dose Ordered Sig/Kalli Route Start Time Stop Time Status Last Admin Dose Admin Ondansetron HCl 4 mg Q4HP PRN IV 03/05/24 21:45 03/14/24 14:16 4 MG Docusate Sodium 100 mg BIDPRN PRN PO 03/05/24 21:45 03/11/24 14:12 100 MG Acetaminophen 650 mg Q6HP PRN PO 03/05/24 21:45 03/13/24 19:19 650 MG Pantoprazole Sodium 40 mg DAILY IV 03/06/24 10:00 03/16/24 11:49 40 MG Nitroglycerin 0.4 mg Q5MINP PRN SL 03/05/24 21:45 Albuterol 2.5 mg Q4HP PRN NEB 03/05/24 21:45 Cancel Diphenhydramine HCl 25 mg Q6HR PRN IV 03/05/24 23:00 Enoxaparin Sodium 80 mg Q12HR SC 03/06/24 10:00 03/16/24 11:50 80 MG Doxycycline Monohydrate 100 mg Q12HR PO 03/06/24 10:00 03/16/24 21:03 100 MG Methimazole 10 mg Q8HR PO 03/07/24 14:00 03/17/24 05:26 10 MG Guaifenesin 200 mg Q4HP PRN PO 03/07/24 12:30 03/16/24 17:39 200 MG Ergocalciferol 50,000 unit Q7D PO 03/08/24 15:00 03/15/24 14:34 50,000 UNIT Sacubitril/ Valsartan 1 tab BID PO 03/09/24 22:00 03/15/24 10:57 1 TAB Spironolactone 12.5 mg DAILY PO 03/10/24 10:00 03/15/24 10:57 12.5 MG Propranolol HCl 40 mg BID PO 03/12/24 09:45 03/15/24 20:52 40 MG objective General Appearance: alert, no distress HEENT: EOMI, PERRLA, normal external inspect of ears, no icterus, no nasal drainage Neck: no carotid bruit, no jugular venous distention (JVD), no lymphadenopathy Chest: normal thorax Respiratory: clear to auscultation, normal air movement Cardiovascular: regular rate and rhythm, no diastolic murmur, no jugular venous distention (JVD), no rub, no systolic murmur Abdominal: soft, no hepatomegaly, no mass, no splenomegaly, no tenderness Genitourinary: grossly normal external Musculoskeletal: no joint tenderness, no swelling Extremities: normal pulses, no calf tenderness, no clubbing, no cyanosis, no edema Skin: no bruising, no jaundice, no rash Neurological: alert, No focal deficit laboratory and microbiology Laboratory Tests 03/15/24 06:03 Test 03/15/24 06:03 Range/Units Serum Glucose 74 74-106 mg/dL Problem List 1. Sepsis Monitor, IV antibiotics 2. Right-sided pneumonia, most likely gram-negative and some gram-positive Monitor, IV antibiotics, IR consult, plan thoracentesis 3. Right pleural effusion Monitor 4. Ascites Monitor, GI consult, plan paracentesis 5. Elevated bilirubin Monitor 6. Atrial fibrillation with RVR Monitor, cardiology consults, antiarrythmics, echocardiogram 7. Elevated troponin, most likely demand ischemia Monitor, trend troponin 8. Hyperthyroidism Monitor, continue Methimazole and Propranolol 9. Atrial fibrillation with RVR Cardiology consult, monitoring Assessment/Plan Subjective Patient is awake and alert. Objective Patient had a chest tube removed today by Dr. Blandon. Patient states her chest pain has resolved. Patient was admitted for shortness of breath. She was found to have a right pleural effusion. Patient had 900 mL of fluid removed from thoracentesis. Patient developed a pneumothorax and had a chest tube placed. Patient had A-fib with RVR. Cardiology was consulted. Patient also has a congestive heart failure and was started on diuretics. Plan Continue current treatment. Transition IV diuretics to oral diuretics. DC plan for tomorrow. Dietary Evaluation Review Comments: Follow current diet, monitor intake to meet 75% needs Expected Outcomes/Goals: gradual weight loss. Plan discussed with: Patient, Other ISIDORO DELANEY NP Mar 17, 2024 09:51
--- NOTE | 2024-03-17 12:03 | DVH ---
CHEST RADIOGRAPH Indication: s/p right chest tube removal, r/o pneumothorax Technique: Single frontal view of the chest was obtained Comparison: XY CHEST PORTABLE on DOS: 03/16/24 FINDINGS: Lines and Tubes: None Lungs: No focal consolidation. Pleura: No effusion. Small right pneumothorax is unchanged. Cardiomediastinal contours: Stable cardiomegaly. Bones: No acute osseous abnormality. IMPRESSION: 1. Unchanged small right pneumothorax.
[2024-03-17] MEDS ORDERED: HYDROcodone-ACET 5/325MG TAB PO PRN (17:00)
--- NOTE | 2024-03-17 18:00 | DVHPN2 ---
Progress Note - Dictate Date Seen: Mar 17, 2024 Medical Necessity Reason Pt with a Central, PICC or Fol: No Subjective Patient seen and examined at bedside. On supplemental oxygen Overnight events reviewed. vital signs Vital Sign Date Time Temp Pulse Resp B/P (MAP) Pulse Ox O2 Delivery O2 Flow Rate FiO2 03/17/24 13:00 97.5 66 20 102/68 (79) 97 97.5 03/17/24 08:00 Nasal Cannula* 2 28 Total Intake and Output 03/16/24 03/16/24 03/17/24 15:00 23:00 07:00 Intake Total 200 ml 236 ml 600 ml Balance 200 ml 236 ml 600 ml medications Current Medications Medications Dose Ordered Sig/Kalli Route Start Time Stop Time Status Last Admin Dose Admin Ondansetron HCl 4 mg Q4HP PRN IV 03/05/24 21:45 03/14/24 14:16 4 MG Docusate Sodium 100 mg BIDPRN PRN PO 03/05/24 21:45 03/11/24 14:12 100 MG Acetaminophen 650 mg Q6HP PRN PO 03/05/24 21:45 03/13/24 19:19 650 MG Pantoprazole Sodium 40 mg DAILY IV 03/06/24 10:00 03/17/24 10:53 40 MG Nitroglycerin 0.4 mg Q5MINP PRN SL 03/05/24 21:45 Albuterol 2.5 mg Q4HP PRN NEB 03/05/24 21:45 Cancel Diphenhydramine HCl 25 mg Q6HR PRN IV 03/05/24 23:00 Methimazole 10 mg Q8HR PO 03/07/24 14:00 03/17/24 14:33 10 MG Guaifenesin 200 mg Q4HP PRN PO 03/07/24 12:30 03/16/24 17:39 200 MG Ergocalciferol 50,000 unit Q7D PO 03/08/24 15:00 03/15/24 14:34 50,000 UNIT Sacubitril/ Valsartan 1 tab BID PO 03/09/24 22:00 03/17/24 10:53 1 TAB Spironolactone 12.5 mg DAILY PO 03/10/24 10:00 03/17/24 10:53 12.5 MG Propranolol HCl 40 mg BID PO 03/12/24 09:45 03/17/24 10:52 40 MG Acetaminophen/ Hydrocodone Bitart 1 tab Q4HPRN PRN PO 03/17/24 17:00 objective Gen.: Patient lying in bed in no apparent distress. On supplemental oxygen Head: Normocephalic, atraumatic. Eyes: EOMI/PERRLA. Ears: Normal hearing. Normal anatomy. Neck/trachea: Trachea midline, supple. Nose: Normal external anatomy. Mouth: Moist mucous membranes. Chest: Decreased air entry bilaterally. No wheezing or rhonchi. Cardiovascular: Positive S1, positive S2. Regular rate and rhythm. Abdomen: Positive bowel sounds in all 4 quadrants. Soft, non-tender, non- distended. : Deferred. Rectal: Deferred. Skin: Warm, dry. Intact. Extremities: 2+ radial pulses bilaterally. No lower extremity edema. Neuro: Awake, alert, oriented x3. No gross motor or sensory deficits. Cranial nerves II through XII intact. Gait not assessed. laboratory and microbiology Laboratory Tests 03/15/24 06:03 Test 03/15/24 06:03 Range/Units Serum Glucose 74 74-106 mg/dL Assessment/Plan Impression: Bilateral pleural effusions Atelectasis Pneumonia, likely gram negative Ascites Atrial fibrillation w/ RVR Hx of nicotine dependence Obesity BMI 32.8 Events: Currently on supplemental oxygen 2 LPM NC Taper O2 as tolerated Chest tube was removed. STAT chest x-ray ordered Continue antibiotics Antitussive for cough Incentive spirometry Pain control Avoid oversedation Monitor renal function Monitor ins and outs S/p right chest tube placement on 03/09 for pneumothorax. CXR post procedure noted re-expansion of lung with chest tube in place S/p LHC, EF of 40%, findings of nonobstructive CAD Labs and imaging reviewed. Rest of plan as noted below. Plan: Supplemental oxygen Titrate to keep O2 sats above 92%. Continue antibiotics Incentive spirometry Right chest tube - s/p removal. Monitor renal function. Monitor electrolytes. Supplement as necessary. Monitor ins and outs. DVT prophylaxis. Prognosis: Poor given patient's multiple co-morbidities. Rest of plan per hospitalist and other consultants. Thank you, Mary Wade NP, for allowing me to participate in this patient's care. Further recommendations will depend on the patient's clinical course. Please do not hesitate to contact me if you have any questions or concerns. This medical document was created using an electronic medical record system with [employer] dictation system. Although these documentations are being carefully reviewed, there may still be some phonetic and typographical changes. The errors are purely typographical, due to imperfection on the software program, and do not reflect any compromise in the patient's medical care. Dietary Evaluation Review Comments: Follow current diet, monitor intake to meet 75% needs Expected Outcomes/Goals: gradual weight loss. Plan discussed with: Patient, Other (ADELE Abdalla) DELIA HYLTON MD Mar 17, 2024 18:00
[2024-03-18 01:18] VITALS: BP 114/73; PULSE 86; RESP 20; TEMP 97.9; O2SAT 95
[2024-03-18 05:00] VITALS: BP 124/75; PULSE 69; RESP 18; TEMP 97.8; O2SAT 95
--- NOTE | 2024-03-18 05:02 | DVHPN2 ---
Progress Note - Dictate Date Seen: Mar 18, 2024 Medical Necessity Reason Pt with a Central, PICC or Fol: No Subjective Patient seen and examined at the bedside in telemetry. Chart reviewed. vital signs Vital Sign Date Time Temp Pulse Resp B/P (MAP) Pulse Ox O2 Delivery O2 Flow Rate FiO2 03/18/24 01:18 97.9 86 20 114/73 (87) 95 97.9 03/17/24 19:45 Room Air* 0 21 Total Intake and Output 03/17/24 03/17/24 03/18/24 15:00 23:00 07:00 Intake Total 680 ml 800 ml Output Total 1600 ml Balance 680 ml -800 ml medications Current Medications Medications Dose Ordered Sig/Kalli Route Start Time Stop Time Status Last Admin Dose Admin Ondansetron HCl 4 mg Q4HP PRN IV 03/05/24 21:45 03/14/24 14:16 4 MG Docusate Sodium 100 mg BIDPRN PRN PO 03/05/24 21:45 03/11/24 14:12 100 MG Acetaminophen 650 mg Q6HP PRN PO 03/05/24 21:45 03/13/24 19:19 650 MG Pantoprazole Sodium 40 mg DAILY IV 03/06/24 10:00 03/17/24 10:53 40 MG Nitroglycerin 0.4 mg Q5MINP PRN SL 03/05/24 21:45 Albuterol 2.5 mg Q4HP PRN NEB 03/05/24 21:45 Cancel Diphenhydramine HCl 25 mg Q6HR PRN IV 03/05/24 23:00 Methimazole 10 mg Q8HR PO 03/07/24 14:00 03/17/24 21:41 10 MG Guaifenesin 200 mg Q4HP PRN PO 03/07/24 12:30 03/16/24 17:39 200 MG Ergocalciferol 50,000 unit Q7D PO 03/08/24 15:00 03/15/24 14:34 50,000 UNIT Sacubitril/ Valsartan 1 tab BID PO 03/09/24 22:00 03/17/24 10:53 1 TAB Spironolactone 12.5 mg DAILY PO 03/10/24 10:00 03/17/24 10:53 12.5 MG Propranolol HCl 40 mg BID PO 03/12/24 09:45 03/17/24 21:41 40 MG Acetaminophen/ Hydrocodone Bitart 1 tab Q4HPRN PRN PO 03/17/24 17:00 laboratory and microbiology Laboratory Tests 03/15/24 06:03 Test 03/15/24 06:03 Range/Units Serum Glucose 74 74-106 mg/dL Assessment/Plan Assessment/Plan Patient is a 43-year-old female who presented to the hospital for few days of shortness of breath. She actually went to urgent care and was given prednisone/Z-Cody/inhaler. She did not respond and decided come to the hospital. She was diagnosed with pneumonia few days before presentation to hospital. While emergency room, she was found to have atrial fibrillation and Cardiology was called for evaluation and management. Her troponin was mildly/flat elevated which was another reason for cardiology evaluation. It is of note that the patient does have history of thyroid problem (hyperthyroidism) and was previously on methimazole. She mentions that she last saw a doctor for thyroid problem over 3 years ago and stopped methimazole herself at that time just because she did not have time to follow-up with physicians. Denies any previous cardiac history. But also mentions history of palpitation going back for years. She mentions worsening shortness of breath for the past 2 weeks. She had been having leg swellings/orthopnea/PND going back for around 6 weeks. She mentioned fever 1 day before presentation to the hospital. She had not been taking any medications as outpatient (up to few days before presentation) and has been noncompliant. Not in acute distress. No JVD. Mucosa is pink and wet. There is no goiter. There is no carotid bruit. Not using accessory muscles of breathing. Scattered rhonchi in the lungs is heard. Cardiac: Irregular, systolic murmur 3/6 in the apex is heard. Abdomen is soft. Bowel sound is positive. There is no gross mass/hepatomegaly. Extremities reveal 1+ edema in bilateral lower extremities. Dorsalis pedis is 2+ bilateral. Chest tube in place. Past medical history includes thyroid problem (hyperthyroidism), history of C- section and noncompliance. She stopped smoking 6 months ago. She denies history of drug abuse. She used social alcohol up to 6 months ago. Denies relevant family history. Father had diabetes mellitus. Mother has hypertension. Creatinine: 0.70 - 0.67 - 0.57 - 0.68 - 0.73 - 0.56 - 0.64 - 0.44 - 0.55 - 0.57 Potassium: 3.1 - 4.6 - 2.8 - 3.5 - 3.3 - 3.8 - 3.3 - 3.1 - 3.7 - 3.8 Lactic acid: 2.9 - 2.2 - 1.8 Magnesium: 1.6 - 1.6 - 1.9 - 2.2 AST/ALT: 35/20 - 71/23 - 27/16 - 305/136 - 420/238 - 371/254 - 116/143 - 40/64 Bilirubin (total): 2.3 - 2.5 - 2.5 - 3.0 - 2.6 - 2.2 BNP: 610.28 Troponin (high sensitive): 219 - 227 - 214 TSH: 0.01 Free T4: 2.58 Free T3: 5.3 ESR: 5 CRP; 0.15 Urinalysis revealed 3+ proteinuria Chest x-ray reported: IMPRESSION: Pulmonary vascular congestion and right lower lobe airspace disease. Repeat chest xry reported: IMPRESSION: Decreaesd right pleural effusion s/p thoracentecis Repeat chest xry reported: Findings/Impression: Frontal chest radiograph demonstrates no acute osseous or superficial soft tissue abnormalities. The trachea is midline. The cardiac silhouette and mediastinum are within normal limits. Approximately 25-30% right pneumothorax, increased in size from prior. Medial right lower lung field atelectasis. No pleural effusions. Critical Result: Pneumothorax Repeat chest xry reported: IMPRESSION: 1. Interval placement of right-sided chest tube with improving pneumothorax. Repeat chest xry revealed: IMPRESSION: The heart is enlarged. There is moderate pulmonary vascular congestion. Possible small left effusion. No sizable pneumothorax. Right pleural catheter redemonstrated. Repeat chest xry revealed: IMPRESSION: Redemonstration of right sided chest tube terminating over the right lower lung zone with small residual pneumothorax . Obscuration of the left hemidiaphragm which may be from overlying cardiac silhouette with underlying trace effusion/ atelectasis not excluded. Repeat chest xry revealed: IMPRESSION: 1. Decreased right pneumothorax. 2. Obscuration of the left hemidiaphragm. Left pleural effusion and/or airspace disease not excluded. Repeat chest xry revealed: IMPRESSION: Small right apical pneumothorax. Repeat chest xry revealed: IMPRESSION: 1. Unchanged small right pneumothorax. Abdominal and pelvis CT scan (without contrast) reported: Findings: Evaluation of solid organs is limited due to lack of intravenous contrast use. Lung Bases: Moderate right-sided pleural effusion with adjacent compressive atelectasis. Liver: The liver is normal in size. No focal lesions. Gallbladder and Biliary Tree: Unremarkable Spleen: Unremarkable Pancreas: The pancreas is grossly normal in appearance. Adrenal Glands: Unremarkable Kidneys: Kidneys are grossly normal without calculi or hydronephrosis. Bladder: Grossly unremarkable for degree of distention. Bowel: The stomach is grossly normal in appearance. Small bowel and colon are normal in caliber and distribution. Normal appendix is visualized in the right lower quadrant without findings of appendicitis. Ascites: [id number] diffuse ascites. Lymphadenopathy: No mesenteric, retroperitoneal or periportal lymphadenopathy. Abdominal Wall and Mesentery: Mild diffuse anasarca.. Vasculature: The visualized abdominal aorta is normal in size and caliber. Evaluation of abdominal and pelvic vessels is limited due to lack of intravenous contrast. Pelvic Organs: Intact IUD. Moderate free fluid in the pelvis. Musculoskeletal: No aggressive focal bony lesions, acute fractures or dislocation. Moderate degenerative changes of the bilateral hip joints. Mild fusion of the bilateral SI joints. IMPRESSION: Limited noncontrast evaluation. Moderate right-sided pleural effusion with adjacent compressive atelectasis. Mild to moderate diffuse ascites , free fluid in the pelvis, and anasarca. Other ancillary findings as described above. Chest CT revealed: IMPRESSION: 1. Large right pleural effusion with collapse of the right lower lobe. The left lung and pleural space are clear. 2. There are multiple subcentimeter bilateral axillary lymph nodes which may be reactive. 3. Small amount of perihepatic ascites. Repeat CT of chest revealed: IMPRESSION: 1. Moderate right pneumothorax. 2. Small to moderate right pleural effusion. 3. Right lower lobe atelectasis. Repeat CT of chest revealed: IMPRESSION: 1. Interval decrease in size of right hydropneumothorax. There is small right pleural effusion remaining. There is mild atelectasis in the right lung base. Chest ultrasound revealed: Finding/Impression: Bilateral pleural effusions, moderate on the right and trace on the left. Limited Abdominal ultrasound to check for Ascites: FINDINGS/IMPRESSIONS: Trace ascites in Shay's pouch. Telemetry reveals atrial fibrillation with RVR, later: a-fib with MVR Echocardiogram reported: Dilated 4 chambers was observed. Left ventricle: Left ventricle was dilated. LVEF was 30-35%. Diffuse hypokinesis of left ventricle was seen. LVEDP was considered elevated. Right ventricle was dilated with reduced systolic function. Left atrium was moderately dilated. Right atrium was mildly dilated. Aortic valve: Aortic valve was not well visualized. There was no aortic insufficiency/stenosis. There was mild mitral regurgitation. There was moderate to severe tricuspid regurgitation. There was trivial pulmonary valve insufficiency. IVC with dilated. Right ventricular systolic pressure was assessed at 43 mm Hg. Cardiac Cath revealed: No angiographic evidence for epicardial coronary artery disease (normal coronaries). LVEF of 40%. Nonischemic cardiomyopathy She patient is a 43-year-old female who presented with 1 day of fever. Was recently diagnosed with pneumonia and had been on antibiotics. Presentation questions sepsis/pneumonia. Her presentation also includes palpitation for years which increased in few weeks prior to presentation. Is found to have atrial fibrillation with RVR. Her history also includes few weeks of orthopnea/PND/leg swellings (for weeks) which questions acute heart failure. Does have increased BNP in favor of acute heart failure. Troponin has been mildly elevated but running flat which is in favor of possible demand ischemia. Never had ischemic workup before this presentation. Presentation was not in favor of acute coronary syndrome. She is found to have multiorgan involvement (ascites, proteinuria, pneumonia). Does have previous history of hyperthyroidism which could have contributed to the clinical picture also. Echo revealed systolic heart failure. Is found to have active significant hyperthyroidism which could be the primary etiology for a-fib and also acute heart failure also. Being followed by Pulmonary (s/p thoracentesis). Is seen and evaluated by Nephrology for proteinuria. Was found to have abnormal LFT/ascites and is evaluated by GI. Cardiac cath performed and ruled out coronary disease. Dx is non-ischemic cardiomyopathy, possibly related to hyperthyroidism/tachyarrhythmia. Was found to have pneumothorax (possibly secondary to previous thoracentesis). s/p chest tube insertion by Pulmonary. Nephrology is contemplating kidney biopsy/Lupus Nephritis? Fever Sepsis Pneumonia Atrial fibrillation with RVR Abnormal troponin Increased BNP Acute heart failure, systolic Ascites Proteinuria Noncompliance to medication and followups Hyperthyroidism Pleural effusion s/p right thoracentesis by Pulmonary Abnormal LFT Pneumothorax s/p chest tube by pulmonary Non-ischemic Cardiomyopathy Lupus Nephritis (as per Nephrology) Cardiac suggestion for management: Manage in telemetry IV diuresis is suggested Follow-up electrolytes and kidney function tests and correct abnormalities. Keep potassium above 4 and magnesium above 2 Magnesium supplementation Full anticoagulation for now on Lovenox (after biopsy, 'as per Nephrology to go for Kidney biopsy', and after stabilization: to change to oral anticoagulation: for example Eliquis). On Methimazole. On Propranolol. GDMT for systolic heart failure, non-ischemic CMP Sepsis workup and antibiotic therapy as per primary team Pulmonary follow up Nephrology follow up Endocrinology evaluation for Hyperthyroidism Further evaluation and management depends on the above and clinical course A total of 55 minutes was spent reviewing the patient record, examining the patient, making a diagnostic and therapeutic plan, discussing this plan with medical personnel, following up on diagnostic studies and following the patient for clinical stability excluding any and all procedures. At least 50% of this time was spent in direct, [id number] contact. Thank you for allowing me to participate in this patient's care. Further recommendations will depend on patient's clinical course. Please do not hesitate to contact me if you have any questions or concerns. This medical document was created using electronic medical record system with [employer] computerized dictation system. Although this document has been carefully reviewed, there may still be some phonetic and typographical errors. These areas are purely typographical due to the imperfection of the software programs, and do not reflect any compromise in the patient's medical care. Dietary Evaluation Review Comments: Follow current diet, monitor intake to meet 75% needs Expected Outcomes/Goals: gradual weight loss. Plan discussed with: Patient (Patient and Primary RN ) MO LOMAS Mar 18, 2024 05:01
[2024-03-18] MEDS ORDERED: METH-552 PO (08:07)
[2024-03-18] MEDS ORDERED: SPIR25TA PO (08:07)
[2024-03-18] MEDS ORDERED: FURO40TA4 PO (08:07)
[2024-03-18] MEDS ORDERED: PROP40TA6 PO (08:07)
[2024-03-18] MEDS ORDERED: SACU1TAB PO (08:07)
[2024-03-18 08:10] VITALS: PULSE 65
[2024-03-18] MEDS ORDERED: PANT40T PO (08:12)
[2024-03-18] MEDS ORDERED: APIX5TAB PO (08:12)
[2024-03-18 09:00] VITALS: BP 122/83; PULSE 69; RESP 16; TEMP 97.8; O2SAT 97
[2024-03-18] MEDS: FUROSEMIDE 40 MG TAB PO SCH (10:01)
--- NOTE | 2024-03-18 10:26 | DVHDS2 ---
Discharge Summary Date of Admission Mar 05, 2024 at 21:37 Date of Discharge: Mar 18, 2024 Labs/Diagnostic Data: Laboratory Results Test 03/18/24 10:12 03/15/24 06:03 03/11/24 15:23 03/10/24 05:47 White Blood Count 4.4 10^3/uL (4.4-10.8) Red Blood Count 6.41 10^6/uL (4.0-5.20) Hemoglobin 17.4 g/dL (12.2-16.2) Hematocrit 53.1 % (36.0-46.0) Mean Corpuscular Volume 82.9 fL (80.0-100.0) Mean Corpuscular Hemoglobin 27.2 pg (28.0-32.0) Mean Corpuscular Hemoglobin Concent 32.8 g/dL (32.0-36.0) Red Cell Distribution Width 18.2 % (11.8-14.3) Platelet Count 100 10^3/uL (140-450) Mean Platelet Volume 9.5 fL (6.9-10.8) Neutrophils (%) (Auto) 63.8 % (37.0-80.0) Lymphocytes (%) (Auto) 15.0 % (10.0-50.0) Monocytes (%) (Auto) 18.3 % (0.0-12.0) Eosinophils (%) (Auto) 2.4 % (0.0-7.0) Basophils (%) (Auto) 0.5 % (0.0-2.0) Neutrophils # (Auto) 2.8 10 ^3/uL (1.6-8.6) Lymphocytes # (Auto) 0.7 10 ^3/uL (0.4-5.4) Monocytes # (Auto) 0.8 10 ^3/uL (0-1.3) Eosinophils # (Auto) 0.1 10 ^3/uL (0-0.8) Basophils # (Auto) 0 10 ^3/uL (0-0.2) Nucleated Red Blood Cells 1.1 % Magnesium Level 1.6 mg/dL (1.6-2.6) Differential Total Cells Counted 100.0 (100) Neutrophils % (Manual) 51 (37.0-80.0) Band Neutrophils % (Manual) 5 Lymphocytes % (Manual) 35 (10.0-50.0) Monocytes % (Manual) 9 (0-12) Eosinophils % (Manual) 0 (0-7) Basophils % (Manual) 0 (0.0-2.0) Metamyelocytes % (manual) 0 Myelocytes % (Manual) 0 Promyelocytes % (Manual) 0 Blast Cells % (Manual) 0 Reactive Lymphocytes 0 Platelet Estimate Decreased Direct Bilirubin 1.6 mg/dL (<0.3) Test 03/08/24 17:05 03/08/24 05:35 03/08/24 05:25 03/07/24 16:11 Urine Color Dark-yellow (Yellow) Urine Clarity Turbid (Clear) Urine pH 5.5 (5.0-9.0) Urine Specific [place] 1.023 (1.001-1.035) Urine Protein 1+ (Negative) Urine Ketones Negative (Negative) Urine Blood 1+ /uL (Negative) Urine Nitrite Negative (Negative) Urine Bilirubin 1+ (Negative) Urine Urobilinogen Normal mg/dL (Negative) Urine Leukocyte Esterase Negative /uL (Negative) Urine RBC 2 /hpf (0 - 4) Urine WBC 4 /hpf (0 - 5) Urine Squamous Epithelial Cells Mod /hpf (<5) Urine Amorphous Crystals Few /hpf (None Seen) Urine Bacteria Few /hpf (None Seen) Urine Hyaline Casts Few /lpf (0 - 2) Urine Granular Casts Few /lpf (0) Urine Mucus Few (None Seen) Urine Creatinine 219.01 mg/dL (30.0-125.0) Urine Protein/Creatinine Ratio 0.40 Urine Sodium < 10 mmol/L (40-220) Urine Glucose Normal mg/dL (Normal) Urine Total Protein 87.9 mg/dL (1-14) Hepatitis C Antibody Negative (Negative) Ferritin 232.5 ng/mL (10-291) Anti-Nuclear Antibody Screen Positive (Negative) Hepatitis B Surface Antigen Negative (Negative) Vitamin D 25-Hydroxy 11.3 ng/mL (30.0-100) Complement C3 53 mg/dL (82-167) Complement C4 9 mg/dL (12-38) Rapid Plasma Reagin Non reactive (Non Reactive) HIV (1&2) Antibody Negative (Negative) Test 03/07/24 11:30 03/07/24 05:32 03/06/24 11:11 03/06/24 05:21 Body Fluid Source Pleural fluid Body Fluid pH 8.0 Body Fluid WBC (Manual) 672 CUMM (0-200) Body Fluid RBC (Manual) 825 CUMM (0-2000) Body Fluid Mononuclear Cells 95 % Body Fluid Polymorphonuclear Cells 5 % (0-25) Body Fluid Glucose 114 mg/dL (.) Body Fluid Total Protein 2.9 g/dL (.) Body Fluid Lactate Dehydrogenase 101 IU/L (.) Prothrombin Time 14.0 sec (9.3-11.8) Prothrombin Time INR 1.35 (0.9-1.15) Hemoglobin A1c 5.8 % A1C (<5.7) Uric Acid 6.7 mg/dL (3.1-7.8) Phosphorus Level 4.1 mg/dL (2.4-5.1) Parathyroid Hormone (Intact) 212.8 pg/mL (18.4-80.1) Thyroxine (T4) 15.3 ug/dL (4.5-12.0) Anti-Nuclear Antibody Comment Comment (.) JAYMIE-1 Antibody <0.2 AI (0.0-0.9) SS-A/Ro Antibody <0.2 AI (0.0-0.9) SS-B/La Antibody <0.2 AI (0.0-0.9) Sm Antibody <0.2 AI (0.0-0.9) SINGLE SPINDLE SCREW MACHINE OPERATOR Antibody 6.2 AI (0.0-0.9) Scl-70 (Scleroderma) Antibody <0.2 AI (0.0-0.9) Anti-Double Strand DNA Antibody 1 IU/mL (0-9) Chromatin Antibody 4.2 AI (0.0-0.9) Centromere B Antibody <0.2 AI (0.0-0.9) Hepatitis B Surface Antibody Negative (Negative) Erythrocyte Sedimentation Rate 5 mm/hr (0-20) Lactic Acid Level 1.8 mmol/L (0.4-2.0) C-Reactive Protein High Sensitivity 0.15 mg/dL (<1.0) Thyroid Stimulating Hormone (TSH) 0.01 uIU/mL (0.55-4.78) Free Thyroxine (T4) Calculated 2.58 ng/dL (0.89-1.76) Free Triiodothyronine (T3) pg/mL 5.13 pg/mL (2.3-4.2) Total Triiodothyronine (TT3) 1.36 ng/mL (0.60-1.81) Test 03/05/24 22:56 03/05/24 22:13 03/05/24 18:36 03/05/24 17:30 Influenza Type A Antigen Negative (Negative) Influenza Type B Antigen Negative (Negative) SARS-CoV-2 Antigen (Rapid) Negative (NEGATIVE) Troponin I High Sensitivity 214 ng/L (</=34) B-Type Natriuretic Peptide 610.28 pg/mL (0-100) Beta HCG, Quantitative 2.7 mIU/mL (1.5-4.2) Urine Opiates Screen Neg (NEGATIVE) Urine Fentanyl Screen Neg (NEGATIVE) Urine Barbiturates Screen Neg (NEGATIVE) Urine Phencyclidine Screen Neg (NEGATIVE) Urine Amphetamines Screen Neg (NEGATIVE) Urine Benzodiazepines Screen Neg (NEGATIVE) Urine Cocaine Screen Neg (NEGATIVE) Urine Cannabinoids Screen Neg (NEGATIVE) Other Laboratory Tests 03/15/24 06:03 Brief Hx & Hospital Course: Patient is a poor historian. Patient is a 43-year-old female who presents to the emergency room for evaluation shortness of breath. Patient states that she went to the urgent care on and was prescribed prednisone and azithromycin and inhaler. Patient states that there has been no significant improvement with this treatment plan. Patient return to the emergency room this morning and had a fever of 100.2. Patient states that they did a chest x-ray on and mentioned that she may have some right-sided pneumonia. Patient upon further evaluation was found to have some distention in her abdomen. Patient denies any history of cancer or bleeding, denies any abdominal pain, states she is having some mild productive cough with clear phlegm. While in the emergency department the patient was evaluated by the provider, As per provider: Labs, vital signs, and imagining monitored. Patient was admitted on March 05, 2024, for shortness of breath related to acute systolic CHF. Patient was found to have a pleural effusion and ascites. She was seen by cardiology, and an echocardiogram was performed. Pulmonary consulted, and the patient underwent thoracentesis, with 900 mL of fluid removed. An angiogram showed non-ischemic cardiomyopathy, and the patient was started on Entresto and Lasix and Aldactone. During the stay, the patient developed AFib with RVR and was placed on Eliquis. Hyperthyroidism was diagnosed, and she was started on methimazole and propranolol. 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 GI was consulted for elevated liver enzymes and bilirubin, which were attributed to autoimmune disease. The patient experienced a pneumothorax following thoracentesis, requiring chest tube placement. The chest tube was removed after stabilization. She was cleared for discharge by pulmonary and cardiology. The patient will follow up with rheumatology, cardiology, and pulmonary as an outpatient and see her PCP within one week. All new medications and prescriptions were sent to her pharmacy. The patient received proper medical treatment and medications. Vital signs, Imaging and Laboratory Work was monitored. All consults recommendations were followed as provided. There were no complaints or new complaints upon discharge, all questions and concerns were answered. Patient was advised to return to the ER or call 911 if any headaches, dizziness, shortness of breath, chest pain, bleeding, fevers, or worsening of medical condition. Patient/Family was counseled about treatment plan, medications, possible side effects, patientverbalized understanding. All questions were answered to the best of my ability. The patient symptoms improved and they are okay to be DC. Condition at Discharge: Good Final Diagnosis/Problems List Sepsis Right-sided pneumonia, most likely gram-negative and some gram-positive Right pleural effusion Ascites Elevated bilirubin Atrial fibrillation with RVR Elevated troponin, most likely demand ischemia Hyperthyroidism Atrial fibrillation with RVR Discharge Disposition: Home Discharge Instruct/Medications Diet: Cardiac 2g Na,low cholest, See Comment Diet comment: Low salt 2gm with 1500-2000ml fluid restriction in 24 hrs Activity: No Restrictions, As Tolerated Follow Up/Referral: PCP 1 week Cardiology Rheumatology for autoimmune work up Medications: 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 Patient was counseled about treatment plan, medications, possible side effects, patientverbalized understanding. All questions were answered to the best of my ability. This discharge took greater then 30 minutes in planning, reviewing documentation, counseling the patient, and discussing with other team members." ASSESSMENT ASSESSMENT Assessment CHF-systolic Hyperthyroidism Pleural effusion, s/p thoracentesis with complication of pneumothorax. s/p chest tube removal Atrial fibrillation Proteinuria-Lupus Nephritis- needs further work up outpt with outpatient kidney biopsy ISIDORO DELANEY NP Mar 18, 2024 10:26
--- NOTE | 2024-03-18 10:49 | DVH ---
CLINICAL INFORMATION: 43 years old, Female; interval changes in right apical pneumothorax.. TECHNIQUE: Single AP portable chest radiograph was obtained. COMPARISON: XY CHEST XRAY 1 VIEW on DOS: 03/17/24, XY CHEST PORTABLE on DOS: 03/16/24, XY CHEST XRAY 1 VIEW on DOS: 03/15/24 FINDINGS: Stable small right apical pneumothorax. Mild atelectasis in the lung bases. Similar-appearing mild el evation of the right hemidiaphragm. No other significant interval change. IMPRESSION: Stable small right apical pneumothorax. No other significant interval change.
[2024-03-18 12:47] VITALS: BP 103/71; PULSE 71; RESP 16; TEMP 97.4; O2SAT 97
--- NOTE | 2024-03-18 13:56 | DVHPN2 ---
Progress Note - Dictate Date Seen: Mar 18, 2024 Medical Necessity Reason Pt with a Central, PICC or Fol: No Subjective Patient is resting comfortably No new complaints Feels better Chest tube was removed yesterday and chest x-ray was normal Cardiac catheterization showed normal coronaries Ejection fraction is 40% Bilirubin is slightly elevated to 2.7 and liver enzymes are also trending down; repeat CMP canceled today Liver imaging is normal, hepatitis panel, PERRY, ferritin are all normal, PT INR is normal vital signs Vital Sign Date Time Temp Pulse Resp B/P (MAP) Pulse Ox O2 Delivery O2 Flow Rate FiO2 03/18/24 12:47 97.4 71 16 103/71 (82) 97 97.4 03/17/24 19:45 Room Air* 0 21 Total Intake and Output 03/17/24 03/17/24 03/18/24 15:00 23:00 07:00 Intake Total 680 ml 800 ml 800 ml Output Total 1600 ml Balance 680 ml -800 ml 800 ml medications Current Medications Medications Dose Ordered Sig/Kalli Route Start Time Stop Time Status Last Admin Dose Admin Ondansetron HCl 4 mg Q4HP PRN IV 03/05/24 21:45 03/14/24 14:16 4 MG Docusate Sodium 100 mg BIDPRN PRN PO 03/05/24 21:45 03/11/24 14:12 100 MG Acetaminophen 650 mg Q6HP PRN PO 03/05/24 21:45 03/13/24 19:19 650 MG Pantoprazole Sodium 40 mg DAILY IV 03/06/24 10:00 03/18/24 10:01 40 MG Nitroglycerin 0.4 mg Q5MINP PRN SL 03/05/24 21:45 Albuterol 2.5 mg Q4HP PRN NEB 03/05/24 21:45 Cancel Diphenhydramine HCl 25 mg Q6HR PRN IV 03/05/24 23:00 Methimazole 10 mg Q8HR PO 03/07/24 14:00 03/18/24 05:10 10 MG Guaifenesin 200 mg Q4HP PRN PO 03/07/24 12:30 03/16/24 17:39 200 MG Ergocalciferol 50,000 unit Q7D PO 03/08/24 15:00 03/15/24 14:34 50,000 UNIT Sacubitril/ Valsartan 1 tab BID PO 03/09/24 22:00 03/18/24 10:00 1 TAB Spironolactone 12.5 mg DAILY PO 03/10/24 10:00 03/18/24 10:00 12.5 MG Propranolol HCl 40 mg BID PO 03/12/24 09:45 03/18/24 10:00 40 MG Acetaminophen/ Hydrocodone Bitart 1 tab Q4HPRN PRN PO 03/17/24 17:00 Furosemide 40 mg DAILY PO 03/18/24 10:00 03/18/24 10:01 40 MG objective General Appearance: alert, no distress HEENT: EOMI, PERRLA, normal external inspect of ears, no icterus, no nasal drainage Neck: no carotid bruit, no jugular venous distention (JVD), no lymphadenopathy Chest: normal thorax Respiratory: clear to auscultation, normal air movement Cardiovascular: regular rate and rhythm, no diastolic murmur, no jugular venous distention (JVD), no rub, no systolic murmur Abdominal: soft, no hepatomegaly, no mass, no splenomegaly, no tenderness Genitourinary: grossly normal external Musculoskeletal: no joint tenderness, no swelling Extremities: normal pulses, no calf tenderness, no clubbing, no cyanosis, no edema Skin: no bruising, no jaundice, no rash Neurological: alert, No focal deficit laboratory and microbiology Laboratory Tests 03/15/24 06:03 Test 03/15/24 06:03 Range/Units Serum Glucose 74 74-106 mg/dL CXR IMPRESSION: Stable small right apical pneumothorax. No other significant interval change. Problems(with codes): (1) Hyperthyroidism (2) Atrial fibrillation with RVR (3) Elevated bilirubin (4) Pulmonary vascular congestion (5) Pneumonia (6) Pleural effusion (7) Elevated liver enzymes Prognosis Plan Discharge planning is ongoing Patient will follow up in my office as an outpatient in 4-6 weeks so I can continue to monitor her labs and do any further liver workup Outpatient follow up with her PCP to monitor her hyperthyroidism Outpatient follow up with the hospital fellow for her congestive heart failure management; possible etiology of congestive heart failure could be related to her chronic hyperthyroidism Once again thank you for allowing me to participate in the care of this patient Dietary Evaluation Review Comments: Follow current diet, monitor intake to meet 75% needs Expected Outcomes/Goals: gradual weight loss. Plan discussed with: Patient MARINA GARCIA MD Mar 18, 2024 13:56
--- NOTE | 2024-03-18 21:04 | DVHPN2 ---
Progress Note - Dictate Date Seen: Mar 18, 2024 Medical Necessity Reason Pt with a Central, PICC or Fol: No Subjective Patient seen and examined at bedside. Breathing comfortably on room air Overnight events reviewed. vital signs Vital Sign Date Time Temp Pulse Resp B/P (MAP) Pulse Ox O2 Delivery O2 Flow Rate FiO2 03/18/24 12:47 97.4 71 16 103/71 (82) 97 97.4 03/18/24 08:10 Room Air* 0 21 Total Intake and Output 03/17/24 03/17/24 03/18/24 15:00 23:00 07:00 Intake Total 680 ml 800 ml 800 ml Output Total 1600 ml Balance 680 ml -800 ml 800 ml medications Current Medications Medications Dose Ordered Sig/Kalli Route Start Time Stop Time Status Last Admin Dose Admin Albuterol 2.5 mg Q4HP PRN NEB 03/05/24 21:45 Cancel objective Gen.: Patient lying in bed in no apparent distress. On room air. Head: Normocephalic, atraumatic. Eyes: EOMI/PERRLA. Ears: Normal hearing. Normal anatomy. Neck/trachea: Trachea midline, supple. Nose: Normal external anatomy. Mouth: Moist mucous membranes. Chest: Decreased air entry bilaterally. No wheezing or rhonchi. Cardiovascular: Positive S1, positive S2. Regular rate and rhythm. Abdomen: Positive bowel sounds in all 4 quadrants. Soft, non-tender, non- distended. : Deferred. Rectal: Deferred. Skin: Warm, dry. Intact. Extremities: 2+ radial pulses bilaterally. No lower extremity edema. Neuro: Awake, alert, oriented x3. No gross motor or sensory deficits. Cranial nerves II through XII intact. Gait not assessed. laboratory and microbiology Laboratory Tests 03/15/24 06:03 Test 03/15/24 06:03 Range/Units Serum Glucose 74 74-106 mg/dL Assessment/Plan Impression: Bilateral pleural effusions Atelectasis Pneumonia, likely gram negative Ascites Atrial fibrillation w/ RVR Hx of nicotine dependence Obesity BMI 32.8 Events: Breathing comfortably on room air. No respiratory distress. Supplemental oxygen PRN S/p chest tube removal. Chest x-ray with no acute interval changes in pneumothorax. Incentive spirometry Diurese w/ Lasix as tolerated Monitor renal function Monitor ins and outs Patient is stable for discharge from the pulmonary standpoint. F/u in Pulmonary Clinic in 2 to 3 weeks. S/p right chest tube placement on 03/09 for pneumothorax. CXR post procedure noted re-expansion of lung with chest tube in place S/p LHC, EF of 40%, findings of nonobstructive CAD Labs and imaging reviewed. Rest of plan as noted below. Plan: Supplemental oxygen PRN Titrate to keep O2 sats above 92%. Continue antibiotics Incentive spirometry Right chest tube - s/p removal. CXR demonstrates stable small right apical pneumothorax. Monitor renal function. Monitor electrolytes. Supplement as necessary. Monitor ins and outs. GI prophylaxis - Protonix DVT prophylaxis. Prognosis: Poor given patient's multiple co-morbidities. Rest of plan per hospitalist and other consultants. Thank you, Mary Wade NP, for allowing me to participate in this patient's care. Further recommendations will depend on the patient's clinical course. Please do not hesitate to contact me if you have any questions or concerns. This medical document was created using an electronic medical record system with [employer] computerized dictation system. Although these documentations are being carefully reviewed, there may still be some phonetic and typographical changes. The errors are purely typographical, due to imperfection on the software program, and do not reflect any compromise in the patient's medical care. Dietary Evaluation Review Comments: Follow current diet, monitor intake to meet 75% needs Expected Outcomes/Goals: gradual weight loss. Plan discussed with: Patient, Other (ADELE Martinez) DELIA HYLTON MD Mar 18, 2024 21:04
--- NOTE | 2024-03-21 13:10 | ECG ---
[facility] Test Date: 2024-03-10 Test Time: 12:35:59 Pat Name: LAURE GRAYSON Department: Respiratoy Room: 0217T A Gender: F Diabetes Trainer: [id number] : 1980 Requested By: ANAMARIA GROVES Order Number: [id number] Reading MD: Sunil Loza Measurements Intervals [place] Rate: 72 P: 0 OK: 0 QRS: 114 QRSD: 94 T: 246 QT: 431 QTc: 472 Interpretive Statements Atrial fibrillation Ventricular premature complex Left posterior fascicular block Probable anterior infarct, age indeterminate Nonspecific repolarization abnormalities Electronically Signed On 03-21-2024 18:27:44 PST by Sunil Loza Please click the below link to view image of tracing.
== END 2024-03-18 15:00 | disposition home or self-care (01) | DRG 871 ==
LOC: ER 17:13 → TELE 21:37 → TELE-CENTR 03-06 02:20
PROVIDERS: ADMIT Nurse Practitioner; ATTEND Nurse Practitioner
PROC: 0W993ZZ Drainage of Right Pleural Cavity, Percutaneous Approach (ICD-10-PCS; 2024-03-07)
PROC: 4A023N7 Measurement of Cardiac Sampling and Pressure, Left Heart, Percutaneous Approach (ICD-10-PCS; principal; 2024-03-09)
PROC: B211YZZ Fluoroscopy of Multiple Coronary Arteries using Other Contrast (ICD-10-PCS; 2024-03-09)
PROC: B215YZZ Fluoroscopy of Left Heart using Other Contrast (ICD-10-PCS; 2024-03-09)
PROC: 0W9930Z Drainage of Right Pleural Cavity with Drainage Device, Percutaneous Approach (ICD-10-PCS; 2024-03-09)
DX: A41.9 Sepsis, unspecified organism (principal); I21.4 Non-ST elevation (NSTEMI) myocardial infarction; J15.69 Pneumonia due to other Gram-negative bacteria; I50.23 Acute on chronic systolic (congestive) heart failure; J15.9 Unspecified bacterial pneumonia; R18.8 Other ascites; J98.11 Atelectasis; I42.8 Other cardiomyopathies; J91.8 Pleural effusion in other conditions classified elsewhere; J93.9 Pneumothorax, unspecified; I48.91 Unspecified atrial fibrillation; E87.6 Hypokalemia; E05.90 Thyrotoxicosis, unspecified without thyrotoxic crisis or storm; Z20.822 Contact with and (suspected) exposure to COVID-19; E66.9 Obesity, unspecified; E83.42 Hypomagnesemia; I07.1 Rheumatic tricuspid insufficiency; I11.0 Hypertensive heart disease with heart failure; Z91.148 Patient's other noncompliance with medication regimen for other reason; Z82.49 Family history of ischemic heart disease and other diseases of the circulatory system; Z88.6 Allergy status to analgesic agent; Z88.1 Allergy status to other antibiotic agents; Z87.891 Personal history of nicotine dependence; Z83.3 Family history of diabetes mellitus; Z91.199 Patient's noncompliance with other medical treatment and regimen due to unspecified reason; Z68.32 Body mass index [BMI] 32.0-32.9, adult; M32.14 Glomerular disease in systemic lupus erythematosus; R73.9 Hyperglycemia, unspecified; Z98.891 History of uterine scar from previous surgery
CPT/HCPCS: 32555; 32557; 36415; 71045; 71046; 71250; 74176; 76604; 76705; 80048; 80053; 80076; 80307; 81001; 82306; 82570; 82728; 83036; 83516; 83605; 83735; 83880; 83970; 83986; 84100; 84156; 84300; 84436; 84439; 84443; 84480; 84481; 84484; 84550; 84702; 85007; 85025; 85027; 85610; 85652; 86038; 86141; 86160; 86225; 86235; 86592; 86703; 86706; 86803; 87040; 87086; 87205; 87340; 87426; 87804; 89051; 93005; 93306; 93458; G0378; J2003; J2250; J2405; J2470; J2543; J3480; P9047; Q9967